=== PATIENT | female | born 1940 | race Caucasian/White ===

== ENCOUNTER 2019-01-24 13:20 | Inpatient (IN) | payer MEDICARE ==
[2019-01-24 14:00] LABS: Hematocrit 40 % (35-47); Hemoglobin 13.4 g/dl (12.0-16.0); Mean Corpuscular HGB Conc 34 g/dl (31-36); Mean Corpuscular Hemoglobin 29 pg (27-31); Mean Corpuscular Volume 87 fL (80-97); Red Blood Count 4.58 10^6/ul (4.00-5.40); Red Cell Distribution Width 15 % (10.5-15); White Blood Count 10.2 10^3/ul (3.5-10.8)
--- NOTE | 2019-01-24 14:00 | ED ---
Adult Trauma - HPI Summary HPI Summary: Pt is a 78 y/o female brought in by EMS who presents to the ED s/p fall. As per EMS, she has been non-compliant with her medications for the past month. She is prescribed Amlodipine, Eliquis, Metoprolol, and Metformin. Pts BG was found to be 595 and is mildly HTN. Her HR was found to be irregular, and her O2 sat was 95 on room air. Pt was found incontinent on her bathroom floor, and was pale and cold to the touch. She was on the floor overnight. Pt denies any fever, chills, erythema of eyes, sore throat, CP, SOB, cough, abdominal pain, N/V/D, dysuria, hematuria, myalgia, edema, rash, or dizziness. She denies any current pain. She is mildly confused and does not recall falling. Pt has not been checking her glucose. Pt lives alone. PMHx DM, HTN, CHF. - History of Current Complaint Stated Complaint: FALL Time Seen by Provider: 01/24/19 13:23 Hx Obtained From: Patient, EMS Mechanism of Injury: Fall Onset/Duration: Started Days Ago - last night, Resolved Current Severity: None Pain Intensity: 0 Pain Scale Used: 0-10 Numeric Aggravating Factor(s): Other - medication non-compliance Alleviating Factor(s): Nothing Associated Signs & Symptoms: Positive: Negative - Additional Pertinent History Primary Care Physician: [id number] - Allergy/Home Medications Allergies/Adverse Reactions: Allergies Allergy/AdvReac Type Severity Reaction Status Date / Time No Known Allergies Allergy Verified 01/24/19 13:27 Home Medications: Home Medications Acetaminop/Codeine 30 MG TAB* [Tylenol/Codeine 30 MG TAB*] 1 tab PO Q8H PRN 12/14 [History Confirmed 01/24/19] Allopurinol TAB* [Zyloprim 100 MG TAB*] 200 mg PO DAILY 01/24/19 [History Confirmed 01/24/19] Amitriptyline TAB* [Elavil TAB*] 100 mg PO BEDTIME 01/24/19 [History Confirmed 01/24/19] Amoxicillin/Clavulanate TAB* [Augmentin TAB 500 mg*] 500 mg PO BID 01/24/19 [ History Confirmed 01/24/19] Biotin 5,000 mcg SL DAILY 01/24/19 [History Confirmed 01/24/19] Calcium Carbonate/Vitamin D3 [Calcium 500 + Vit D Caplet] 1 tab PO DAILY [History Confirmed 01/24/19] DULoxetine DR CAP* [Cymbalta CAP*] 60 mg PO DAILY 01/24/19 [History Confirmed ] Dulaglutide (NF) [Trulicity (NF)] 1.5 mg SUBCUT WEEKLY 01/24/19 [History Confirmed 01/24/19] Furosemide TAB* [Lasix TAB*] 20 mg PO DAILY 01/24/19 [History Confirmed 01/24/19 ] Insulin Degludec [Tresiba Flextouch U-200] 96 units SUBCUT QPM 01/24/19 [ History Confirmed 01/24/19] Insulin REGULAR(*) 20 units SUBCUT AC 01/24/19 [History Confirmed 01/24/19] Levothyroxine TAB* [Synthroid TAB*] 25 mcg PO QAM 01/24/19 [History Confirmed ] Magnesium Oxide [Magnesium] 500 mg PO DAILY 01/24/19 [History Confirmed 01/24/19 ] [place]-3 Fatty Acids (Nf) [Fish Oil (NF)] 1,000 mg PO DAILY 01/24/19 [History Confirmed 01/24/19] Omeprazole CAP (NF) [Prilosec CAP* 20 MG] 20 mg PO DAILY 01/24/19 [History Confirmed 01/24/19] Rosuvastatin (NF) [Crestor (NF)] 10 mg PO DAILY 01/24/19 [History Confirmed 12/14] amLODIPine TAB* [Norvasc 5 mg TAB*] 5 mg PO DAILY 01/24/19 [History Confirmed ] metFORMIN* [Glucophage 500 MG TAB *] 500 mg PO BID 01/24/19 [History Confirmed 01/24/19] PMH/Surg Hx/FS Hx/Imm Hx Endocrine/Hematology History: Reports: Hx Diabetes, Hx Anemia Cardiovascular History: Reports: Hx Angina, Hx Cardiomegaly, Hx Congestive Heart Failure, Hx Hypertension, Other Cardiovascular Problems/Disorders - IDDM Denies: Hx Coronary Artery Disease, Hx Hypercholesterolemia, Hx Myocardial Infarction, Hx Pacemaker/ICD, Hx Valvular Heart Disease Respiratory History: Reports: Hx Asthma, Hx Sleep Apnea Denies: Hx Chronic Obstructive Pulmonary Disease (COPD) GI History: Reports: Hx Gastroesophageal Reflux Disease, Hx Gastrointestinal Bleed History: Denies: Hx Renal Disease Musculoskeletal History: Reports: Hx Back Problems - Spinal fusion, Hx Gout, Other Musculoskeletal History - spinal fusion Sensory History: Reports: Hx Cataracts, Hx Contacts or Glasses Denies: Hx Hearing Aid Opthamlomology History: Reports: Hx Cataracts, Hx Contacts or Glasses Neurological History: Reports: Other Neuro Impairments/Disorders - neuropathy Psychiatric History: Reports: Hx Anxiety, Hx Depression Denies: Hx Panic Disorder - Cancer History Cancer Type, Location and Year: BREAST Hx Chemotherapy: No Hx Radiation Therapy: No - Surgical History Surgery Procedure, Year, and Place: TOTAL HYSTERECTOMY/ORIF TOES/ANKLE INJURY/ BILATERAL KNEES INJURED/T&A/RT MASTECTOMY/BILATERAL CATARACT; LSP FUSION Hx Anesthesia Reactions: No - Immunization History Date of Tetanus Vaccine: Unknown Infectious Disease History: Yes Infectious Disease History: Denies: Traveled Outside the [place] in Last 30 Days - Family History Known Family History: Positive: Diabetes - Social History Alcohol Use: None Hx Substance Use: No Substance Use Type: Reports: None Hx Tobacco Use: Yes Smoking Status (MU): Former Smoker Type: Cigarettes Have You Smoked in the Last Year: No Review of Systems Negative: Fever, Chills Negative: Erythema Negative: Sore Throat Negative: Chest Pain Negative: Shortness Of Breath, Cough Negative: Abdominal Pain, Vomiting, Diarrhea, Nausea Positive: incontinence. Negative: dysuria, hematuria Negative: Myalgia, Edema Negative: Rash Neurological: Other - confusion, NEGATIVE: dizziness All Other Systems Reviewed And Are Negative: Yes Physical Exam - Summary Physical Exam Summary: Constitutional: Well-developed, Well-nourished, Alert. (-) Distressed, Malodorous smell of urine Skin: Warm, Dry HENT: Normocephalic; Atraumatic Eyes: Conjunctiva normal Neck: Musculoskeletal ROM normal neck. (-) JVD, (-) Stridor, (-) Tracheal deviation Cardio: Rhythm regular, rate normal, Heart sounds normal; Intact distal pulses; The pedal pulses are 2+ and symmetric. Radial pulses are 2+ and symmetric. (-) Murmur Pulmonary/Chest wall: Effort normal. (-) Respiratory distress, (-) Wheezes, (-) Rales Abd: Soft. (-) Tenderness, (-) Distension, (-) Guarding, (-) Rebound Musculoskeletal: (-) Edema Lymph: (-) Cervical adenopathy Neuro: Alert, Oriented x3, Strength normal, Cranial nerves II-XII are grossly intact. (-) Dysmetria, (-) Nystagmus, (-) Ataxia by finger to nose testing, (-) Sensory deficit. Psych: Mood and affect Normal Triage Information Reviewed: Yes Vital Signs On Initial Exam: Initial Vitals Temp Pulse Resp BP Pulse Ox 96.9 F 62 18 98 01/24/19 13:27 01/24/19 13:27 01/24/19 13:27 01/24/19 13:27 01/24/19 13:27 Vital Signs Reviewed: Yes - [place] Coma Scale Best Eye Response: 4 - Spontaneous Best Motor Response: 6 - Obeys Commands Best Verbal Response: 5 - Oriented Coma Scale Total: 15 Diagnostics - Vital Signs Vital Signs Temp Pulse Resp BP Pulse Ox 01/24/19 13:55 59 15 167/72 96 01/24/19 13:50 146/82 01/24/19 13:28 14 01/24/19 13:27 96.9 F 62 98 - Laboratory Result Diagrams: 01/24/19 13:48 01/24/19 13:48 Lab Statement: Any lab studies that have been ordered have been reviewed, and results considered in the medical decision making process. - Radiology CXR Radiology Interpretation Completed By: Radiologist Summary of Radiographic Findings: NO EVIDENCE FOR ACUTE DISEASE. ED physician reviewed radiology report. - CT Brain CT CT Interpretation Completed By: Radiologist Summary of CT Findings: NO ACUTE INTRACRANIAL PATHOLOGY. CHRONIC SMALL VESSEL ISCHEMIC CHANGES. ED physician reviewed radiology report. - EKG 13:46 Cardiac Rate: NL - 77 bpm EKG Rhythm: Sinus Rhythm Summary of EKG Findings: No STEMI Re-Evaluation - Re-Evaluation First Eval Re-Evaluation Time: 14:20 Change: Unchanged Comment: Pt is unsure if she had LOC. She does not recall the details of her fall. Adult Trauma Course/Dx - Course Course Of Treatment: Pt is a 78 y/o female brought in by EMS who presents to the ED s/p fall. She has been non-compliant with her medications for the past month and is prescribed Amlodipine, Eliquis, Metoprolol, and Metformin. Pts BG was found to be 595 and she was incontinent. She was on her bathroom floor overnight and is unsure if she had LOC. GCS of 15. A CXR, brain CT, and EKG were normal. There are no clinical signs of sepsis or rhabdomyolysis. Pt has been hemodynamically stable. Pt is admitted to Dr. Perez for a cardiac workup. Final dx of syncope, fall, uncontrolled diabetes, and medication non- compliance. She is agreeable with this plan. - Diagnoses Provider Diagnoses: Fall, Syncope, Uncontrolled diabetes mellitus, Non compliance w medication regimen - Physician Notifications Discussed Care Of Patient With: Abby Perez Time Discussed With Above Provider: 13:50 Instructed by Provider To: Admit As Inpatient Discharge - Sign-Out/Discharge Documenting (check all that apply): Patient Departure - Admit Patient Received Moderate/Deep Sedation with Procedure: No - Discharge Plan Condition: Stable Disposition: ADMITTED TO [facility] Referrals: Dameon Figueroa MD [Primary Care Provider] - - Attestation Statements Document Initiated by Scribe: Yes Documenting Scribe: Laura Huerta Provider For Whom Scribe is Documenting (Include Credential): Mark Sims MD Scribe Attestation: Laura Pate, scribed for Mark Sims MD on 01/24/19 at 1520. Status of Scribe Document: Ready
[2019-01-24 14:01] LABS: Mean Platelet Volume 10.9 fL (7.4-10.4); Platelet Count 77 10^3/ul (150-450)
[2019-01-24 14:18] LABS: Albumin 3.8 g/dL (3.2-5.2); Albumin/Globulin Ratio 1.3 (1-3); BUN/Creatinine Ratio 22.6 (8-20); C Reactive Protein 19.32 mg/L (<8.01); Calcium 9.9 mg/dL (8.6-10.3); EGFR African American 36.9 (>60); EGFR Non-African American 30.5 (>60); Globulin 2.9 g/dL (2-4); Potassium 4.3 mmol/L (3.5-5.0); Total Bilirubin 0.6 mg/dL (0.2-1.0); Total Protein 6.7 g/dL (6.4-8.9)
[2019-01-24] MEDS ORDERED: Insulin REGULAR(*) 1 UNITS UNIT SUBCUT ONE ×2 (14:22→14:37)
[2019-01-24 14:23] LABS: ABS Basophils 0 10^3/ul (0-0.2); ABS Eosinophils 0 10^3/ul (0-0.6); ABS Lymphocytes 0.8 10^3/ul (1.0-4.8); ABS Monocytes 0.4 10^3/ul (0-0.8); ABS Nucleated RBC 0 10^3/ul; Eosinophil % 0.3 %; Lymphocyte % 7.6 %; Nucleated Red Blood Cells % 0.1
[2019-01-24 14:49] LABS: Urine Appearance Cloudy; Urine Bacteria Absent (Absent); Urine Bilirubin Negative (Negative); Urine Blood 1+ (Negative); Urine Color Yellow; Urine Glucose 3+(>=500 mg/dL) (Negative); Urine Ketones Trace (Negative); Urine Nitrite Negative (Negative); Urine Protein 2+(100 mg/dL) (Negative); Urine Red Blood Cell 2+(6-10/hpf) (Absent); Urine Squamous Epithelial Cell Present (Absent); Urine Urobilinogen Negative (Negative); Urine White Blood Cell 2+(11-20/hpf) (Absent)
[2019-01-24] MEDS ORDERED: Insulin GLARGINE(*) 1 UNITS UNIT SUBCUT ONE (15:54)
[2019-01-24] MEDS ORDERED: NS 0.9% 1000 ML** 1,000 ML IV ONE ×2 (15:55→17:25)
[2019-01-24] MEDS ORDERED: Dextrose 50% Syringe 50 ML* 25 GM/50 ML SYRINGE IV PUSH PRN ×2 (15:56→17:25)
[2019-01-24] MEDS ORDERED: cefTRIAXone(*) 1 GM in NS 0.9% 50 ML* 50 ML IVPB SCH (16:13)
[2019-01-24] MEDS ORDERED: Acetaminophen TAB* 325 MG PO PRN (16:15)
[2019-01-24] MEDS ORDERED: Al Hydrox/Mg Hydrox/Simet LIQ* 30 ML UDC PO PRN (16:15)
[2019-01-24] MEDS ORDERED: cefTRIAXone(*) 1 GM ADVAN/BAG ONE (16:37)
[2019-01-24 16:59] LABS: TSH (Thyroid Stimulating Horm) 1.56 mcIU/mL (0.34-5.60)
[2019-01-24] MEDS ORDERED: amLODIPine TAB* 5 MG ONE (17:16)
[2019-01-24] MEDS: amLODIPine TAB* 5 MG PO SCH (17:19)
[2019-01-24] MEDS ORDERED: Insulin LISPRO* 1 UNITS UNIT SUBCUT ONE ×2 (17:25→17:30)
[2019-01-24] MEDS: Insulin LISPRO* 1 UNITS UNIT SUBCUT SCH ×2 (17:34→21:52)
[2019-01-24] MEDS: NS 0.9% 1000 ML** 1,000 ML IV SCH (19:35)
[2019-01-24] MEDS: Amitriptyline TAB* 100 MG PO SCH (21:52)
[2019-01-24] MEDS: Apixaban* 5 MG TAB PO SCH (21:53)
--- NOTE | 2019-01-25 00:54 | HP ---
CC: Dr. Merrill * HISTORY AND PHYSICAL: DATE OF ADMISSION: 01/24/19 PRIMARY CARE PROVIDER: Dr. Merrill. CHIEF COMPLAINT: Status post fall. HISTORY OF PRESENT ILLNESS: Brianda Treviño is a 78-year-old female with history of obesity; pulmonary embolism, on Eliquis; diabetes; chronic kidney disease, who stated that approximately a month ago, she has had enough of taking her medications. She stated that she is taking daily 20 different medications and she decided to stop it all. She stopped her insulin also. She also stated that she has had meals on wheels for the past several weeks, but she also stopped that because it was too expensive and she could cook herself. She lives in an apartment building where there are 40 apartments. Occasionally, her friend takes her to be able to grocery shop. The patient stated that her memory has been poor in the past 1 month and she is not sure what happened yesterday. She stated that she last had fallen yesterday, but once again, she is not sure of the time and the circumstances. Nevertheless, she was found today by the ambulance crew lying on the bathroom floor. She does not remember how long she had been lying on the floor. She does not remember if she lost consciousness or what happened. She has a bruise on her left shoulder, but otherwise she does not complain of any acute pain. Her glucose level is over 400. She appears markedly dehydrated. She is going to be admitted with diagnoses of dehydration, uncontrolled diabetes, status post fall, and likely UTI. PAST MEDICAL HISTORY: 1. Diabetes mellitus with neuropathy. 2. Hypertension. 3. History of COPD, not on oxygen. 4. History of breast cancer. 5. History of DVT of right lower extremity. 6. History of anemia. 7. Gout. 8. Depression. 9. Chronic kidney disease, stage 3. 10. History of pulmonary embolism. 11. Hypothyroidism. 12. History of mastectomy on the right. 13. Hysterectomy. 14. History of bilateral knee and chronic foot surgery status post history of chronic nonhealing ulcer under left metatarsal area. 15. History of ESBL E. coli UTI. 16. History of elevated alkaline phosphatase, isoenzyme elevation in the past. MEDICATIONS: The patient was supposed to take and she discontinued them a month ago include: 1. Senna 2 tablets at bedtime p.r.n. 2. Crestor 10 mg daily. 3. Omeprazole 20 mg daily. 4. [place]-3 fatty acids at 1000 mg daily. 5. Metformin 500 mg b.i.d. 6. Magnesium oxide 500 mg daily. 7. Levothyroxine 25 mcg daily. 8. Insulin regular 20 units with every meal. 9. Insulin degludec q.p.m. 10. Furosemide 20 mg daily. 11. Apixaban 5 mg b.i.d. 12. Trulicity 1.5 mg subcutaneously weekly. 13. Duloxetine 60 mg daily. 14. Phenylephrine with Codeine on a p.r.n. basis. 15. Calcium with vitamin D 1 capsule daily. 16. Biotin 5000 mcg sublingually daily. 17. Atenolol 50 mg daily. 18. Aspirin 81 mg daily. 19.Allopurinol 100 mg daily. 20. Amlodipine 5 mg daily. 21. Amitriptyline 100 mg at bedtime. ALLERGIES: No known drug allergies. FAMILY HISTORY: Positive for history of heart disease in the mother and father and brother. Father had lung cancer. SOCIAL HISTORY: The patient has history of smoking, quit approximately 26 years ago and has history of 1 pack a day smoking during that time. She denies any alcohol or drug use. She is retired. Her son, Bar, is her surrogate and healthcare proxy. REVIEW OF SYSTEMS: The patient states that she does not remember what really happened. She is not a good historian. She stated that she was drinking "gallons and gallons of water." She is questioning why she should be dehydrated if she is drinking so much. She denies any urinary systems. She stated that occasionally she would have abdominal pain that would go from the lower abdomen to the left upper quadrant. Her appetite had been good, but she does not remember when she ate last. All the remaining 12 systems were reviewed with the patient, who was a very poor historian, and were otherwise negative. PHYSICAL EXAMINATION GENERAL: The patient is a pleasant 78-year-old female, who is in no acute distress. The patient is alert and oriented x3, but otherwise very poor historian. The patient is pleasant, cooperative with evaluation. VITAL SIGNS: Blood pressure 167/72, heart rate of 60 and regular, respiratory rate 15, oxygen saturation 96% on room air, temperature 96.9. HEENT: Head: Atraumatic, normocephalic. Eyes: Pupils are equal, reactive to light and accommodation. Oropharynx is clear. Mucosa very dry. NECK: Supple. No JVD. No bruits bilaterally. RESPIRATORY: Clear to auscultation bilaterally. CARDIOVASCULAR: Regular rate and rhythm. No murmur. ABDOMEN: Soft, nontender. Bowel sounds are present in all 4 quadrants. EXTREMITIES: There is no edema. Pulse are 2+ bilaterally. There is no clubbing or cyanosis. There are venous stasis changes in distal bilateral lower extremities with chronic erythema noted but no infection. NEURO: Speech is clear. Cranial nerves II through XII are grossly intact. Motor strength is 5/5 bilaterally. PSYCHIATRIC: The patient is oriented x3. Pleasant, cooperative with evaluation with poor recall with no evidence of depression or anxiety. SKIN: On evaluation of the skin, apart from the venous stasis changes in the bilateral lower extremities, the patient has bruise/contusion noted on the left shoulder approximately 5 cm in diameter. DIAGNOSTIC STUDIES/LAB DATA: Showed white blood cell count of 10.2, hemoglobin of 13.4, hematocrit of 40, and platelets of 77 which appears to be chronic in this patient. Sodium 136, potassium 4.3, chloride 100, carbon dioxide 28, BUN 37, creatinine 1.64 which is slightly worse than prior. Glucose level was 426. Alkaline phosphatase level was 389, AST and ALT were 19 and 20 respectively. Total CPK of 268. C-reactive protein of 19. TSH is pending. Urinalysis positive +2 protein, trace blood, positive for nitrite, positive for esterase, positive for wbc's, rbc's, and absent for bacteria. Brain CT, impression: No acute intracranial pathology. Portable chest x-ray, impression: "No evidence of acute disease." The patient's EKG showed normal sinus rhythm with heart rate of 77 beats per minute with nonspecific ST changes. Comparing with an EKG from 2016 in July, the changes are similar. ASSESSMENT AND PLAN: 1. The patient is markedly dehydrated, likely due to uncontrolled diabetes for the past month when she stopped her medications. She is being placed on intravenous hydration and we will restart her diabetic treatment with insulin sliding scale with Lantus, initially at 40 units a day. The patient also had been on metformin and that likely will be restarted, although her creatinine is borderline for that. 2. Chronic kidney disease, stage 3. The patient's creatinine is slightly worse , likely due to dehydration. Intravenous fluids are going to be started. 3. The patient has abnormal urinalysis, although she is not symptomatic of urinary tract infection. It is possible that she has one. The patient is going to be placed empirically on ceftriaxone. I am aware that she has history of ESBL Escherichia coli, but at this point, she is not toxic appearing that would warrant specific/more aggressive treatment. 4. In regards to her hypertension, Norvasc is going to be restarted. 5. In regards to the patient's hypothyroidism, TSH is pending. I suspect her TSH is elevated due to the patient stopping her medications a month ago. I will restart her Synthroid at 25 mcg which she had taken in the past. 6. For her history of fall, the patient is going will undergo Physical Therapy and Occupational Therapy evaluation. 7. The patient's code status is full. Her surrogate is her son, Bar. 8. In accordance with the patient's wishes, I looked at patient's medication list and discontinued medications that she has not been taking for a month and she may not need those include rosuvastatin, omega-3 fatty acids, magnesium oxide, furosemide, Trulicity, Cymbalta, and allopurinol. TIME SPENT: Approximately 65 minutes was spent on admission of this patient; more than half that time was spent [id number] with the patient during the interview and physical exam. [id number]/[facility] #: [id number] MTDD
[2019-01-25] MEDS: NS 0.9% 1000 ML** 1,000 ML IV SCH (03:16)
[2019-01-25] MEDS: Levothyroxine TAB* 25 MCG TAB PO SCH (06:07)
[2019-01-25 08:28] LABS: ABS Basophils 0 10^3/ul (0-0.2); ABS Eosinophils 0.2 10^3/ul (0-0.6); ABS Lymphocytes 1.4 10^3/ul (1.0-4.8); ABS Monocytes 0.3 10^3/ul (0-0.8); ABS Neutrophils 4.7 10^3/ul (1.5-7.7); ABS Nucleated RBC 0 10^3/ul; Eosinophil % 2.4 %; Hematocrit 33 % (35-47); Hemoglobin 11.2 g/dl (12.0-16.0); Lymphocyte % 21.3 %; Mean Corpuscular HGB Conc 33 g/dl (31-36); Mean Corpuscular Hemoglobin 30 pg (27-31); Mean Corpuscular Volume 88 fL (80-97); Mean Platelet Volume 10.8 fL (7.4-10.4); Nucleated Red Blood Cells % 0.2; Platelet Count 75 10^3/ul (150-450); Red Blood Count 3.79 10^6/ul (4.00-5.40); Red Cell Distribution Width 15 % (10.5-15); White Blood Count 6.6 10^3/ul (3.5-10.8)
[2019-01-25 08:41] LABS: BUN/Creatinine Ratio 22.7 (8-20); Calcium 8.5 mg/dL (8.6-10.3); EGFR African American 43.9 (>60); EGFR Non-African American 36.3 (>60); Potassium 3.7 mmol/L (3.5-5.0)
[2019-01-25] MEDS: Apixaban* 5 MG TAB PO SCH ×2 (10:44→20:14)
[2019-01-25] MEDS: amLODIPine TAB* 5 MG PO SCH (10:44)
[2019-01-25] MEDS: Insulin LISPRO* 1 UNITS UNIT SUBCUT SCH ×4 (10:45→20:15)
[2019-01-25] MEDS: Aspirin 81 mg CHEW TAB* 81 MG TAB.CHEW PO SCH (10:45)
[2019-01-25] MEDS: Atenolol TAB* 50 MG PO SCH (10:45)
--- NOTE | 2019-01-25 11:42 | PN ---
Subjective Date of Service: 01/25/19 Interval History: Ms. Treviño is a 78 yo female, admitted yesterday after sustaining a fall. She was noted to be dehydrated and had concern for UTI. She had also stopped taking her medications. When this was discussed with her, she states, "I noticed all the other kids didn't have pills and I did, and I thought why should I keep taking them when others don't have any?" When asked about how she obtains food, she is vague but states she lives with many family members who help provide meals. She nods off several times during the course of our conversation. Conversation is somewhat tangential and nonsensical. She does deny any acute pain or concerns currently. I spoke with her son, Bar Stinson, who confirmed that much of what she told me was untrue and states that she has a history of confusion when she has a UTI. He states she has mostly been at her baseline and AO but did notice some confusion a week ago; she told him she didn't sleep well. Family History: Unchanged from Admission Social History: Unchanged from Admission Past Medical History: Unchanged from Admission Objective Active Medications: Acetaminophen (Tylenol Tab*) 650 mg PO Q4H PRN PRN Reason: FEVER/PAIN Al Hydrox/Mg Hydrox/Simethicone (Maalox Plus*) 30 ml PO Q6H PRN PRN Reason: INDIGESTION Amitriptyline HCl (Elavil Tab*) 100 mg PO BEDTIME [facility] Last Admin: 01/24/19 21:52 Dose: 100 mg Amlodipine Besylate (Norvasc Tab*) 5 mg PO DAILY [facility] Last Admin: 01/25/19 10:44 Dose: 5 mg Apixaban (Eliquis*) 5 mg PO BID [facility] Last Admin: 01/25/19 10:44 Dose: 5 mg Aspirin (Aspirin 81 Mg Chew Tab*) 81 mg PO DAILY [facility] Last Admin: 01/25/19 10:45 Dose: 81 mg Atenolol (Tenormin Tab*) 50 mg PO DAILY [facility] Last Admin: 01/25/19 10:45 Dose: 50 mg Dextrose (D50w Syringe 50 Ml*) 12.5 gm IV PUSH .FOR FS < 60 - SS PRN PRN Reason: FS < 60 Sodium Chloride (Ns 0.9% 1000 Ml) 1,000 mls @ 150 mls/hr IV PER RATE [facility] Stop: 01/25/19 22:39 Last Admin: 01/25/19 03:16 Dose: 150 mls/hr Ceftriaxone Sodium 1 gm/ (Sodium Chloride) 50 mls @ 200 mls/hr IVPB 1630 [facility] Insulin Glargine (Lantus(*)) 40 units SUBCUT Q24H [facility] Insulin Human Lispro (Humalog*) 0 units SUBCUT ACHS [facility]; Protocol Last Admin: 01/25/19 10:45 Dose: 2 unit Levothyroxine Sodium (Synthroid Tab*) 25 mcg PO QAM@0600 [facility] Last Admin: 01/25/19 06:07 Dose: 25 mcg Magnesium Hydroxide (Milk Of Magnesia Liq*) 30 ml PO Q4H PRN PRN Reason: CONSTIPATION Senna (Senokot Tab*) 2 tab PO BEDTIME PRN PRN Reason: CONSTIPATION Oxygen Devices in Use Now: None Appearance: Pleasant, older female, lying in bed, NAD Eyes: No Scleral Icterus, PERRLA Ears/Nose/Mouth/Throat: Clear Oropharnyx, Mucous Membranes Moist Neck: NL Appearance and Movements; NL JVP Respiratory: Symmetrical Chest Expansion and Respiratory Effort, Clear to Auscultation Cardiovascular: NL Sounds; No Murmurs; No JVD, RRR Abdominal: NL Sounds; No Tenderness; No Distention Extremities: No Edema, No Clubbing, Cyanosis, - - DP 2+ BLE Skin: - - chronic venous changes to BLE with dry skin, but no evidence of infection/erythema/warmth, tenderness. Neurological: - - Alert, oriented to self. States at first she is at home, is confused to time/place/situation Lines/Tubes/Other Access: Clean, Dry and Intact Peripheral IV Nutrition: Taking PO's Result Diagrams: 01/25/19 08:13 01/25/19 08:13 Microbiology and Other Data: Microbiology 01/24/19 14:13 Urine Culture - Final Urine Assess/Plan/Problems-Billing Assessment: Ms. Treviño is a 78 yo female with a complex PMH that includes DM2 with neuropathy , HTN, COPD (not on O2), history of RLE DVT andPE, history of breast cancer, anemia, depression, CKD, gout, and hypothyroidism, who presented to the ED after a fall with concern for weakness, dehydration, UTI, and now worsening confusion. - Patient Problems (1) Altered mental status Code(s): R41.82 - ALTERED MENTAL STATUS, UNSPECIFIED Comment: CT brain done in ED negative for acute pathology. Appears to wax and wane, but there is significant confusion. History of AMS with UTI; she does have concern for infection and has started ceftriaxone. She was previously living alone and reportedly alert and oriented. She also has some drowsiness but is arousable; monitor closely and will consider further workup if somnolence increases. (2) Dehydration Code(s): E86.0 - DEHYDRATION Comment: Received 2L of additional fluid on admission with appropriate response Kidney function improved Uncontrolled/untreated DM2 likely contributed (3) UTI (urinary tract infection) Comment: Unfortunately, her urine culture had mixed nichelle, will request repeat collection but may not be accurate since she has started receiving antibiotics. Her previous three urine cultures have grown ESBL E. coli with resistance to cephalosporins seen as far back to 2016. Will switch from ceftriaxone to meropenem, given her AMS. Follow repeat cultures (4) Diabetes mellitus Code(s): E11.9 - TYPE 2 DIABETES MELLITUS WITHOUT COMPLICATIONS Comment: Presented with FSBG in the 400s due to discontinuing her home medications. Restarted on Lantus and Lispro SSI with improved FSBG control. Continue to hold home metformin for now due to GUERO; she was also on Trulicity previously, which is not available here. Will add on HgbA1c. (5) CKD stage 3 due to type 2 diabetes mellitus Code(s): E11.22 - TYPE 2 DIABETES MELLITUS W DIABETIC CHRONIC KIDNEY DISEASE; N18.3 - CHRONIC KIDNEY DISEASE, STAGE 3 (MODERATE) Comment: Creatinine improving Continue to monitor (6) Hypothyroidism Code(s): E03.9 - HYPOTHYROIDISM, UNSPECIFIED Comment: TSH is in appropriate range Continue current dose of synthroid. (7) HTN (hypertension) Code(s): I10 - ESSENTIAL (PRIMARY) HYPERTENSION Comment: Hypertensive, which may be secondary to IVF and discontinuation of home regimen. Continue atenolol and amlodpine. Furosemide currently on hold due to previous concern for dehydration. IVF completed and will be discontinued. PRN hydralazine ordered (8) COPD (chronic obstructive pulmonary disease) Code(s): J44.9 - CHRONIC OBSTRUCTIVE PULMONARY DISEASE, UNSPECIFIED SNOMED Code(s): 71875401 Comment: No signs of exacerbation. She does not appear to have any maintenance inhalers; son reports she does not use O2. Question if she has OSVALDO, given her sleepiness and endorsement of frequent fatigue. Check overnight pulse oximetry. (9) History of pulmonary embolism Code(s): Z86.711 - PERSONAL HISTORY OF PULMONARY EMBOLISM Comment: Continue Eliquis. (10) DVT prophylaxis Comment: Eliquis Status and Disposition: Inpatient admission. PT/OT consults requested, given her recent fall. She previously reported frustration with amount of medications she is taking; however, it is unclear if she stopped her medications due to this frustration or due to her confusion. Continue current plan of care with ordered medications. Medication list should be reviewed with patient prior to discharge home to ensure she is in agreement with continuing her medications as prescribed. She lives alone; discharge to home will be dependent on her ability to demonstrate appropriate mentation. Attending: David Narvaez
[2019-01-25] MEDS ORDERED: cefTRIAXone(*) 1 GM in NS 0.9% 50 ML* 50 ML IVPB SCH (16:30)
[2019-01-25] MEDS: Insulin GLARGINE(*) 1 UNITS UNIT SUBCUT SCH (17:09)
[2019-01-25] MEDS: Meropenem 1 GM PREMIX(*) 1 GM/50 ML BAG IV SCH (17:11)
[2019-01-25] MEDS ORDERED: Fluconazole 150 MG TAB PO ONE (19:49)
[2019-01-25] MEDS: Amitriptyline TAB* 100 MG PO SCH (20:14)
[2019-01-26] MEDS: Meropenem 1 GM PREMIX(*) 1 GM/50 ML BAG IV SCH (03:22)
[2019-01-26] MEDS: Levothyroxine TAB* 25 MCG TAB PO SCH (05:12)
[2019-01-26 06:54] LABS: ABS Basophils 0 10^3/ul (0-0.2); ABS Eosinophils 0.2 10^3/ul (0-0.6); ABS Lymphocytes 1.3 10^3/ul (1.0-4.8); ABS Monocytes 0.3 10^3/ul (0-0.8); ABS Neutrophils 3.5 10^3/ul (1.5-7.7); ABS Nucleated RBC 0 10^3/ul; Eosinophil % 3.5 %; Hematocrit 31 % (35-47); Hemoglobin 10.5 g/dl (12.0-16.0); Lymphocyte % 24.4 %; Mean Corpuscular HGB Conc 34 g/dl (31-36); Mean Corpuscular Hemoglobin 30 pg (27-31); Mean Corpuscular Volume 88 fL (80-97); Mean Platelet Volume 11.9 fL (7.4-10.4); Nucleated Red Blood Cells % 0; Platelet Count 69 10^3/ul (150-450); Red Blood Count 3.57 10^6/ul (4.00-5.40); Red Cell Distribution Width 15 % (10.5-15); White Blood Count 5.2 10^3/ul (3.5-10.8)
[2019-01-26 07:06] LABS: BUN/Creatinine Ratio 24.8 (8-20); C Reactive Protein 27.27 mg/L (<8.01); Calcium 8.5 mg/dL (8.6-10.3); EGFR African American 43.9 (>60); EGFR Non-African American 36.3 (>60); Potassium 3.7 mmol/L (3.5-5.0)
[2019-01-26] MEDS: Magnesium Hydroxide LIQ* 30 ML UDC PO PRN ×2 (09:06→21:39)
[2019-01-26] MEDS: Apixaban* 5 MG TAB PO SCH ×2 (09:07→21:39)
[2019-01-26] MEDS: Insulin LISPRO* 1 UNITS UNIT SUBCUT SCH ×3 (09:07→17:45)
[2019-01-26] MEDS: Atenolol TAB* 50 MG PO SCH (09:07)
[2019-01-26] MEDS: Aspirin 81 mg CHEW TAB* 81 MG TAB.CHEW PO SCH (09:07)
[2019-01-26] MEDS: amLODIPine TAB* 5 MG PO SCH (09:07)
--- NOTE | 2019-01-26 14:27 | PN ---
Subjective Date of Service: 01/26/19 Interval History: No overnight events. Remains confused and disoriented. Not answering all questions appropriately. She does admit to being 'dumb' and not taking her medications. Is having diffuse abdominal pain. Unsure when her last BM was. No CP. Family History: Unchanged from Admission Social History: Unchanged from Admission Past Medical History: Unchanged from Admission Objective Active Medications: Acetaminophen (Tylenol Tab*) 650 mg PO Q4H PRN PRN Reason: FEVER/PAIN Al Hydrox/Mg Hydrox/Simethicone (Maalox Plus*) 30 ml PO Q6H PRN PRN Reason: INDIGESTION Amitriptyline HCl (Elavil Tab*) 100 mg PO BEDTIME [facility] Last Admin: 01/25/19 20:14 Dose: 100 mg Amlodipine Besylate (Norvasc Tab*) 5 mg PO DAILY [facility] Last Admin: 01/26/19 09:07 Dose: 5 mg Apixaban (Eliquis*) 5 mg PO BID [facility] Last Admin: 01/26/19 09:07 Dose: 5 mg Aspirin (Aspirin 81 Mg Chew Tab*) 81 mg PO DAILY [facility] Last Admin: 01/26/19 09:07 Dose: 81 mg Atenolol (Tenormin Tab*) 50 mg PO DAILY [facility] Last Admin: 01/26/19 09:07 Dose: 50 mg Dextrose (D50w Syringe 50 Ml*) 12.5 gm IV PUSH .FOR FS < 60 - SS PRN PRN Reason: FS < 60 Hydralazine HCl (Apresoline Iv*) 5 mg IV SLOW PU Q6H PRN PRN Reason: BLOOD PRESSURE Insulin Glargine (Lantus(*)) 40 units SUBCUT Q24H [facility] Last Admin: 01/25/19 17:09 Dose: 40 units Insulin Human Lispro (Humalog*) 0 units SUBCUT ACHS [facility]; Protocol Last Admin: 01/26/19 13:31 Dose: 6 unit Levothyroxine Sodium (Synthroid Tab*) 25 mcg PO QAM@0600 [facility] Last Admin: 01/26/19 05:12 Dose: 25 mcg Magnesium Hydroxide (Milk Of Magnesia Liq*) 30 ml PO Q4H PRN PRN Reason: CONSTIPATION Last Admin: 01/26/19 09:06 Dose: 30 ml Senna (Senokot Tab*) 2 tab PO BEDTIME PRN PRN Reason: CONSTIPATION Vital Signs - 8 hr 01/26/19 01/26/19 01/26/19 07:32 08:47 11:22 Temperature 97.7 F 97.4 F Pulse Rate 68 58 Respiratory 16 18 Rate Blood Pressure 195/63 140/70 (mmHg) O2 Sat by Pulse 98 98 Oximetry Oxygen Devices in Use Now: None Ears/Nose/Mouth/Throat: Mucous Membranes Moist Respiratory: Symmetrical Chest Expansion and Respiratory Effort, Clear to Auscultation Cardiovascular: NL Sounds; No Murmurs; No JVD, RRR Abdominal: - - hypoactive bowel sounds, distended, soft, NT Extremities: - - trace edema Neurological: - - AAOx2 - oriented to self and time. No focal deficits. Is not answering questions appropriately Result Diagrams: 01/26/19 06:28 01/26/19 06:28 Microbiology and Other Data: Microbiology 01/24/19 14:13 Urine Culture - Final Urine Assess/Plan/Problems-Billing Assessment: Ms. Treviño is a 78 yo female with a complex PMHx of DM, COPD, hx of PE who presents from home with a fall and weakness not compliant with her medications. - Patient Problems (1) Fall Current Visit: Yes Status: Acute Comment: Per notes patient was falling at home. Left shoulder shows bruising. Will get Shoulder xray . PT follow up. May need VISHNU (2) Abdominal pain Current Visit: Yes Status: Acute Code(s): R10.9 - UNSPECIFIED ABDOMINAL PAIN SNOMED Code(s): 38455258 Comment: A. Benign abdomen Not clear when her last BM was Will get KUB (3) Altered mental status Current Visit: No Status: Acute Code(s): R41.82 - ALTERED MENTAL STATUS, UNSPECIFIED SNOMED Code(s): 256507585 Comment: A. Does not appear to be acutely delirious but confused and unclear what her basline is but was living alone. Urine culture is a contaminant. CT brain: negative Plan F/U repeat Urine culture on 01/25 - will hold off on abx until it returns. Left message with son to get a history to see if there was concern for her cognitive status prior to this. Will get MRI of brain (4) GUERO (acute kidney injury) Current Visit: No Status: Acute Code(s): N17.9 - ACUTE KIDNEY FAILURE, UNSPECIFIED SNOMED Code(s): 56532026 Comment: Continued improvement. (5) Cognitive decline Current Visit: No Status: Acute Code(s): R41.89 - OTH SYMPTOMS AND SIGNS W COGNITIVE FUNCTIONS AND AWARENESS SNOMED Code(s): 460911949 Comment: - Patient seems to have some degree of cognitive impairment. Will touch base with the son (6) History of pulmonary embolism Current Visit: No Status: Acute Code(s): Z86.711 - PERSONAL HISTORY OF PULMONARY EMBOLISM SNOMED Code(s): 767296462 Comment: A. Hx of DVT and PE - Unclear when and if it was provoked. Cannot find any imaging to confirm this. With her CKD and noncompliance - question if she is a good candidate for anticoagulation Continue Eliquis for now Will touch base with Son to see if we can obtain further info, otherwise will recommend reaching out to the PCP (7) CKD stage 3 due to type 2 diabetes mellitus Current Visit: No Status: Chronic Code(s): E11.22 - TYPE 2 DIABETES MELLITUS W DIABETIC CHRONIC KIDNEY DISEASE; N18.3 - CHRONIC KIDNEY DISEASE, STAGE 3 (MODERATE) SNOMED Code(s): 115988041159 Comment: Creatinine improving Continue to monitor (8) COPD (chronic obstructive pulmonary disease) Current Visit: No Status: Chronic Onset Date: 08/15/14 Code(s): J44.9 - CHRONIC OBSTRUCTIVE PULMONARY DISEASE, UNSPECIFIED SNOMED Code(s): 98006840 Comment: No signs of exacerbation. She does not appear to have any maintenance inhalers; son reports she does not use O2. Does not appear to qualify for overnight oxygen based on her recordings. Check overnight pulse oximetry. (9) Diabetes mellitus Current Visit: No Status: Chronic Onset Date: 08/15/14 Code(s): E11.9 - TYPE 2 DIABETES MELLITUS WITHOUT COMPLICATIONS SNOMED Code(s): 29641316 Comment: A. Elevated glucose on admission - not taking her medication. Hgba1c: 9.5 Now controlled Continue Lispro and Lantus (10) HTN (hypertension) Current Visit: No Status: Chronic Code(s): I10 - ESSENTIAL (PRIMARY) HYPERTENSION SNOMED Code(s): 10384526 Comment: A. Fluctuating Continue atenolol and amlodpine. PRN hydralazine ordered (11) Hypothyroidism Current Visit: No Status: Chronic Code(s): E03.9 - HYPOTHYROIDISM, UNSPECIFIED SNOMED Code(s): 50038141 Comment: TSH is in appropriate range Continue current dose of synthroid. (12) DVT prophylaxis Current Visit: No Status: Acute Code(s): VUL0492 - SNOMED Code(s): 350125260 Comment: Eliquis Status and Disposition: Inpatient admission. PT/OT consults requested, given her recent fall. She previously reported frustration with amount of medications she is taking; however, it is unclear if she stopped her medications due to this frustration or due to her confusion. Continue current plan of care with ordered medications. Medication list should be reviewed with patient prior to discharge home to ensure she is in agreement with continuing her medications as prescribed. She lives alone; discharge to home will be dependent on her ability to demonstrate appropriate mentation.
[2019-01-26] MEDS: Insulin GLARGINE(*) 1 UNITS UNIT SUBCUT SCH (17:44)
[2019-01-26] MEDS: Amitriptyline TAB* 100 MG PO SCH (21:39)
[2019-01-26] MEDS: Senna TAB PO PRN (21:39)
[2019-01-27] MEDS: Melatonin 3 MG TAB PO PRN ×2 (01:29→23:17)
[2019-01-27] MEDS: Levothyroxine TAB* 25 MCG TAB PO SCH (05:17)
[2019-01-27] MEDS: hydrALAZINE IV* 20 MG/ML VIAL IV SLOW PU PRN (05:17)
[2019-01-27] MEDS: Atenolol TAB* 50 MG PO SCH (09:15)
[2019-01-27] MEDS: Insulin LISPRO* 1 UNITS UNIT SUBCUT SCH ×3 (09:16→17:53)
[2019-01-27] MEDS: amLODIPine TAB* 5 MG PO SCH (09:16)
[2019-01-27] MEDS: Apixaban* 5 MG TAB PO SCH ×2 (09:16→20:55)
[2019-01-27] MEDS: Aspirin 81 mg CHEW TAB* 81 MG TAB.CHEW PO SCH (09:16)
--- NOTE | 2019-01-27 17:06 | PN ---
Subjective Date of Service: 01/27/19 Interval History: Patient seen and examined at bedside. Denies fever, chills, shortness of breath , chest discomfort, N/V/D. Ms. Treviño states that she got upset with the nurse earlier today when she told her that there were really not cows outside the window. Family History: Unchanged from Admission Social History: Unchanged from Admission Past Medical History: Unchanged from Admission Objective Active Medications: Acetaminophen (Tylenol Tab*) 650 mg PO Q4H PRN Reason: FEVER/PAIN Al Hydrox/Mg Hydrox/Simethicone (Maalox Plus*) 30 ml PO Q6H PRN Reason: INDIGESTION Amitriptyline HCl (Elavil Tab*) 100 mg PO BEDTIME [facility] Amlodipine Besylate (Norvasc Tab*) 5 mg PO DAILY [facility] Apixaban (Eliquis*) 5 mg PO BID [facility] Aspirin (Aspirin 81 Mg Chew Tab*) 81 mg PO DAILY [facility] Atenolol (Tenormin Tab*) 50 mg PO DAILY [facility] Dextrose (D50w Syringe 50 Ml*) 12.5 gm IV PUSH .FOR FS < 60 - SS PRN Reason: FS < 60 Hydralazine HCl (Apresoline Iv*) 5 mg IV SLOW PU Q6H PRN Reason: BLOOD PRESSURE Insulin Glargine (Lantus(*)) 40 units SUBCUT Q24H [facility] Insulin Human Lispro (Humalog*) 0 units SUBCUT AC [facility]; Protocol Levothyroxine Sodium (Synthroid Tab*) 25 mcg PO QAM@0600 [facility] Magnesium Hydroxide (Milk Of Magnesia Liq*) 30 ml PO Q4H PRN Reason: CONSTIPATION Melatonin (Melatonin) 3 mg PO BEDTIME [facility]; Protocol Reason: SLEEP Senna (Senokot Tab*) 2 tab PO BEDTIME PRN Reason: CONSTIPATION Vital Signs - 8 hr 01/27/19 01/27/19 01/27/19 09:47 15:17 15:24 Temperature 97.3 F 98.8 F Pulse Rate 58 71 73 Respiratory 20 18 Rate Blood Pressure 158/55 (mmHg) O2 Sat by Pulse 97 98 Oximetry 01/27/19 15:52 Temperature Pulse Rate Respiratory Rate Blood Pressure 160/85 (mmHg) O2 Sat by Pulse Oximetry Oxygen Devices in Use Now: None Appearance: NAD, sitting up on the side of the bed Ears/Nose/Mouth/Throat: Mucous Membranes Moist Respiratory: Symmetrical Chest Expansion and Respiratory Effort, Clear to Auscultation Cardiovascular: NL Sounds; No Murmurs; No JVD, RRR Abdominal: NL Sounds; No Tenderness; No Distention Extremities: No Edema Skin: No Rash or Ulcers Neurological: Alert and Oriented x 3, NL Muscle Strength and Tone Nutrition: Taking PO's Result Diagrams: 01/26/19 06:28 01/26/19 06:28 Microbiology and Other Data: Microbiology 01/24/19 14:13 Urine Culture - Final Urine Assess/Plan/Problems-Billing Assessment: Ms. Treviño is a 78 yo female with a complex PMHx of DM, COPD, hx of PE who presents from home with a fall and weakness not compliant with her medications. - Patient Problems (1) Altered mental status Code(s): R41.82 - ALTERED MENTAL STATUS, UNSPECIFIED SNOMED Code(s): 518711266 Comment: - Does not appear to be acutely delirious but confused and unclear what her basline is but was living alone - Urine culture is a contaminant, repeat urine culture 3/ no growth - CT brain: negative - Brain MRI: no acute findings - Continue supportive care (2) Fall Comment: - Per notes patient was falling at home - Left shoulder shows bruising - Left shoulder xray: Degenerative changes, no acute findings - May need VISHNU (3) Abdominal pain Code(s): R10.9 - UNSPECIFIED ABDOMINAL PAIN SNOMED Code(s): 80124718 Comment: - Benign abdomen - Normal KUB (4) Diabetes mellitus Code(s): E11.9 - TYPE 2 DIABETES MELLITUS WITHOUT COMPLICATIONS SNOMED Code(s) : 28475738 Comment: - Hyperglycemia, glucose 220-320's - Non compliant with medications at home - Hgba1c: 9.5 - Continue Lispro and Lantus (increase to 50 units) (5) HTN (hypertension) Code(s): I10 - ESSENTIAL (PRIMARY) HYPERTENSION SNOMED Code(s): 83790757 Comment: - SBP 150-180's - Continue atenolol and amlodpine (increase today) - PRN hydralazine (6) History of pulmonary embolism Code(s): Z86.711 - PERSONAL HISTORY OF PULMONARY EMBOLISM SNOMED Code(s): 557636944 Comment: - Hx of DVT and PE - Unclear when and if it was provoked. Cannot find any imaging to confirm this - With her CKD and noncompliance, question if she is a good candidate for anticoagulation - Continue Eliquis for now - Will try to obtain records from PCP (7) CKD stage 3 due to type 2 diabetes mellitus Code(s): E11.22 - TYPE 2 DIABETES MELLITUS W DIABETIC CHRONIC KIDNEY DISEASE; N18.3 - CHRONIC KIDNEY DISEASE, STAGE 3 (MODERATE) SNOMED Code(s): 831600543333 Comment: - With acute on chronic on admission - Secondary to DM - Creatinine appears to be near baseline (8) COPD (chronic obstructive pulmonary disease) Code(s): J44.9 - CHRONIC OBSTRUCTIVE PULMONARY DISEASE, UNSPECIFIED SNOMED Code(s): 40384915 Comment: - No signs of exacerbation - She does not appear to have any maintenance inhalers; son reports she does not use O2. Does not appear to qualify for overnight oxygen based on her recordings. - No significant O2 desaturations overnight (9) Hypothyroidism Code(s): E03.9 - HYPOTHYROIDISM, UNSPECIFIED SNOMED Code(s): 78196645 Comment: - TSH 1.56 - Continue current dose of synthroid (10) DVT prophylaxis Code(s): [id number] - SNOMED Code(s): 557121395 Comment: - Eliquis (11) Full code status Code(s): Z78.9 - OTHER SPECIFIED HEALTH STATUS SNOMED Code(s): 371112244 Status and Disposition: Inpatient admission. PT/OT consults requested, given her recent fall. She previously reported frustration with amount of medications she is taking; however, it is unclear if she stopped her medications due to this frustration or due to her confusion. Continue current plan of care with ordered medications. Medication list should be reviewed with patient prior to discharge home to ensure she is in agreement with continuing her medications as prescribed. She lives alone; discharge to home will be dependent on her ability to demonstrate appropriate mentation.
[2019-01-27] MEDS: Insulin GLARGINE(*) 1 UNITS UNIT SUBCUT SCH ×2 (17:18→17:53)
[2019-01-27] MEDS: Amitriptyline TAB* 100 MG PO SCH (20:55)
[2019-01-28] MEDS: Levothyroxine TAB* 25 MCG TAB PO SCH (05:54)
[2019-01-28] MEDS: Magnesium Hydroxide LIQ* 30 ML UDC PO PRN (08:51)
[2019-01-28] MEDS: Apixaban* 5 MG TAB PO SCH ×2 (08:51→21:04)
[2019-01-28] MEDS: Atenolol TAB* 50 MG PO SCH (08:52)
[2019-01-28] MEDS: Aspirin 81 mg CHEW TAB* 81 MG TAB.CHEW PO SCH (08:52)
[2019-01-28] MEDS: amLODIPine TAB* 5 MG PO SCH (08:52)
[2019-01-28] MEDS: Insulin LISPRO* 1 UNITS UNIT SUBCUT SCH ×3 (08:53→17:59)
--- NOTE | 2019-01-28 15:24 | PN ---
Subjective Date of Service: 01/28/19 Interval History: Patient seen and examined at bedside. Denies fever, chills, shortness of breath , chest pain, palpitations, N/V/D. She reports intermittently seeing things that she knows are not present. Reports "seeing a presence in the room, but when she looked closer nothing was there." Denies auditory hallucinations. Family History: Unchanged from Admission Social History: Unchanged from Admission Past Medical History: Unchanged from Admission Objective Active Medications: Acetaminophen (Tylenol Tab*) 650 mg PO Q4H PRN Reason: FEVER/PAIN Al Hydrox/Mg Hydrox/Simethicone (Maalox Plus*) 30 ml PO Q6H PRN Reason: INDIGESTION Amitriptyline HCl (Elavil Tab*) 100 mg PO BEDTIME [facility] Amlodipine Besylate (Norvasc Tab*) 10 mg PO DAILY [facility] Apixaban (Eliquis*) 5 mg PO BID [facility] Aspirin (Aspirin 81 Mg Chew Tab*) 81 mg PO DAILY [facility] Atenolol (Tenormin Tab*) 50 mg PO DAILY [facility] Dextrose (D50w Syringe 50 Ml*) 12.5 gm IV PUSH .FOR FS < 60 - SS PRN Reason: FS < 60 Hydralazine HCl (Apresoline Iv*) 5 mg IV SLOW PU Q6H PRN Reason: BLOOD PRESSURE Insulin Glargine (Lantus(*)) 50 units SUBCUT Q24H [facility] Insulin Human Lispro (Humalog*) 0 units SUBCUT AC [facility]; Protocol Levothyroxine Sodium (Synthroid Tab*) 25 mcg PO QAM@0600 [facility] Magnesium Hydroxide (Milk Of Magnesia Liq*) 30 ml PO Q4H PRN Reason: CONSTIPATION Melatonin (Melatonin) 3 mg PO BEDTIME PRN; Protocol Reason: SLEEP Senna (Senokot Tab*) 2 tab PO BEDTIME PRN Reason: CONSTIPATION Vital Signs - 8 hr 01/28/19 01/28/19 01/28/19 07:49 08:00 11:17 Temperature 97.4 F 97.4 F Pulse Rate 57 73 Respiratory 20 20 18 Rate Blood Pressure 157/60 171/52 (mmHg) O2 Sat by Pulse 97 97 Oximetry Oxygen Devices in Use Now: None Appearance: NAD, laying in bed Eyes: PERRLA Ears/Nose/Mouth/Throat: Clear Oropharnyx, Mucous Membranes Moist Neck: Trachea Midline Respiratory: Symmetrical Chest Expansion and Respiratory Effort Cardiovascular: RRR Abdominal: NL Sounds; No Tenderness; No Distention - Bowel sounds normoactive x 4 Extremities: No Edema - Non-pitting edema BLE's. Skin: No Rash or Ulcers Neurological: Alert and Oriented x 3, NL Muscle Strength and Tone Result Diagrams: 01/26/19 06:28 01/26/19 06:28 Microbiology and Other Data: Microbiology 01/24/19 14:13 Urine Culture - Final Urine Assess/Plan/Problems-Billing Assessment: Ms. Treviño is a 78 yo female with a complex PMHx of DM, COPD, hx of PE who presents from home with a fall and weakness not compliant with her medications. - Patient Problems (1) Altered mental status Code(s): R41.82 - ALTERED MENTAL STATUS, UNSPECIFIED SNOMED Code(s): 853078244 Comment: - Differential diagnosis: vascular dementia, delirium, psychosis, infection - Neuro consult placed to r/o vascular dementia - Does not appear to be acutely delirious but reports "seeing a presencse" in her room - Basline is unclear but was living alone - Urine culture is a contaminant, repeat urine culture 3/ no growth - No signs of infection - CT brain: negative - Brain MRI: no acute findings - Continue supportive care - Will check vitamin B12 and EEG (2) Fall Comment: - No falls during hospitalization - Per notes patient was falling at home - Left shoulder shows bruising - Left shoulder xray: Degenerative changes, no acute findings - May need VISHNU (3) Abdominal pain Code(s): R10.9 - UNSPECIFIED ABDOMINAL PAIN SNOMED Code(s): 21155960 Comment: - BS normoactive x 4 quads - Denies pain/tenderness upon palpation - Benign abdomen - Normal KUB - Unclear when last BM was - Continue bowel medications (4) Diabetes mellitus Code(s): E11.9 - TYPE 2 DIABETES MELLITUS WITHOUT COMPLICATIONS SNOMED Code(s) : 65158436 Comment: - Hyperglycemia, glucose Today's range 160-320's - Non compliant with medications at home - Hgba1c: 9.5 - Continue Lispro and Lantus (increase to 50 units) (5) HTN (hypertension) Code(s): I10 - ESSENTIAL (PRIMARY) HYPERTENSION SNOMED Code(s): 00851175 Comment: - SBP 110-170's - Continue atenolol and amlodpine (increased yesterday) - PRN hydralazine (6) History of pulmonary embolism Code(s): Z86.711 - PERSONAL HISTORY OF PULMONARY EMBOLISM SNOMED Code(s): 274346111 Comment: - Hx of DVT and PE - Unclear when and if it was provoked. Cannot find any imaging to confirm this - With her CKD and noncompliance, question if she is a good candidate for anticoagulation - Continue Eliquis for now - Will try to obtain records from PCP (7) CKD stage 3 due to type 2 diabetes mellitus Code(s): E11.22 - TYPE 2 DIABETES MELLITUS W DIABETIC CHRONIC KIDNEY DISEASE; N18.3 - CHRONIC KIDNEY DISEASE, STAGE 3 (MODERATE) SNOMED Code(s): 248446275568 Comment: - With acute on chronic on admission - Secondary to DM - Creatinine appears to be near baseline (8) COPD (chronic obstructive pulmonary disease) Code(s): J44.9 - CHRONIC OBSTRUCTIVE PULMONARY DISEASE, UNSPECIFIED SNOMED Code(s): 28709652 Comment: - No signs of exacerbation. Denies dyspnea/sob. - She does not appear to have any maintenance inhalers; son reports she does not use O2. - Does not appear to qualify for overnight oxygen based on her recordings. No significant O2 desaturations overnight with overnight reading (9) Hypothyroidism Code(s): E03.9 - HYPOTHYROIDISM, UNSPECIFIED SNOMED Code(s): 10159742 Comment: - TSH 1.56 - Continue current dose of synthroid (10) DVT prophylaxis Code(s): MOC9325 - SNOMED Code(s): 703035830 Comment: - Eliquis (11) Full code status Code(s): Z78.9 - OTHER SPECIFIED HEALTH STATUS SNOMED Code(s): 600051403 Status and Disposition: Inpatient. Neurology consult. Discharge to home when medically stable, she will likely need VISHNU. Attending: Jossue Mchugh
[2019-01-28] MEDS ORDERED: Bisacodyl SUPP* 10 MG SUPP PR PRN (16:49)
[2019-01-28] MEDS: Insulin GLARGINE(*) 1 UNITS UNIT SUBCUT SCH (17:59)
[2019-01-28] MEDS: Polyethylene Glycol 3350* 17 GM PACKET PO PRN (18:00)
[2019-01-28] MEDS: Amitriptyline TAB* 100 MG PO SCH (21:04)
[2019-01-29] MEDS: Levothyroxine TAB* 25 MCG TAB PO SCH (05:31)
[2019-01-29] MEDS: Aspirin 81 mg CHEW TAB* 81 MG TAB.CHEW PO SCH (08:27)
[2019-01-29] MEDS: Senna TAB PO PRN (08:27)
[2019-01-29] MEDS: Polyethylene Glycol 3350* 17 GM PACKET PO PRN (08:27)
[2019-01-29] MEDS: Magnesium Hydroxide LIQ* 30 ML UDC PO PRN ×2 (08:27→17:20)
[2019-01-29] MEDS: Atenolol TAB* 50 MG PO SCH (08:28)
[2019-01-29] MEDS: amLODIPine TAB* 5 MG PO SCH (08:28)
[2019-01-29] MEDS: Apixaban* 5 MG TAB PO SCH ×2 (08:28→19:57)
[2019-01-29] MEDS: Insulin LISPRO* 1 UNITS UNIT SUBCUT SCH ×3 (08:28→17:20)
--- NOTE | 2019-01-29 09:01 | PN ---
Subjective Date of Service: 01/29/19 Interval History: reports that she know she is having episode of confusion, states that she does not remember why she is here or how she got here. Patient reports that the memory issues scare her. Family History: Unchanged from Admission Social History: Unchanged from Admission Past Medical History: Unchanged from Admission Objective Active Medications: Acetaminophen (Tylenol Tab*) 650 mg PO Q4H PRN PRN Reason: FEVER/PAIN Last Admin: 01/26/19 17:44 Dose: 650 mg Al Hydrox/Mg Hydrox/Simethicone (Maalox Plus*) 30 ml PO Q6H PRN PRN Reason: INDIGESTION Amitriptyline HCl (Elavil Tab*) 100 mg PO BEDTIME [facility] Last Admin: 01/28/19 21:04 Dose: 100 mg Amlodipine Besylate (Norvasc Tab*) 10 mg PO DAILY [facility] Last Admin: 01/29/19 08:28 Dose: 10 mg Apixaban (Eliquis*) 5 mg PO BID [facility] Last Admin: 01/29/19 08:28 Dose: 5 mg Aspirin (Aspirin 81 Mg Chew Tab*) 81 mg PO DAILY [facility] Last Admin: 01/29/19 08:27 Dose: 81 mg Atenolol (Tenormin Tab*) 50 mg PO DAILY [facility] Last Admin: 01/29/19 08:28 Dose: 50 mg Bisacodyl (Dulcolax Supp*) 10 mg LA DAILY PRN PRN Reason: CONSTIPATION Dextrose (D50w Syringe 50 Ml*) 12.5 gm IV PUSH .FOR FS < 60 - SS PRN PRN Reason: FS < 60 Hydralazine HCl (Apresoline Iv*) 5 mg IV SLOW PU Q6H PRN PRN Reason: BLOOD PRESSURE Last Admin: 01/27/19 05:17 Dose: 5 mg Insulin Glargine (Lantus(*)) 50 units SUBCUT Q24H [facility] Last Admin: 01/28/19 17:59 Dose: 50 units Insulin Human Lispro (Humalog*) 0 units SUBCUT AC [facility]; Protocol Last Admin: 01/29/19 08:28 Dose: 1 units Levothyroxine Sodium (Synthroid Tab*) 25 mcg PO QAM@0600 [facility] Last Admin: 01/29/19 05:31 Dose: 25 mcg Magnesium Hydroxide (Milk Of Magnesia Liq*) 30 ml PO Q4H PRN PRN Reason: CONSTIPATION Last Admin: 01/29/19 08:27 Dose: 30 ml Melatonin (Melatonin) 3 mg PO BEDTIME PRN; Protocol PRN Reason: SLEEP Last Admin: 01/27/19 23:17 Dose: 3 mg Polyethylene Glycol/Electrolytes (Miralax*) 17 gm PO DAILY PRN PRN Reason: CONSTIPATION Last Admin: 01/29/19 08:27 Dose: 17 gm Senna (Senokot Tab*) 2 tab PO BEDTIME PRN PRN Reason: CONSTIPATION Last Admin: 01/29/19 08:27 Dose: 2 tab Additional Medications: Pt examined while laying in bed. Does not appear in any current distress. Vital Signs - 8 hr 01/29/19 01/29/19 01/29/19 01:53 03:54 06:07 Temperature 97.6 F 97.9 F Pulse Rate 61 72 Respiratory 20 20 Rate Blood Pressure 178/66 (mmHg) O2 Sat by Pulse 93 97 Oximetry 01/29/19 01/29/19 08:00 08:40 Temperature Pulse Rate 68 Respiratory 18 Rate Blood Pressure 158/64 (mmHg) O2 Sat by Pulse Oximetry Oxygen Devices in Use Now: None Result Diagrams: 01/26/19 06:28 01/26/19 06:28 Microbiology and Other Data: Microbiology 01/24/19 14:13 Urine Culture - Final Urine Assess/Plan/Problems-Billing Assessment: Ms. Treviño is a 78 yo female with a complex PMHx of DM, COPD, hx of PE who presents from home with a fall and weakness not compliant with her medications. - Patient Problems (1) Altered mental status Current Visit: No Status: Acute Code(s): R41.82 - ALTERED MENTAL STATUS, UNSPECIFIED SNOMED Code(s): 470723426 Comment: - Differential diagnosis: vascular dementia, delirium, psychosis, infection - Neuro consult placed to r/o vascular dementia - Does not appear to be acutely delirious but reports "seeing a presencse" in her room - Basline is unclear but was living alone - Urine culture is a contaminant, repeat urine culture 3/ no growth - No signs of infection - CT brain: negative - Brain MRI: no acute findings - Continue supportive care - Will check vitamin B12 and EEG (2) Fall Current Visit: Yes Status: Acute Comment: - No falls during hospitalization - Per notes patient was falling at home - Left shoulder shows bruising - Left shoulder xray: Degenerative changes, no acute findings - May need VISHNU (3) Abdominal pain Current Visit: Yes Status: Acute Code(s): R10.9 - UNSPECIFIED ABDOMINAL PAIN SNOMED Code(s): 11632228 Comment: - BS normoactive x 4 quads - Denies pain/tenderness upon palpation - Benign abdomen - Normal KUB - Unclear when last BM was - Continue bowel medications (4) History of pulmonary embolism Current Visit: Yes Status: Acute Code(s): Z86.711 - PERSONAL HISTORY OF PULMONARY EMBOLISM SNOMED Code(s): 027862605 Comment: - Hx of DVT and PE - Unclear when and if it was provoked. Cannot find any imaging to confirm this - With her CKD and noncompliance, question if she is a good candidate for anticoagulation - Continue Eliquis for now - Will try to obtain records from PCP (5) Hypothyroidism Current Visit: Yes Status: Chronic Code(s): E03.9 - HYPOTHYROIDISM, UNSPECIFIED SNOMED Code(s): 87660023 Comment: - TSH 1.56 - Continue current dose of synthroid (6) COPD (chronic obstructive pulmonary disease) Current Visit: No Status: Chronic Onset Date: 08/15/14 Code(s): J44.9 - CHRONIC OBSTRUCTIVE PULMONARY DISEASE, UNSPECIFIED SNOMED Code(s): 08803767 Comment: - No signs of exacerbation. Denies dyspnea/sob. - She does not appear to have any maintenance inhalers; son reports she does not use O2. - Does not appear to qualify for overnight oxygen based on her recordings. No significant O2 desaturations overnight with overnight reading (7) Diabetes mellitus Current Visit: No Status: Chronic Onset Date: 08/15/14 Code(s): E11.9 - TYPE 2 DIABETES MELLITUS WITHOUT COMPLICATIONS SNOMED Code(s): 94420866 Comment: - Hyperglycemia, glucose Today's range 160-320's - Non compliant with medications at home - Hgba1c: 9.5 - Continue Lispro and Lantus (increase to 50 units) (8) HTN (hypertension) Current Visit: No Status: Chronic Code(s): I10 - ESSENTIAL (PRIMARY) HYPERTENSION SNOMED Code(s): 20075672 Comment: - SBP 110-170's - Continue atenolol and amlodpine (increased yesterday) - PRN hydralazine (9) CKD stage 3 due to type 2 diabetes mellitus Current Visit: No Status: Chronic Code(s): E11.22 - TYPE 2 DIABETES MELLITUS W DIABETIC CHRONIC KIDNEY DISEASE; N18.3 - CHRONIC KIDNEY DISEASE, STAGE 3 (MODERATE) SNOMED Code(s): 528540656914 Comment: - With acute on chronic on admission - Secondary to DM - Creatinine appears to be near baseline (10) DVT prophylaxis Current Visit: Yes Status: Acute Code(s): TRV4206 - SNOMED Code(s): 789553211 Comment: - Eliquis Status and Disposition: Inpatient. Neurology consult. Discharge to home when medically stable, she will likely need VISHNU.
[2019-01-29] MEDS ORDERED: Cyanocobalamin INJ * 1,000 MCG/ML VIAL 1 ML VIAL IM ONE (13:39)
[2019-01-29] MEDS: Insulin GLARGINE(*) 1 UNITS UNIT SUBCUT SCH (17:21)
--- NOTE | 2019-01-29 19:16 | CONS ---
NEUROLOGY CONSULTATION NOTE: DATE OF CONSULT: 01/29/19 CONSULTING PROVIDER: Fanny Pearl NP REASON FOR CONSULT: Visual hallucination. CHIEF COMPLAINT: Hallucination. HISTORY OF PRESENT ILLNESS: Ms. Brianda Treviño is a 78-year-old female with history of diabetes, hypertension, COPD, depression, who is on amitriptyline 100 mg daily, who presented to [facility] after she had a fall. The patient stated that she is on a lot of medications. She recently stopped her medications because she was tired of taking all these drugs. While she was in the hospital, the patient reported evidence of visual hallucination of spiders and snakes crawling in her room. She stated that every time she would look towards the right or left quickly, she would see an object, but when she double- checks again and object usually is gone. She has been reported to be inappropriate with staff members, but alert and oriented throughout the hospitalization. Neurology was consulted to evaluate for her hallucinations. The patient stated that she has had hallucinations in the past, but have never been this severe. She has symptoms sporadically daily. She denied any visual disturbance, although she did have cataract surgery in the past and she uses bifocal lenses. She does not hear anybody speaking to her. She denied any suicidal or homicidal ideation. The hallucinations seemed to occur again sporadically throughout the day and not only at nighttime. Last time she saw an animal was yesterday. She had an MRI of the brain without contrast that showed generalized cortical atrophy with white matter changes consistent with small-vessel ischemic disease. She had a CT of the head completed on 01/24/19 that showed no acute intracranial abnormality and chronic small-vessel ischemic changes. The patient had a vitamin B12 level checked, which was 241. Her hemoglobin A1c was 9.3. TSH was 1.56. Urinalysis was obtained and the patient had 2+ wbc, but no evidence of keli pyuria. The patient complains of short- term memory loss. She stated that her son mentioned that she can remember her childhood and her son's childhood history, but she cannot remember the event that she did yesterday. The patient did have a fall before admission. She reported not losing consciousness or hitting her head. PAST MEDICAL HISTORY: Diabetes mellitus with neuropathy; hypertension; dyslipidemia; DVT, on Eliquis; anemia; gout; depression; chronic kidney disease , stage 2; history of PE; hypothyroidism; history of mastectomy on the right; hysterectomy; history of bilateral knee and chronic foot surgeries; history of ESBL E. coli UTI in the past; history of elevated alkaline phosphatase. MEDICATIONS: The patient discontinued the following medications: 1. Crestor 10 mg daily. 2. Omeprazole 20 mg daily. 3. [place]-3 fatty acids. 4. Metformin 500 mg b.i.d. 5. Magnesium oxide 500 mg daily. 6. Levothyroxine 25 mcg daily. 7. Insulin 20 units daily. 8. Furosemide 20 mg daily. 9. Apixaban 5 mg b.i.d. 10. Trulicity 1.5 mg subcutaneous weekly. 11. Duloxetine 60 mg daily. 12. Phenylephrine with codeine as needed. 13. Calcium with vitamin D capsules. 14. Biotin 5000 mcg. 15. Atenolol 50 mg daily. 16. Aspirin 81 mg daily. 17. Augmentin 500 mg b.i.d. 18. Amlodipine 5 mg daily. 19. Amitriptyline 100 mg at bedtime. 20. Allopurinol 100 mg daily. ALLERGIES: No known drug allergies. FAMILY HISTORY: She has no family history of stroke or seizures. SOCIAL HISTORY: The patient denied recent history of tobacco use. She quit 26 years ago. She denied any alcohol use. I personally contacted her son, Bar, which is the surrogate and healthcare proxy, but he did not answer. REVIEW OF SYSTEMS: The patient denied any focal weakness or paresthesias. She denied any headaches. She denied any swallowing impairment. A 14-point review of systems otherwise is negative except for what is mentioned in the HPI. PHYSICAL EXAM: Vital Signs: Temperature of 98.2, pulse of 70, respiratory rate of 18, oxygen saturation 96%, blood pressure 152/92. Well-nourished, well- developed, elderly female who is pleasantly confused and has short-term memory loss. Head: Atraumatic, normocephalic. Eyes: Conjunctivae/corneas are clear. Neck is supple and symmetrical with no carotid bruit. Lungs are clear to auscultation bilaterally. Cardiovascular: Regular rate and rhythm with normal S1, S2. Skin: No skin lacerations. Psych: Affect is broad and normal mood. Neurological Examination: Mental Status: Awake, alert, and oriented to person , place, time, and general circumstances. Her speech and language including expression, naming, and repetition were assessed and found to be normal. The patient does have short- term memory loss. She was able to repeat only 1/5 words after 1 minute. She was unable to tell the examiner 11 words that begin with the letter F within 60 minutes. She had visual-spatial defect as she was unable to complete the connecting puzzle and was having trouble copying the queue. She had no trouble drawing the clock. She had trouble calculating using simple serial 7s. Overall, the score that she had obtained was 23/30 in the MoCA testing. Motor Examination: No abnormal movements or pronator drift. She was able to elevate all 4 extremities against gravity. Reflexes: 1+ throughout the upper and lower extremities. Sensation: Distal to proximal sensory gradient demarcated up to the knees bilaterally. Coordination: Normal [id number] and rapid alternating movements. Gait and station: Wide-based gait. Did not assess long-distance ambulation. ASSESSMENT: 1. Ms. Brianda Treviño is a very pleasant 78-year-old right-handed female with history of hypertension, dyslipidemia, diabetes that is uncontrolled with an A1c level of 9.6, depression, who is taking amitriptyline 100 mg daily, who presented after a fall. . Neurology was consulted for evaluation of visual hallucinations. At this time, the patient has no evidence of any parkinsonism that are contributing to her hallucination. Her hallucinations are benign at this time and could be related to multifactorial processes such as toxic encephalopathy related to amitriptyline toxicity or high dose for the patient's age, metabolic causes related to hyperglycemia, or due to an undiagnosed dementia which may manifest with benign hallucination and delirium in the setting of hospitalization. We excluded a stroke given the lack of focal neurological deficit and negative brain MRI. She does not have any headaches or a meningismal sign to suspect [employer] infection. 2. Peripheral neuropathy. 3. Depression. 4. Falls, most likely related to gait imbalance due to peripheral neuropathy, but also can be contributed from the polypharmacy, although the patient stated that she has not had any of her medications for a month prior to the admission. RECOMMENDATIONS: I recommend slowly weaning off amitriptyline. Please decrease amitriptyline to 50 mg nightly and then eventually 25 mg nightly after 1 week, and then she should discontinue the medication. Amitriptyline can cause hallucination and can cause cognitive dysfunction as what we have seen on examination today. I have started the patient on cyanocobalamin to take 1000 mcg p.o. daily as well as provided with 1 intramuscular injection of 1000 mcg today. I urged the patient to participate with some physical activity. I also encouraged her to closely monitor her blood glucose as this can contribute to some of her neurological dysfunction. I do not suspect this is Pedro Pablo Bonnet syndrome as the patient does not have significant intraocular disease. Continue to monitor and provide supportive care. I do not have any further neurological recommendations. We will sign off, but please contact me for any questions or concerns. [id number]/[facility] #: [id number] BARB[facility]
[2019-01-29] MEDS: hydrALAZINE IV* 20 MG/ML VIAL IV SLOW PU PRN (19:55)
[2019-01-29] MEDS: Amitriptyline TAB* 100 MG PO SCH (19:57)
--- NOTE | 2019-01-29 20:31 | EEG ---
ELECTROENCEPHALOGRAPHY: DATE OF STUDY: 01/29/19 - ROOM #412 TIME OF TRACIN to 1232 DATE READ: 01/29/19 ORDERED BY: Fanny Pearl NP. CLINICAL PROBLEM: Ms. Treviño is a 78-year-old female with intermittent visual hallucinations. This EEG was obtained to evaluate for epileptiform discharges or electrographic seizures. MEDICATIONS: 1. Tylenol. 2. Maalox. 3. Amitriptyline. 4. Amlodipine. 5. Eliquis. 6. Aspirin. 7. Atenolol. 8. Hydralazine. 9. Insulin. 10. Levothyroxine. 11. Magnesium oxide. 12. Melatonin. 13. Senna. CLINICAL STATE: Waking and drowsy. REPORT: The background consisted of a mixed frequency slowing in the delta and theta range with appropriate organization and clearly defined anterior- posterior voltage. There was a waking slow background rhythm of 7 Hz, which was symmetrical and showed normal reactivity. There were intervals of diffuse higher amplitude, polymorphic, predominantly delta slowing with frequency of 1 to 2 Hz lasting for 2 to 3 seconds. Attenuation of the occipital rhythm accompanied drowsiness. Hyperventilation and photic stimulation were not performed. EKG showed a normal sinus rhythm with a rate of 70 beats per minute. There were no epileptiform discharges or electrographic seizures seen throughout the recording. CLINICAL IMPRESSION: This is an abnormal waking and drowsy EEG due to the presence of diffuse slowing of the background and slow posterior dominant rhythm. Otherwise, there was normal organization and reactivity. These findings are suggestive of a mild nonspecific encephalopathy, which can be seen in the setting of cerebral atrophy, neurodegenerative disorder, toxic metabolic disturbance, or as a result of side effects related to medication. Clinical correlation is recommended. [id number]/[place] #: [id number] [facility]
[2019-01-29] MEDS ORDERED: Dextrose 50% Syringe 50 ML* 25 GM/50 ML SYRINGE IV PUSH PRN (21:01)
[2019-01-29] MEDS ORDERED: Insulin LISPRO* 1 UNITS UNIT SUBCUT ONE ×2 (21:01→21:04)
[2019-01-30] MEDS: Levothyroxine TAB* 25 MCG TAB PO SCH (05:40)
[2019-01-30] MEDS: Insulin LISPRO* 1 UNITS UNIT SUBCUT SCH ×3 (07:48→18:29)
[2019-01-30] MEDS: Cyanocobalamin TAB* 500 MCG PO SCH (08:51)
[2019-01-30] MEDS: amLODIPine TAB* 5 MG PO SCH (08:51)
[2019-01-30] MEDS: Apixaban* 5 MG TAB PO SCH ×2 (08:51→20:51)
[2019-01-30] MEDS: Aspirin 81 mg CHEW TAB* 81 MG TAB.CHEW PO SCH (08:52)
[2019-01-30] MEDS: Atenolol TAB* 50 MG PO SCH (08:52)
--- NOTE | 2019-01-30 17:57 | PN ---
Subjective Date of Service: 01/30/19 Interval History: patient reports that she continues to have no memory of why she is here or how she was brought to the emergency room. Patient is oriented to person, place and time . confused to situation. c/o left rib pain reproducible with palpation. denies chest pain or shortness of breath. denies abd pain n/v/d. denies fever or chills Family History: Unchanged from Admission Social History: Unchanged from Admission Past Medical History: Unchanged from Admission Objective Active Medications: Acetaminophen (Tylenol Tab*) 650 mg PO Q4H PRN PRN Reason: FEVER/PAIN Last Admin: 01/26/19 17:44 Dose: 650 mg Al Hydrox/Mg Hydrox/Simethicone (Maalox Plus*) 30 ml PO Q6H PRN PRN Reason: INDIGESTION Amitriptyline HCl (Elavil Tab*) 100 mg PO BEDTIME [facility] Last Admin: 01/29/19 19:57 Dose: 100 mg Amlodipine Besylate (Norvasc Tab*) 10 mg PO DAILY [facility] Last Admin: 01/30/19 08:51 Dose: 10 mg Apixaban (Eliquis*) 5 mg PO BID [facility] Last Admin: 01/30/19 08:51 Dose: 5 mg Aspirin (Aspirin 81 Mg Chew Tab*) 81 mg PO DAILY [facility] Last Admin: 01/30/19 08:52 Dose: 81 mg Atenolol (Tenormin Tab*) 50 mg PO DAILY [facility] Last Admin: 01/30/19 08:52 Dose: 50 mg Bisacodyl (Dulcolax Supp*) 10 mg [place] DAILY PRN PRN Reason: CONSTIPATION Last Admin: 01/29/19 15:33 Dose: 10 mg Cyanocobalamin (Vitamin B12 Tab*) 1,000 mcg PO DAILY [facility] Last Admin: 01/30/19 08:51 Dose: 1,000 mcg Dextrose (D50w Syringe 50 Ml*) 12.5 gm IV PUSH .FOR FS < 60 - SS PRN PRN Reason: FS < 60 Hydralazine HCl (Apresoline Iv*) 5 mg IV SLOW PU Q6H PRN PRN Reason: BLOOD PRESSURE Last Admin: 01/29/19 19:55 Dose: 5 mg Insulin Glargine (Lantus(*)) 50 units SUBCUT Q24H [facility] Last Admin: 01/29/19 17:21 Dose: 50 units Insulin Human Lispro (Humalog*) 0 units SUBCUT AC [facility]; Protocol Last Admin: 01/30/19 12:35 Dose: 1 units Levothyroxine Sodium (Synthroid Tab*) 25 mcg PO QAM@0600 [facility] Last Admin: 01/30/19 05:40 Dose: 25 mcg Magnesium Hydroxide (Milk Of Magnesia Liq*) 30 ml PO Q4H PRN PRN Reason: CONSTIPATION Last Admin: 01/29/19 17:20 Dose: 30 ml Melatonin (Melatonin) 3 mg PO BEDTIME PRN; Protocol PRN Reason: SLEEP Last Admin: 01/27/19 23:17 Dose: 3 mg Polyethylene Glycol/Electrolytes (Miralax*) 17 gm PO DAILY PRN PRN Reason: CONSTIPATION Last Admin: 01/29/19 08:27 Dose: 17 gm Senna (Senokot Tab*) 2 tab PO BEDTIME PRN PRN Reason: CONSTIPATION Last Admin: 01/29/19 08:27 Dose: 2 tab Additional Medications: Pt examined while laying in bed. Does not appear in any current distress. Vital Signs - 8 hr 01/30/19 01/30/19 11:11 14:17 Temperature 98.0 F 97.9 F Pulse Rate 53 71 Respiratory 20 20 Rate Blood Pressure 153/57 172/64 (mmHg) O2 Sat by Pulse 93 97 Oximetry Oxygen Devices in Use Now: None Appearance: alert to verbal restingin bed, no acute distress appears comfortable Eyes: No Scleral Icterus Ears/Nose/Mouth/Throat: Clear Oropharnyx, Mucous Membranes Moist Neck: NL Appearance and Movements; NL JVP, Trachea Midline Respiratory: Symmetrical Chest Expansion and Respiratory Effort, Clear to Auscultation Cardiovascular: NL Sounds; No Murmurs; No JVD, No Edema Abdominal: NL Sounds; No Tenderness; No Distention Extremities: No Edema, No Clubbing, Cyanosis Skin: No Rash or Ulcers Neurological: Alert and Oriented x 3 Nutrition: Taking PO's Result Diagrams: 01/26/19 06:28 01/26/19 06:28 Microbiology and Other Data: Microbiology 01/24/19 14:13 Urine Culture - Final Urine Assess/Plan/Problems-Billing Assessment: Ms. Treviño is a 78 yo female with a complex PMHx of DM, COPD, hx of PE who presents from home with a fall and weakness not compliant with her medications. - Patient Problems (1) Altered mental status Current Visit: No Status: Acute Code(s): R41.82 - ALTERED MENTAL STATUS, UNSPECIFIED SNOMED Code(s): 942659885 Comment: - suspect this is r/t dementia, could also be r/t amitripyline toxcity - will decrease amitriptyline to 50 mg as per neurology recommendations. Will need to decrease dose to 25 mg after 1 week - Baseline is unclear but was living alone - Urine culture is a contaminant, repeat urine culture 3/ no growth - No signs of infection - CT brain: negative - Brain MRI: no acute findings - Continue supportive care - started on B12 - EEG showed - diffuse slowing (2) Fall Current Visit: Yes Status: Acute Comment: - No falls during hospitalization - Per notes patient was falling at home - Left shoulder shows bruising - Left shoulder xray: Degenerative changes, no acute findings - May need VISHNU (3) Abdominal pain Current Visit: Yes Status: Acute Code(s): R10.9 - UNSPECIFIED ABDOMINAL PAIN SNOMED Code(s): 66703074 Comment: - BS normoactive x 4 quads - Denies pain/tenderness upon palpation - Benign abdomen - Normal KUB - Unclear when last BM was - Continue bowel medications (4) History of pulmonary embolism Current Visit: Yes Status: Acute Code(s): Z86.711 - PERSONAL HISTORY OF PULMONARY EMBOLISM SNOMED Code(s): 940233291 Comment: - Hx of DVT and PE - Unclear when and if it was provoked. Cannot find any imaging to confirm this - With her CKD and noncompliance, question if she is a good candidate for anticoagulation - Continue Eliquis for now - Will try to obtain records from PCP (5) Hypothyroidism Current Visit: Yes Status: Chronic Code(s): E03.9 - HYPOTHYROIDISM, UNSPECIFIED SNOMED Code(s): 14785532 Comment: - TSH 1.56 - Continue current dose of synthroid (6) COPD (chronic obstructive pulmonary disease) Current Visit: No Status: Chronic Onset Date: 08/15/14 Code(s): J44.9 - CHRONIC OBSTRUCTIVE PULMONARY DISEASE, UNSPECIFIED SNOMED Code(s): 18613469 Comment: - No signs of exacerbation. Denies dyspnea/sob. - She does not appear to have any maintenance inhalers; son reports she does not use O2. - Does not appear to qualify for overnight oxygen based on her recordings. No significant O2 desaturations overnight with overnight reading (7) Diabetes mellitus Current Visit: No Status: Chronic Onset Date: 08/15/14 Code(s): E11.9 - TYPE 2 DIABETES MELLITUS WITHOUT COMPLICATIONS SNOMED Code(s): 11397380 Comment: - Hyperglycemia, glucose Today's range 160-320's - Non compliant with medications at home - Hgba1c: 9.5 - Continue Lispro and Lantus (increase to 50 units) (8) HTN (hypertension) Current Visit: No Status: Chronic Code(s): I10 - ESSENTIAL (PRIMARY) HYPERTENSION SNOMED Code(s): 41578757 Comment: - SBP 150-170's - Continue atenolol and amlodpine - PRN hydralazine (9) CKD stage 3 due to type 2 diabetes mellitus Current Visit: No Status: Chronic Code(s): E11.22 - TYPE 2 DIABETES MELLITUS W DIABETIC CHRONIC KIDNEY DISEASE; N18.3 - CHRONIC KIDNEY DISEASE, STAGE 3 (MODERATE) SNOMED Code(s): 737735285601 Comment: - With acute on chronic on admission - Secondary to DM - Creatinine appears to be near baseline (10) DVT prophylaxis Current Visit: Yes Status: Acute Code(s): OUQ7034 - SNOMED Code(s): 528145103 Comment: - Eliquis Status and Disposition: Inpatient.discharge to [facility] tomorrow
[2019-01-30] MEDS: Insulin GLARGINE(*) 1 UNITS UNIT SUBCUT SCH (18:28)
[2019-01-30] MEDS ORDERED: Amitriptyline TAB* 50 MG PO SCH (21:00)
[2019-01-30] MEDS ORDERED: Dextrose 50% Syringe 50 ML* 25 GM/50 ML SYRINGE IV PUSH PRN (22:38)
[2019-01-30] MEDS ORDERED: Insulin LISPRO* 1 UNITS UNIT SUBCUT ONE (22:38)
[2019-01-30] MEDS: Melatonin 3 MG TAB PO PRN (23:01)
[2019-01-31] MEDS: hydrALAZINE IV* 20 MG/ML VIAL IV SLOW PU PRN (00:34)
[2019-01-31] MEDS: Levothyroxine TAB* 25 MCG TAB PO SCH (05:11)
[2019-01-31] MEDS: Atenolol TAB* 50 MG PO SCH (07:57)
[2019-01-31] MEDS: Cyanocobalamin TAB* 500 MCG PO SCH (07:57)
[2019-01-31] MEDS: Aspirin 81 mg CHEW TAB* 81 MG TAB.CHEW PO SCH (07:57)
[2019-01-31] MEDS: Apixaban* 5 MG TAB PO SCH (07:57)
[2019-01-31] MEDS: amLODIPine TAB* 5 MG PO SCH (07:57)
[2019-01-31] MEDS: Insulin LISPRO* 1 UNITS UNIT SUBCUT SCH ×2 (07:58→13:55)
[2019-01-31] MEDS ORDERED: Insulin GLARGINE(*) 1 UNITS UNIT SUBCUT SCH (08:30)
[2019-01-31 10:59] LABS: Calcium 8.9 mg/dL (8.6-10.3)
[2019-01-31 11:01] LABS: Potassium 5.2 mmol/L (3.5-5.0)
[2019-01-31 11:05] LABS: BUN/Creatinine Ratio 29.3 (8-20); EGFR African American 40.9 (>60); EGFR Non-African American 33.8 (>60)
[2019-01-31 11:27] VITALS: BP 146/43
[2019-01-31] MEDS ORDERED: Furosemide TAB* 40 MG PO SCH (12:00)
--- NOTE | 2019-01-31 16:12 | DS ---
CC: Atif Whitehead; Dr. Aguilera; Dr. Jesus Alberto Figueroa * DATE OF ADMISSION: 01/24/2019. DATE OF DISCHARGE: 01/31/2019. PROVIDER: Kelly Teran NP. ATTENDING PHYSICIAN: Dr. Abby Perez * (dictated by Kelly Teran NP). PRIMARY CARE PHYSICIAN: Dr. Jesus Alberto Figueroa. PRIMARY DIAGNOSIS: 1. Altered mental status. 2. Hallucinations. 3. Hyperkalemia. SECONDARY DIAGNOSES: 1. Diabetes. 2. Hypertension. 3. COPD. 4. History of breast cancer. 5. History of DVT to right lower extremity. 6. Anemia. 7. Gout. 8. Depression. 9. Chronic kidney disease, stage 3. 10. History of pulmonary embolism. 11. Hypothyroid. STUDIES COMPLETED WHILE IN THE HOSPITAL: 1. CT of the brain on 01/24/2019: No acute intracranial pathology. Chronic small vessel ischemic changes. 2. Chest x-ray on 01/24/2019: No evidence of acute disease. 3. Abdominal x-ray on 01/26/2019: Normal KUB. 4. Shoulder x-ray on 01/26/2019: Degenerative changes of the left shoulder as described above without radiographic evidence of an apparent fracture or dislocation. 5. MRI of the brain on 01/27/2019: No acute stroke is noted. Periventricular signal abnormality consistent with small vessel disease. 6. Electroencephalogram on 01/29/2019 which showed an abnormal awake and drowsy EEG due to the presence of diffuse slowing of the background and slow posterior dominant rhythm. Otherwise, this was normal organization and reactivity. These findings are suggestive of nonspecific encephalopathy which can be seen in the setting of cerebral atrophy, neurodegenerative disorder, toxic metabolic disturbance, or as a result of side effects related to medication. DISCHARGE MEDICATIONS: Medication changes: Amitriptyline decreased from 100 mg to 50 mg. She should continue on this dose once daily for 7 days and then decrease to 25 mg daily for 14 days, and then Amitriptyline 25 mg every other day for 7 days and then discontinue. Continued home medications: 1. Tylenol 650 mg p.o. q.4 hours as needed for pain. 2. Maalox 30 ml p.o. q.6 hours as needed for indigestion. 3. Allopurinol 200 mg p.o. daily. 4. Amitriptyline 50 mg at bedtime times 7 days, then decrease to 25 mg times 14 days, then 25 mg every other day for 7 days, then discontinue. 5. Amlodipine 10 mg p.o. daily. 6. Eliquis 5 mg p.o. b.i.d. 7. Aspirin 81 mg p.o. daily. 8. Atenolol 50 mg p.o. daily. 9. Biotin 5,000 mcg sublingual daily. 10. Dulcolax suppository 10 mg p.r. daily. 11. Calcium Carbonate one tab p.o. daily. 12. Vitamin B12 1,000 mcg p.o. daily. 13. Trulicity 1.5 mg subcu weekly. 14. Duloxetine 60 mg p.o. daily. 15. Furosemide 20 mg p.o. daily. 16. Tresiba 96 units subcu q.p.m. 17. Insulin regular insulin 20 units subcu a.c. 18. Levothyroxine 25 mcg p.o. q.a.m. 19. Magnesium Oxide 500 mg p.o. daily. 20. Melatonin 3 mg p.o. daily. 21. Metformin 500 mg p.o. b.i.d. 22. [place]-3 fatty acids 1,000 mg p.o. daily. 23. Omeprazole 20 mg p.o. daily. 24. MiraLax 17 gm p.o. prn constipation. 25. Crestor 10 mg p.o. daily. 26. Senna two tablets p.o. at bedtime as needed for constipation. HISTORY OF PRESENT ILLNESS AND HOSPITAL COURSE: Ms. Treviño is a 78-year-old female with a history of obesity, pulmonary embolism on Eliquis, diabetes, chronic kidney disease who stated approximately one month ago she had enough of taking her meds. She states that she was taking 20 different medications and she decided to stop it all. She stopped her insulin also. She states that she had [employer] Whe[employer] over the past several weeks and she stopped because it was too expensive and she could not cook herself. She lives in an apartment building where there are 40 apartments. Occasionally her friend is able to shop for her groceries. The patient reports that her memory has been poor times the last month and not sure what happened yesterday. The patient states that she had fallen yesterday, but once again she was not sure of the time or the circumstances. She was found by the ambulance crew on the bathroom floor. She does not remember how long she had been lying on the floor. She does not remember if she lost consciousness or what happened or what precipitated her to coming to the hospital. On arrival to the hospital, her glucose levels were over 400. She was markedly dehydrated and she was admitted with a diagnosis of dehydration, uncontrolled diabetes, status post fall, and likely a UTI. While in the hospital, she was monitored on telemetry. She was started on Lantus and Lisinopril sliding scale. Her sugars were not well controlled during this hospitalization. Her insulin was adjusted during the hospitalization for meal coverage and increased Lantus to 55 units. Her blood sugars ranged from 128 to 400 during her hospitalization. The patient was seen in consultation by Neurology whose thoughts were that the patient's hallucinations could be contributed to her Amitriptyline and recommended decreasing her Amitriptyline to 50 mg nightly, then eventually to 25 nightly after one week and then the medication should be discontinued as Amitriptyline per Neurology can cause hallucinations, cognitive dysfunction as we have seen in her examination. They also recommended starting her on vitamin B12 1,000 mcg p.o. daily and that she should continue with physical therapy. The patient continued to have lapse of memory on events that occurred prior to her coming here. The patient's short-term memory is impaired. She does know where she is and what building she is in. She does know her name, but events about the situation she remains confused to. The patient did have a urine culture. Her urine culture came back negative for any bacterial growth. She does have chronic kidney disease and her BUN and creatinine are at her baseline. BUN on the day of discharge was 44 and her creatinine was 1.5. Her potassium was slightly elevated at 5.2. She was given a dose of Lasix 40 mg today and she should continue on Lasix 20 mg daily. At this time, Ms. Treviño is stable for discharge to [facility]. Vital signs are as follows: Blood pressure 146/43, temperature 97.9, heart rate 58, respirations 20, O2 saturation 97 percent on room air. REVIEW OF SYSTEMS: The patient denies any fever, chills, nausea, vomiting, or diarrhea. Denies any abdominal pain. Denies any chest pain or shortness of breath. She denies any fever or chills. She does continue to complain of difficulty with memory due to situation. PHYSICAL EXAMINATION: General at this time: Ms. Treviño is resting in bed. She is alert and oriented to person, place, and time. She continues to be confused to situation. HEENT: Head is atraumatic, normocephalic. Eyes: EOM's intact. Sclerae anicteric and not pale. Oral mucosa appeared moist. Neck: Supple. Lungs: Clear to auscultation bilaterally. No wheezes, rales, or rhonchi. Cardiac: S1, S2, regular rate and rhythm. No murmurs, rubs or gallops. Abdomen: Obese, soft, nontender. Bowel sounds are present times four. Extremities: She is able to move all four extremities. She has mild swelling noted to the lower extremities. +1 pitting edema. Pedal pulses are +2 bilaterally. Skin is intact. She does have an ecchymotic area noted to her left shoulder and left upper arm. Neurologic: She is awake, alert and oriented times three. Speech is clear. Thought process is intact. There are no gross focal deficits. DISCHARGE PLAN: At this time, Ms. Treviño will be discharged to [facility]. Activity as tolerated. She should continue with physical therapy. Diet: She should be placed on a heart-healthy, consistent carb diet. 1. Altered mental status: I suspect her altered mental status could be related to Amitriptyline as well as underlying vascular dementia. Her dose of Amitriptyline should be continued to be decreased. She is currently on 50 mg p.o. daily times 7 days, then decreased to 25 mg p.o. daily times 14 days, and then she should have 25 mg every other day for 7 days, then discontinue. 2. Hyperkalemia: The patient will receive Lasix. She should have a repeat BMP in three days. I suspect that her potassium is mildly elevated as the sample could have been slightly hemolyzed. 3. History of pulmonary embolism/DVT: She should continue on Eliquis as previously prescribed. 4. Hypertension: The patient was hypertensive during this hospitalization. Her Lasix was held during her hospitalization. Will resume her Lasix. Should continue to monitor her blood pressure. Her Amlodipine was increased to 10 mg p.o. daily. She should continue on this dose with Atenolol 50 mg p.o. daily and we will add back Lasix 20 mg daily. She should have daily blood pressure checks and repeat BMP in three days. 5. Chronic kidney disease: She does have chronic renal disease, stage 3 at baseline. Should continue to avoid nephrotoxic medications and monitor her kidney function. 6. COPD: She is not currently on medications. 7. Diabetes: I would recommend resuming her diabetic medications that she was previously on, Metformin 500 mg p.o. b.i.d., insulin regular 20 units with every meal, Trulicity 1.5 mg subcu weekly, Tresiba 96 units at bedtime. Fingersticks should be a.c. and at bedtime. Adjustment may have to be made for control of her diabetes. She will need careful monitoring as she has stopped all of these medications prior to admission. 8. Anxiety: She should continue on Cymbalta as previously prescribed. 9. GERD: She should continue on Omeprazole 20 mg p.o. daily. The patient should follow-up with her primary care provider in four to seven days. She should return to the emergency room for any chest pain, shortness of breath , weakness on one side, facial drooping, slurred speech, or any other concerning symptoms. This is a summarization of her hospitalization. For further details, please see the entire medical record. TIME SPENT: Time spent on this discharge was 60 minutes, greater than half that time was spent at the bedside discussing discharge plans and instructions. CONDITION ON DISCHARGE: Stable. DISPOSITION: Atif Whitehead. I have discussed this with my attending, Dr. Abby Perez. She is in agreement with my plan. KELLY TERAN, EXAMINER RATING CLERK [id number]/CPS #: [id number] BARBRA
== END 2019-01-31 14:15 | DRG 884 ==
LOC: ED 13:20 → MED 16:15
PROVIDERS: ADMIT Internal Medicine; ATTEND Internal Medicine
PROC: 4A00X4Z Measurement of Central Nervous Electrical Activity, External Approach (ICD-10-PCS; principal; 2019-01-29)
DX: F01.50 Vascular dementia, unspecified severity, without behavioral disturbance, psychotic disturbance, mood disturbance, and anxiety (principal); I13.0 Hypertensive heart and chronic kidney disease with heart failure and stage 1 through stage 4 chronic kidney disease, or unspecified chronic kidney disease; N17.9 Acute kidney failure, unspecified; R44.3 Hallucinations, unspecified; R41.82 Altered mental status, unspecified; S40.012A Contusion of left shoulder, initial encounter; W17.89XA Other fall from one level to another, initial encounter; J44.9 Chronic obstructive pulmonary disease, unspecified; N18.3 Chronic kidney disease, stage 3 (moderate); E11.22 Type 2 diabetes mellitus with diabetic chronic kidney disease; E66.9 Obesity, unspecified; F32.9 Major depressive disorder, single episode, unspecified; E03.9 Hypothyroidism, unspecified; I50.9 Heart failure, unspecified; E86.0 Dehydration; M10.9 Gout, unspecified; F41.9 Anxiety disorder, unspecified; R40.2412 Glasgow coma scale score 13-15, at arrival to emergency department; E78.5 Hyperlipidemia, unspecified; E11.42 Type 2 diabetes mellitus with diabetic polyneuropathy; E11.65 Type 2 diabetes mellitus with hyperglycemia; D69.6 Thrombocytopenia, unspecified; T43.015A Adverse effect of tricyclic antidepressants, initial encounter; Y92.9 Unspecified place or not applicable; K21.9 Gastro-esophageal reflux disease without esophagitis; R10.9 Unspecified abdominal pain; E87.5 Hyperkalemia; Z85.3 Personal history of malignant neoplasm of breast; Z86.718 Personal history of other venous thrombosis and embolism; Z86.711 Personal history of pulmonary embolism; Y92.002 Bathroom of unspecified non-institutional (private) residence as the place of occurrence of the external cause; Z91.14 Patient's other noncompliance with medication regimen; Z90.710 Acquired absence of both cervix and uterus; Z90.11 Acquired absence of right breast and nipple; Z80.1 Family history of malignant neoplasm of trachea, bronchus and lung; Z82.49 Family history of ischemic heart disease and other diseases of the circulatory system; Z87.891 Personal history of nicotine dependence; Z68.38 Body mass index [BMI] 38.0-38.9, adult; Z91.81 History of falling; Z98.1 Arthrodesis status; Z98.42 Cataract extraction status, left eye; Z98.41 Cataract extraction status, right eye; Z83.3 Family history of diabetes mellitus; Z87.440 Personal history of urinary (tract) infections; Z79.4 Long term (current) use of insulin; Z79.82 Long term (current) use of aspirin; Z79.01 Long term (current) use of anticoagulants
CPT/HCPCS: 36415; 70450; 70551; 71045; 74018; 80048; 80053; 81003; 81015; 82140; 82550; 82607; 82803; 83036; 83605; 83880; 84443; 85025; 86140; 87086; 93005; 94762; 95816; 99284; A9270-GY; G8978-GP-CJ; G8979-GP-CH; G8987-GO-CK; G8988-GO-CI; J0360; J0696; J2185; J3420

== ENCOUNTER → 2019-03-23 16:49 | Emergency (ER) | payer MEDICARE ==
[~2019-03-23 16:49] MED LIST: Lidocaine 2% MPF* 2 ML VIAL ONE
--- NOTE | 2019-03-23 18:56 | ED ---
Throat Pain/Nasal Congestion - HPI Summary HPI Summary: Pt is 78 y/o F presenting to [facility] w/ chief complaint of possible object stuck in the throat. She is accompanied by her son, Joshua. Pt believes the bone of a chicken thigh got wedged in throat at 1500 today (03/23/19). Patient denies experiencing a choking sensation. She notes discomfort at the left side of her throat. She reports the pain onsetting suddenly, describes the sensation as if something was stuck at the base of her tongue. On triage pt rated pain as 1/10. Pt is currently able to drink liquids, swallow, and eat food. However pain is aggravated by swallowing. She denies cough/spitting up blood and SOB. Pt does not report feeling anything else when swallowing, and has never gotten something stuck in throat before. Pt denies PMHx of HTN. She does have a PSHx of cataracts; hysterectomy; right mastectomy; right hand tendon repair; tonsillectomy; heart cath w/ stent placement; knee; foot tendon repair; and LSP fusion. Vital signs while in room: HR 66 bpm, BP 204/72, O2 sat 96%. Allergies and Home Medications reviewed by physician. - History of Current Complaint Chief Complaint: EDForeignBodyEsophag Time Seen by Provider: 03/23/19 18:13 Hx Obtained From: Patient, Family/Call Taker - son, Joshua Onset/Duration: Sudden Onset - on 03/23/19 at 1500, Still Present Severity: Mild Associated Signs And Symptoms: Positive: FB Sensation Cough: None Related History: Other (Noted In Comments) - no prior hx of same, no choking episode - Allergies/Home Medications Allergies/Adverse Reactions: Allergies Allergy/AdvReac Type Severity Reaction Status Date / Time No Known Allergies Allergy Verified 01/24/19 13:27 PMH/Surg Hx/FS Hx/Imm Hx Previously Healthy: No Endocrine/Hematology History: Reports: Hx Diabetes, Hx Anemia Cardiovascular History: Reports: Hx Angina, Hx Cardiomegaly, Hx Congestive Heart Failure, Hx Hypertension Denies: Hx Coronary Artery Disease, Hx Hypercholesterolemia, Hx Myocardial Infarction, Hx Pacemaker/ICD, Hx Valvular Heart Disease Respiratory History: Reports: Hx Asthma, Hx Chronic Obstructive Pulmonary Disease (COPD), Hx Sleep Apnea GI History: Reports: Hx Gastroesophageal Reflux Disease, Hx Gastrointestinal Bleed History: Denies: Hx Renal Disease Musculoskeletal History: Reports: Hx Back Problems - Spinal fusion, Hx Gout Sensory History: Reports: Hx Cataracts, Hx Contacts or Glasses Denies: Hx Hearing Aid Opthamlomology History: Reports: Hx Cataracts, Hx Contacts or Glasses Neurological History: Reports: Hx CVA, Other Neuro Impairments/Disorders - neuropathy Psychiatric History: Reports: Hx Anxiety, Hx Depression Denies: Hx Panic Disorder - Cancer History Cancer Type, Location and Year: BREAST Hx Chemotherapy: No Hx Radiation Therapy: No - Surgical History Surgery Procedure, Year, and Place: CATARACTS; HYSTERECTOMY; RIGHT MASTECTOMY; RIGHT HAND TENDON REPAIR; TONSILECTOMY; HEART CATH W/ STENT PLACEMENT; KNEE; FOOT TENDON REPAIR; LSP FUSION Hx Anesthesia Reactions: No - Immunization History Date of Tetanus Vaccine: Unknown Infectious Disease History: No Infectious Disease History: Denies: Traveled Outside the [place] in Last 30 Days - Family History Known Family History: Positive: Diabetes - Social History Lives: Alone Alcohol Use: None Hx Substance Use: No Substance Use Type: Reports: None Hx Tobacco Use: Yes Smoking Status (MU): Former Smoker Type: Cigarettes Have You Smoked in the Last Year: No Review of Systems Constitutional: Negative Positive: Other - Positive: Irritation of throat due to possible object being lodged, no difficulty swallowing Cardiovascular: Negative Negative: Shortness Of Breath, Cough Gastrointestinal: Negative Positive: no symptoms reported Musculoskeletal: Negative Skin: Negative Neurological: Negative Psychological: Normal All Other Systems Reviewed And Are Negative: Yes Physical Exam - Summary Physical Exam Summary: Appearance: well-appearing, moderate pain distress, hypertensive, well-nourished , pt is swallowing her own secretions, nml phonation, no resp distress Skin: Warm, color reflects adequate perfusion, dry Head: Normal Head/Face inspection, atraumatic Eyes: Conjunctiva clear ENT: Normal inspection, No foreign body visualized with anterior inspection, points to left submandibular area as site of foreign body obstruction Neck: Supple, no nodes, no JVD Respiratory: Lungs clear, normal breath sounds, no respiratory distress Cardio: RRR, No murmur, pulses normal, brisk capillary refill Abdomen: Soft, nontender Bowel sounds: Present Musculoskeletal: Strength Intact/ROM intact, no calf tenderness, no edema. Psychological: Normal Neuro: Alert, muscle tone normal, no focal deficit Triage Information Reviewed: Yes Vital Signs On Initial Exam: Initial Vitals Temp Pulse Resp BP Pulse Ox 97.6 F 62 16 135/89 95 03/23/19 16:52 03/23/19 16:52 03/23/19 16:52 03/23/19 16:52 03/23/19 16:52 Vital Signs Reviewed: Yes Procedures - Procedure Summary Procedure Summary: From Dr De Leon consult note: Foreign body removal from the hypopharynx: Patient was premedicated with lidocaine by nebulization. She was laid supine and her bottom dentures were removed. A Glidescope #4 blade was inserted into the airway and the chicken bone was visualized in the vallecula. Is able to be dislodged with Aaron's forceps and the patient was able to get into her pharynx. It was then removed intact with Aaron forceps. She tolerated this procedure well without complication to include any bleeding. Her foreign body sensation resolved. Diagnostics - Vital Signs Vital Signs Temp Pulse Resp BP Pulse Ox 03/23/19 18:36 66 16 204/72 96 03/23/19 18:06 64 18 182/70 97 03/23/19 18:00 64 18 94 03/23/19 17:37 65 12 174/73 95 03/23/19 17:35 66 91 03/23/19 16:52 97.6 F 62 16 135/89 95 - Laboratory Lab Statement: Any lab studies that have been ordered have been reviewed, and results considered in the medical decision making process. Re-Evaluation - Re-Evaluation First Eval Re-Evaluation Time: 18:56 Comment: Dr. De Leon assisted with foreign body removal from the hypopharynx. Second Eval Re-Evaluation Time: 19:18 Change: Improved Comment: Chicken bone had been removed, Pt is able to swallow, and is in no respiratory distress. Pt's vitals: HR 64 bpm, O2 sat 97% and BP 187/71. Third Eval Re-Evaluation Time: 20:12 Change: Improved Comment: pt comfortable, voice slightly hoarse, but pt states usual for her, denies pain, remains hypertensive, in no distress. Patient was discharged to home, she is agreeable with this. EENT Course/Dx - Course Course Of Treatment: Patient denies experiencing a choking sensation. She notes discomfort at the left side of her throat. She reports the pain onsetting suddenly, describes the sensation as if something was stuck at the base of her tongue. Pt is currently able to drink liquids, swallow, and eat food. However pain is aggravated by swallowing. She denies cough/spitting up blood and SOB. Physical exam indicates pt is well-appearing, moderate pin distress; pt is swallowing her own secretion and has nml phonation. The ears, nose, throat had an normal inspection, no foreign body visualized with anterior inspection, points to left submandibular area as site of foreign body obstruction. Before procedure Pt received Xylocaine 2% as a nebulized treatment for local anesthesia. Dr. De Leon consulted for foreign body removal from the hypopharynx. Chicken bone was successfully removed from patient's throat intact , without complication. During re-evaluation at 19:18 Pt was able to swallow, and was in no respiratory distress. Pt voice was slightly hoarse but she indicated that was nml for her. Patient was discharged to home, she is agreeable with this. - Differential Diagnoses Differential Diagnoses: Foreign Body - Diagnoses Provider Diagnoses: Foreign body in pharynx - Critical Care Time Critical Care Time: 30-74 min - 30 mins Discharge - Sign-Out/Discharge Documenting (check all that apply): Patient Departure - discharge Patient Received Moderate/Deep Sedation with Procedure: No - Discharge Plan Condition: Stable Disposition: HOME Patient Education Materials: Foreign Body in Pharynx (ED) Referrals: Rolando Merrill MD [Primary Care Provider] - 2 Days George Ryan MD [Medical Doctor] - As Soon As Possible Additional Instructions: Dr. De Leon was able to pull the chicken bone from your vallecula, the back of your throat. You tolerated this without any adverse effects. Your throat may be irritated after this. You may try some liquid antacid if the soreness persists. Return to the ER if you have any new or worsening symptoms. The only discharge instructions that we have available are for a child, but most of the instructions do pertain to an adult. - Billing Disposition and Condition Condition: STABLE Disposition: Home - Attestation Statements Document Initiated by Scribe: Yes Documenting Scribe: ROLANDO TREJO Provider For Whom Scribe is Documenting (Include Credential): SUNI WOODS MD Scribe Attestation: IROLANDO AND JACK TREJO, scribed for SUNI WOODS MD on at 0015. Scribe Documentation Reviewed: Yes Provider Attestation: The documentation as recorded by the scribe, ROLANDO AKINS AND JACK TREJO accurately reflects the service I personally performed and the decisions made by me, SUNI WOODS MD Status of Scribe Document: Viewed
--- NOTE | 2019-03-23 19:19 | CONSULT ---
Consult Consult: I was asked to assist in removal of a chicken bone foreign body from the hypopharynx by Dr. Katz. Procedure note: Foreign body removal from the hypopharynx: Patient was premedicated with lidocaine by nebulization. She was laid supine and her bottom dentures were removed. A Glidescope #4 blade was inserted into the airway and the chicken bone was visualized in the vallecula. Is able to be dislodged with Aaron's forceps and the patient was able to get into her pharynx. It was then removed intact with Aaron forceps. She tolerated this procedure well without complication to include any bleeding. Her foreign body sensation resolved.
[2019-03-23 20:22] VITALS: BP 185/66
== END | disposition home or self-care (01) ==
LOC: ED 16:49
DX: T17.228A Food in pharynx causing other injury, initial encounter (principal); X58.XXXA Exposure to other specified factors, initial encounter; Y92.9 Unspecified place or not applicable; E11.9 Type 2 diabetes mellitus without complications; I10 Essential (primary) hypertension; I25.10 Atherosclerotic heart disease of native coronary artery without angina pectoris; K21.9 Gastro-esophageal reflux disease without esophagitis; Z87.891 Personal history of nicotine dependence
CPT/HCPCS: 99284

== ENCOUNTER 2019-12-31 22:38 | Observation (INO) | payer MEDICARE ==
[2020-01-01 00:33] LABS: ABS Basophils 0.1 10^3/ul (0-0.2); ABS Eosinophils 0.1 10^3/ul (0-0.6); ABS Lymphocytes 0.8 10^3/ul (1.0-4.8); ABS Monocytes 0.4 10^3/ul (0-0.8); ABS Neutrophils 6.3 10^3/ul (1.5-7.7); Eosinophil % 0.9 %; Hematocrit 35 % (35-47); Hemoglobin 11.7 g/dL (12.0-16.0); Lymphocyte % 10.9 %; Mean Corpuscular HGB Conc 33 g/dL (31-36); Mean Corpuscular Hemoglobin 30 pg (27-31); Mean Corpuscular Volume 89 fL (80-97); Platelet Count 174 10^3/uL (150-450); Red Blood Count 3.92 10^6 /uL (3.70-4.87); Red Cell Distribution Width 16 % (10-15); White Blood Count 7.7 10^3/uL (3.5-10.8)
--- NOTE | 2020-01-01 00:43 | ED ---
Altered Mental Status - HPI Summary HPI Summary: 79-year-old female presents with altered mental status today. Son states that she's been more confused than normal. She states she is not able to remember anything for the past day. She did not take her medications today. She has been feeling more weak than normal. She has had this symptoms before when she has had a UTI. Son saw her last night and she seemed very tired. She denies any difficulties with speech. She admits to some shortness breath. No chest pain. she denies any fevers. Denies any urinary symptoms. she has been having more difficulty ambulating. per son called her today and she was saying weird things and she does not remember the conversation. - History Of Current Complaint Chief Complaint: EDAltMentalStatus Stated Complaint: POSS UTI PER EMS Time Seen by Provider: 12/31/19 23:14 - Allergies/Home Medications Allergies/Adverse Reactions: Allergies Allergy/AdvReac Type Severity Reaction Status Date / Time No Known Allergies Allergy Verified 01/24/19 13:27 Home Medications: Home Medications Amlodipine Besylate [Norvasc 10 mg tab] 5 mg PO DAILY 01/01/20 [History Confirmed 01/01/20] Oxybutynin Chloride ER 5 mg PO DAILY 01/01/20 [History Confirmed 01/01/20] Vitamin B-12 1,000 mg PO DAILY 01/01/20 [History Confirmed 01/01/20] Vitamin D3 500 mcg PO BEDTIME 01/01/20 [History Confirmed 01/01/20] PMH/Surg Hx/FS Hx/Imm Hx Endocrine/Hematology History: Reports: Hx Anticoagulant Therapy, Hx Diabetes, Hx Anemia Cardiovascular History: Reports: Hx Angina, Hx Cardiomegaly, Hx Congestive Heart Failure, Hx Hypertension, Other Cardiovascular Problems/Disorders - IDDM Denies: Hx Coronary Artery Disease, Hx Hypercholesterolemia, Hx Myocardial Infarction, Hx Pacemaker/ICD, Hx Valvular Heart Disease Respiratory History: Reports: Hx Asthma, Hx Chronic Obstructive Pulmonary Disease (COPD), Hx Sleep Apnea GI History: Reports: Hx Gastroesophageal Reflux Disease, Hx Gastrointestinal Bleed History: Denies: Hx Renal Disease Musculoskeletal History: Reports: Hx Back Problems - Spinal fusion, Hx Gout, Other Musculoskeletal History - spinal fusion Sensory History: Reports: Hx Cataracts, Hx Contacts or Glasses Denies: Hx Hearing Aid Opthamlomology History: Reports: Hx Cataracts, Hx Contacts or Glasses Neurological History: Reports: Hx CVA, Other Neuro Impairments/Disorders - neuropathy Psychiatric History: Reports: Hx Anxiety, Hx Depression Denies: Hx Panic Disorder - Cancer History Cancer Type, Location and Year: BREAST Hx Chemotherapy: No Hx Radiation Therapy: No - Surgical History Surgery Procedure, Year, and Place: CATARACTS; HYSTERECTOMY; RIGHT MASTECTOMY; RIGHT HAND TENDON REPAIR; TONSILECTOMY; HEART CATH W/ STENT PLACEMENT; KNEE; FOOT TENDON REPAIR; LSP FUSION Hx Anesthesia Reactions: No - Immunization History Date of Tetanus Vaccine: Unknown Infectious Disease History: No Infectious Disease History: Denies: Traveled Outside the [place] in Last 30 Days - Family History Known Family History: Positive: Diabetes - Social History Alcohol Use: None Hx Substance Use: No Substance Use Type: Reports: None Hx Tobacco Use: Yes Smoking Status (MU): Former Smoker Type: Cigarettes Have You Smoked in the Last Year: No Review of Systems Negative: Fever Negative: Chest Pain Positive: Shortness Of Breath. Negative: Cough Neurological: Other - confusion All Other Systems Reviewed And Are Negative: Yes Physical Exam Triage Information Reviewed: Yes Vital Signs On Initial Exam: Initial Vitals Temp Pulse Resp BP Pulse Ox 97.5 F 54 16 162/60 97 12/31/19 22:41 12/31/19 22:41 12/31/19 22:41 12/31/19 22:41 12/31/19 22:41 Vital Signs Reviewed: Yes Appearance: Positive: Well-Appearing Skin: Positive: Warm, Dry Head/Face: Positive: Normal Head/Face Inspection Eyes: Positive: Normal, EOMI, ZANE, Conjunctiva Clear ENT: Positive: Normal ENT inspection, Pharynx normal, TMs normal Respiratory/Lung Sounds: Positive: Clear to Auscultation, Breath Sounds Present Cardiovascular: Positive: Normal, RRR Abdomen Description: Positive: Nontender, Soft Bowel Sounds: Positive: Present Musculoskeletal: Positive: Normal Neurological: Positive: Sensory/Motor Intact, Alert, Oriented to Person Place, Time, CN Intact II-III Psychiatric: Positive: Normal - Juan Jose Coma Scale Best Eye Response: 4 - Spontaneous Best Motor Response: 6 - Obeys Commands Best Verbal Response: 5 - Oriented Coma Scale Total: 15 Procedures - Sedation Patient Received Moderate/Deep Sedation with Procedure: No Diagnostics - Vital Signs Vital Signs Temp Pulse Resp BP Pulse Ox 01/01/20 00:01 60 95 12/31/19 23:01 56 93 12/31/19 22:57 162/60 12/31/19 22:49 51 215/77 94 12/31/19 22:42 57 97 12/31/19 22:41 97.5 F 54 16 162/60 97 - Laboratory Lab Results: Lab Results 01/01/20 Range/Units 00:23 WBC 7.7 (3.5-10.8) 10^3/uL RBC 3.92 (3.70-4.87) 10^6 /uL Hgb 11.7 L (12.0-16.0) g/dL Hct 35 (35-47) % MCV 89 (80-97) fL MCH 30 (27-31) pg MCHC 33 (31-36) g/dL RDW 16 H (10-15) % Plt Count 174 (150-450) 10^3/uL MPV 10.0 (7.4-10.4) fL Neut % (Auto) 82.5 % Lymph % (Auto) 10.9 % [place] % (Auto) 5.0 % Eos % (Auto) 0.9 % Baso % (Auto) 0.7 % Absolute Neuts (auto) 6.3 (1.5-7.7) 10^3/ul Absolute Lymphs (auto) 0.8 L (1.0-4.8) 10^3/ul Absolute Monos (auto) 0.4 (0-0.8) 10^3/ul Absolute Eos (auto) 0.1 (0-0.6) 10^3/ul Absolute Basos (auto) 0.1 (0-0.2) 10^3/ul Absolute Nucleated RBC 0.0 10^3/ul Nucleated RBC % 0.0 Result Diagrams: 01/01/20 00:23 01/01/20 03:27 Lab Statement: Any lab studies that have been ordered have been reviewed, and results considered in the medical decision making process. - Radiology chest Radiology Interpretation Completed By: ED Physician Summary of Radiographic Findings: no acute process - CT brain CT Interpretation Completed By: Radiologist Summary of CT Findings: IMPRESSION: 1. No acute intracranial abnormality. 2. Age -related atrophy and moderate chronic small vessel ischemic disease. - EKG No standard instances Cardiac Rate: Bradycardia EKG Rhythm: Sinus Bradycardia EKG Comparison: No Significant Change Summary of EKG Findings: sinus bradycardia Re-Evaluation - Re-Evaluation First Eval Re-Evaluation Time: 01:17 Comment: no shortness of breath currently, has noticed increase swelling in her legs Altered Mental Statu Course/Dx - Course Course Of Treatment: 79-year-old male presents with altered mental status today. Son states that she's been more confused than normal. She states she is not able to remember anything for the past day. She did not take her medications today. She has been feeling more weak than normal. She has had this symptoms before when she has had a UTI. Son saw her last night and she seemed very tired. She denies any difficulties with speech. She admits to some shortness breath. No chest pain. she denies any fevers. Denies any urinary symptoms. On exam is alert and oriented. no neuro deficit noted. CT brain normal. Chest x-ray normal. wbc normal. bnp elevated. chest xray no acute findings. patient was incontient of urine so still waiting on a urine. discussed with dr angeles who will admit for increase confusion and chf. - Diagnoses Differential Diagnosis/HQI/PQRI: Intracranial Bleed, Metabolic Disorder, Other - uti Provider Diagnoses: Confusion, Congestive heart failure, UTI (urinary tract infection) Discharge ED - Sign-Out/Discharge Documenting (check all that apply): Patient Departure - Discharge Plan Condition: Stable Disposition: ADMITTED TO [facility] - Billing Disposition and Condition Condition: STABLE Disposition: Admitted to [facility]
[2020-01-01 00:52] LABS: ALT 14 U/L (7-52); AST 25 U/L (13-39); Albumin 3.2 g/dL (3.2-5.2); Albumin/Globulin Ratio 1.1 (1-3); Alkaline Phosphatase 374 U/L (34-104); Anion Gap 7 mmol/L (2-11); BUN/Creatinine Ratio 19.7 (8-20); Blood Urea Nitrogen 46 mg/dL (6-24); C Reactive Protein 18.81 mg/L (<8.01); CO2 Carbon Dioxide 25 mmol/L (22-32); Calcium 9.1 mg/dL (8.6-10.3); Chloride 108 mmol/L (101-111); EGFR African American 24.4 (>60); EGFR Non-African American 20.2 (>60); Glucose 194 mg/dL (70-100); Potassium 4.3 mmol/L (3.5-5.0); Sodium 140 mmol/L (135-145); Total Protein 6.2 g/dL (6.4-8.9)
[2020-01-01 00:57] LABS: Troponin I 0.05 ng/mL (<0.03)
[2020-01-01] MEDS ORDERED: Furosemide TAB* 40 MG PO ONE (01:16)
[2020-01-01] MEDS ORDERED: Piperacillin/Tazobac ADVAN(*) 3.375 GM in NS 0.9% 100 ML* 100 ML IVPB ONE ×2 (02:47→03:20)
[2020-01-01] MEDS ORDERED: Senna TAB 8.6 mg* TAB PO PRN (02:53)
[2020-01-01] MEDS ORDERED: Melatonin 3 MG TAB PO PRN (02:53)
[2020-01-01] MEDS ORDERED: Zosyn per Pharmacy* NOTE FOLLOW UP SCH ×2 (03:00→04:00)
[2020-01-01 03:12] LABS: Urine Appearance Turbid; Urine Bilirubin Negative (Negative); Urine Blood 2+ (Negative); Urine Color Yellow; Urine Glucose 1+(50 mg/dL) (Negative); Urine Ketones Negative (Negative); Urine Nitrite Negative (Negative); Urine Protein 3+(>=500 mg/dL) (Negative); Urine Specific Gravity 1.019 (1.010-1.030); Urine Urobilinogen Negative (Negative)
[2020-01-01] MEDS ORDERED: hydrALAZINE IV* 20 MG/ML VIAL IV SLOW PU ONE (03:13)
[2020-01-01 03:17] LABS: Urine Bacteria 1+ (Absent); Urine Red Blood Cell 3+(>10/hpf) (Absent); Urine Transitional Epithelial Present (Absent); Urine White Blood Cell 3+(>20/hpf) (Absent)
[2020-01-01 04:00] LABS: Troponin I 0.04 ng/mL (<0.03)
--- NOTE | 2020-01-01 04:38 | HP ---
CC: Dr. Merrill * HISTORY AND PHYSICAL: DATE OF ADMISSION: 01/01/20 PRIMARY CARE PROVIDER: Dr. Merrill. CHIEF COMPLAINT: Confusion. HISTORY OF PRESENT ILLNESS: Ms. Treviño is a 79-year-old female who has a history of diabetes, hypertension, hyperlipidemia, hypothyroidism, and stage 3 chronic kidney disease, who presented to the emergency room with complaints of confusion. Of note, the patient herself is unable to provide much history and her son has left for the night. Reportedly, the patient called her son on the afternoon of 12/31/19. He noted that she sounded confused. He told her that he would be up to her house in a couple minutes. When he showed up, he decided that she needed to present to the emergency room for evaluation. The patient was also reportedly mildly confused on the evening of 12/30/19. The patient herself states that she took a nap in the afternoon and does not really remember anything after she laid down for the nap. She states "I don't know" to many of my questions. She does tell me that she has had no dysuria or hematuria, no fevers, no chills, no cough or sputum production. PAST MEDICAL HISTORY: 1. Type 2 diabetes with diabetic neuropathy. 2. Hypertension. 3. Hyperlipidemia. 4. History of DVT and PE. 5. COPD. 6. Hypothyroidism. 7. Chronic anemia. 8. Gout. 9. Depression. 10. Stage 3 chronic kidney disease. PAST SURGICAL HISTORY: 1. Right mastectomy. 3. Hysterectomy. 4. Bilateral knee surgery. 5. Foot surgery. MEDICATIONS: 1. Vitamin D3 500 mcg p.o. q.h.s. 2. Oxybutynin ER 5 mg p.o. daily. 3. Vitamin B12 1000 mcg p.o. daily. 4. Allopurinol 200 mg p.o. b.i.d. 5. Eliquis 5 mg p.o. b.i.d. 6. Amlodipine 5 mg p.o. daily. 7. Calcium plus D 1 tab p.o. daily. 8. Biotin 5000 mcg sublingual daily. 9. Atenolol 50 mg p.o. daily. 10. Aspirin 81 mg p.o. daily. 11. Duloxetine DR 60 mg p.o. daily. 12. Regular insulin 15 units subcutaneous a.c. p.r.n. blood glucose greater than 100. 13. Tresiba 88 units subcutaneous q.h.s. 14. Lasix 20 mg p.o. daily for weight over 250 pounds. 15. Trulicity 1.5 mg subcutaneous weekly. 16. Levothyroxine 25 mcg p.o. daily. 17. Souris-3 fatty acid 1000 mg p.o. daily. 18. Melatonin 3 mg p.o. q.h.s. p.r.n. insomnia. 19. Magnesium oxide 500 mg p.o. daily. 20. Senna 2 tabs p.o. q.h.s. p.r.n. constipation. 21. Omeprazole 20 mg p.o. daily. 22. Metformin 500 mg p.o. b.i.d. ALLERGIES: No known drug allergies. FAMILY HISTORY: Based on prior records indicate mom had coronary artery disease , dad had coronary artery disease and lung cancer. SOCIAL HISTORY: The patient quit approximately 27 years ago. She does not drink alcohol. She lives alone. Her son, Bar, is her healthcare proxy. REVIEW OF SYSTEMS: The patient questionably states that she has not eaten anything in the last couple days. She denies any chest pain. She admits to lower extremity edema, which she states is new over the last couple days, so again with the patient's confusion, the reliability of these answers is not clear. She does admit to chronic cough. No shortness of breath. She is clinically constipated. She has no abdominal pain. No nausea or vomiting. No hematochezia. No hematuria. No dysuria. No focal weakness. No sudden changes in vision. No dysphagia. No joint pains or muscle pains out of the ordinary. No rashes. She does admit to depression. PHYSICAL EXAMINATION GENERAL: The patient is a well-developed, elderly, obese female seen sitting up in the stretcher, appearing to be in no acute distress. VITAL SIGNS: Blood pressure 199/77, pulse 54, respiratory rate 16, temp 97.5. HEENT: Pupils are equal. The patient has had cataract surgery in the past. Extraocular muscles are intact. Oropharynx is clear. Oral mucosa is dry. There is a slight white film on the patient's tongue and roof of the mouth. It is unclear if this is because her mouth is dry or if this represents thrush. There is no submandibular, cervical, or supraclavicular adenopathy. PULMONARY: Lungs are clear to auscultation bilaterally. CARDIAC: Normal S1, S2. Regular rate and rhythm. I do not appreciate any murmurs. She has 1+ bilateral lower extremity pitting edema. ABDOMEN: Bowel sounds present. Abdomen is soft, nontender, nondistended. MUSCULOSKELETAL: The patient moves all 4 extremities symmetrically. NEURO: Cranial nerves II through XII are grossly intact. Sensation is intact to light touch throughout. Strength in the upper extremities is normal. Distal strength is normal in the legs bilaterally. The patient has a difficult time lifting her legs off the bed, but is able to slightly lift them against gravity. This is symmetric bilaterally. PSYCH: The patient is alert. She is confused about the events and specifics of her health history. SKIN: Warm and dry. There are chronic venous stasis changes to the bilateral distal lower legs. DIAGNOSTIC STUDIES/LAB DATA: Labs, WBC 7.7, hemoglobin 11.7, hematocrit 35, platelets 174. Sodium 140, potassium 4.3, chloride 108, CO2 25, BUN 46, creatinine 2.34, glucose 194. Lactic acid 1.0. Calcium 9.1. Bilirubin 0.5, AST 25, ALT 14, alk phos 374. Troponin 0.05. CRP 18.81. BNP 664. Albumin 3.2. CT brain reveals no acute intracranial abnormality, there are age-related atrophy and moderate chronic small vessel ischemic changes. Chest x-ray to my interpretation, I do question mild cephalization of the pulmonary vasculature. ASSESSMENT AND PLAN: Ms. Treviño is a 79-year-old female with number of medical problems including type 2 diabetes, hypertension, hyperlipidemia, hypothyroidism , chronic obstructive pulmonary disease, and stage 3 chronic kidney disease who presented to the emergency room with confusion. 1. Confusion. Differential on this includes possible urinary tract infection ( urinalysis is pending at this time), worsened renal failure, dementia. At this point, I am going to hold off on starting IV antibiotics until I have the urinalysis back. The patient denies any dysuria and she does not have fever or white count to push me to start these sooner. Her renal function is worse than normal. Her BUN is moderately elevated. This could be contributing. It is unclear if the patient has any underlying dementia. We will monitor her mental status through the course of her hospitalization. 2. Acute on chronic renal failure. The patient's baseline creatinine is around 1.4 to 1.5. Currently, her creatinine is elevated at 2.34. She does have mild lower extremity edema. It is unclear if she has been taking her medications correctly recently. I am going to hold her Lasix, so she did receive 40 mg of Lasix in the emergency room. I am also not going to give her any IV fluids. We will see if she is able to eat and drink adequately. If she has a urinary tract infection, this may be contributing to her renal failure. The patient's metformin will be held due to her renal failure. She likely should never be back on this as her creatinine at baseline is right around 1.4 to 1.5. 3. Mild congestive heart failure. The patient likely has mild CHF. It is evidenced by lower extremity edema. She tells me she normally does not have any edema. It is unclear how truthful this response is. Her BNP, however, is elevated. She received 40 mg of Lasix in the emergency room. I am going to hold off on any further Lasix at this time. I am going to get a transthoracic echocardiogram as her last echo at [facility] was in 2016. At that time, she had a normal systolic function. 4. Mildly elevated troponin. The patient's troponin is mildly elevated at 0.05. This may be secondary to CHF. In the past, she has hovered in the 0.3 to 0.6 range, though has had intermittent levels where her troponin was completely negative. Followup troponin has been ordered. 5. Type 2 diabetes. The patient will be continued on long-acting Lantus in replacement for her usual Tresiba and will continue on regular insulin 15 units a.c. for blood sugars greater than 100. As noted above, the patient has been taken off her metformin and likely should not go back on this given her stage 3 chronic kidney disease. 6. Hypertension. Blood pressures are markedly elevated at this time. It is unclear if the patient took her medications over the last couple days as they were ordered. Therefore, I will give a single dose of hydralazine now. She will resume her usual blood pressure medications later today. 7. History of deep vein thrombosis and pulmonary embolism. The patient will continue on Eliquis 5 mg p.o. twice daily, though this may need to be renally dosed. 8. Hypothyroidism. Continue current dose of Synthroid. 9. Gout. Continue allopurinol. 10. Depression. Continue duloxetine 11. DVT prophylaxis: According to the Adult Thrombosis Prophylaxis Risk Factor Assessment Guide, the patient has a total risk factor score of 10, making her the highest risk. As noted above, she already has a history of DVT and PE and is therefore on Eliquis. 12. Code status is full. TIME SPENT: Sixty-five minutes was spent admitting this patient. [id number]/CPS #: [id number] BARBRA
[2020-01-01] MEDS ORDERED: Insulin REGULAR(*) 1 UNITS UNIT SUBCUT SCH (07:30)
[2020-01-01] MEDS: Apixaban* 5 MG TAB PO SCH ×2 (08:57→21:04)
[2020-01-01] MEDS: amLODIPine TAB* 5 MG PO SCH (08:57)
[2020-01-01] MEDS: Oxybutynin XL TAB* 5 MG PO SCH (08:57)
[2020-01-01] MEDS: Allopurinol TAB* 100 MG PO SCH ×2 (08:57→21:04)
[2020-01-01] MEDS: DULoxetine DR CAP* 60 MG CAP.DR PO SCH (08:57)
[2020-01-01] MEDS: Atenolol TAB* 50 MG PO SCH (08:57)
[2020-01-01] MEDS: Pantoprazole TAB * 40 MG TAB PO SCH (08:57)
[2020-01-01] MEDS: Insulin GLARGINE(*) 1 UNITS UNIT SUBCUT SCH ×2 (08:58→22:24)
[2020-01-01] MEDS ORDERED: Aspirin 81 mg CHEW TAB* 81 MG TAB.CHEW PO SCH (09:00)
[2020-01-01] MEDS: ZOSYN 3.375 GM Q12H per EXTENDED INFUSION IVPB SCH ×4 (09:57→21:07)
--- NOTE | 2020-01-01 12:47 | ECHO ---
*[facility]* [place] [address] Fax #: [phone] Transthoracic Echocardiogram Patient: Brianda Treviño : 1940 Study Date: 01/01/2020 Age: 79 Gender: F HR: 61 bpm Height: 67 in /170.2 cm BSA: 2.11 m^2 Weight: 219.5 lb /99.8 kg BMI: 34.5 kg/m^2 *Application Dba: Paz Stapleton RDCS RN *Referring Physician: * Amira HoltReading Physician: * Prashanth Burdick MD Indications: Congestive Heart Failure. History: Chronic obstructive pulmonary disease. DVT/PE. Breast cancer. CKD. Chronic anemia. Risk factors: Former tobacco use. Hypertension. Diabetes mellitus. Obese. Dyslipidemia. Conclusions Summary: - Left ventricle: The cavity size is normal. Wall thickness is mildly to moderately increased. Systolic function is normal. The estimated ejection fraction is 60-65%. Features are consistent with a pseudonormal left ventricular filling pattern, with concomitant abnormal relaxation and increased filling pressure (grade 2 diastolic dysfunction). - Right ventricle: The cavity size is normal. Wall thickness is mildly increased. - Left atrium: The atrium is mildly dilated. - Mitral valve: The posterior mitral valve annulus appears moderately calcified. The leaflets are mildly thickened. There is mild regurgitation. - Tricuspid valve: There is trace to mild regurgitation. - Pericardium, extracardiac: There is a small left pleural effusion. - Inferior vena cava: The vessel is mildly dilated. There is normal respiratory change in the IVC dimension. - Similar to the prior report of 05/2016. Study data: Transthoracic echocardiogram. Procedure: Transthoracic echocardiography was performed. Image quality was fair. The study was technically limited due to body habitus and COPD. Complete 2D, spectral Doppler, and color flow Doppler. Location: Bedside. Patient status: Observation. Patient room number: 403. Rhythm: Normal sinus rhythm. Findings Left ventricle: The cavity size is normal. Wall thickness is mildly to moderately increased. Systolic function is normal. The estimated ejection fraction is 60-65%. Wall motion is normal; there are no regional wall motion abnormalities. Features are consistent with a pseudonormal left ventricular filling pattern, with concomitant abnormal relaxation and increased filling pressure (grade 2 diastolic dysfunction). Right ventricle: The cavity size is normal. Wall thickness is mildly increased. Systolic function is normal. Ventricular septum: The outflow septum has a sigmoid appearance. Mild turbulence without significant obstruction. Left atrium: The atrium is mildly dilated. Right atrium: The atrium is normal in size. Mitral valve: The posterior mitral valve annulus appears moderately calcified. The leaflets are mildly thickened. There is no evidence of stenosis. There is mild regurgitation. Aortic valve: The valve is trileaflet. The leaflets are mildly thickened. There is no evidence of stenosis. There is trace regurgitation. Tricuspid valve: The valve is structurally normal. There is no evidence of stenosis. There is trace to mild regurgitation. Pulmonic valve: The valve is structurally normal. There is no evidence of stenosis. There is trace regurgitation. Aorta: Aortic root: The aortic root is not dilated. Ascending aorta: The ascending aorta is not dilated. Aortic arch: The aortic arch is not dilated. Pericardium: There is no pericardial effusion. There is a small left pleural effusion. Pulmonary arteries: Not well visualized. Systolic pressure cannot be accurately estimated. Systemic veins: Inferior vena cava: The vessel is mildly dilated. There is normal respiratory change in the IVC dimension. Measurements Left ventricle Value Ref Aortic valve Value Ref MINO, LAX 4.5 cm 3.8 - 5.2 Pascual diam, ED 1.9 cm ---- ESD, LAX 2.8 cm 2.2 - 3.5 Peak v, S 1.7 m/sec ---- FS, LAX 37 % 27 - 45 VTI, S 44.0 cm ---- PW, ED (H) 1.2 cm 0.6 - 0.9 Mean grad, S 7.0 mm Hg ---- IVS/PW, ED 1.3 Peak grad, S 11.6 mm Hg ---- E', lat pascual, TDI (L) 5.0 cm/sec >=10.0 LVOT/AV, VTI ratio 0.72 -- -- E/e', lat pascual, 26 TDI Mitral valve Value Ref E', med pascual, TDI (L) 4.6 cm/sec >=7.0 Peak E 1.3 m/sec -- -- E/e', med pascual, 28 Peak A 1.4 m/sec ---- TDI Decel time 180 ms ---- E', avg, TDI 4.8 cm/sec PHT 105 ms ---- E/e', avg, TDI (H) 27 <=14 Mean grad, D 3.0 mm Hg -- -- Peak grad, D 8.0 mm Hg ---- LVOT Value Ref Peak E/A ratio 0.93 ---- Peak karrie, S 1.2 m/sec MVA, PHT 2.1 cm^2 ---- VTI, S 31.7 cm Peak grad, S 6 mm Hg Pulmonic valve Value Ref Mean grad, S 3 mm Hg Peak v, S 1.4 m/sec ---- Peak grad, S 8.0 mm Hg ---- Ventricular septum Value Ref IVS, ED (H) 1.6 cm 0.6 - 0.9 Aortic root Value Ref Root diam 2.4 cm <4.2 Right ventricle Value Ref AW thickness, ED (H) 0.7 cm 0.1 - 0.5 Ascending aorta Value Ref MINO, LAX 3.0 cm AAo AP diam, S 2.9 cm ---- MINO minor ax, A4C (H) 3.6 cm 1.9 - 3.5 mid Aortic arch Value Ref Arch diam 2.0 cm ---- Left atrium Value Ref AP dim, ES (H) 3.90 cm 2.70 - Decending aorta Value Ref 3.80 Nba peak karrie 0.79 m/sec ---- ML dim, A4C 5.2 cm SI dim, A4C 6.1 cm Inferior vena cava Value Ref Vol/bsa, ES, 1-p (H) 43 ml/m^2 11 - 40 Diam 2.2 cm ---- A4C Vol/bsa, ES, A/L (H) 40 ml/m^2 16 - 34 Right atrium Value Ref ML dim, ES, A4C 3.9 cm 2.6 - 4.4 SI dim, ES, A4C 5.2 cm 3.4 - 5.3 Estimated RAP 8 mm Hg Legend: (L) and (H) tish values outside specified reference range. Prepared and electronically signed by Prashanth Burdick MD 01/01/2020 12:47
[2020-01-01] MEDS: Insulin REGULAR(*) 1 UNITS UNIT SUBCUT PRN ×2 (12:53→17:32)
[2020-01-01 13:17] LABS: Anion Gap 11 mmol/L (2-11); BUN/Creatinine Ratio 20.7 (8-20); Blood Urea Nitrogen 47 mg/dL (6-24); CO2 Carbon Dioxide 21 mmol/L (22-32); Calcium 8.9 mg/dL (8.6-10.3); Chloride 110 mmol/L (101-111); EGFR African American 25.3 (>60); EGFR Non-African American 20.9 (>60); Glucose 178 mg/dL (70-100); Potassium 4.4 mmol/L (3.5-5.0); Sodium 142 mmol/L (135-145)
--- NOTE | 2020-01-01 14:17 | PN ---
Subjective Date of Service: 01/01/20 Interval History: No c/o. Not clear if she would remember her symptoms. Objective Active Medications: Allopurinol (Zyloprim Tab*) 200 mg PO BID [facility] Last Admin: 01/01/20 08:57 Dose: 200 mg Amlodipine Besylate (Norvasc Tab*) 5 mg PO DAILY [facility] Last Admin: 01/01/20 08:57 Dose: 5 mg Apixaban (Eliquis*) 5 mg PO BID [facility] Last Admin: 01/01/20 08:57 Dose: 5 mg Aspirin (Aspirin 81 Mg Chew Tab*) 81 mg PO DAILY [facility] Last Admin: 01/01/20 08:57 Dose: 81 mg Atenolol (Tenormin Tab*) 50 mg PO DAILY [facility] Last Admin: 01/01/20 08:57 Dose: 50 mg Duloxetine HCl (Cymbalta Cap*) 60 mg PO DAILY [facility] Last Admin: 01/01/20 08:57 Dose: 60 mg Piperacillin Sod/Tazobactam (Sod 3.375 gm/ Sodium Chloride) 100 mls @ 25 mls/ hr IVPB Q12H [facility] Last Admin: 01/01/20 09:57 Dose: 25 mls/hr Insulin Glargine (Lantus(*)) 35 units SUBCUT Q12HR [facility] Last Admin: 01/01/20 08:58 Dose: 35 units Insulin Human Regular (Insulin Regular(*)) 15 units SUBCUT AC PRN PRN Reason: BS>100 Last Admin: 01/01/20 12:53 Dose: 15 units Levothyroxine Sodium (Synthroid Tab*) 25 mcg PO QAM@0600 [facility] Melatonin (Melatonin) 3 mg PO BEDTIME PRN PRN Reason: SLEEP Oxybutynin Chloride (Ditropan Xl Tab*) 5 mg PO DAILY [facility] Last Admin: 01/01/20 08:57 Dose: 5 mg Pantoprazole Sodium (Protonix Tab*) 40 mg PO DAILY [facility] Last Admin: 01/01/20 08:57 Dose: 40 mg Senna (Senokot 8.6 Mg Tab*) 2 tab PO BEDTIME PRN PRN Reason: CONSTIPATION Vital Signs - 8 hr 01/01/20 01/01/20 06:39 07:00 Temperature 97.5 F 97.8 F Pulse Rate 60 63 Respiratory 16 20 Rate Blood Pressure 187/65 158/64 (mmHg) O2 Sat by Pulse 96 96 Oximetry Oxygen Devices in Use Now: None Appearance: Alert, partly up in bed. Cheerful, looks comfortable. Eyes: No Scleral Icterus Respiratory: Symmetrical Chest Expansion and Respiratory Effort, Clear to Auscultation, Clear to Percussion Cardiovascular: NL Sounds; No Murmurs; No JVD, RRR, No Edema, - Extremities: No Clubbing, Cyanosis, - - 1+ edema BL Skin: No Nodules or Sclerosis Neurological: NL Sensation - Gave her age and present month but could not say how long she has been in the hospital. She named her living son., NL Gait, - - She gave her age, the present month, and the name of her surviving son. She could not say ow long she has been in the hosptial. No tremor. Result Diagrams: 01/01/20 00:23 01/01/20 03:27 Additional Lab and Data: Lab Results 01/01/20 Range/Units 00:23 WBC 7.7 (3.5-10.8) 10^3/uL RBC 3.92 (3.70-4.87) 10^6 /uL Hgb 11.7 L (12.0-16.0) g/dL Hct 35 (35-47) % MCV 89 (80-97) fL MCH 30 (27-31) pg MCHC 33 (31-36) g/dL RDW 16 H (10-15) % Plt Count 174 (150-450) 10^3/uL MPV 10.0 (7.4-10.4) fL Neut % (Auto) 82.5 % Lymph % (Auto) 10.9 % [place] % (Auto) 5.0 % Eos % (Auto) 0.9 % Baso % (Auto) 0.7 % Absolute Neuts (auto) 6.3 (1.5-7.7) 10^3/ul Absolute Lymphs (auto) 0.8 L (1.0-4.8) 10^3/ul Absolute Monos (auto) 0.4 (0-0.8) 10^3/ul Absolute Eos (auto) 0.1 (0-0.6) 10^3/ul Absolute Basos (auto) 0.1 (0-0.2) 10^3/ul Absolute Nucleated RBC 0.0 10^3/ul Nucleated RBC % 0.0 Assess/Plan/Problems-Billing Assessment: - Patient Problems (1) Altered mental status Current Visit: No Status: Acute Code(s): R41.82 - ALTERED MENTAL STATUS, UNSPECIFIED SNOMED Code(s): 324213900 Comment: Possibly related to urine C&S and/or mild dementia. Continue pip/clementina until C&S results back. (2) Diabetes mellitus Current Visit: No Status: Chronic Onset Date: 08/15/14 Code(s): E11.9 - TYPE 2 DIABETES MELLITUS WITHOUT COMPLICATIONS SNOMED Code(s): 37724963 Comment: - Hgba1c: 5.7 on 01/01/20. - Continue Lispro and Lantus. (3) History of pulmonary embolism Current Visit: No Status: Acute Code(s): Z86.711 - PERSONAL HISTORY OF PULMONARY EMBOLISM SNOMED Code(s): 930478634 Comment: Continue apixaban
[2020-01-01] MEDS ORDERED: amLODIPine TAB* 5 MG PO ONE (23:56)
[2020-01-02] MEDS ORDERED: hydrALAZINE IV* 20 MG/ML VIAL IV SLOW PU PRN (03:51)
[2020-01-02] MEDS: Levothyroxine TAB* 25 MCG TAB PO SCH (05:17)
[2020-01-02] MEDS ORDERED: Labetalol IV* 5 MG/ML 20 ML VIAL IV PUSH ONE (05:24)
[2020-01-02] MEDS ORDERED: Aspirin 81 mg CHEW TAB* 81 MG TAB.CHEW PO ONE (06:27)
[2020-01-02] MEDS ORDERED: Morphine INJ* 2 MG/ML 1 ML SYRINGE (TWO MG - NEW SYRINGE VERSION) IV ONE (06:28)
[2020-01-02] MEDS ORDERED: Nitro 2% OINT* (Nitroglycerin) 1 INCH/PAK PAK TOPICAL ONE (06:29)
[2020-01-02 06:30] LABS: Anion Gap 6 mmol/L (2-11); BUN/Creatinine Ratio 19.3 (8-20); Blood Urea Nitrogen 50 mg/dL (6-24); CO2 Carbon Dioxide 26 mmol/L (22-32); Calcium 8.6 mg/dL (8.6-10.3); Chloride 107 mmol/L (101-111); EGFR African American 21.7 (>60); EGFR Non-African American 17.9 (>60); Glucose 126 mg/dL (70-100); Potassium 4.3 mmol/L (3.5-5.0); Sodium 139 mmol/L (135-145)
[2020-01-02 06:40] LABS: Troponin I 0.03 ng/mL (<0.03)
[2020-01-02] MEDS: Pantoprazole TAB * 40 MG TAB PO SCH (07:54)
[2020-01-02] MEDS: Oxybutynin XL TAB* 5 MG PO SCH (07:55)
[2020-01-02] MEDS: Atenolol TAB* 50 MG PO SCH (07:55)
[2020-01-02] MEDS: Apixaban* 5 MG TAB PO SCH ×2 (07:56→23:46)
[2020-01-02] MEDS: amLODIPine TAB* 5 MG PO SCH (07:56)
[2020-01-02] MEDS: Allopurinol TAB* 100 MG PO SCH ×2 (07:56→23:46)
[2020-01-02] MEDS: DULoxetine DR CAP* 60 MG CAP.DR PO SCH (07:56)
[2020-01-02] MEDS ORDERED: Metoprolol Tartrate IV* 1 MG/ML 5 ML VIAL IV ONE (08:18)
[2020-01-02] MEDS ORDERED: Ondansetron TAB* 4 MG PO PRN (08:37)
[2020-01-02] MEDS: Insulin GLARGINE(*) 1 UNITS UNIT SUBCUT SCH (08:42)
[2020-01-02] MEDS ORDERED: Dextrose 50% Syringe 50 ML* 25 GM/50 ML SYRINGE IV PUSH PRN (08:56)
[2020-01-02] MEDS ORDERED: DULoxetine DR CAP* 60 MG CAP.DR PO SCH (09:00)
[2020-01-02] MEDS ORDERED: NS 0.45% 1000 ML BAG* 1,000 ML IV SCH (09:00)
--- NOTE | 2020-01-02 09:02 | PN ---
Subjective Date of Service: 01/02/20 Interval History: Nausea and abdominal pain during the night. Normal BM last evening. No emesis. No SOB, chest pain. Objective Active Medications: Allopurinol (Zyloprim Tab*) 200 mg PO BID [facility] Last Admin: 01/02/20 07:56 Dose: 200 mg Amlodipine Besylate (Norvasc Tab*) 5 mg PO DAILY [facility] Last Admin: 01/02/20 07:56 Dose: 5 mg Apixaban (Eliquis*) 5 mg PO BID [facility] Last Admin: 01/02/20 07:56 Dose: 5 mg Aspirin (Aspirin 81 Mg Chew Tab*) 81 mg PO QAM [facility] Atenolol (Tenormin Tab*) 50 mg PO DAILY [facility] Last Admin: 01/02/20 07:55 Dose: 50 mg Dextrose (D50w Syringe 50 Ml*) 12.5 gm IV PUSH .FOR FS < 60 - SS PRN PRN Reason: FS < 60 Duloxetine HCl (Cymbalta Cap*) 30 mg PO DAILY [facility] Hydralazine HCl (Apresoline Iv*) 10 mg IV SLOW PU Q6H PRN PRN Reason: BLOOD PRESSURE Last Admin: 01/02/20 04:07 Dose: 10 mg Piperacillin Sod/Tazobactam (Sod 3.375 gm/ Sodium Chloride) 100 mls @ 25 mls/ hr IVPB Q12H [facility] Last Admin: 01/01/20 21:07 Dose: 25 mls/hr Sodium Chloride (Ns 0.45% 1000 Ml Bag*) 1,000 mls @ 125 mls/hr IV PER RATE [facility] Insulin Glargine (Lantus(*)) 20 units SUBCUT Q24H [facility] Last Admin: 01/02/20 08:42 Dose: 20 units Insulin Human Lispro (Humalog*) 0 units SUBCUT ACHS [facility]; Protocol Levothyroxine Sodium (Synthroid Tab*) 25 mcg PO QAM@0600 [facility] Last Admin: 01/02/20 05:17 Dose: 25 mcg Melatonin (Melatonin) 3 mg PO BEDTIME PRN PRN Reason: SLEEP Ondansetron HCl (Zofran Tab*) 4 mg PO Q6H PRN PRN Reason: NAUSEA Last Admin: 01/02/20 08:45 Dose: 4 mg Oxybutynin Chloride (Ditropan Xl Tab*) 5 mg PO DAILY [facility] Last Admin: 01/02/20 07:55 Dose: 5 mg Pantoprazole Sodium (Protonix Tab*) 40 mg PO DAILY [facility] Last Admin: 01/02/20 07:54 Dose: 40 mg Senna (Senokot 8.6 Mg Tab*) 2 tab PO BEDTIME PRN PRN Reason: CONSTIPATION Vital Signs - 8 hr 01/02/20 01/02/20 01/02/20 03:03 05:18 05:20 Temperature 98.3 F Pulse Rate 61 Respiratory 22 Rate Blood Pressure 180/70 182/64 190/76 (mmHg) O2 Sat by Pulse 96 Oximetry 01/02/20 01/02/20 01/02/20 06:10 06:28 06:44 Temperature Pulse Rate 61 59 Respiratory 20 Rate Blood Pressure 163/53 176/57 (mmHg) O2 Sat by Pulse 93 93 Oximetry 01/02/20 07:35 Temperature 98.2 F Pulse Rate 60 Respiratory 22 Rate Blood Pressure 177/57 (mmHg) O2 Sat by Pulse 95 Oximetry Oxygen Devices in Use Now: None Appearance: Alert, partly up in bed. In fair spirits, looks uncomfortable from nausea and abdominal pain. Eyes: No Scleral Icterus Respiratory: Symmetrical Chest Expansion and Respiratory Effort, Clear to Auscultation, Clear to Percussion Cardiovascular: NL Sounds; No Murmurs; No JVD, RRR, No Edema, - Abdominal: - - Soft, obese. Mod diffuse tenderness. Nl BS. No mass Extremities: No Edema, No Clubbing, Cyanosis, - Skin: No Rash or Ulcers, No Nodules or Sclerosis, - Neurological: Alert and Oriented x 3, NL Sensation Result Diagrams: 01/02/20 10:29 01/02/20 05:45 Additional Lab and Data: Lab Results 01/01/20 Range/Units 00:23 WBC 7.7 (3.5-10.8) 10^3/uL RBC 3.92 (3.70-4.87) 10^6 /uL Hgb 11.7 L (12.0-16.0) g/dL Hct 35 (35-47) % MCV 89 (80-97) fL MCH 30 (27-31) pg MCHC 33 (31-36) g/dL RDW 16 H (10-15) % Plt Count 174 (150-450) 10^3/uL MPV 10.0 (7.4-10.4) fL Neut % (Auto) 82.5 % Lymph % (Auto) 10.9 % [place] % (Auto) 5.0 % Eos % (Auto) 0.9 % Baso % (Auto) 0.7 % Absolute Neuts (auto) 6.3 (1.5-7.7) 10^3/ul Absolute Lymphs (auto) 0.8 L (1.0-4.8) 10^3/ul Absolute Monos (auto) 0.4 (0-0.8) 10^3/ul Absolute Eos (auto) 0.1 (0-0.6) 10^3/ul Absolute Basos (auto) 0.1 (0-0.2) 10^3/ul Absolute Nucleated RBC 0.0 10^3/ul Nucleated RBC % 0.0 Assess/Plan/Problems-Billing Assessment: - Patient Problems (1) Altered mental status Current Visit: No Status: Acute Code(s): R41.82 - ALTERED MENTAL STATUS, UNSPECIFIED SNOMED Code(s): 631528383 Comment: Possibly related to urine C&S and/or mild dementia. Seems to back to her baseline. Prelim urine C&S shows 10-25,000 colonies E. coli. Last urine C&S 2019 was no growth. Stop pip clementina as could have caused her gi sx's, start cefuroxime. (2) Diabetes mellitus Current Visit: No Status: Chronic Onset Date: 08/15/14 Code(s): E11.9 - TYPE 2 DIABETES MELLITUS WITHOUT COMPLICATIONS SNOMED Code(s): 21691309 Comment: - Hgba1c: 5.7 on 01/01/20. - Reduced Lantus on 01/02 due to low FS, poor oral intake while nauseated. Change to Lispro by SS (not her home regimen). Diabetic diet resumed at lunch . (3) History of pulmonary embolism Current Visit: No Status: Acute Code(s): Z86.711 - PERSONAL HISTORY OF PULMONARY EMBOLISM SNOMED Code(s): 235533067 Comment: Continue apixaban (4) Nausea Current Visit: Yes Status: Acute Code(s): R11.0 - NAUSEA SNOMED Code(s): 230365342 Comment: With abdomional pain. Addon CMP, CXR, ECG, abd X-rays. CXR more likely atectasis and/or some pleural fluid, but not causing sx's. Nl WBC argues against pPNA. PRN ondansetron ordered. Nause resolved by mid-morning 01/02.
[2020-01-02 09:13] LABS: ALT 19 U/L (7-52); AST 27 U/L (13-39); Albumin/Globulin Ratio 1.2 (1-3); Alkaline Phosphatase 312 U/L (34-104); Globulin 2.6 g/dL (2-4); Total Protein 5.6 g/dL (6.4-8.9)
[2020-01-02] MEDS ORDERED: DULoxetine DR CAP* 30 MG CAP.DR PO SCH (09:56)
[2020-01-02] MEDS: ZOSYN 3.375 GM Q12H per EXTENDED INFUSION IVPB SCH ×2 (10:04)
[2020-01-02 10:34] LABS: ABS Eosinophils 0.2 10^3/ul (0-0.6); ABS Lymphocytes 0.7 10^3/ul (1.0-4.8); ABS Monocytes 0.3 10^3/ul (0-0.8); ABS Neutrophils 5.5 10^3/ul (1.5-7.7); Hematocrit 31 % (35-47); Hemoglobin 10.1 g/dL (12.0-16.0); Lymphocyte % 10.6 %; Mean Corpuscular HGB Conc 33 g/dL (31-36); Mean Corpuscular Hemoglobin 29 pg (27-31); Mean Corpuscular Volume 89 fL (80-97); Platelet Count 102 10^3/uL (150-450); Red Blood Count 3.44 10^6 /uL (3.70-4.87); Red Cell Distribution Width 16 % (10-15); White Blood Count 6.8 10^3/uL (3.5-10.8)
[2020-01-02] MEDS ORDERED: Cephalexin CAP* 500 MG PO SCH (13:00)
[2020-01-02] MEDS: Insulin LISPRO* 1 UNITS UNIT SUBCUT SCH ×3 (13:08→23:48)
[2020-01-03 06:05] LABS: EGFR African American 22.1 (>60); EGFR Non-African American 18.3 (>60); Potassium 4.8 mmol/L (3.5-5.0)
[2020-01-03] MEDS: Levothyroxine TAB* 25 MCG TAB PO SCH (06:34)
[2020-01-03] MEDS: Insulin LISPRO* 1 UNITS UNIT SUBCUT SCH ×3 (07:55→17:44)
[2020-01-03] MEDS: Allopurinol TAB* 100 MG PO SCH (07:55)
[2020-01-03] MEDS: Pantoprazole TAB * 40 MG TAB PO SCH (08:17)
[2020-01-03] MEDS: Apixaban* 5 MG TAB PO SCH (08:17)
[2020-01-03] MEDS: amLODIPine TAB* 5 MG PO SCH (08:18)
[2020-01-03] MEDS: Insulin GLARGINE(*) 1 UNITS UNIT SUBCUT SCH (08:20)
[2020-01-03] MEDS: Oxybutynin XL TAB* 5 MG PO SCH (08:20)
[2020-01-03] MEDS: Atenolol TAB* 50 MG PO SCH (08:35)
[2020-01-03] MEDS ORDERED: Aspirin 81 mg CHEW TAB* 81 MG TAB.CHEW PO SCH (09:00)
[2020-01-03 12:03] VITALS: BP 138/79
--- NOTE | 2020-01-04 03:41 | DS ---
DISCHARGE SUMMARY: DATE OF ADMISSION: 12/31/19 DATE OF DISCHARGE: 01/03/20 ADMITTING PROVIDER: Amira Holt DO PRIMARY CARE PROVIDER: Dr. Merrill. ATTENDING PHYSICIAN ON THE DAY OF DISCHARGE: Max Lim MD CHIEF COMPLAINT: Confusion. PRINCIPAL DIAGNOSES: 1. Escherichia coli urinary tract infection. 2. Progression of chronic kidney disease. HISTORY OF PRESENT ILLNESS: Brianda Treviño is a 79-year-old female with a past medical history of insulin-dependent diabetes mellitus; hypertension; COPD, DVT , PE, on Eliquis; chronic kidney disease stage 3; hypothyroidism; depression; gout; and anemia. Please see H&P of Dr. Amira Holt for full details, but briefly her son noticed that she seemed to be more confused when he talked to her on the phone. She had also been mildly confused 2 evenings prior to that. She was transported to [facility] Emergency Room via an ambulance and initial workup was concerning for hypertensive urgency with blood pressures 215/77. She had no leukocytosis. CRP was 18.8. BNP was 664. Her urinalysis showed 3+ protein , 2+ blood, 3+ leukocyte esterase, and 1+ bacteria, which eventually grew 10 to 15,000 of E. coli, pansensitive. She was started on ceftriaxone. She had improvement in her symptoms and was transitioned to cefuroxime. Of note, her kidney function had worsened compared to prior with initial creatinine of 2.34, peaked at 2.59, on discharge 2.55 with a GFR of 18.3. This was compared to her baseline back in January of 2019 of creatinine 1.5 and GFR of 34. She did have reduction in her insulin doses on admission. Despite this, her blood sugar dipped down to 69 the evening of hospital day #1 and further reductions were made, especially in light of her reduced kidney function. She worked with Physical Therapy, was thought to be at her baseline per verbal report (official original report pending). She had a CT of her head noncontrast, which demonstrated no acute intracranial process, mild chronic small vessel ischemic changes and age-related atrophy. Chest x-ray demonstrated no acute process. She had an echocardiogram, which demonstrated ejection fraction of 60% to 65% and grade 2 diastolic dysfunction similar to the prior of May 2016. Course was complicated on the day prior to discharge of some abdominal pain and some nausea. She had an abdominal x-ray, which did show some large amounts of stool in the colon and then her symptoms resolved. On further questioning, she does recall that she has fallen about 3 times in the last 3 weeks. She lives alone and was recommended that alternate living arrangements to be considered where she has more supervision. She walks with the walker or a wheelchair at baseline depending on how far she has to go. Some medications were adjusted to account for her new renal function. Her A1c was 5.7 and she also commented a few weeks ago that she did not take any insulin at all as she has low readings. DISCHARGE MEDICATIONS: Include: 1. Allopurinol 100 mg twice a day, decreased from 200 mg twice a day. 2. Amlodipine 10 mg daily. 3. Apixaban 5 mg p.o. b.i.d. 4. Aspirin 81 mg daily. 5. Atenolol 50 mg daily. 6. Duloxetine 60 mg p.o. daily. 7. Levothyroxine 25 mcg daily. 8. Melatonin 3 mg p.o. at bedtime. 9. Prilosec 20 mg daily. 10. Oxybutynin 5 mg daily. 11. Senna 2 tabs p.o. at bedtime p.r.n. 12. Biotin 5000 mcg daily. 13. Calcium carbonate with vitamin D 1 tab p.o. daily. 14. Cefuroxime 500 mg p.o. daily for 2 more tabs. 15. Trulicity 1.5 mg subcutaneous weekly. 16. Lasix 20 mg p.o. daily. 17. Tresiba 20 units daily, decreased from prior 88 units daily. 18. Lispro 5 units q.a.c. p.r.n. for hyperglycemia, down from 15 units q.a.c. 19. Magnesium oxide 500 mg p.o. daily. 20. [place]-3 fatty acid 1000 mg p.o. daily. 21. Vitamin B12 of 1000 mcg p.o. daily. 22. Vitamin D3 of 500 mcg p.o. at bedtime. DISPOSITION: Home. CONDITION: Guarded with recommendation to seek higher level of care if she continues to fall as frequently as she is falling. FOLLOWUP: Please follow up with Dr. Merrill within 7 to 10 days. She should have a repeat BMP and if creatinine is still continued to be elevated, we would recommend initiation of nephrology consultation. TIME SPENT ON DISCHARGE: Forty minutes. [id number]/[facility] #: [id number] MTDD
== END 2020-01-03 18:00 | disposition home or self-care (01) ==
LOC: ED 22:38 → MED 01-01 02:47
PROVIDERS: ADMIT Hospitalist; ATTEND Internal Medicine
DX: N39.0 Urinary tract infection, site not specified (principal); R41.0 Disorientation, unspecified; B96.20 Unspecified Escherichia coli [E. coli] as the cause of diseases classified elsewhere; I13.0 Hypertensive heart and chronic kidney disease with heart failure and stage 1 through stage 4 chronic kidney disease, or unspecified chronic kidney disease; I50.9 Heart failure, unspecified; M10.9 Gout, unspecified; E03.9 Hypothyroidism, unspecified; F32.9 Major depressive disorder, single episode, unspecified; D64.9 Anemia, unspecified; E11.22 Type 2 diabetes mellitus with diabetic chronic kidney disease; N18.3 Chronic kidney disease, stage 3 (moderate); J44.9 Chronic obstructive pulmonary disease, unspecified; K21.9 Gastro-esophageal reflux disease without esophagitis; R11.0 Nausea; Z86.73 Personal history of transient ischemic attack (TIA), and cerebral infarction without residual deficits; Z79.4 Long term (current) use of insulin; Z79.01 Long term (current) use of anticoagulants; Z86.718 Personal history of other venous thrombosis and embolism; Z86.711 Personal history of pulmonary embolism; Z79.82 Long term (current) use of aspirin; Z79.899 Other long term (current) drug therapy; Z87.891 Personal history of nicotine dependence; R94.31 Abnormal electrocardiogram [ECG] [EKG]
CPT/HCPCS: 36415; 70450; 71045; 71046; 74019; 80048; 80053; 81003; 81015; 83036; 83605; 83880; 84484; 85025; 86140; 87077; 87086; 87186; 93005; 93306; 96365; 96366; 96375; 96376; 99284; A9270-GY; G0378; J0360; J2270; J2543; J3490

== ENCOUNTER 2020-01-19 15:56 | Inpatient (IN) | payer MEDICARE ==
--- NOTE | 2020-01-19 16:22 | ED ---
GI/ HPI - HPI Summary HPI Summary: The patient is a 79-year-old female arriving via ambulance to [facility] [place] with a chief complaint of nausea and vomiting today. She recently was admitted to [facility] [place] for a UTI, and she just finished the course of antibiotics, which the patient is unsure of the name, but according to her discharge paperwork, was Cefuroxime. The patients visiting nurse has noticed the patient to be generally weak and fatigued for the last few days. The patient endorses shortness of breath for the last week, and she states that she was suffering from a cold at that time. EMS notes slight hypoxia in the high 80s to low 90s, so she was placed on 2L O2 with improvement. They also obtained an IV site with fluid bolus administered during transport secondary to nausea and vomiting as well as blood pressure changes. Blood glucose was 240 en route. Past medical history is significant for diabetes anemia, CHF, cardiac stent, hypertension, COPD, asthma, sleep apnea, GERD, GI bleed, gout, neuropathy, CVA. Former smoker, no alcohol use, no substance use. Medications reviewed. Allergies noted. Home Medications Medication Instructions Recorded Confirmed Type Apixaban* [Eliquis*] 5 mg PO BID 08/16/16 01/19/20 History Atenolol TAB* [Tenormin TAB* 50 MG] 50 mg PO QAM 08/16/16 01/19/20 History Senna TAB 8.6 mg* [Senokot 8.6 mg 2 tab PO BEDTIME PRN 08/16/16 01/19/20 History TAB*] Biotin 5,000 mcg SL DAILY 01/24/19 01/19/[address] CAP* [Cymbalta CAP*] 60 mg PO QAM 01/24/19 01/19/20 History Furosemide TAB* [Lasix TAB*] 20 mg PO QAM 01/24/19 01/19/20 History Levothyroxine TAB* [Synthroid 25 25 mcg PO QAM 01/24/19 01/19/20 History MCG TAB*] Overton-3 Fatty Acids (Nf) [Fish Oil 1,000 mg PO QAM 01/24/19 01/19/20 History (NF)] Omeprazole CAP (NF) [Prilosec CAP* 20 mg PO DAILY 01/24/19 01/19/20 History 20 MG] Allopurinol TAB* [Zyloprim 100 MG 100 mg PO BID #60 tab 01/03/20 01/19/20 Rx TAB*] Aspirin EC TAB* [Ecotrin EC Low 81 mg PO QAM 01/19/20 01/19/20 History Dose 81 MG*] Calcium Carbonate/Vitamin D3 1 tab PO DAILY 01/19/20 01/19/20 History [Calcium 500-Vit D3 400 Chew Tb] Cholecalciferol TAB* [Vitamin D 500 unit PO QPM 01/19/20 01/19/20 History TAB*] Cyanocobalamin TAB* [Vitamin B12 1,000 mcg PO QAM 01/19/20 01/19/20 History TAB*] Dulaglutide (NF) [Trulicity (NF)] 1.5 mg SUBCUT WEEKLY 01/19/20 01/19/20 History Insulin Degludec [Tresiba 20 units SUBCUT QPM 01/19/20 01/19/20 History Flextouch 200 units/ml x 3 Pens] Insulin Regular, Human [Novolin R 5 units SUBCUT TID WITH MEALS 01/19/20 History Flexpen 100 units/ml 3 ml x 5 Pens] Magnesium Oxide 500 mg PO QPM 01/19/20 01/19/20 History Melatonin [Meladox] 3 mg PO QPM PRN 01/19/20 01/19/20 History Oxybutynin XL TAB* [Ditropan XL 5 mg PO QPM 01/19/20 01/19/20 History TAB*] amLODIPine TAB* [Norvasc 5 mg TAB*] 5 mg PO QAM 01/19/20 01/19/20 History - History of Current Complaint Time Seen by Provider: 01/19/20 16:03 Stated Complaint: NAUSEA PER EMS Hx Obtained From: Patient, EMS Onset/Duration: Started Hours Ago, Still Present Timing: Constant Severity: Mild Current Severity: Moderate Pain Intensity: 0 Associated Signs and Symptoms: Positive: Weakness, Nausea, Vomiting, Other: - shortness of breath Aggravating Factor(s): Nothing - recently finished course of antibiotics for UTI Alleviating Factor(s): Nothing - Additional Pertinent History Primary Care Physician: [id number] - Allergy/Home Medications Allergies/Adverse Reactions: Allergies Allergy/AdvReac Type Severity Reaction Status Date / Time No Known Allergies Allergy Verified 01/24/19 13:27 Home Medications: Home Medications Apixaban* [Eliquis*] 5 mg PO BID 08/16/16 [History Confirmed 01/19/20] Atenolol TAB* [Tenormin TAB* 50 MG] 50 mg PO QAM 08/16/16 [History Confirmed ] Senna TAB 8.6 mg* [Senokot 8.6 mg TAB*] 2 tab PO BEDTIME PRN 08/16/16 [History Confirmed 01/19/20] Biotin 5,000 mcg SL DAILY 01/24/19 [History Confirmed 01/19/20] DULoxetine DR CAP* [Cymbalta CAP*] 60 mg PO QAM 01/24/19 [History Confirmed ] Furosemide TAB* [Lasix TAB*] 20 mg PO QAM 01/24/19 [History Confirmed 01/19/20] Levothyroxine TAB* [Synthroid 25 MCG TAB*] 25 mcg PO QAM 01/24/19 [History Confirmed 01/19/20] Overton-3 Fatty Acids (Nf) [Fish Oil (NF)] 1,000 mg PO QAM 01/24/19 [History Confirmed 01/19/20] Omeprazole CAP (NF) [Prilosec CAP* 20 MG] 20 mg PO DAILY 01/24/19 [History Confirmed 01/19/20] Allopurinol TAB* [Zyloprim 100 MG TAB*] 100 mg PO BID #60 tab 01/03/20 [Rx Confirmed 01/19/20] Aspirin EC TAB* [Ecotrin EC Low Dose 81 MG*] 81 mg PO QAM 01/19/20 [History Confirmed 01/19/20] Calcium Carbonate/Vitamin D3 [Calcium 500-Vit D3 400 Chew Tb] 1 tab PO DAILY [History Confirmed 01/19/20] Cholecalciferol TAB* [Vitamin D TAB*] 500 unit PO QPM 01/19/20 [History Confirmed 01/19/20] Cyanocobalamin TAB* [Vitamin B12 TAB*] 1,000 mcg PO QAM 01/19/20 [History Confirmed 01/19/20] Dulaglutide (NF) [Trulicity (NF)] 1.5 mg SUBCUT WEEKLY 01/19/20 [History Confirmed 01/19/20] Insulin Degludec [Tresiba Flextouch 200 units/ml x 3 Pens] 20 units SUBCUT QPM 01/19/20 [History Confirmed 01/19/20] Insulin Regular, Human [Novolin R Flexpen 100 units/ml 3 ml x 5 Pens] 5 units SUBCUT TID WITH MEALS 01/19/20 [History Confirmed 01/19/20] Magnesium Oxide 500 mg PO QPM 01/19/20 [History Confirmed 01/19/20] Melatonin [Meladox] 3 mg PO QPM PRN 01/19/20 [History Confirmed 01/19/20] Oxybutynin XL TAB* [Ditropan XL TAB*] 5 mg PO QPM 01/19/20 [History Confirmed ] amLODIPine TAB* [Norvasc 5 mg TAB*] 5 mg PO QAM 01/19/20 [History Confirmed ] PMH/Surg Hx/FS Hx/Imm Hx Endocrine/Hematology History: Reports: Hx Anticoagulant Therapy, Hx Diabetes, Hx Anemia Cardiovascular History: Reports: Hx Angina, Hx Cardiomegaly, Hx Congestive Heart Failure, Hx Hypertension, Other Cardiovascular Problems/Disorders - IDDM Denies: Hx Coronary Artery Disease, Hx Hypercholesterolemia, Hx Myocardial Infarction, Hx Pacemaker/ICD, Hx Valvular Heart Disease Respiratory History: Reports: Hx Asthma, Hx Chronic Obstructive Pulmonary Disease (COPD), Hx Sleep Apnea GI History: Reports: Hx Gastroesophageal Reflux Disease, Hx Gastrointestinal Bleed History: Denies: Hx Renal Disease Musculoskeletal History: Reports: Hx Back Problems - Spinal fusion, Hx Gout, Other Musculoskeletal History - spinal fusion Sensory History: Reports: Hx Cataracts, Hx Contacts or Glasses Denies: Hx Hearing Aid Opthamlomology History: Reports: Hx Cataracts, Hx Contacts or Glasses Neurological History: Reports: Hx CVA, Other Neuro Impairments/Disorders - neuropathy Psychiatric History: Reports: Hx Anxiety, Hx Depression Denies: Hx Panic Disorder - Cancer History Cancer Type, Location and Year: BREAST Hx Chemotherapy: No Hx Radiation Therapy: No - Surgical History Surgical History: Yes Surgery Procedure, Year, and Place: CATARACTS; HYSTERECTOMY; RIGHT MASTECTOMY; RIGHT HAND TENDON REPAIR; TONSILECTOMY; HEART CATH W/ STENT PLACEMENT; KNEE; FOOT TENDON REPAIR; LSP FUSION Hx Anesthesia Reactions: No - Immunization History Date of Tetanus Vaccine: Unknown - Family History Known Family History: Positive: Diabetes - Social History Alcohol Use: None Hx Substance Use: No Substance Use Type: Reports: None Hx Tobacco Use: Yes Smoking Status (MU): Former Smoker Type: Cigarettes Have You Smoked in the Last Year: No Review of Systems Positive: Fatigue Positive: Shortness Of Breath Positive: Vomiting, Nausea Positive: Weakness - generalized All Other Systems Reviewed And Are Negative: Yes Physical Exam - Summary Physical Exam Summary: Appearance: The patient is well-nourished in no acute distress and in no acute pain. Skin: The skin is warm and dry, and skin color reflects adequate perfusion. HEENT: The head is normocephalic and atraumatic. The pupils are equal and reactive. The conjunctivae are clear and without drainage. Nares are patent and without drainage. Mouth reveals dry mucous membranes, and the throat is without erythema and exudate. The external ears are intact. The ear canals are patent and without drainage. The tympanic membranes are intact. Neck: The neck is supple with full range of motion and non-tender. There are no carotid bruits. There is no neck vein distension. Respiratory: Chest is non-tender. Lungs are clear to auscultation and breath sounds are decreased but symmetrical and equal. Cardiovascular: Heart is regular rate and rhythm. There is no murmur or rub auscultated. There is bilateral peripheral edema. Pulses are symmetrical and equal. Abdomen: The abdomen is soft and non-tender. There are normal bowel sounds heard in all four quadrants and there is no organomegaly palpated. Musculoskeletal: There is no back tenderness noted. Extremities are non-tender with full range of motion. There is good capillary refill. There is bilateral peripheral edema. There is no calf tenderness elicited. Neurological: Patient is alert and oriented to person, place and time. The patient has symmetrical motor strength in all four extremities. Cranial nerves are grossly intact. Deep tendon reflexes are symmetrical and equal in all four extremities. Psychiatric: The patient has an appropriate affect and does not exhibit any anxiety or depression. Triage Information Reviewed: Yes Vital Signs Reviewed: Yes Procedures - Sedation Patient Received Moderate/Deep Sedation with Procedure: No Diagnostics - Laboratory Result Diagrams: 01/19/20 16:32 01/19/20 16:32 Lab Statement: Any lab studies that have been ordered have been reviewed, and results considered in the medical decision making process. - Radiology Chest XR Radiology Interpretation Completed By: Radiologist Summary of Radiographic Findings: Impression: Findings suggestive of interstitial pulmonary edema. This imaging report was reviewed by Dr. Aldana. - EKG 1725 Cardiac Rate: NL - 69 BPM EKG Rhythm: Sinus Rhythm Summary of EKG Findings: Normal sinus rhythm, normal ST, no ectopy. This EKG was reviewed and interpreted by Dr. Aldana. Re-Evaluation - Re-Evaluation First Eval Re-Evaluation Time: 19:15 Comment: We discussed all results and plan for admission. Patient agreeable with plan. GIGU Course/Dx - Course Course Of Treatment: Ms. Treviño was found to have a mild exacerbation of her CHF. Her respiratory status was insufficient however and I spoke with Dr. Perez about admission to the hospital. - Diagnoses Provider Diagnoses: CHF (congestive heart failure) - Physician Notifications Discussed Care Of Patient With: Abby Perez - hospitalist Time Discussed With Above Provider: 19:30 Instructed by Provider To: Other - I discussed the patient's case with Dr. Perez , who accepts the patient for admission. Discharge ED - Sign-Out/Discharge Documenting (check all that apply): Patient Departure - Patient accepted for admission by Dr. Perez. - Discharge Plan Condition: Stable Disposition: ADMITTED TO [facility] Referrals: Martín Merrill MD [Primary Care Provider] - - Billing Disposition and Condition Condition: STABLE Disposition: Admitted to [facility] - Attestation Statements Document Initiated by [place]: Yes Documenting Scribe: Samantha Cannon Provider For Whom [place]on is Documenting (Include Credential): Dr. Julito Aldana MD Scribe Attestation: Samantha Pate scribed for Dr. Julito Aldana MD on 01/19/20 at 2036. Scribe Documentation Reviewed: Yes Provider Attestation: The documentation as recorded by the Samantha lund accurately reflects the service I personally performed and the decisions made by me, Dr. Julito Aldana MD Status of Scribe Document: Viewed
[2020-01-19] MEDS ORDERED: Ondansetron INJ* 2 MG/ML VIAL IV ONE (16:33)
[2020-01-19] MEDS ORDERED: NS 0.9% 1000 ML** 1,000 ML IV ONE (16:33)
[2020-01-19 16:44] LABS: ABS Lymphocytes 0.1 10^3/ul (1.0-4.8); ABS Monocytes 0.2 10^3/ul (0-0.8); ABS Neutrophils 8.5 10^3/ul (1.5-7.7); Hematocrit 32 % (35-47); Hemoglobin 10.7 g/dL (12.0-16.0); Lymphocyte % 1.4 %; Mean Corpuscular HGB Conc 34 g/dL (31-36); Mean Corpuscular Hemoglobin 30 pg (27-31); Mean Corpuscular Volume 87 fL (80-97); Mean Platelet Volume 9.6 fL (7.4-10.4); Platelet Count 126 10^3/uL (150-450); Red Blood Count 3.62 10^6 /uL (3.70-4.87); Red Cell Distribution Width 16 % (10-15); White Blood Count 8.9 10^3/uL (3.5-10.8)
--- OUTSIDE RECORDS SUMMARY | 2020-01-19 16:44 | XMS REPORT ---
:1940 Author Organization [facility] Care Team Providers Name Role Phone Unavailable Unavailable Unavailable Problems Condition Condition Condition Status Onset Resolution Last Treating Comments Name Details Category Date Date Treatment Clinician Date Urinary Urinary Diagnosis Active Brea tract tract 2-18 Wendela infection, infection, [id number] site not site not specified specified Allergies, Adverse Reactions, Alerts Allergy Allergy Status Severity Reaction(s) Onset Inactive Treating Comments Name Type Date Date Clinician Unknown None Active Unknown None Unknown No Known Allergies For This Patient Medications Ordered Filled Start Stop Current Ordering Indication Dosage Frequency Signature Comments Components Medication Medication Date Date Medication? Clinician (SIG) Name Name No Known No Known No None None None Medications Medications For This For This Patient Patient Procedures This patient has no known procedures. Results This patient has no known results.
--- OUTSIDE RECORDS SUMMARY | 2020-01-19 16:44 | XMS REPORT | Continuity of Care Document ---
:1940 External Reference #:[id number] Author Name Prashanth Burdick M.D. (transmitted by agent of provider Vianca Cortez ) Address [address] [place] [id number] Care Team Providers Name Role Phone Brianda Wilkins, DPLeo - Signing Teacher Care Team Information Poured Concrete Wall Technician [phone] Charles Duff MD - Care Team Information Poured Concrete Wall Technician [phone] Ophthalmology George Rodriges MD - Ophthalmology Care Team Information Poured Concrete Wall Technician Isiah Martinez MD - Endocrinology, Care Team Information Poured Concrete Wall Technician [phone] Diabetes & Metabolism Chris Vidales MD [facility] - Care Team Information Poured Concrete Wall Technician Cardiovascular Disease Moira Krishnan MD - Neurology Care Team Information Poured Concrete Wall Technician Martín Merrill MD - Internal Medicine Care Team Information Poured Concrete Wall Technician Problems Active Problems Provider Date Neurological disorder with type 2 Dameon Figueroa M.D.,FACP Onset: 2007 diabetes mellitus H/O: pulmonary embolus Dameon Figueroa M.D.,FACP Onset: 09/21/2015 Benign essential hypertension Dameon Figueroa M.D.,FACP Onset: 07/15/2008 Chronic diastolic heart failure Dameon Figueroa M.D.,FACP Onset: 2007 Peripheral vascular disease Dameon Figueroa M.D.,FACP Onset: 07/15/2008 Allergic asthma without status Dameon Figueroa M.D.,FACP Onset: 12/31/2008 asthmaticus Gouty arthropathy Dameon Figueroa M.D.,FACP Onset: 04/27/2010 Mixed hyperlipidemia Dameon Figueroa M.D.,FACP Onset: 04/27/2010 Coronary arteriosclerosis Jeanine Nicholas, N.P. Onset: 01/31/2012 Obstructive sleep apnea syndrome Jeanine Nicholas, N.P. Onset: 2011 Sciatica Dameon Figueroa M.D.,FACP Onset: 11/12/2012 Insomnia Dameon Figueroa M.D.,FACP Onset: 05/06/2013 Abnormal gait Abhijit Holbrook M.D. Onset: 06/09/2013 Supraventricular premature beats Chris Vidales M.D. Onset: 2012 Paget's disease of pelvis Dameon Figueroa M.D.,FACP Onset: 09/01/2016 Note: on CT Chronic obstructive lung disease Dameon Figueroa M.D.,FACP Onset: 2015 Note: Asthma on PFTs 2009 Thoracic and lumbosacral neuritis Abhijit Holbrook M.D. Onset: 08/31/2017 Constipation Abhijit Holbrook M.D. Onset: 08/31/2017 Social History Type Date Description Comments Sex Unknown Cigarette Use Quit 16 Years Ago Cigarette Use Negative For Quit 35 Years Ago Cigarette Use Pack Years - 35 ETOH Use 04/18/2018 Occasionally consumed alcohol in the past Recreational Drug Use Denies Drug Use Tobacco Use Start: Unknown End: Patient is a former smoked age 18 to 52 Unknown smoker Tobacco Use Start: Unknown 2 ppdx 34yrs Smoking Status Reviewed: 04/15/18 2 ppdx 34yrs Exercise Type/Frequency Does not exercise Allergies, Adverse Reactions, Alerts Description No Known Drug Allergies Medications Active Medications SIG Qnty Indications Ordering Date Provider Levothyroxine Sodium Take One Tablet By 14tabs Dameon Maciel 11/01/2018 Mouth Every Day Eriberto Figueroa,FACP 25mcg Tablets Metformin HCL Take One Tablet By 60tabs Abhijit 04/10/2018 500mg Mouth Twice A Day Eriberto Holbrook Tablets Docusate Sodium Take Two Capsules 60caps K59.00 [place] 08/31/2017 100mg By Mouth AT Eriberto Holbrook Capsules Bedtime Diabetic Shoes use as directed, E11.21 Dameon Maciel 05/10/2017 dispense shoes Eriberto Figueroa FACP with high toe box and molded soft inlay to accomadate left foot R26.89 Amoxicillin/Clavulanate 1 tab by mouth 60tabs Z79.2 Nestor Maciel 05/10/2017 Potassium twice per day [place], 500-125mg Tablets M.DMac Duloxetine HCL Take One Capsule 30caps Dameon Maciel 01/30/[address] Part By Mouth Every Day Eriberto Figueroa,FACP Furosemide Take One Tablet By 30tabs Dameon Maciel 01/02/2017 20mg Tablets Mouth Every [place], Morning For 7 M.Janell,FACP Days, Then Take as Needed If Weight Is Greater Than 250 Pounds Tresiba Flextouch inject 96 units 18units Dameon Maciel 10/13/2016 200Unit/ML under the skin Henry, Solution Pen-Inject every day Eriberto,FACP Magnesium Oxide Take One Tablet By 60tabs Abhijit 08/28/2016 400(241.3mg) mg Mouth Twice A Day Kala Holbrook M.D. Cyclobenzaprine HCL one by mouth three 60tabs Dameon Maciel 08/19/2016 10mg Tablets times a day as Henry, needed spasm Eriberto,NERYP Humalog Kwikpen 20u w/each meal 30ml Dameon Maciel 07/25/2016 100Unit/ML Solution +sliding scale. Henry, Pen-Inject 131-150 3u; Eriberto,FACP 151-200 5u; 201-250 8u; 251-300 12u; 301-350 16u; 351-400 20u; >400 20u& call Atenolol take 1.5 tablets 135tabs Dameon Maciel 07/25/2016 50mg Tablets by mouth every day Eriberto Figueroa,NERYP Trulicity Inject 2units Dameon Maciel 07/25/2016 1.5mg/0.5ML Solution Subcutaneously Henry Pen-Inject Weekly On Eriberto,FACP Allopurinol Take One Tablet By 30tabs M10.00 Dameon Maciel 07/25/2016 100mg Tablets Mouth Every Day Eriberto Figueroa,NERYP Amlodipine Besylate Take One Tablet By 14tabs Dameon Maciel 07/25/2016 5mg Tablets Mouth Every Day Eriberto Figueroa,FACP Onetouch Ultra Blue test up to four 100units E11.621 Dameon Maciel 2015 Strips times a day or as matt Figueroa M.D.,CECELIA Ranitidine HCL take one tablet by 180tabs Kenroy Villanueva, 10/14/2015 150mg Tablets mouth twice a day DIRECTOR OF CREATIVE SERVICES as needed Amitriptyline HCL Take One Tablet By 90tabs Dameon Maciel 10/14/2015 100mg Tablets Mouth Every Day Eriberto Figueroa,NERYP Eliquis Take One Tablet By 60tabs Dameon Maciel 01/28/2014 5mg Tablets Mouth Twice A Day Eriberto Figueroa,FACP Bath/Shower Seat/Adjustable with a bathtub mat 1units Dameon Maciel 2011 [facility] [place] Eriberto Figueroa,FACP Novofine To Be Used Three 100units E11.622 Dameon Maciel 02/08/2012 32G X 6 mm [facility] [place] Times A Day Eriberto Figueroa,FACP Mastectomy Bra As directed QS Dameon Maciel 12/29/2011 Eriberto Figueroa,FACP Walker/Adult/Adjustable with wheels and 1units Dameon Maciel 12/29/2011 [facility] [place] seat Eriberto Figueroa,FACP Aspirin 1 po qd 50tabs 414.01 Dameon Maciel 11/10/[address] Henry M.D.,FACP Vitamin D+Calcium 1 by mouth every Unknown 400Units Capsules day Systane Ultra 1 drop both eyes [place], 0.4-0.3% Solution twice every week MD George Senna-Lax take 2 tablets by 60tabs Dameon Maciel 8.6mg Tablets mouth at bedtime [place], as needed: max 4 M.D.,FACP tablets by mouth two times a day Albuterol Sulfate every 6 hours as Unknown 1.25mg/3ML needed Nebulizer Fish Oil 1 by mouth every Unknown 1000mg Capsules day Biotin Forte 3 tabs daily Unknown 3mg Tablets Tylenol Extra Strength 2 by mouth as Unknown 500mg needed Tablets Immunizations CPT Code Status Date Vaccine Reaction Lot # [id number] Given 08/13/2017 Influenza Virus Vaccine, [id number] Quadrivalent, Split, Preservative Free 65949 Given 08/15/2016 Zoster (Zostavax) no reaction noted ... [id number] 67350 Given 08/15/2016 Influenza Virus Vaccine, no reaction noted ... [id number] Quadrivalent, Split, hh Preservative Free 27371 Given 09/21/2015 Influenza Virus Vaccine, [id number] Quadrivalent, Split, Preservative Free 39296 Given 05/05/2015 Pneumococcal Conjugate [id number] Vaccine 13 Valent For Intramuscular Use 23846 Given 08/14/2014 Influenza Virus Vaccine, [id number] Quadrivalent, Split, Preservative Free 69620 Given 08/22/2013 Flu Vaccine Split Virus [id number] Preservative Free For Indiv 3Yr Older Q2038 Given 08/15/2012 Fluzone Vaccine [id number] Q2038 Given 09/25/2011 Fluzone Vaccine [id number] 36821 Given 09/25/2011 Tdap - [id number] Tetanus/Diptheria/Acellular Pertussis 39478 Given 09/27/2009 Influenza Virus Vaccine, [id number] Pandemic Formulation 87258 Given 09/06/2009 Pneumonia Vaccine [id number] 65127 Given 09/06/2009 Influenza Virus 3Yrs & Over [id number] 80943 Given 02/05/1998 Tetanus And Diptheria (Td) For Adult Use Preservative Free 55478 Given 01/01/1998 Pneumovax (History By Patient) 26002 Given Unknown Influenza Virus 3Yrs & Over Vital Signs Date Vital Result Comment 04/15/2018 1:55pm Height 66 inches 5'6" Weight 262.00 lb per pt Heart Rate 72 /min BP Systolic Sitting 112 mmHg BP Diastolic Sitting 60 mmHg Respiratory Rate 14 /min Body Temperature 98.5 F BMI (Body Mass Index) 42.3 kg/m2 04/10/2018 11:20am Height 66 inches 5'6" Weight 262.00 lb per pt Heart Rate 99 /min BP Systolic Sitting 154 mmHg BP Diastolic Sitting 76 mmHg BP Systolic Recheck 140 mmHg BP Diastolic Recheck 76 mmHg Body Temperature 98.4 F O2 % BldC Oximetry 94 % BMI (Body Mass Index) 42.3 kg/m2 Results Description No Information Available Procedures Date Code Description Status 11/13/2017 151893856 Diabetic Retinal Eye Exam Completed 10/23/2016 [id number] Mammogram Completed 04/14/2016 561227488 Diabetic Retinal Eye Exam Completed 06/28/2015 [id number] Diabetic Retinal Eye Exam Completed 06/01/2014 883841774 Diabetic Retinal Eye Exam Completed 05/19/2014 [id number] Mammogram Completed 03/13/2013 [id number] Colonoscopy Completed 04/05/2012 854174568 Bone Mineral Density Test Completed 04/05/2012 [id number] Mammogram Completed 06/10/2009 [id number] Mammogram Completed 06/09/2009 671395432 Bone Mineral Density Test Completed Medical Devices Description No Information Available Encounters Description No Information Available Assessments Description No Information Available Plan of Treatment 04/15/2018 - Nestor Huff M.D.N39.0 Urinary tract infection, site not specifiedComments:she will call if pain or lpmivzjaaY34.2 USP (current) use of [id number] Unspecified urinary kxfmzlvzqkxvM80.440 Personal history of urinary (tract) infections Functional Status Description No Information Available Mental Status Description No Information Available Referrals Description No Information Available
--- OUTSIDE RECORDS SUMMARY | 2020-01-19 16:44 | XMS REPORT | Continuity of Care Document ---
:1940 External Reference #:[id number] Author Name Lilian Dominguez MD, [facility], [facility] (transmitted by agent of provider Vianca Cortez) Address [address] [address] Care Team Providers Name Role Phone Brianda Wilkins, DPLeo - Retail Coordinator Care Team Information Teacher Education Director Charles Duff MD - Care Team Information Teacher Education Director [phone] Ophthalmology George Rodriges MD - Ophthalmology Care Team Information Teacher Education Director [phone] Isiah Martinez MD - Endocrinology, Care Team Information Teacher Education Director Diabetes & Metabolism Chris Vidales MD [facility] - Care Team Information Teacher Education Director Cardiovascular Disease Moira Krishnan MD - Neurology Care Team Information Teacher Education Director Martín Merrill MD - Internal Medicine Care Team Information Teacher Education Director Problems Active Problems Provider Date Neurological disorder [...] Dameon Maciel 11/01/2018 Mouth Every Day Eriberto FigueroaNERYP 25mcg Tablets Metformin HCL Take One Tablet By 60tabs Abhijit 04/10/2018 500mg Mouth Twice A Day Eriberto Holbrook Tablets Docusate Sodium Take Two Capsules 60caps K59.00 Abhijit 08/31/2017 100mg By Mouth AT Eriberto Holbrook [...] Dameon Maciel 01/02/2017 20mg Tablets Mouth Every [place], Morning For 7 M.Janell,FACP Days, Then Take as Needed If Weight Is Greater Than 250 Pounds Tresiba Flextouch inject 96 units 18units Dameon Maciel 10/13/2016 200Unit/ML under the skin Henry Solution Pen-Inject every day CECELIA Wei Magnesium Oxide Take One Tablet By 60tabs [place] 08/28/2016 400(241.3mg) mg Mouth Twice A Day Kala Holbrook M.D. Cyclobenzaprine HCL one by mouth three 60tabs Dameon Maciel 08/19/2016 10mg Tablets times a day as Henry needed spasm Eriberto,FACP Humalog Kwikpen 20u w/each meal 30ml Dameon Maciel 07/25/2016 100Unit/ML Solution +sliding scale. Henry, Pen-Inject 131-150 3u; Eriberto,FACP 151-200 5u; 201-250 8u; 251-300 12u; 301-350 16u; 351-400 20u; >400 20u& call Atenolol take 1.5 tablets 135tabs Dameon Maciel 07/25/2016 50mg Tablets by mouth every day Eriberto Figueroa,NERYP Trulicity Inject 2units Dameon Maciel 07/25/2016 1.5mg/0.5ML Solution Subcutaneously Henry Pen-Inject Weekly On Eriberto,NERYP Allopurinol Take One Tablet By 30tabs M10.00 [...] 10/14/2015 150mg Tablets mouth twice a day SNELLER HAND as needed Amitriptyline HCL Take One Tablet By 90tabs Dameon Maciel 10/14/2015 100mg Tablets Mouth Every Day Eriberto Figueroa,NERYP Eliquis Take One Tablet By 60tabs Dameon Maciel 01/28/2014 5mg Tablets Mouth Twice A Day Eriberto Figueroa,FACP Bath/Shower Seat/Adjustable with a bathtub mat 1units Dameon Maciel 2011 [facility] [place] Eriberto Figueroa,FACP Novofine To Be Used Three 100units E11.622 Dameon Maciel 02/08/2012 32G X 6 mm [facility] [place] Times A Day Eriberto Figueroa,FACP Mastectomy Bra As directed QS Dameon Maciel 12/29/2011 Eriberto Figueroa,FACP Walker/Adult/Adjustable with wheels and 1units Dameon Maciel 12/29/2011 [facility] [place] seat Eriberto Figueroa,FACP Aspirin 1 po qd 50tabs 414.01 Dameon Maciel 11/10/[address] Henry M.D.,FACP Vitamin D+Calcium 1 by mouth every Unknown 400Units Capsules day Systane Ultra 1 drop both eyes [place], 0.4-0.3% Solution twice every week MD Fernandez Vazquezna-Lax take 2 tablets by 60tabs Dameon Maciel 8.6mg Tablets mouth at bedtime [place], as needed: max 4 M.D.,FACP tablets by mouth two times a day Albuterol Sulfate every 6 hours as Unknown 1.25mg/3ML needed Nebulizer Fish Oil 1 by mouth every Unknown 1000mg Capsules day Biotin Forte 3 tabs daily Unknown 3mg Tablets Tylenol Extra Strength 2 by mouth as Unknown 500mg needed Tablets Immunizations CPT Code Status Date Vaccine Reaction Lot # [id number] Given 08/13/2017 Influenza Virus Vaccine, [id number] Quadrivalent, Split, Preservative Free 53576 Given 08/15/2016 Zoster (Zostavax) no reaction noted ... [id number] 63938 Given 08/15/2016 Influenza Virus Vaccine, no reaction noted ... [id number] Quadrivalent, Split, Preservative Free 32668 Given 09/21/2015 Influenza Virus Vaccine, [id number] Quadrivalent, Split, Preservative Free 84306 Given 05/05/2015 Pneumococcal Conjugate [id number] Vaccine 13 Valent For Intramuscular Use 95735 Given 08/14/2014 Influenza Virus Vaccine, [id number] Quadrivalent, Split, Preservative Free 76007 Given 08/22/2013 Flu Vaccine Split Virus [id number] Preservative Free For Indiv 3Yr Older Q2038 Given 08/15/2012 Fluzone Vaccine [id number] Q2038 Given 09/25/2011 Fluzone Vaccine [id number] 33444 Given 09/25/2011 Tdap - [id number] Tetanus/Diptheria/Acellular Pertussis 64464 Given 09/27/2009 Influenza Virus Vaccine, [id number] Pandemic Formulation 23607 Given 09/06/2009 Pneumonia Vaccine [id number] 23605 Given 09/06/2009 Influenza Virus 3Yrs & Over [id number] 02823 Given 02/05/1998 Tetanus And Diptheria (Td) For Adult Use Preservative Free 39981 Given 01/01/1998 Pneumovax (History By Patient) 00231 Given Unknown Influenza Virus 3Yrs & Over [...] Available Procedures Date Code Description Status 11/13/2017 [id number] Diabetic Retinal Eye Exam Completed 10/23/2016 [id number] Mammogram Completed 04/14/2016 [id number] Diabetic Retinal Eye Exam Completed 06/28/2015 890800384 Diabetic Retinal Eye Exam Completed 06/01/2014 279337865 Diabetic Retinal Eye Exam Completed 05/19/2014 [id number] Mammogram Completed 03/13/2013 [id number] Colonoscopy Completed 04/05/2012 [id number] Bone Mineral Density Test Completed 04/05/2012 [id number] Mammogram Completed 06/10/2009 [id number] Mammogram Completed 06/09/2009 061636936 Bone Mineral Density Test Completed Medical Devices Description No Information Available Encounters Description No Information Available Assessments Description No Information Available Plan of Treatment 04/15/2018 - Nestor Huff M.D.N39.0 Urinary tract infection, site not specifiedComments:she will call if pain or djaqgdwyiB91.2 computer terminal operator (current) use of hafyfzfgvawF65 Unspecified urinary kipbclmzvtgbK00.440 Personal history of urinary (tract) infections Functional Status Description No Information Available Mental Status Description No Information Available Referrals Description No Information Available
--- OUTSIDE RECORDS SUMMARY | 2020-01-19 16:44 | XMS REPORT ---
:1940 Author Organization [facility] Care Team Providers Name Role Phone Unavailable Unavailable Unavailable Problems Condition Condition Condition Status Onset Resolution Last Treating Comments Name Details Category Date Date Treatment Clinician Date Urinary Urinary Diagnosis Active 2020-0 NOA tract tract 01-13 [place] infection, infection, #[id number] site not site not specified specified Pain frequent Pain Mgmt Active 2020-0 Kim pain 01-14 [place] 10:00: [id number] Respiratory dyspnea Respirator Active 2020-0 Kim present y 01-14 [place] 10:00: [id number] Endo/Sulaiman knowledge/s Endo/Sulaiman Active 2020-0 Kim kill 01-14 [place] deficit: pt 10:00: [id number] Endo/Sulaiman diabetic Endo/Sulaiman Active 2020-0 Kim foot care 01-14 [place] 10:00: [id number] 00 Endo/Sulaiman knowledge/s Endo/Sulaiman Active 2020-0 Kim kill 01-14 [place] deficit 10:00: [id number] hypo/hyperg 00 lycemia: pt Endo/Sulaiman anti-coagul Endo/Sulaiman Active 2020-0 Kim ation 01-14 [place] therapy 10:00: [id number] 00 Sensory learning Sensory Active 2020-0 Kim deficit 01-14 [place] 10:00: [id number] 00 Sensory impaired Sensory Active 2020-0 Kim hearing 01-14 [place] 10:00: [id number] 00 Integument skin Integument Active 2020-0 Kim integrity 01-14 [place] risk 10:00: [id number] 00 Nutrition nutritional Nutrition Active 2020-0 Kim restriction 01-14 [place] s 10:00: [id number] 00 Elimination urinary Eliminatio Active 2020-0 Kim incontinenc n 01-14 [place] e 10:00: [id number] 00 Elimination urinary Eliminatio Active 2020-0 Kim frequency n - [place] 10:00: [id number] 00 Elimination recurring Eliminatio Active 2020-0 Kim UTI n - [place] 10:00: [id number] 00 Elimination UTI within Eliminatio Active 2020-0 Kim past 14 n -19 [place] days 10:00: [id number] 00 Elimination knowledge/s Eliminatio Active 2020-0 Kim kill n 01-14 [place] deficit: pt 10:00: [id number] 00 Neuro anxiety Neuro/Emot Active 2020-0 Kim present ion 01-14 [place] 10:00: [id number] 00 Neuro impaired Neuro/Emot Active 2020-0 Kim decision-ma ion 01-14 [place] bisi 10:00: [id number] 00 Neuro memory Neuro/Emot Active 2020-0 Kim deficit ion 01-14 [place] needing 10:00: [id number] supervision 00 Neuro knowledge/s Neuro/Emot Active 2020-0 Kim kill ion 01-14 [place] deficit: pt 10:00: [id number] 00 Neuro constant Neuro/Emot Active 2020-0 Kim confusion ion 01-14 [place] 10:00: [id number] 00 Activity ADL Activity Active 2020-0 Kim assistance 01-14 [place] required 10:00: [id number] 00 Activity self-care Activity Active 2020-0 Kim deficit 01-14 [place] 10:00: [id number] 00 Safety cannot be Safety Active 2020-0 Kim left alone 01-14 [place] 10:00: [id number] 00 Safety knowledge/s Safety Active 2020-0 Kim kill 01-14 [place] deficit: pt 10:00: [id number] 00 Safety fall risk Safety Active 2020-0 Kim factor - [place] present 10:00: [id number] 00 Safety risk for Safety Active 2020-0 Kim hospitaliza 01-14 [place] tion 10:00: [id number] 00 Medication oral med Meds Active 2020-0 Kim assistance 01-14 [place] required 10:00: [id number] 00 Medication injectable Meds Active 2020-0 Kim med 01-14 [place] assistance 10:00: [id number] required 00 Medication knowledge/s Meds Active 2020-0 Kim kill -19 [place] deficit: pt 10:00: [id number] 00 Medication potential Meds Active 2019-0 Kim clinically - [place] significant 10:00: [id number] medication 00 issue Musculoskel transfer Musculoske Active 2019-0 Kim etal assistance letal 01-14 [place] required 10:00: [id number] Musculoskel requires Musculoske Active 2019- Kim etal human letal 01-14 [place] assist to 10:00: [id number] leave home 00 Bed transfer PT/OT: Bed Active 2019-0 [place] Mobility/Tr deficit: Mobility/T 2-19 [place] ansfer shower/tub ransfer 12:31: [id number] 00 Bed knowledge/s PT/OT: Bed Active 2019-0 [place] Mobility/Tr kill Mobility/T 2-19 [place] ansfer deficit: pt ransfer 12:31: [id number] 00 Balance/End balance/community marketing coordinator PT/OT: Active 2019-0 [place] urance rdination Balance/En - [place] deficit durance 12:31: [id number] 00 Balance/End endurance PT/OT: Active 2020-0 [place] urance deficit Balance/En 2-19 [place] durance 12:31: [id number] 00 Balance/End knowledge/s PT/OT: Active 2020-0 [place] urance kill Balance/En 2-19 [place] deficit: pt durance 12:31: [id number] 00 Gait/Locomo gait PT/OT: Active 2019-0 [place] tion deficit Gait/Locom -19 [place] problems otion 12:31: [id number] 00 Allergies, Adverse Reactions, Alerts Allergy Allergy Status Severity Reaction(s) Onset Inactive Treating Comments Name Type Date Date Clinician Unknown None Active Unknown None Unknown No Known Allergies For This Patient Medications Ordered Filled Start Stop Current Ordering Indication Dosage Frequency Signature Comments Components Medication Medication Date Date Medication? Clinician (SIG) Name Name aspirin 81 aspirin 81 2020-0 Yes [place] Unknown Unknown mg mg 2- Martín LINDA tablet,adolfo tablet,adolfo yed release yed release atenolol 50 atenolol 50 2020-0 Yes [place] Unknown Unknown mg tablet mg tablet 01-14 Martín LINDA Cymbalta 60 Cymbalta 60 2020-0 Yes [place] Unknown Unknown mg mg 01-14 ,Jesus Alberto capsule,del capsule,del Dev ayed ayed release release Eliquis 5 Eliquis 5 Yes [place] Unknown Unknown mg tablet mg tablet 01-14 ,Martín acetaminoph acetaminoph Yes [place] Unknown Unknown en 325 mg en 325 mg 01-14 ,Martín tablet tablet allopurinol allopurinol Yes [place] Unknown Unknown 100 mg 100 mg 01-14 ,Martín tablet tablet amlodipine amlodipine Yes [place] Unknown Unknown 01-14 Martín LINDA atenolol 50 atenolol 50 No [place] Unknown Unknown mg tablet mg tablet Martín LINDA biotin biotin Yes [place] Unknown Unknown 5,000 mcg 5,000 mcg 01-14 ,Martín sublingual sublingual tablet tablet Calcium 600 Calcium 600 Yes [place] Unknown Unknown + D(3) 600 + D(3) 600 01-14 ,Martín mg (1,500 mg (1,500 mg)-400 mg)-400 unit tablet unit tablet Claritin-D Claritin-D No [place] Unknown Unknown 12 Hour 5 12 Hour 5 Martín LINDA mg-120 mg mg-120 mg tablet,exte tablet,exte nded nded release release amoxicillin amoxicillin No [place] Unknown Unknown 500 500 Martín LINDA mg-potassiu mg-potassiu m m clavulanate clavulanate 125 mg 125 mg tablet tablet DULoxetine DULoxetine No [place] Unknown Unknown 60 mg 60 mg ,Martín capsule,del capsule,del ayed ayed release release apixaban 5 apixaban 5 No [place] Unknown Unknown mg tablet mg tablet Martín LINDA levothyroxi levothyroxi Yes [place] Unknown Unknown ne 25 mcg ne 25 mcg 01-14 ,Martín capsule capsule metFORMIN metFORMIN No [place] Unknown Unknown 500 mg 500 mg ,Martín tablet tablet omega omega Yes [place] Unknown Unknown 3-dha-epa-f 3-dha-epa-f 01-14 ,Martín kayli oil kayli oil 1,000 mg 1,000 mg (120 mg-180 (120 mg-180 mg) capsule mg) capsule omeprazole omeprazole Yes [place] Unknown Unknown 20 mg 20 mg 01-14 Martín LINDA capsule,del capsule,del ayed ayed release release rosuvastati rosuvastati 2019-0 Yes [place] Unknown Unknown n 10 mg n 10 mg 01-14 Martín LINDA tablet tablet dulaglutide dulaglutide 2019-0 Yes [place] Unknown Unknown 1.5 mg/0.5 1.5 mg/0.5 01-14 Martín LINDA mL mL subcutaneou subcutaneou s pen s pen injector injector HumaLOG HumaLOG 2019-0 Yes [place] Unknown Unknown KwikPen KwikPen 01-14 Martín LINDA (U-100) (U-100) Insulin 100 Insulin 100 unit/mL unit/mL subcutaneou subcutaneou s s NovoLIN R NovoLIN R No [place] Unknown Unknown Regular Regular Martín LINDA U-100 U-100 Insulin 100 Insulin 100 unit/mL unit/mL injection injection solution solution Tresiba Tresiba 2019-0 Yes [place] Unknown Unknown FlexTouch FlexTouch 01-14 Martín LINDA U-100 U-100 insulin 100 insulin 100 unit/mL (3 unit/mL (3 mL) mL) subcutaneou subcutaneou s pen s pen Metamucil Metamucil 2019-0 Yes [place] Unknown Unknown (sugar) (sugar) 01-14 Martín LINDA oral powder oral powder oxybutynin oxybutynin 2019-0 Yes [place] Unknown Unknown chloride 5 chloride 5 01-14 Martín LINDA mg tablet mg tablet magnesium magnesium 2019-0 Yes [place] Unknown Unknown oxide 500 oxide 500 01-14 Martín LINDA mg tablet mg tablet cyanocobala cyanocobala 2019-0 Yes [place] Unknown Unknown min (vit min (vit 01-14 Martín LINDA B-12) 1,000 B-12) 1,000 mcg tablet mcg tablet cholecalcif cholecalcif 2019-0 Yes [place] Unknown Unknown stewart stewart 01-14 Martín LINDA (vitamin (vitamin D3) 1,000 D3) 1,000 unit unit capsule capsule albuterol albuterol 2019-0 Yes [place] Unknown Unknown sulfate HFA sulfate HFA 01-14 Martín LINDA 90 90 mcg/actuati mcg/actuati on aerosol on aerosol inhaler inhaler furosemide furosemide 2019-0 Yes [place] Unknown Unknown 20 mg 20 mg 01-14 Martín LINDA tablet tablet Vital Signs Vital Name Observation Time Observation Value Comments SYSTOLIC mm[Hg] 2020-01-14 18:10:28 160 mm[Hg] mm[Hg] Method: Sit SYSTOLIC mm[Hg] 2020-01-14 18:10:28 150 mm[Hg] mm[Hg] Method: Stand DIASTOLIC mm[Hg] 2020-01-14 18:10:28 85 mm[Hg] mm[Hg] Method: Sit DIASTOLIC mm[Hg] 2020-01-14 18:10:28 82 mm[Hg] mm[Hg] Method: Stand PULSE 2020-01-14 18:10:28 60 /min /min RESP RATE 2020-01-14 18:10:28 14 /min /min TEMP 2020-01-14 18:10:28 98.1 [degF] Procedures This patient has no known procedures. Results This patient has no known results.
--- OUTSIDE RECORDS SUMMARY | 2020-01-19 16:44 | XMS REPORT | Continuity of Care Document ---
:1940 External Reference #:[id number] Author Name Prashanth Burdick M.D. (transmitted by agent of provider Vianca Cortez ) Address [address] [place] [id number] Care Team Providers Name Role Phone Brianda Wilkins, DPLeo - Clarification Operator Care Team Information Complex Care Nurse Practitioner [phone] Charles Duff MD - Care Team Information Complex Care Nurse Practitioner [phone] Ophthalmology George Rodriges MD - Ophthalmology Care Team Information Complex Care Nurse Practitioner Isiah Martinez MD - Endocrinology, Care Team Information Complex Care Nurse Practitioner [phone] Diabetes & Metabolism Chris Vidales MD [facility] - Care Team Information Complex Care Nurse Practitioner Cardiovascular Disease Moira Krishnan MD - Neurology Care Team Information Complex Care Nurse Practitioner Martín Merrill MD - Internal Medicine Care Team Information Complex Care Nurse Practitioner Problems Active Problems Provider Date Neurological disorder with type 2 Dameon Figueroa M.D.,FACP Onset: 2007 diabetes mellitus H/O: pulmonary embolus Dameon Figueroa M.D.,FACP Onset: 09/21/2015 Benign essential hypertension Dameon Figueroa M.D.,FACP Onset: 07/15/2008 Chronic diastolic heart failure Dameon Figueroa M.D.,FACP Onset: 2007 Peripheral vascular disease Dameon Figueroa M.D.,FACP Onset: 07/15/2008 Allergic asthma without status Dameon Figueroa M.D.,FACP Onset: 12/31/2008 asthmaticus Gouty arthropathy Dameon Figureoa M.D.,FACP Onset: 04/27/2010 Mixed hyperlipidemia Dameon Figueroa [...] Docusate Sodium Take Two Capsules 60caps K59.00 [place] 08/31/2017 100mg By Mouth AT [facility] [place] [...] Dameon Maciel 01/02/2017 20mg Tablets Mouth Every Sebastian, Morning For 7 M.Janell,FACP Days, Then Take [...] 10/14/2015 150mg Tablets mouth twice a day [employer]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 Amitriptyline HCL Take One Tablet By 90tabs Dameon Maciel 10/14/2015 100mg Tablets Mouth Every Day Eriberto Figueroa,NERYP Eliquis Take One Tablet By 60tabs Dameon Maciel 01/28/2014 5mg Tablets Mouth Twice A Day Eriberto Figueroa,FACP Bath/Shower Seat/Adjustable with a bathtub mat 1units Dameon Maciel 2011 [facility] [employer] Eriberto Figueroa,FACP Novofine To Be Used Three 100units E11.622 Dameon Maciel 02/08/2012 32G X 6 mm [facility] Times A Day Eriberto Figueroa,FACP Mastectomy Bra As directed QS Dameon Maciel 12/29/2011 Eriberto Figueroa,FACP Walker/Adult/Adjustable with wheels and 1units Dameon Maciel 12/29/2011 [facility] [employer] seat Eriberto Figueroa,FACP Aspirin 1 po qd 50tabs 414.01 Dameon Maciel 11/10/[address] Henry M.D.,FACP Vitamin D+Calcium 1 by mouth every Unknown 400Units Capsules day Systane Ultra 1 drop both eyes [place], 0.4-0.3% Solution twice every week MD George Senna-Lax take 2 tablets by 60tabs Dameon Maciel 8.6mg Tablets mouth at bedtime Sebastian, as needed: max 4 M.D.,FACP tablets by mouth two times a day Albuterol Sulfate every 6 hours as Unknown 1.25mg/3ML needed Nebulizer Fish Oil 1 by mouth every Unknown 1000mg Capsules day Biotin Forte 3 tabs daily Unknown 3mg Tablets Tylenol Extra Strength 2 by mouth as Unknown 500mg needed Tablets Immunizations CPT Code Status Date Vaccine Reaction Lot # [id number] Given 08/13/2017 Influenza Virus Vaccine, [id number] Quadrivalent, Split, Preservative Free 18108 Given 08/15/2016 Zoster (Zostavax) no reaction noted ... [id number] 71834 Given 08/15/2016 Influenza Virus Vaccine, no reaction noted ... [id number] Quadrivalent, Split, hh Preservative Free 57333 Given 09/21/2015 Influenza Virus Vaccine, [id number] Quadrivalent, Split, Preservative Free 53703 Given 05/05/2015 Pneumococcal Conjugate [id number] Vaccine 13 Valent For Intramuscular Use 64602 Given 08/14/2014 Influenza Virus Vaccine, [id number] Quadrivalent, Split, Preservative Free 14774 Given 08/22/2013 Flu Vaccine Split Virus [id number] Preservative Free For Indiv 3Yr Older Q2038 Given 08/15/2012 Fluzone Vaccine [id number] Q2038 Given 09/25/2011 Fluzone Vaccine [id number] 28796 Given 09/25/2011 Tdap - [id number] Tetanus/Diptheria/Acellular Pertussis 58116 Given 09/27/2009 Influenza Virus Vaccine, [id number] Pandemic Formulation 36475 Given 09/06/2009 Pneumonia Vaccine [id number] 04194 Given 09/06/2009 Influenza Virus 3Yrs & Over [id number] 66368 Given 02/05/1998 Tetanus And Diptheria (Td) For Adult Use Preservative Free 73887 Given 01/01/1998 Pneumovax (History By Patient) 20449 Given Unknown Influenza Virus 3Yrs & Over [...] Available Procedures Date Code Description Status 11/13/2017 806002328 Diabetic Retinal Eye Exam Completed 10/23/2016 [id number] Mammogram Completed 04/14/2016 943143437 Diabetic Retinal Eye Exam Completed 06/28/2015 [id number] Diabetic Retinal Eye Exam Completed 06/01/2014 884069934 Diabetic Retinal Eye Exam Completed 05/19/2014 [id number] Mammogram Completed 03/13/2013 [id number] Colonoscopy Completed 04/05/2012 [id number] Bone Mineral Density Test Completed 04/05/2012 [id number] Mammogram Completed 06/10/2009 [id number] Mammogram Completed 06/09/2009 [id number] Bone Mineral Density Test Completed Medical Devices Description No Information Available Encounters Description No Information Available Assessments Description No Information Available Plan of Treatment 04/15/2018 - Nestor Huff M.D.N39.0 Urinary tract infection, site not specifiedComments:she will call if pain or goyasbdjoE20.2 jail (current) use of [id number] Unspecified urinary bbgfvwtdbgpbR51.440 Personal history of urinary (tract) infections Functional Status Description No Information Available Mental Status Description No Information Available Referrals Description No Information Available
--- OUTSIDE RECORDS SUMMARY | 2020-01-19 16:44 | XMS REPORT | Summary of Care ---
:1940 Author Organization [facility] Address [address] [place] [address] Care Team Providers Name Role Phone Martín Merrill Primary Care Provider May Palmer RN [facility] [employer] Unavailable Reason for Referral Refer to Department Only (Routine) Status Reason Specialty Diagnoses / Referred By Referred To Procedures Contact Contact Pending Review Diagnoses Urinary tract infection without hematuria, site unspecified Martín Merrill MD VISITING NURSE [address] [place], [place] [id number] [facility] LEIDA ROMERO Phone: DRIVE [phone] [place] [address] Phone: [phone] Scheduling Instructions Medicare Home Health: The xiji-bb-hidw visit can be up to 90 days prior to the referral or within 30 days after the referral. The [id number]-ry-[id number] visit must be related to the reason for which Home Health is needed. See CMS Manual System - Medicare Benefit Policy under Additional Order Details. Reason for Visit Reason Comments Transitional Care Management f/u from [facility] admission 12/31 - 01/03/20 dx: UTI and kidney disease; Diabetes f/u last a1c done 12/31/19 (5.7) Hypertension f/u BP Fall increase in falls and confusion noted. Medication Check question allopurinol if supposed to be BID or daily; changed insulin dosage; finished antibiotic Encounter Details Date Type Department Care Team Description 01/07/2020 Office Visit [facility] Martín Merrill MD Urinary tract infection without hematuria, site unspecified (Primary Dx); Medicine [address] Stage 4 chronic kidney disease (HCC); [address] [place] [address] Fall, initial encounter; [place] [address] Acute idiopathic gout of right foot; [phone] Type 2 diabetes mellitus with diabetic nephropathy, with long-term current use of insulin ([facility]) Allergies Active Allergy Reactions Severity Noted Date Comments No Known Drug Allergy Unknown Reaction 12/12/2007 documented as of this encounter (statuses as of 01/09/2020) Medications Medication Sig Dispensed Refills Start End Date Status Date furosemide (LASIX) Take 20 mg by 0 Active 20 MG Oral Tab mouth DAILY NEEDED. Rosuvastatin Calcium Take 1 Tab by 90 Tab 3 Active (CRESTOR) 10 MG Oral mouth DAILY. 8 TabIndications: Type 2 diabetes mellitus with diabetic nephropathy, with long-term current use of insulin ([facility]) Aspirin (SB LOW DOSE Take by mouth 0 Active ASA EC) 81 MG Oral DAILY. Tab EC Point [place]-3 Fatty Acids Take by mouth 0 Active (FISH OIL) 1000 MG DAILY. Oral Cap Magnesium 500 MG Take by mouth 0 Active Oral Tab DAILY. Calcium Take by mouth 0 Active Carb-Cholecalciferol DAILY. (CALCIUM 600+D) 600-800 MG-UNIT Oral Tab Biotin (BIOTIN 5000) Take by mouth 0 Active 5 MG Oral Cap DAILY. Insulin Pen Needle 1 Device by 100 Each 11 Active 32G X 6 MM Does not Does not apply 9 apply Misc route THREE TIMES DAILY. albuterol HFA Take 2 Puffs 1 Inhaler 5 Active (VENTOLIN) 108 (90 by inhalation 9 Base) MCG/ACT EVERY FOUR Inhalation Aero Soln HOURS NEEDED (Wheezing). Psyllium (METAMUCIL) Take by mouth 0 Active 48.57 % Oral Powder EVERY EVENING. atenolol (TENORMIN) Take 1 Tab by 90 Tab 3 Active 50 MG Oral Tab mouth DAILY. 9 Cholecalciferol Take 1 Cap by 30 Cap 11 Active (VITAMIN D-3) 1000 mouth DAILY. 9 units Oral Cap levothyroxine Take 1 Tab by 30 Tab 11 Active (SYNTHROID) 25 MCG mouth BEFORE 9 Oral Tab BREAKFAST. ketoconazole 1 Appl by 120 mL 5 Active (NIZORAL) 2 % Apply Topical route 9 externally Shampoo 2 times per week at bedtime. apixaban (ELIQUIS) 5 Take 1 Tab by 60 Tab 11 Active MG Oral Tab mouth TWICE 9 DAILY. Dulaglutide Inject 1.5 mg 2.24 mL 5 Active (TRULICITY) 1.5 beneath the 9 MG/0.5ML skin EVERY 7 Subcutaneous DAYS. Solution Pen-injector Glucose Blood In 1 Strip by In 400 Each 3 Active Vitro Strip Vitro route 9 FOUR TIMES DAILY. Brand: Warrantly, Dx: E11.65 amLodipine (NORVASC) TAKE ONE 30 Tab 11 Active 5 MG Oral Tab TABLET BY 0 MOUTH EVERY DAY duloxetine TAKE ONE 30 Cap 5 Active (CYMBALTA) 60 MG CAPSULE BY 0 Oral CAPSULE ENTERIC MOUTH EVERY COATED PARTICLES DAY Omeprazole delayed TAKE ONE 90 Cap 3 Active rel cap 20 MG Oral CAPSULE BY 0 CAPSULE DELAYED MOUTH EVERY RELEASE DAY oxybutynin (DITROPAN TAKE ONE 30 Tab 5 Active XL) 5 MG Oral TABLET TABLET BY 0 SR 24 HR MOUTH EVERY DAY Insulin Degludec Inject 20 105 mL 5 Active (TRESIBA FLEXTOUCH) Units beneath 0 200 UNIT/ML the skin EVERY Subcutaneous EVENING. Solution Pen-injector Insulin Lispro, 0.5 Inject 5 Units 0 Active Unit Dial, (HUMALOG beneath the 0 CAMERON KWIKPEN) 100 skin THREE UNIT/ML Subcutaneous TIMES DAILY Solution BEFORE MEALS. Pen-injector Cyanocobalamin Take by 0 Active (VITAMIN B-12) 1000 mouth. MCG Oral Tab Melatonin 1 MG Oral Take 3 mg by 0 Active Cap mouth NEEDED. allopurinol Take 1 Tab by 180 Tab 3 Active (ZYLOPRIM) 100 MG mouth TWICE 0 Oral TabIndications: DAILY. Acute idiopathic gout of right foot sulfamethoxazole-tri Take 1 Tab by 28 Tab 0 01/07/20 Discontinued methoprim (BACTRIM mouth TWICE 9 20 (Patient stopped DS) 800-160 MG Oral DAILY. the medication) TabIndications: Acute cystitis with hematuria allopurinol Take 1 Tab by 180 Tab 3 01/07/20 Discontinued (ZYLOPRIM) 100 MG mouth DAILY. 0 20 (Dose Oral TabIndications: Adjustment) Acute idiopathic gout of right foot metFORMIN Take 500 mg by 0 01/07/20 Discontinued (GLUCOPHAGE) 500 MG mouth TWICE 20 Oral Tab DAILY. documented as of this encounter (statuses as of 01/09/2020) Active Problems Problem Noted Date Abnormal echocardiogram 07/29/2009 Overview: 07/05/08 echocardiogram: Done at [facility] Conclusion: Overall left venticular systolic function is low-normal with, an EF between 50- 55%. Mild LVH. The aortic valve is trileaflet and appears structurally normal. The tricuspid valve appears structurally normal. Trace MR. Abnormal stress test 07/29/2009 Overview: 07/26/09 Myocardial Spect Stress: Done at [facility] Findings: The current examination demonstrates grossly normal left ventricular perfusion at rest. With stress there is evidence of anterolateral ischemia. Left ventricular wall motion is however grossly normal an d left ventricular ejection fraction is normal with stress measuring 71%. Impression: Anterolateral ischemia with stress in an otherwise normal exam. Esophageal reflux 12/12/2007 Persistent disorder of initiating or maintaining sleep 12/12/2007 Personal history of breast cancer 12/12/2007 Osteoarthrosis, unspecified whether generalized or localized, lower leg 2007 Cardiomegaly 12/12/2007 Personal history of colonic polyps 12/12/2007 Overview: Colonoscopy 03/15/04 as documented Other abnormal blood chemistry 12/12/2007 Overview: Abnormal LFT's as documented Essential hypertension, benign 11/12/2007 Other and unspecified hyperlipidemia 11/12/2007 Polyneuropathy in diabetes 11/12/2007 Obesity 11/12/2007 DM (diabetes mellitus) Atrial fibrillation Hypothyroidism Chronic UTI Overview: on augmentin bid Depression documented as of this encounter (statuses as of 01/09/2020) Resolved Problems Problem Noted Date Resolved Date Type I (juvenile type) diabetes mellitus without mention of 12/12/20072017 complication, not stated as uncontrolled Personal history of peptic ulcer disease 12/12/2007 12/17/2007 Diverticulitis of colon (without mention of 12/12/2007 12/17/2007 hemorrhage)(562.11) Diabetic ulcer of left foot 01/09/2020 documented as of this encounter (statuses as of 01/09/2020) Immunizations Name Administration Dates Next Due Influenza Vaccine 65 Yrs + 08/25/2019 Influenza Vaccine High Dose 09/03/2018 Influenza Virus Vaccine - Whole 10/04/2007 PNEUMOCOCCAL POLYSACCHARIDE VACCINE 01/01/1998 Pneumococcal Conjugate(13 Valent) 05/05/2015 TDAP Vaccine 06/28/2016 TETANUS & DIPHTHERIA TOXOID (OVER 7 YRS) 02/05/1998 ZOSTER (ZOSTAVAX) VACCINE 08/15/2016 documented as of this encounter Social History Tobacco Use Types Packs/Day Years Used Date Former Smoker Smokeless Tobacco: Never Used Comments: quit 17 years ago as of 08/04 Alcohol Use Drinks/Week oz/Week Comments No Sex Assigned at Date Recorded Not on file documented as of this encounter Last Filed Vital Signs Vital Sign Reading Time Taken Comments Blood Pressure 142/68 01/07/2020 9:51 AM EST Pulse 50 01/07/2020 9:51 AM EST Temperature - - Respiratory Rate - - Oxygen Saturation 95% 01/07/2020 9:51 AM EST Inhaled Oxygen Concentration - - Weight 101.6 kg (224 lb) 01/07/2020 9:51 AM EST Height - - Body Mass Index 36.15 09/03/2019 9:29 AM EDT documented in this encounter Patient Instructions Patient InstructionsMartín Merrill MD - 01/07/2020 9:20 AM ESTContinue same medicines, but stop metformin . New dose of Tresiba is 20 units a day New dose of short acting insulin is 5 units before meals if sugar is over 100. We have made referral to visiting nurse service who can help you with medications, physical therapy and Occupational Therapy. Get lab work today Follow-up in 1 month documented in this encounter Progress Notes Martín Merrill MD - 01/07/2020 9:20 AM EST [facility] [place] [address] Home Health Attestation Progress Note Patient: Brianda Treviño Visit #: Admission Date: Discharge Date: 01/09/20 Attending: PCP: Martín Merrill Author: Martín Merrill MD 01/09/2020 14:57 Martín Johnson MD - 01/07/2020 9:20 AM EST PATIENT: Brianda Treviño : 1940 DATE OF SERVICE: 01/07/2020 CHIEF COMPLAINT: Chief Complaint Patient presents with ? Transitional Care Management f/u from [facility] admission 12/31 - 01/03/20 dx: UTI and kidney disease; ? Diabetes f/u last a1c done 12/31/19 (5.7) ? Hypertension f/u BP ? Fall increase in falls and confusion noted. ? Medication Check question allopurinol if supposed to be BID or daily; changed insulin dosage; finished antibiotic Subjective HISTORY OF PRESENT ILLNESS: Brianda Treviño is a 79-y.o. female. HPI She presents for transitional care management after hospitalization at [facility] from December 31 through January 03 for E. coli urinary tract infection and progression of chronic kidney disease. She is accompanied by her son who reports that she has had 3 falls prior to hospitalization. No dizziness or other warning. Seems to be more confused her son who spoke to her on the phone prior to admission. In the emergency room blood pressure was quite elevated, urinalysis had protein blood and white cells with bacteria that grew 10-15,000 colony-forming units of E. coli. Treated with ceftriaxone and transitioned to oral cefuroxime. Renal function was worse with creatinine as high as 2.55 which is higher than she was on last testing. She had hypoglycemia the evening of hospital day 1 and she had her insulin doses reduced. Hemoglobin A1c was 5.7. Metformin was continued but given renal insufficiency, we will discontinue it now. there was concern about heart failure and she had an echocardiogram showing ejection fraction of 60to 65% grade 2 diastolic dysfunction, similar to a prior study done in 2016. A chest x-ray showed no acute disease. Because of perceived confusion she had a CT of the brain showing no acute intracranial process, mildchronic small vessel ischemic changes and age-related atrophy. Past Medical History: Diagnosis Date ? Atrial fibrillation (HCC) ? Chronic UTI on augmentin bid ? Depression ? Diabetic ulcer of left foot (HCC) ? Diverticulitis of colon (without mention of hemorrhage)(562.11) 2007 ? DM (diabetes mellitus) (HCC) ? Esophageal reflux 12/12/2007 ? Gout ? History of breast surgery ? History of mastectomy right mastectomy 27 years ago ? HTN ? Hypothyroidism ? Obesity ? Osteoarthrosis, unspecified whether generalized or localized, lower leg 12/12/2007 ? Other abnormal blood chemistry 12/12/2007 Abnormal LFT's as documented ? Other and unspecified hyperlipidemia 11/12/2007 ? Persistent disorder of initiating or maintaining sleep 12/12/2007 ? Personal history of breast cancer 12/12/2007 rt mastectomy ? Personal history of colonic polyps 12/12/2007 ? Personal history of peptic ulcer disease 12/12/2007 ? Postmenopausal ? PVD (peripheral vascular disease) (HCC) unclear of details Family History Problem Relation Age of Onset ? Heart Father at 69 ? Lung Cancer Father smoker ? Heart Mother at 73 ? Diabetes Mother Type1 ? Heart Brother at 59 [place] ? Diabetes Brother Type 1 Current Outpatient Medications Medication Sig ? albuterol HFA (VENTOLIN) 108 (90 Base) MCG/ACT Inhalation Aero Soln Take 2 Puffs by inhalation EVERY FOUR HOURS NEEDED (Wheezing). ? allopurinol (ZYLOPRIM) 100 MG Oral Tab Take 1 Tab by mouth DAILY. ? amLodipine (NORVASC) 5 MG Oral Tab TAKE ONE TABLET BY MOUTH EVERY DAY ? apixaban (ELIQUIS) 5 MG Oral Tab Take 1 Tab by mouth TWICE DAILY. ? Aspirin (SB LOW DOSE ASA EC) 81 MG Oral Tab EC Take by mouth DAILY. ? atenolol (TENORMIN) 50 MG Oral Tab Take 1 Tab by mouth DAILY. ? Biotin (BIOTIN 5000) 5 MG Oral Cap Take by mouth DAILY. ? Calcium Carb-Cholecalciferol (CALCIUM 600+D) 600-800 MG-UNIT Oral Tab Take by mouth DAILY. ? Cholecalciferol (VITAMIN D-3) 1000 units Oral Cap Take 1 Cap by mouth DAILY. ? Cyanocobalamin (VITAMIN B-12) 1000 MCG Oral Tab Take by mouth. ? Dulaglutide (TRULICITY) 1.5 MG/0.5ML Subcutaneous Solution Pen-injector Inject 1.5 mg beneath the skin EVERY 7 DAYS. ? duloxetine (CYMBALTA) 60 MG Oral CAPSULE ENTERIC COATED PARTICLES TAKE ONE CAPSULE BY MOUTH EVERY DAY ? furosemide (LASIX) 20 MG Oral Tab Take 20 mg by mouth DAILY NEEDED. ? Glucose Blood In Vitro Strip 1 Strip by In Vitro route FOUR TIMES DAILY. Brand: Avancarx, Dx: E11.65 ? Insulin Degludec (TRESIBA FLEXTOUCH) 200 UNIT/ML Subcutaneous Solution Pen-injector Inject 20 Units beneath the skin EVERY EVENING. ? Insulin Lispro, 0.5 Unit Dial, (HUMALOG CAMERON KWIKPEN) 100 UNIT/ML Subcutaneous Solution Pen-injector Inject 5 Units beneath the skin THREE TIMES DAILY BEFORE MEALS. ? Insulin Pen Needle 32G X 6 MM Does not apply Misc 1 Device by Does not apply route THREE TIMES DAILY. ? ketoconazole (NIZORAL) 2 % Apply externally Shampoo 1 Appl by Topical route 2 times per weekat bedtime. ? levothyroxine (SYNTHROID) 25 MCG Oral Tab Take 1 Tab by mouth BEFORE BREAKFAST. ? Magnesium 500 MG Oral Tab Take by mouth DAILY. ? Melatonin 1 MG Oral Cap Take 3 mg by mouth NEEDED. ? metFORMIN (GLUCOPHAGE) 500 MG Oral Tab Take 500 mg by mouth TWICE DAILY. ? Point Arena-3 Fatty Acids (FISH OIL) 1000 MG Oral Cap Take by mouth DAILY. ? Omeprazole delayed rel cap 20 MG Oral CAPSULE DELAYED RELEASE TAKE ONE CAPSULE BY MOUTH EVERY DAY ? oxybutynin (DITROPAN XL) 5 MG Oral TABLET SR 24 HR TAKE ONE TABLET BY MOUTH EVERY DAY ? Psyllium (METAMUCIL) 48.57 % Oral Powder Take by mouth EVERY EVENING. ? Rosuvastatin Calcium (CRESTOR) 10 MG Oral Tab Take 1 Tab by mouth DAILY. No current facility-administered medications for this visit. Allergies Allergen Reactions ? No Known Drug Allergy Unknown Reaction Social History Socioeconomic History ? Marital status: Spouse name: Not on file ? Number of children: Not on file ? Years of education: Not on file ? Highest education level: Not on file Occupational History ? Not on file Social Needs ? Financial resource strain: Not on file ? Food insecurity Worry: Not on file Inability: Not on file ? Transportation needs Medical: Not on file Non-medical: Not on file Tobacco Use ? Smoking status: Former Smoker ? Smokeless tobacco: Never Used ? Tobacco comment: quit 17 years ago as of 08/04 Substance and Sexual Activity ? Alcohol use: No ? Drug use: No ? Sexual activity: Not on file Lifestyle ? Physical activity Days per week: Not on file Minutes per session: Not on file ? Stress: Not on file Relationships ? Social connections Talks on phone: Not on file Gets together: Not on file Attends mandaen service: Not on file Active member of club or organization: Not on file Attends meetings of clubs or organizations: Not on file Relationship status: Not on file ? Intimate partner violence Fear of current or ex partner: Not on file Emotionally abused: Not on file Physically abused: Not on file Forced sexual activity: Not on file Other Topics Concern ? Not on file Social History Narrative ? Not on file REVIEW OF SYSTEMS: Review of Systems Constitutional: Positive for malaise/fatigue. HENT: Negative for congestion. Eyes: Negative for blurred vision. Respiratory: Negative for shortness of breath. Cardiovascular: Negative for chest pain. Gastrointestinal: Positive for nausea. Genitourinary: Positive for frequency. Musculoskeletal: Positive for back pain and falls. Skin: Negative for rash. Neurological: Negative for dizziness, seizures and loss of consciousness. Endo/Heme/Allergies: Negative for polydipsia. Psychiatric/Behavioral: Positive for memory loss. Negative for depression. The patient is not nervous/anxious. Objective PHYSICAL EXAM: VITALS: BP (!) 142/68 (BP Location: Left arm, Patient Position: Sitting) | Pulse 50 | Wt 224 lb (101.6 kg) | SpO2 95% | BMI 36.15 kg/m Body mass index is 36.15 kg/m. Physical Exam Alert, oriented, in no acute distress. Vitals as above. HEENT: unremarkable. Neck: No palpable lymphadenopathy in the submandibular, submental, anterior cervical, posterior cervical, or occipital chains, nor in the supraclavicular spaces. No JVD, thyromegaly. LUNGS: clear. HEART: Regular rate and rhythm. Abdomen soft and nontender EXTREMITIES: no cyanosis, clubbing, or edema. ASSESSMENT / IMPRESSION: ICD-9-CM ICD-10-CM 1. Urinary tract infection without hematuria, site unspecified?clinically better. Recheck urine. Refer to home health care, recheck other labs 599.0 N39.0 REFER TO HOME HEALTH CBC WITH DIFFERENTIAL URINE DIP MANUAL (AMB POCT) PLATELET CHECK / REVIEW 2. Stage 4 chronic kidney disease (HCC) worse than last time checked last year. If not improving, consider further work-up with imaging of the kidneys, referral to nephrology. Stop metformin 585.4 N18.4 COMPREHENSIVE METABOLIC PANEL 3. Fall, initial encounter?hope home health will help with physical therapy, gait and balance training E888.9 W19.XXXA 4. Acute idiopathic gout of right foot history of, not now. Renew allopurinol 274.01 M10.071 URIC ACID allopurinol (ZYLOPRIM) 100 MG Oral Tab History of 5. Type 2 diabetes mellitus with diabetic nephropathy, with long-term current use of insulin (HCC)?well controlled. Agree with lower doses of insulin but watch sugar closely. Check lipids and thyroid function since these were not done in the hospital 250.40 E11.21 LIPID PROFILE 583.81 Z79.4 THYROID STIMULATING HORMONE V58.67 TCM Statement. Review of the hospitalization: I am seeing for transition of care following hospitalization. The date of discharge was: January 03, 2020 The discharge diagnosis was E. coli urinary tract infection, progression of chronic kidney disease. I reviewed the discharge summary, discharge instructions, and pertinent additional documentation obtained during hospitalization. I reconciled the medications. I also reviewed the Transition of Care documentation done by staff. The tests that were not available at the time of discharge were reviewed. Additional tests which are not yet available include: None Coordination of care. - Additional testing related to hospitilization was requested today: yes See orders. We will get home health referral set up I confirmed the patient's understanding of the diagnosis and plan of care. Specific education that was provided today: Importance of drinking enough fluid and taking medication as prescribed. Clarified medication changes including stopping metformin and reducing insulin. Patient Instructions Continue same medicines, but stop metformin . New dose of Tresiba is 20 units a day New dose of short acting insulin is 5 units before meals if sugar is over 100. We have made referral to visiting nurse service who can help you with medications, physical therapy and Occupational Therapy. Get lab work today Follow-up in 1 month The current and discharge medications were reconciled by an RN, telephonically on January 05, 2020 The source document was Electronic summary of care Author: Martín Merrill MD 01/07/2020 10:23 documented in this encounter Plan of Treatment Date Type Specialty Care Team Description 02/05/2020 Office Visit Internal Medicine Martín Merrill MD [address] [place] [address] [phone] 03/29/2020 Office Visit Internal Medicine Martín Merrill MD [facility] [place] [address] [phone] Name Type Priority Associated Diagnoses Order Schedule URINE DIP MANUAL (AMB POCT Routine Urinary tract infection Ordered: 2019 POCT) without hematuria, site unspecified Name Type Priority Associated Diagnoses Order Schedule REFER TO HOME HEALTH Referral Routine Urinary tract infection Ordered: 10/2020 without hematuria, site unspecified Health Maintenance Due Date Last Done Comments MEDICARE ANNUAL WELLNESS 1940 VISIT OSTEOPOROSIS SCREENING 2007 PNEUMOCOCCAL 65+YRS (2 of 2 05/05/2016 05/05/2015, 01/01/1998 - PPSV23) ZOSTER IMMUNIZATION SERIES 10/10/2016 08/15/2016 (2 of 3) FOOT EXAM 04/16/2020 04/16/2019, 04/16/2019, 12/27/2017 HEMOGLOBIN A1C 06/30/2020 12/31/2019, 08/25/2019, 04/16/2019, Additional history exists DEPRESSION SCREENING 08/25/2020 08/25/2019, 08/25/2019 FALL RISK ASSESSMENT 08/25/2020 08/25/2019, 08/25/2019 Diabetic Eye Exam 08/20/2021 08/20/2019, 04/07/2019 DTaP/Tdap/Td Vaccines (3 - 06/28/2026 06/28/2016, 02/05/1998 Tdap) INFLUENZA VACCINE Completed 08/25/2019, 09/03/2018 HEPATITIS A IMMUNIZATION Aged Out No longer eligible SERIES based on patient's age to complete this topic HPV IMMUNIZATION SERIES Aged Out No longer eligible based on patient's age to complete this topic MENINGOCOCCAL VACCINE IMM Aged Out No longer eligible based on patient's age to complete this topic documented as of this encounter Goals Goal Patient Goal Associated Recent Patient-Stated? Author Type Problems Progress Blood Pressure Blood Pressure 142/68 No [place], < 140/90 (01/07/2020 MD Martín 9:51 AM EST) Note: This is an individualized treatment (blood pressure) goal for Brianda Treviño: Displayed above (on the left) is your goal for blood pressure control. Your most recent blood pressure is also shown above, on the right. You should try to achieve blood pressures that are lower than your goal listed above (on the left). Depression screen (PHQ-9) Depression 23 (08/25/2019 1:28 PM Martín Hercules MD total score < 5 EDT) Note: This is an individualized treatment (depression) goal for Brianda Treviño: Displayed above is your goal for a depression screening (PHQ-9) score that would indicate good control of your depression. Glycohemoglobin A1c < 7.0 Diabetes 5.7 (08/25/2019 3:01 PM Martín Hercules MD EDT) Note: This is an individualized treatment (diabetes control, HgbA1C) goal for Brianda Treviño: Displayed above is your progress towards your HgbA1C goal. Your goal is shown above (on the left); your most recent HgbA1C is shown on the right. Note that lower numbers are better. Weight loss vs. 18 mo Lifestyle 28 (01/07/2020 9:51 AM EST) Martín Hercules MD max (lbs) >= 10 Note: This is an individualized lifestyle goal for Brianda Treviño: Your body mass index (BMI) is more than 30. You should lose weight. A reasonable starting goal is to lose 10 pounds. Displayed above is how many pounds you have lost thus far towards your 10 pound weight loss goal. Keep immunizations current Lifestyle Martín Hercules MD Note: This is an individualized lifestyle goal for Brianda Treviño: Please be sure to keep up-to-date on recommended immunizations. For example, this would include a yearly influenza vaccine. Immunization status can be seen by looking at the Health Maintenance sections of your [employer], Plan of Care, and any After Visit Summaries. Keep a regular sleep schedule Lifestyle Martín Hercules MD Note: This is an individualized lifestyle goal for Brianda Treviño: Please maintain a regular sleep schedule. This may help with some symptoms of depression. Take all prescribed medications as directed Self-management Martín Hercules MD Note: This is an individualized self-management goal for Brianda Treviño: Please take all prescribed medications as directed. 1. Do not skip doses. If you cannot afford your medications, talk with your doctor. 2. Use a pill reminder system such as a pill box if needed. Your pharmacist can help you with this. 3. Contact your Pharmacy 5 days before your medication runs out. If you cannot take your medications for any reasons, talk with your doctor. 4. Please bring all of your medication bottles and inhalers (or a list of all your medications/inhalers) with you to every visit. Potential barriers to meeting all of your care plan goals will continue to be addressed on an ongoing basis. documented as of this encounter Procedures Procedure Name Priority Date/Time Associated Comments Diagnosis CBC WITH DIFFERENTIAL Routine 01/07/2020 10:59 Urinary tract Results for this AM EST infection without procedure are in hematuria, site the results unspecified section. URIC ACID Routine 01/07/2020 10:59 Acute idiopathic Results for this AM EST gout of right foot procedure are in the results section. THYROID STIMULATING Routine 01/07/2020 10:59 Type 2 diabetes Results for this HORMONE AM EST mellitus with procedure are in diabetic the results nephropathy, with section. long-term current use of insulin (HCC) LIPID PROFILE Routine 01/07/2020 10:59 Type 2 diabetes Results for this AM EST mellitus with procedure are in diabetic the results nephropathy, with section. long-term current use of insulin (HCC) COMPREHENSIVE Routine 01/07/2020 10:59 Stage 4 chronic Results for this METABOLIC PANEL AM EST kidney disease procedure are in (HCC) the results section. PLATELET CHECK / Routine 01/07/2020 10:59 Urinary tract REVIEW AM EST infection without hematuria, site unspecified documented in this encounter Results THYROID STIMULATING HORMONE (01/07/2020 10:59 AM EST) TSH 0.97 0.47 - 4.68 uIu/ml [facility] Specimen Blood - Blood specimen (specimen) Performing Organization Address City/State/Zipcode Phone Number [facility] [address] [place] [address] [phone] LIPID PROFILE (01/07/2020 10:59 AM EST) Cholesterol 229 (H) <200 mg/dl [facility] HDL Cholesterol 35 (L) >50 mg/dl [facility] Triglycerides 162 (H) <150 mg/dl [facility] LDL Cholesterol 162 (H) <100 MG/DL [facility] Cholesterol / HDL Ratio 6.5 RATIO [facility] LDL / HDL Ratio 4.6 [facility] Non-HDL Cholesterol 194 (H) 0 - 130 MG/DL [facility] Patient Fasting: Yes [facility] Specimen Blood - Blood specimen (specimen) Performing Organization Address [facility] Phone Number [facility] [address] [place] [phone] URIC ACID (01/07/2020 10:59 AM EST) Uric Acid 5.5 2.5 - 6.2 MG/DL [facility] Specimen Blood - Blood specimen (specimen) Performing Organization Address [facility] Phone Number [facility] [address] [place] [address] [phone] COMPREHENSIVE METABOLIC PANEL (01/07/2020 10:59 AM EST) Sodium 138 134 - 145 mmol/L [facility] Potassium 4.2 3.5 - 5.1 mmol/L [facility] Chloride 101 98 - 107 mmol/L [facility] CO2 33 (H) 22 - 30 mmol/L [facility] Calcium 9.2 8.3 - 10.1 mg/dl [facility] Albumin 3.3 (L) 3.5 - 5.0 g/dl [facility] BUN 38 (H) 7 - 17 mg/dl [facility] Creatinine 2.1 (H) 0.7 - 1.2 mg/dl [facility] Glucose 152 (H) 70 - 99 mg/dl [facility] Total Protein 6.5 6.3 - 8.2 g/dl [facility] Total Bilirubin 0.5 0.0 - 1.1 MG/DL [facility] AST 29 15 - 46 U/L [facility] ALT 23 9 - 52 U/L [facility] Alkaline 305 (H) 40 - 150 U/L [facility] Phosphatase [facility] eGFR 23 See Interpretation [facility] Comment: Below ml/min/1.73ml GROUP Estimated GFR Interpretation: Sq LABORATORY Above 60ml/min/1.73m2 = Normal Renal Function 30-59 ml/min/1.73m2 = Stage 3 Chronic Kidney Disease 15-29 ml/min/1.73m2 = Stage 4 Chronic Kidney Disease Less than 15 ml/min/1.73m2 = Stage 5 Chronic Kidney Disease The GFR value is calculated using the Modification of Diet in Renal Disease ( MDRD) Study Equation which can be found at: https://www.kidney.org/content/ptlo-hyiho-irkgcezw BUN/Creatinine 18 6 - 22 RATIO [facility] LABORATORY Anion Gap 4 3 - 11 mmol/L [facility] A/G Ratio 1.0 0.8 - 2.0 ratio [facility] Specimen Blood - Blood specimen (specimen) Performing Organization Address City/State/Zipcode Phone Number [facility] [address] [place] [address] [phone] CBC WITH DIFFERENTIAL (01/07/2020 10:59 AM EST) WBC Count 7.61 3.98 - 10.04 K/uL [facility] RBC Count 3.97 3.93 - 5.22 M/UL [facility] Hemoglobin 11.8 11.2 - 15.7 g/dL [facility] Hematocrit 36.1 34.1 - 44.9 % [facility] MCV 90.9 79.4 - 94.8 FL [facility] MCH 29.7 25.6 - 32.2 PG [facility] MCHC 32.7 32.2 - 35.5 g/dL [facility] Platelet Count 96 (L) 182 - 369 K/uL [facility] MPV 13.1 (H) 9.4 - 12.3 FL [facility] RDW 15.5 (H) 11.7 - 14.4 % [facility] Neutrophil % 78.0 (H) 34.0 - 71.1 % [facility] Lymphocyte % 13.0 (L) 19.3 - 51.7 % [facility] Monocyte % 5.4 4.7 - 12.5 % [facility] Eosinophil % 2.1 0.7 - 5.8 % [facility] Basophil % 1.1 0.1 - 1.2 % [facility] nRBC % 0.0 0.0 - 0.2 % [facility] Neutrophil # 5.94 1.56 - 6.13 K/UL [facility] Lymphocyte # 0.99 (L) 1.18 - 3.74 K/UL [facility] Monocyte # 0.41 0.24 - 0.86 K/UL [facility] Eosinophil # 0.16 0.04 - 0.36 K/UL [facility] Basophil # 0.08 0.01 - 0.08 K/UL [facility] Immature Gran % 0.4 0.0 - 0.4 % [facility] Immature Gran # 0.03 0.00 - 0.03 K/uL [facility] NRBC # 0.00 0.00 - 0.12 K/uL [facility] Specimen Blood - Blood specimen (specimen) Performing Organization Address City/State/Zipcode Phone Number [facility] [address] [address] [phone] PLATELET CHECK / REVIEW (01/07/2020 10:59 AM EST) Specimen Blood - Blood specimen (specimen) Performing Organization Address City/[facility] Phone Number [facility] [address] [phone] documented in this encounter Visit Diagnoses Diagnosis Urinary tract infection without hematuria, site unspecified Stage 4 chronic kidney disease (HCC) Fall, initial encounter 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, with long-term current use of insulin (HCC) documented in this encounter Insurance Payer Benefit Plan / Subscriber ID Effective Dates Phone Address Type Group REPLACED BY [facility] [id number] Effective for Medicare TODAYS OPTIONS TODAYS OPTIONS all dates Advantage Guarantor Name Account Type Relation to Date of Phone Billing Patient Address Brianda Treviño Personal/Family 1940 [address] [place], [place] (Work) [address] documented as of this encounter Advance Directives Type Date Recorded 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
--- OUTSIDE RECORDS SUMMARY | 2020-01-19 16:44 | XMS REPORT ---
:1940 Author Organization [facility] Care Team Providers Name Role Phone Unavailable Unavailable Unavailable Problems Condition Condition Condition Status Onset Resolution Last Treating Comments Name Details Category Date Date Treatment Clinician Date Chronic Chronic Diagnosis Active 2019- NOA kidney kidney - [place] disease, disease, #[id number] unspecified unspecified Type 2 Type 2 Diagnosis Active 2019-0 NOA diabetes diabetes - [place] mellitus mellitus #962516 without without complicatio complicatio ns ns Essential Essential Diagnosis Active NOA (primary) (primary) 01-14 [place] hypertensio hypertensio #355015 n n Unspecified Unspecified Diagnosis Active 2019-0 NOA atrial atrial - [place] fibrillatio fibrillatio #066119 n n 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, disorder, #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, recurrent, unspecified unspecified Urinary Urinary Diagnosis Active 2020-0 NOA tract tract - [place] infection, infection, #671185 site not site not specified specified Personal Personal Diagnosis Active NOA history of history of [place] 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 Hypothyroid Hypothyroid Diagnosis Active NOA ism, ism, [place] unspecified unspecified #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 NOA (current) (current) [place] use of use of #[id number] aspirin aspirin Pain frequent Pain Mgmt Active 2020-0 Kim pain 01-14 [place] 10:00: [id number] 00 Respiratory dyspnea Respirator Active 2019-0 Kim present y 01-14 [place] 10:00: [id number] 00 Endo/Sulaiman knowledge/s Endo/Sulaiman Active 2020-0 Kim kill 2- [place] deficit: pt 10:00: [id number] 00 Endo/Sulaiman diabetic Endo/Sulaiman Active 2020-0 [facility] [place] 10:00: [id number] 00 Endo/Sulaiman knowledge/s Endo/Sulaiman Active 2020-0 Kim kill 01-14 [place] deficit 10:00: [id number] hypo/hyperg 00 lycemia: pt Endo/Sulaiman anti-coagul Endo/Sulaiman Active 2020-0 Kim ation 01-14 [place] therapy 10:00: [id number] 00 Sensory learning Sensory Active 2020-0 Kim deficit 01-14 [place] 10:00: [id number] 00 Sensory impaired Sensory Active 2020-0 Kim hearing 01-14 [place] 10:00: [id number] 00 Integument skin Integument Active 2020-0 Kim integrity 01-14 [place] risk 10:00: [id number] 00 Nutrition nutritional Nutrition Active 2020-0 Kim restriction 01-14 [place] s 10:00: [id number] 00 Elimination urinary Eliminatio Active 2020-0 Kim incontinenc n 01-14 [place] e 10:00: [id number] 00 Elimination urinary Eliminatio Active 2020-0 Kim frequency n 01-14 [place] 10:00: [id number] 00 Elimination recurring Eliminatio Active 2020-0 Kim UTI n 01-14 [place] 10:00: [id number] 00 Elimination UTI within Eliminatio Active 2020-0 Kim past 14 n 01-14 [place] days 10:00: [id number] 00 Elimination knowledge/s Eliminatio Active 2020-0 Kim kill n 01-14 [place] deficit: pt 10:00: [id number] 00 Neuro anxiety Neuro/Emot Active 2020-0 Kim present ion - [place] 10:00: [id number] 00 Neuro impaired Neuro/Emot Active 2020-0 Kim decision-ma ion 01-14 [place] bisi 10:00: [id number] 00 Neuro memory Neuro/Emot Active 2020-0 Kim deficit ion - [place] needing 10:00: [id number] supervision 00 Neuro knowledge/s Neuro/Emot Active 2020-0 Kim kill ion - [place] deficit: pt 10:00: [id number] 00 Neuro constant Neuro/Emot Active 2020-0 Kim confusion ion 01-14 [place] 10:00: [id number] 00 Activity ADL Activity Active 2020-0 Kim assistance 01-14 [place] required 10:00: [id number] 00 Activity self-care Activity Active 2020-0 Kim deficit 01-14 [place] 10:00: [id number] 00 Safety cannot be Safety Active 2020-0 Kim left alone 01-14 [place] 10:00: [id number] 00 Safety knowledge/s Safety Active 2020-0 Kim kill 01-14 [place] deficit: pt 10:00: [id number] 00 Safety fall risk Safety Active 2020-0 Kim factor 01-14 [place] present 10:00: [id number] 00 Safety risk for Safety Active 2020-0 Kim hospitaliza 01-14 [place] tion 10:00: [id number] 00 Medication oral med Meds Active 2020-0 Kim assistance 01-14 [place] required 10:00: [id number] 00 Medication injectable Meds Active 2020-0 Kim med 01-14 [place] assistance 10:00: [id number] required 00 Medication knowledge/s Meds Active 2020-0 Kim kill 01-14 [place] deficit: pt 10:00: [id number] 00 Medication potential Meds Active 2020-0 Kim clinically 01-14 [place] significant 10:00: [id number] medication 00 issue Musculoskel transfer Musculoske Active 2020-0 Kim etal assistance letal 01-14 [place] required 10:00: [id number] 00 Musculoskel requires Musculoske Active 2020-0 Kim etal human letal 01-14 [place] assist to 10:00: [id number] leave home 00 Bed transfer PT/OT: Bed Active 2020-0 [place] Mobility/Tr deficit: Mobility/T 2-19 [place] ansfer shower/tub ransfer 12:31: [id number] 00 Bed knowledge/s PT/OT: Bed Active 2020-0 [place] Mobility/Tr kill Mobility/T 2-19 [place] ansfer deficit: pt ransfer 12:31: [id number] 00 Balance/End balance/yoga coordinator PT/OT: Active 2020-0 [place] urance rdination Balance/En -19 [place] deficit durance 12:31: [id number] 00 Balance/End endurance PT/OT: Active 2020 [place] urance deficit Balance/En 2-19 [place] durance 12:31: [id number] 00 Balance/End knowledge/s PT/OT: Active [place] urance kill Balance/En -19 [place] deficit: pt durance 12:31: [id number] 00 Gait/Locomo gait PT/OT: Active [place] tion deficit Gait/Locom 2-19 [place] problems otion 12:31: [id number] 00 Endo/Sulaiman insulin Endo/Sulaiman Active [place] admn 2-21 [place] dependence 10:45: [id number] 00 Safety can be left Safety Active [place] alone for 2-21 [place] only short 10:45: [id number] periods 00 Allergies, Adverse Reactions, Alerts Allergy Allergy Status Severity Reaction(s) Onset Inactive Treating Comments Name Type Date Date Clinician Unknown None Active Unknown None Unknown No Known Allergies For This Patient Medications Ordered Filled Start Stop Current Ordering Indication Dosage Frequency Signature Comments Components Medication Medication Date Date Medication? Clinician (SIG) Name Name aspirin 81 aspirin 81 2019-0 Yes [place] Unknown Unknown mg mg 2- Martín LINDA tablet,adolfo tablet,adolfo yed release yed release atenolol 50 atenolol 50 2019-0 Yes [place] Unknown Unknown mg tablet mg tablet - Martín LINDA Cymbalta 60 Cymbalta 60 2019-0 Yes [place] Unknown Unknown mg mg - Jesus Alberto LINDA capsule,ron capsule,ron Dev ayed ayed release release Eliquis 5 Eliquis 5 2019-0 Yes [place] Unknown Unknown mg tablet mg tablet - Martín LINDA acetaminoph acetaminoph Yes [place] Unknown Unknown en 325 mg en 325 mg - Martín LINDA tablet tablet allopurinol allopurinol 2019-0 Yes [place] Unknown Unknown 100 mg 100 mg 01-14 Martín LINDA tablet tablet amlodipine amlodipine 2019- Yes [place] Unknown Unknown - Martín LINDA atenolol 50 atenolol 50 No [place] Unknown Unknown mg tablet mg tablet Martín LINDA biotin biotin 2019- Yes [place] Unknown Unknown 5,000 mcg 5,000 mcg 01-14 Martín LINDA sublingual sublingual tablet tablet Calcium 600 Calcium 600 2019- Yes [place] Unknown Unknown + D(3) 600 + D(3) 600 2 ,Martín mg (1,500 mg (1,500 mg)-400 mg)-400 unit tablet unit tablet Claritin-D Claritin-D No [place] Unknown Unknown 12 Hour 5 12 Hour 5 Martín LINDA mg-120 mg mg-120 mg tablet,exte tablet,exte nded nded release release amoxicillin amoxicillin No [place] Unknown Unknown 500 500 ,Martín mg-potassiu mg-potassiu m m clavulanate clavulanate 125 [...] Yes [place] Unknown Unknown 3-dha-epa-f 3-dha-epa-f 01-14 Martín LINDA kayli oil kayli oil 1,000 mg 1,000 mg (120 mg-180 (120 mg-180 mg) capsule mg) capsule omeprazole omeprazole Yes [place] Unknown Unknown 20 mg 20 mg - ,Martín capsule,del capsule,del ayed ayed release release rosuvastati rosuvastati Yes [place] Unknown Unknown n 10 mg n 10 mg 01-14 ,Martín tablet tablet dulaglutide dulaglutide Yes [place] Unknown Unknown 1.5 mg/0.5 1.5 mg/0.5 01-14 Martín LIDNA mL mL subcutaneou subcutaneou s pen s pen injector injector HumaLOG HumaLOG Yes [place] Unknown Unknown KwikPen KwikPen - Martín LINDA (U-100) (U-100) Insulin 100 Insulin 100 unit/mL unit/mL subcutaneou subcutaneou s s NovoLIN R NovoLIN R No [place] Unknown Unknown Regular Regular Martín LINDA U-100 U-100 Insulin 100 Insulin 100 unit/mL unit/mL injection injection solution solution Tresiba Tresiba 2020-0 Yes [place] Unknown Unknown FlexTouch FlexTouch 2- Martín LINDA U-100 U-100 insulin 100 insulin 100 unit/mL (3 unit/mL (3 mL) mL) subcutaneou subcutaneou s pen s pen Metamucil Metamucil 2020-0 Yes [place] Unknown Unknown (sugar) (sugar) - Martín LINDA oral powder oral powder oxybutynin oxybutynin 2019-0 Yes [place] Unknown Unknown chloride 5 chloride 5 2- ,Martín mg tablet mg tablet magnesium magnesium 2020-0 Yes [place] Unknown Unknown oxide 500 oxide 500 01-14 ,Martín mg tablet mg tablet cyanocobala cyanocobala 2019-0 Yes [place] Unknown Unknown min (vit min (vit - Martín LINDA B-12) 1,000 B-12) 1,000 mcg tablet mcg tablet cholecalcif cholecalcif Yes [place] Unknown Unknown stewart stewart 01-14 Martín LINDA (vitamin (vitamin D3) 1,000 D3) 1,000 unit unit capsule capsule albuterol albuterol 2019-0 Yes [place] Unknown Unknown sulfate HFA sulfate HFA 01-14 Martín LINDA 90 90 mcg/actuati mcg/actuati on aerosol on aerosol inhaler inhaler furosemide furosemide 2019-0 Yes [place] Unknown Unknown 20 mg 20 mg 01-14 ,Martín tablet tablet Vital Signs Vital Name Observation Time Observation Value Comments SYSTOLIC mm[Hg] 2020-01-16 18:10:30 178 mm[Hg] mm[Hg] Method: Sit SYSTOLIC mm[Hg] 2020-01-14 18:10:28 150 mm[Hg] mm[Hg] Method: Stand DIASTOLIC mm[Hg] 2020-01-16 18:10:30 80 mm[Hg] mm[Hg] Method: Sit DIASTOLIC mm[Hg] 2020-01-14 18:10:28 82 mm[Hg] mm[Hg] Method: Stand PULSE 2020-01-16 18:10:30 52 /min /min RESP RATE 2020-01-16 18:10:30 16 /min /min TEMP 2020-01-16 18:10:30 98.4 [degF] Procedures This patient has no known procedures. Results This patient has no known results.
--- OUTSIDE RECORDS SUMMARY | 2020-01-19 16:44 | XMS REPORT ---
:1940 Author Organization [facility] Care Team Providers Name Role Phone Unavailable Unavailable Unavailable Problems Condition Condition Condition Status Onset Resolution Last Treating Comments Name Details Category Date Date Treatment Clinician Date Chronic Chronic Diagnosis Active 2019- NOA kidney kidney - [place] disease, disease, #163991 unspecified unspecified Type 2 Type 2 Diagnosis Active 2020-0 NOA diabetes diabetes - [place] mellitus mellitus #913043 without without complicatio complicatio ns ns Essential Essential Diagnosis Active NOA (primary) (primary) 01-14 [place] hypertensio hypertensio #378146 n n Unspecified Unspecified Diagnosis Active 2019-0 NOA atrial atrial - [place] fibrillatio fibrillatio #953649 n n 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, disorder, #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, recurrent, unspecified unspecified Urinary Urinary Diagnosis Active 2020-0 NOA tract tract - [place] infection, infection, #454980 site not site not specified specified Personal Personal Diagnosis Active NOA history of history of [place] malignant malignant #300967 neoplasm of neoplasm of breast breast Hypothyroid Hypothyroid Diagnosis Active NOA ism, ism, [place] unspecified 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 (current) (current) [place] use of use of #376231 aspirin aspirin Pain frequent Pain Mgmt Active 2020-0 Kim pain 01-14 [place] 10:00: [id number] 00 Respiratory dyspnea Respirator Active 2019-0 Kim present y 01-14 [place] 10:00: [id number] 00 Endo/Sulaiman knowledge/s Endo/Sulaiman Active 2020-0 Kim kill 2- [place] deficit: pt 10:00: [id number] 00 Endo/Sulaiman diabetic Endo/Sulaiman Active 2020-0 Kim foot care - [place] 10:00: [id number] 00 Endo/Sulaiman knowledge/s Endo/Sulaiman Active 2020-0 Kim kill 01-14 [place] deficit 10:00: [id number] hypo/hyperg 00 lycemia: pt Endo/Sulaiman anti-coagul Endo/Sulaiman Active 2020-0 Kim ation 01-14 [place] therapy 10:00: [id number] 00 Sensory learning Sensory Active 2020-0 Kim deficit 01-14 [place] 10:00: [id number] 00 Sensory impaired Sensory Active 2020-0 Kim hearing 01-14 [place] 10:00: [id number] 00 Integument skin Integument Active 2020-0 Kim integrity 01-14 [place] risk 10:00: [id number] 00 Nutrition nutritional Nutrition Active 2020-0 Kim restriction 01-14 [place] s 10:00: [id number] 00 Elimination urinary Eliminatio Active 2020-0 Kim incontinenc n 01-14 [place] e 10:00: [id number] 00 Elimination urinary Eliminatio Active 2020-0 Kim frequency n 01-14 [place] 10:00: [id number] 00 Elimination recurring Eliminatio Active 2020-0 Kim UTI n 01-14 [place] 10:00: [id number] 00 Elimination UTI within Eliminatio Active 2020-0 Kim past 14 n 01-14 [place] days 10:00: [id number] 00 Elimination knowledge/s Eliminatio Active 2020-0 Kim kill n 01-14 [place] deficit: pt 10:00: [id number] 00 Neuro anxiety Neuro/Emot Active 2020-0 Kim present ion - [place] 10:00: [id number] 00 Neuro impaired Neuro/Emot Active 2020-0 Kim decision-ma ion 01-14 [place] bisi 10:00: [id number] 00 Neuro memory Neuro/Emot Active 2020-0 Kim deficit ion - [place] needing 10:00: [id number] supervision 00 Neuro knowledge/s Neuro/Emot Active 2020-0 Kim kill ion - [place] deficit: pt 10:00: [id number] 00 Neuro constant Neuro/Emot Active 2020-0 Kim confusion ion 01-14 [place] 10:00: [id number] 00 Activity ADL Activity Active 2020-0 Kim assistance 01-14 [place] required 10:00: [id number] 00 Activity self-care Activity Active 2020-0 Kim deficit 01-14 [place] 10:00: [id number] 00 Safety cannot be Safety Active 2020-0 Kim left alone 01-14 [place] 10:00: [id number] 00 Safety knowledge/s Safety Active 2020-0 Kim kill 01-14 [place] deficit: pt 10:00: [id number] 00 Safety fall risk Safety Active 2020-0 Kim factor 01-14 [place] present 10:00: [id number] 00 Safety risk for Safety Active 2020-0 Kim hospitaliza 01-14 [place] tion 10:00: [id number] 00 Medication oral med Meds Active 2020-0 Kim assistance 01-14 [place] required 10:00: [id number] 00 Medication injectable Meds Active 2020-0 Kim med 01-14 [place] assistance 10:00: [id number] required 00 Medication knowledge/s Meds Active 2020-0 Kim kill 01-14 [place] deficit: pt 10:00: [id number] 00 Medication potential Meds Active 2020-0 Kim clinically 01-14 [place] significant 10:00: [id number] medication 00 issue Musculoskel transfer Musculoske Active 2020-0 Kim etal assistance letal 01-14 [place] required 10:00: [id number] 00 Musculoskel requires Musculoske Active 2020-0 Kim etal human letal 01-14 [place] assist to 10:00: [id number] leave home 00 Bed transfer PT/OT: Bed Active 2020-0 [place] Mobility/Tr deficit: Mobility/T 2-19 [place] ansfer shower/tub ransfer 12:31: [id number] 00 Bed knowledge/s PT/OT: Bed Active 2020-0 [place] Mobility/Tr kill Mobility/T 2-19 [place] ansfer deficit: pt ransfer 12:31: [id number] 00 Balance/End balance/staff development coordinator rn PT/OT: Active 2020-0 [place] urance rdination Balance/En -19 [place] deficit durance 12:31: [id number] 00 Balance/End endurance PT/OT: Active 2020 [place] urance deficit Balance/En 2-19 [place] durance 12:31: [id number] 00 Balance/End knowledge/s PT/OT: Active [place] urance kill Balance/En -19 [place] deficit: pt durance 12:31: [id number] 00 Gait/Locomo gait PT/OT: Active [place] tion deficit Gait/Locom 2-19 [place] problems otion 12:31: [id number] 00 Endo/Sulaiman insulin Endo/Sulaiman Active [place] admn 2-21 [place] dependence 10:45: [id number] 00 Safety can be left Safety Active [place] alone for 2-21 [place] only short 10:45: [id number] periods 00 Allergies, Adverse Reactions, Alerts Allergy [...] LINDA Cymbalta 60 Cymbalta 60 2019-0 Yes [place] Unknown Unknown mg mg - Jesus Alberto [...]
--- OUTSIDE RECORDS SUMMARY | 2020-01-19 16:44 | XMS REPORT ---
:1940 Author Organization [facility] Care Team Providers Name Role Phone Unavailable Unavailable Unavailable Problems Condition Condition Condition Status Onset Resolution Last Treating Comments Name Details Category Date Date Treatment Clinician Date Urinary Urinary Diagnosis Active 2020-0 [place] tract tract 01-13 [place] infection, infection, [id number] site not site not specified specified Pain frequent Pain Mgmt Active 2020-0 Kim pain 01-14 [place] 10:00: [id number] Respiratory dyspnea Respirator Active 2020-0 Kim present y 01-14 [place] 10:00: [id number] Endo/Sulaiman knowledge/s Endo/Sulaiman Active 2020-0 Kim kill 01-14 [place] deficit: pt 10:00: [id number] 00 Endo/Sulaiman diabetic Endo/Sulaiman Active 2020-0 Kim foot care 01-14 [place] 10:00: [id number] 00 Endo/Sulaiman knowledge/s Endo/Sulaiman Active 2020-0 Kim kill 01-14 [place] deficit 10:00: [id number] hypo/hyperg 00 lycemia: pt Endo/Sulaiman anti-coagul Endo/Sulaiman Active 2020-0 Kim ation 01-14 [place] therapy 10:00: [id number] 00 Sensory learning Sensory Active 2020-0 Kim deficit 01-14 [place] 10:00: [id number] 00 Sensory impaired Sensory Active 2020-0 Kim hearing 01-14 [place] 10:00: [id number] 00 Integument skin Integument Active 2020-0 Kim integrity 01-14 [place] risk 10:00: [id number] 00 Nutrition nutritional Nutrition Active 2020-0 Kim restriction 01-14 [place] s 10:00: [id number] 00 Elimination urinary Eliminatio Active 2020-0 Kim incontinenc n 01-14 [place] e 10:00: [id number] 00 Elimination urinary Eliminatio Active 2020-0 Kim frequency n 01-14 [place] 10:00: [id number] 00 Elimination recurring Eliminatio Active 2020-0 Kim UTI n 2- [place] 10:00: [id number] 00 Elimination UTI within Eliminatio Active 2020-0 Kim past 14 n -19 [place] days 10:00: [id number] 00 Elimination knowledge/s Eliminatio Active 2020-0 Kim kill n 01-14 [place] deficit: pt 10:00: [id number] 00 Neuro anxiety Neuro/Emot Active 2020-0 Kim present ion 01-14 [place] 10:00: [id number] 00 Neuro impaired Neuro/Emot Active 2020-0 Kim decision-ma ion 01-14 [place] bisi 10:00: [id number] 00 Neuro memory Neuro/Emot Active 2020-0 Kim deficit ion 01-14 [place] needing 10:00: [id number] supervision 00 Neuro knowledge/s Neuro/Emot Active 2020-0 Kim kill ion 01-14 [place] deficit: pt 10:00: [id number] 00 Neuro constant Neuro/Emot Active 2020-0 Kim confusion ion 01-14 [place] 10:00: [id number] 00 Activity ADL Activity Active 2020-0 Kim assistance 01-14 [place] required 10:00: [id number] 00 Activity self-care Activity Active 2020-0 Kim deficit 01-14 [place] 10:00: [id number] 00 Safety cannot be Safety Active 2020-0 Kim left alone 01-14 [place] 10:00: [id number] 00 Safety knowledge/s Safety Active 2020-0 Kim kill 01-14 [place] deficit: pt 10:00: [id number] 00 Safety fall risk Safety Active 2020-0 Kim factor - [place] present 10:00: [id number] 00 Safety risk for Safety Active 2020-0 Kim hospitaliza 01-14 [place] tion 10:00: [id number] 00 Medication oral med Meds Active 2020-0 Kim assistance 01-14 [place] required 10:00: [id number] 00 Medication injectable Meds Active 2020-0 Kim med - [place] assistance 10:00: [id number] required 00 Medication knowledge/s Meds Active 2020-0 Kim kill - [place] deficit: pt 10:00: [id number] 00 Medication potential Meds Active 2020-0 Kim clinically 01-14 [place] significant 10:00: [id number] medication 00 issue Musculoskel transfer Musculoske Active 2019-0 Kim etal assistance letal 01-14 [place] required 10:00: [id number] 00 Musculoskel requires Musculoske Active 0 Kim etal human letal 01-14 [place] assist to 10:00: [id number] leave home 00 Allergies, Adverse Reactions, Alerts Allergy Allergy [...] 01-14 Martín LINDA Cymbalta 60 Cymbalta 60 2019-0 Yes [place] Unknown Unknown mg mg - Jesus Alberto LINDA capsule,del capsule,del Dev ayed ayed release release Eliquis 5 Eliquis 5 2020-0 Yes [place] Unknown Unknown mg tablet mg tablet - Martín LINDA acetaminoph acetaminoph 0 Yes [place] Unknown Unknown en 325 mg en 325 mg - Martín LINDA tablet tablet allopurinol allopurinol 2019-0 Yes [place] Unknown Unknown 100 mg 100 mg 01-14 Martín LINDA tablet tablet amlodipine amlodipine 2019-0 Yes [place] Unknown Unknown 01-14 Martín LINDA atenolol 50 atenolol 50 No [place] Unknown Unknown mg tablet mg tablet Martín LINDA biotin biotin 2019-0 Yes [place] Unknown Unknown 5,000 mcg 5,000 mcg 2 Martín LINDA sublingual sublingual tablet tablet Calcium 600 Calcium 600 2019-0 Yes [place] Unknown Unknown + D(3) 600 + D(3) 600 01-14 Martín LINDA mg (1,500 mg (1,500 mg)-400 mg)-400 unit [...] tablet mg tablet Martín LINDA levothyroxi levothyroxi 2019- Yes [place] Unknown Unknown ne 25 mcg ne 25 mcg 01-14 Martín LINDA capsule capsule metFORMIN metFORMIN No [place] Unknown Unknown 500 mg 500 mg Martín LINDA tablet tablet omega omega 2019- Yes [place] Unknown Unknown 3-dha-epa-f 3-dha-epa-f 01-14 Martín LINDA kayli oil kayli oil 1,000 mg 1,000 mg (120 mg-180 (120 mg-180 mg) capsule mg) capsule omeprazole omeprazole 2019- Yes [place] Unknown Unknown 20 mg 20 mg 01-14 Martín LINDA capsule,del capsule,del ayed ayed release release rosuvastati rosuvastati 2019-0 Yes [place] Unknown Unknown n 10 mg n 10 mg 01-14 Martín LINDA tablet tablet dulaglutide dulaglutide Yes [place] Unknown Unknown 1.5 mg/0.5 1.5 mg/0.5 01-14 Martín LINDA mL mL subcutaneou subcutaneou s pen s pen injector injector HumaLOG HumaLOG 0 Yes [place] Unknown Unknown KwikPen KwikPen 01-14 Martín LINDA (U-100) (U-100) Insulin 100 Insulin 100 unit/mL unit/mL subcutaneou subcutaneou s s NovoLIN R NovoLIN R No [place] Unknown Unknown Regular Regular Martín LINDA U-100 U-100 Insulin 100 Insulin 100 unit/mL unit/mL injection injection solution solution Tresiba Tresiba 0 Yes [place] Unknown Unknown FlexTouch FlexTouch 01-14 Martín LINDA U-100 U-100 insulin 100 insulin 100 unit/mL (3 unit/mL (3 mL) mL) subcutaneou subcutaneou s pen s pen Metamucil Metamucil 0 Yes [place] Unknown Unknown (sugar) (sugar) - Martín LINDA oral powder oral powder oxybutynin oxybutynin 2019- Yes [place] Unknown Unknown chloride 5 chloride 5 - ,Martín mg tablet mg tablet magnesium magnesium Yes [place] Unknown Unknown oxide 500 oxide 500 - MD,Martín mg tablet mg tablet cyanocobala cyanocobala 2019- Yes [place] Unknown Unknown min (vit min (vit - ,Martín B-12) 1,000 B-12) 1,000 mcg tablet mcg tablet cholecalcif cholecalcif Yes [place] Unknown Unknown stewart stewart 01-14 Martín LINDA (vitamin (vitamin D3) 1,000 D3) 1,000 unit unit capsule capsule albuterol albuterol Yes [place] Unknown Unknown sulfate HFA sulfate HFA - Martín LINDA 90 90 mcg/actuati mcg/actuati on aerosol on aerosol inhaler inhaler furosemide furosemide Yes [place] Unknown Unknown 20 mg 20 mg - MD,Martín tablet tablet Vital Signs Vital Name Observation [...]
--- OUTSIDE RECORDS SUMMARY | 2020-01-19 16:44 | XMS REPORT ---
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 diabetes - [place] mellitus mellitus #667050 without without complicatio complicatio ns ns Essential Essential Diagnosis Active NOA (primary) (primary) 01-14 [place] hypertensio hypertensio #391163 n n Unspecified Unspecified Diagnosis Active 2019-0 NOA atrial atrial - [place] fibrillatio fibrillatio #740201 n n 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, disorder, #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, recurrent, unspecified unspecified Urinary Urinary Diagnosis Active 2020-0 NOA tract tract - [place] infection, infection, #357384 site not site not specified specified Personal Personal Diagnosis Active NOA history of history of [place] 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 Hypothyroid Hypothyroid Diagnosis Active NOA ism, ism, [place] unspecified unspecified #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 NOA (current) (current) [place] use of use of #900085 aspirin aspirin Pain frequent Pain Mgmt Active 2020-0 Kim pain 01-14 [place] 10:00: [id number] 00 Respiratory dyspnea Respirator Active 2019-0 Kim present y 01-14 [place] 10:00: [id number] 00 Endo/Sulaiman knowledge/s Endo/Sulaiman Active 2020-0 Kim kill 2- [place] deficit: pt 10:00: [id number] 00 Endo/Sulaiman diabetic Endo/Sulaiman Active 2020-0 Kim foot care - [place] 10:00: [id number] 00 Endo/Sulaiman knowledge/s Endo/Sulaiman Active 2020-0 Kim kill 01-14 [place] deficit 10:00: [id number] hypo/hyperg 00 lycemia: pt Endo/Sulaiman anti-coagul Endo/Sulaiman Active 2020-0 Kim ation 01-14 [place] therapy 10:00: [id number] 00 Sensory learning Sensory Active 2020-0 Kim deficit 01-14 [place] 10:00: [id number] 00 Sensory impaired Sensory Active 2020-0 Kim hearing 01-14 [place] 10:00: [id number] 00 Integument skin Integument Active 2020-0 Kim integrity 01-14 [place] risk 10:00: [id number] 00 Nutrition nutritional Nutrition Active 2020-0 Kim restriction 01-14 [place] s 10:00: [id number] 00 Elimination urinary Eliminatio Active 2020-0 Kim incontinenc n 01-14 [place] e 10:00: [id number] 00 Elimination urinary Eliminatio Active 2020-0 Kim frequency n 01-14 [place] 10:00: [id number] 00 Elimination recurring Eliminatio Active 2020-0 Kim UTI n 01-14 [place] 10:00: [id number] 00 Elimination UTI within Eliminatio Active 2020-0 Kim past 14 n 01-14 [place] days 10:00: [id number] 00 Elimination knowledge/s Eliminatio Active 2020-0 Kim kill n 01-14 [place] deficit: pt 10:00: [id number] 00 Neuro anxiety Neuro/Emot Active 2020-0 Kim present ion - [place] 10:00: [id number] 00 Neuro impaired Neuro/Emot Active 2020-0 Kim decision-ma ion 01-14 [place] bisi 10:00: [id number] 00 Neuro memory Neuro/Emot Active 2020-0 Kim deficit ion - [place] needing 10:00: [id number] supervision 00 Neuro knowledge/s Neuro/Emot Active 2020-0 Kim kill ion - [place] deficit: pt 10:00: [id number] 00 Neuro constant Neuro/Emot Active 2020-0 Kim confusion ion 01-14 [place] 10:00: [id number] 00 Activity ADL Activity Active 2020-0 Kim assistance 01-14 [place] required 10:00: [id number] 00 Activity self-care Activity Active 2020-0 Kim deficit 01-14 [place] 10:00: [id number] 00 Safety cannot be Safety Active 2020-0 Kim left alone 01-14 [place] 10:00: [id number] 00 Safety knowledge/s Safety Active 2020-0 Kim kill 01-14 [place] deficit: pt 10:00: [id number] 00 Safety fall risk Safety Active 2020-0 Kim factor 01-14 [place] present 10:00: [id number] 00 Safety risk for Safety Active 2020-0 Kim hospitaliza 01-14 [place] tion 10:00: [id number] 00 Medication oral med Meds Active 2020-0 Kim assistance 01-14 [place] required 10:00: [id number] 00 Medication injectable Meds Active 2020-0 Kim med 01-14 [place] assistance 10:00: [id number] required 00 Medication knowledge/s Meds Active 2020-0 Kim kill 01-14 [place] deficit: pt 10:00: [id number] 00 Medication potential Meds Active 2020-0 Kim clinically 01-14 [place] significant 10:00: [id number] medication 00 issue Musculoskel transfer Musculoske Active 2020-0 Kim etal assistance letal 01-14 [place] required 10:00: [id number] 00 Musculoskel requires Musculoske Active 2020-0 Kim etal human letal 01-14 [place] assist to 10:00: [id number] leave home 00 Bed transfer PT/OT: Bed Active 2020-0 [place] Mobility/Tr deficit: Mobility/T 2-19 [place] ansfer shower/tub ransfer 12:31: [id number] 00 Bed knowledge/s PT/OT: Bed Active 2020-0 [place] Mobility/Tr kill Mobility/T 2-19 [place] ansfer deficit: pt ransfer 12:31: [id number] 00 Balance/End balance/utilization review coordinator PT/OT: Active 2020-0 [place] urance rdination Balance/En -19 [place] deficit durance 12:31: [id number] 00 Balance/End endurance PT/OT: Active 2020 [place] urance deficit Balance/En 2-19 [place] durance 12:31: [id number] 00 Balance/End knowledge/s PT/OT: Active [place] urance kill Balance/En -19 [place] deficit: pt durance 12:31: [id number] 00 Gait/Locomo gait PT/OT: Active [place] tion deficit Gait/Locom 2-19 [place] problems otion 12:31: [id number] 00 Endo/Sulaiman insulin Endo/Sulaiman Active [place] admn 2-21 [place] dependence 10:45: [id number] 00 Safety can be left Safety Active [place] alone for 2-21 [place] only short 10:45: [id number] periods 00 Allergies, Adverse Reactions, Alerts Allergy [...] LINDA Cymbalta 60 Cymbalta 60 2019-0 Yes [place] Unknown Unknown mg mg - Jesus Alberto [...]
--- OUTSIDE RECORDS SUMMARY | 2020-01-19 16:44 | XMS REPORT | Continuity of Care Document ---
:1940 External Reference #:[id number] Author Name Prashanth Burdick M.D. (transmitted by agent of provider Vianca Cortez ) Address [address] [place] [id number] Care Team Providers Name Role Phone Brianda Wilkins, DPLeo - Director Digital Analytics Care Team Information Director [place] [phone] Charles Duff MD - Care Team Information Director [place] [facility] [phone] Ophthalmology George Rodriges MD - Ophthalmology Care Team Information Director [place] [phone] Isiah Martinez MD - Endocrinology, Care Team Information Director [facility] Diabetes & Metabolism Chris Vidales MD [facility] - Care Team Information Director [place] [phone] Cardiovascular Disease Moira Krishnan MD - Neurology Care Team Information Director [place] [phone] Martín Merrill MD - Internal Medicine Care Team Information Director [place] Problems Active Problems Provider Date Neurological disorder [...] Docusate Sodium Take Two Capsules 60caps K59.00 [facility] 08/31/2017 100mg By Mouth AT Eriberto [place] [...] Dameon Maciel 01/02/2017 20mg Tablets Mouth Every [place], Morning For 7 M.Janell,FACP Days, Then Take [...] 10/14/2015 150mg Tablets 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 Amitriptyline HCL Take One Tablet By 90tabs Dameon Maciel 10/14/2015 100mg Tablets Mouth Every Day Eriberto Figueroa,NERYP Eliquis Take One Tablet By 60tabs Dameon Maciel 01/28/2014 5mg Tablets Mouth Twice A Day Eriberto Figueroa,FACP Bath/Shower Seat/Adjustable with a bathtub mat 1units Dameon Maciel 2011 [facility] [place],FACP Novofine To Be Used Three 100units E11.622 Dameon Maciel 02/08/2012 32G X 6 mm [facility] Times A Day Eriberto Figueroa,FACP Mastectomy Bra As directed QS Dameon Maciel 12/29/2011 Eriberto Figueroa,FACP Walker/Adult/Adjustable with wheels and 1units Dameon Maciel 12/29/2011 [facility] seat Eriberto Figueroa,FACP Aspirin 1 po qd 50tabs 414.01 Dameon Maciel 11/10/[address] Henry M.D.,FACP Vitamin D+Calcium 1 by mouth every Unknown 400Units Capsules day Systane Ultra 1 drop both eyes [place], 0.4-0.3% Solution twice every week MD George Senna-Lax take 2 tablets by 60tabs Dameon Maciel 8.6mg Tablets mouth at bedtime [place], as needed: max 4 M.D.,FACP tablets by mouth two times a day Albuterol Sulfate every 6 hours as Unknown 1.25mg/3ML needed Nebulizer Fish Oil 1 by mouth every Unknown 1000mg Capsules day Biotin Forte 3 tabs daily Unknown 3mg Tablets Tylenol Extra Strength 2 by mouth as Unknown 500mg needed Tablets Immunizations CPT Code Status Date Vaccine Reaction Lot # 86858 Given 08/13/2017 Influenza Virus Vaccine, [id number] Quadrivalent, Split, Preservative Free 33149 Given 08/15/2016 Zoster (Zostavax) no reaction noted ... [id number] 44976 Given 08/15/2016 Influenza Virus Vaccine, no reaction noted ... [id number] Quadrivalent, Split, hh Preservative Free 11050 Given 09/21/2015 Influenza Virus Vaccine, [id number] Quadrivalent, Split, Preservative Free 07050 Given 05/05/2015 Pneumococcal Conjugate [id number] Vaccine 13 Valent For Intramuscular Use 02346 Given 08/14/2014 Influenza Virus Vaccine, [id number] Quadrivalent, Split, Preservative Free 12022 Given 08/22/2013 Flu Vaccine Split Virus [id number] Preservative Free For Indiv 3Yr Older Q2038 Given 08/15/2012 Fluzone Vaccine [id number] Q2038 Given 09/25/2011 Fluzone Vaccine [id number] 23674 Given 09/25/2011 Tdap - [id number] Tetanus/Diptheria/Acellular Pertussis 41282 Given 09/27/2009 Influenza Virus Vaccine, [id number] Pandemic Formulation 40269 Given 09/06/2009 Pneumonia Vaccine [id number] 94549 Given 09/06/2009 Influenza Virus 3Yrs & Over [id number] 27392 Given 02/05/1998 Tetanus And Diptheria (Td) For Adult Use Preservative Free 18955 Given 01/01/1998 Pneumovax (History By Patient) 76163 Given Unknown Influenza Virus 3Yrs & Over [...] Available Procedures Date Code Description Status 11/13/2017 [id number] Diabetic Retinal Eye Exam Completed 10/23/2016 [id number] Mammogram Completed 04/14/2016 [id number] Diabetic Retinal Eye Exam Completed 06/28/2015 [id number] Diabetic Retinal Eye Exam Completed 06/01/2014 [id number] Diabetic Retinal Eye Exam Completed 05/19/2014 [id number] Mammogram Completed 03/13/2013 [id number] Colonoscopy Completed 04/05/2012 [id number] Bone Mineral Density Test Completed 04/05/2012 [id number] Mammogram Completed 06/10/2009 [id number] Mammogram Completed 06/09/2009 [id number] Bone Mineral Density Test Completed Medical Devices Description No Information Available Encounters Description No Information Available Assessments Description No Information Available Plan of Treatment 04/15/2018 - Nestor Huff M.D.N39.0 Urinary tract infection, site not specifiedComments:she will call if pain or ualrswnouI38.2 longterm (current) use of [id number] Unspecified urinary nupukhnmjnfnN71.440 Personal history of urinary (tract) infections Functional Status Description No Information Available Mental Status Description No Information Available Referrals Description No Information Available
[2020-01-19 16:50] LABS: INR 1.78 (0.82-1.09)
[2020-01-19 17:02] LABS: ALT 9 U/L (7-52); AST 12 U/L (13-39); Albumin 3.1 g/dL (3.2-5.2); Albumin/Globulin Ratio 1.2 (1-3); Alkaline Phosphatase 299 U/L (34-104); Anion Gap 8 mmol/L (2-11); BUN/Creatinine Ratio 20.1 (8-20); Blood Urea Nitrogen 40 mg/dL (6-24); C Reactive Protein 63.27 mg/L (<8.01); CO2 Carbon Dioxide 23 mmol/L (22-32); Calcium 8.4 mg/dL (8.6-10.3); Chloride 106 mmol/L (101-111); EGFR African American 29.4 (>60); EGFR Non-African American 24.3 (>60); Globulin 2.6 g/dL (2-4); Glucose 243 mg/dL (70-100); Potassium 3.7 mmol/L (3.5-5.0); Sodium 137 mmol/L (135-145); Total Protein 5.7 g/dL (6.4-8.9)
[2020-01-19 17:07] LABS: Troponin I 0.05 ng/mL (<0.03)
[2020-01-19] MEDS ORDERED: Acetaminophen TAB* 325 MG PO PRN (21:16)
[2020-01-19] MEDS ORDERED: Ondansetron INJ* 2 MG/ML VIAL IV PRN (21:16)
[2020-01-19] MEDS ORDERED: Melatonin 3 MG TAB PO PRN (21:27)
[2020-01-19] MEDS ORDERED: DULAGLUTIDE 1.5 MG/0.5 ML SUBCUT SCH (21:30)
[2020-01-19] MEDS ORDERED: Furosemide IV* 10 MG/ML 10 ML VIAL (100 MG) IV ONE (21:37)
[2020-01-19] MEDS ORDERED: Dextrose 50% Syringe 50 ML* 25 GM/50 ML SYRINGE IV PUSH PRN (21:39)
[2020-01-19] MEDS: Senna TAB 8.6 mg* TAB PO PRN (22:50)
[2020-01-19] MEDS ORDERED: Insulin LISPRO* 1 UNITS UNIT SUBCUT ONE (22:59)
[2020-01-19] MEDS ORDERED: Melatonin 3 MG TAB PO ONE (23:30)
[2020-01-19 23:37] LABS: Troponin I 0.04 ng/mL (<0.03)
[2020-01-19] MEDS: Insulin GLARGINE(*) 1 UNITS UNIT SUBCUT SCH (23:48)
[2020-01-19] MEDS: Oxybutynin XL TAB* 5 MG PO SCH (23:49)
[2020-01-19] MEDS: Apixaban* 5 MG TAB PO SCH (23:49)
--- NOTE | 2020-01-20 02:30 | HP ---
History of Present Illness - History of Present Illness Reason for Visit: AMS, Nausea/vomiting, SOB History of Present Illness: This is a 79 yo Female with PMHx significant for Obesity, HTN, HLD. CAD with cardiac stent, CHF on Lasix, COPD, GERD, Sleep apnea Gout, CVA, neuropathy presented today on the recommendation of her visiting nurse with CC worsening SOB, nausea and vomiting. Patient admitted this has been ongoing for some couple of days. S There was associated weakness, malaise and inability to take care of herself. She said she couldn't lie flat due to SOB which worsened. She also noticed increased leg swelling even though she has been compliant with all her medications. She was recently treated for UTI here and discharged on Cefuroxime. On her way to ED per EMS record, patient was hypoxic and SPO2 was in the 80s and low 90s and patient was placed on 2L NC with improvement. Patient is not on home O2. She denied fever, chill and rigors. Reported chest pressure which does not radiate. 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: CVA Gastrointestinal: GERD Rheumatologic: Gout Endocrine: Diabetes - Past Surgical History Past Surgical History: Hysterectomy, Mastectomy, Other - Ankle surgery, Tonsillectomy - Past Family History Family History: CAD, Hyperlipidemia, Hypertension - Mom--DM, Dad--Cardiomyopathy , Heart issues--SD; Brother DM - Past Social History Smoke: 1 pack per day, <1 pack per day, Quit - 30 years ago Alcohol: Rare Drugs: None Lives: With Family - Health Maintenance Health Maintenance: Cholesterol Review of Systems - Measurements Intake and Output: Intake and Output Last 24 Hours 01/17/20 01/18/20 01/19/20 01/20/20 06:59 06:59 06:59 06:59 Intake Total 1000 Balance 1000 Weight 101.968 kg Intake: IV Fluids 1000 - Review of Systems Constitutional Symptoms: Positive: Weakness, Fatigue Dermatology: Negative: Rash, Skin Lesions HEENT: Positive: Normal Eyes: Positive: Normal Thyroid: Positive: Normal Pulmonary: Positive: Cough, Shortness of Breath, COPD, Asthma Cardiology: Positive: Shortness of Breath, Edema, Orthopnoea Gastroenterology: Positive: Nausea, Vomiting Negative: Diarrhea, Melena Genital - Urinary: Negative: Dysuria, Hematuria Genitourinay - Female: Positive: Menopause Endocrinology: Positive: Obesity Negative: Diabetic Foot Ulcers Hematologic/Lymphatic: Negative: Hx Leukemia, Hx Lymphoma Neurology: Positive: Dizziness, Unexplained Weakness Negative: Diplopia Psychiatry: Positive: Normal Allergic/Immunologic: Negative: Hx Anaphylaxis Objective Active Medications: Acetaminophen (Tylenol Tab*) 650 mg PO Q4H PRN PRN Reason: PAIN - MILD Allopurinol (Zyloprim Tab*) 100 mg PO BID [facility] Amlodipine Besylate (Norvasc Tab*) 5 mg PO QAM [facility] Apixaban (Eliquis*) 5 mg PO BID [facility] Last Admin: 01/19/20 23:49 Dose: 5 mg Aspirin (Aspirin Ec Tab*) 81 mg PO QAM [facility] Atenolol (Tenormin Tab*) 50 mg PO QAM [facility] Calcium/Vitamin D (Oscal D Tab 250/125*) 1 tab PO DAILY [facility] Cholecalciferol (Vitamin D Tab*) 500 units PO QPM [facility] Cyanocobalamin (Vitamin B12 Tab*) 1,000 mcg PO QAM [facility] Dextrose (D50w Syringe 50 Ml*) 12.5 gm IV PUSH .FOR FS < 60 - SS PRN PRN Reason: FS < 60 Docusate Sodium (Colace Cap*) 100 mg PO BID [facility] Dulaglutide (Trulicity (Nf)) 1.5 mg SUBCUT WEEKLY [facility] Duloxetine HCl (Cymbalta Cap*) 60 mg PO QAM [facility] Furosemide (Lasix Iv*) 40 mg IV DAILY [facility] Insulin Glargine (Lantus(*)) 16 units SUBCUT QPM [facility] Last Admin: 01/19/20 23:48 Dose: 16 units Insulin Human Lispro (Humalog*) 0 units SUBCUT ACHS [facility]; Protocol Levothyroxine Sodium (Synthroid Tab*) 25 mcg PO QAM@0600 [facility] Melatonin (Melatonin) 3 mg PO QPM PRN PRN Reason: SLEEP Non-Formulary Medication (Biotin [Biotin]) 5,000 mcg SL DAILY [facility] Non-Formulary Medication (Magnesium Oxide [Magnesium Oxide]) 500 mg PO QPM [facility] Ondansetron HCl (Zofran Inj*) 4 mg IV Q4H PRN PRN Reason: NAUSEA/VOMITING Oxybutynin Chloride (Ditropan Xl Tab*) 5 mg PO QPM [facility] Last Admin: 02/24/20 23:49 Dose: 5 mg Pantoprazole Sodium (Protonix Tab*) 40 mg PO DAILY [facility] Senna (Senokot 8.6 Mg Tab*) 2 tab PO BEDTIME PRN PRN Reason: CONSTIPATION Last Admin: 01/19/20 22:50 Dose: 2 tab Vital Signs - 8 hr 01/19/20 01/19/20 01/19/20 18:17 18:46 19:00 Temperature Pulse Rate 66 65 64 Respiratory 24 18 15 Rate Blood Pressure 184/78 188/74 (mmHg) O2 Sat by Pulse 97 98 94 Oximetry 01/19/20 01/19/20 01/19/20 19:16 19:46 20:00 Temperature Pulse Rate 63 63 62 Respiratory 13 18 16 Rate Blood Pressure 173/68 173/56 (mmHg) O2 Sat by Pulse 94 95 94 Oximetry 01/19/20 01/19/20 01/19/20 20:17 20:46 21:00 Temperature Pulse Rate 62 61 61 Respiratory 25 20 25 Rate Blood Pressure 161/51 133/76 (mmHg) O2 Sat by Pulse 95 97 97 Oximetry 01/19/20 01/19/20 01/19/20 21:17 21:47 22:00 Temperature Pulse Rate 62 62 Respiratory 21 26 16 Rate Blood Pressure 171/64 179/56 (mmHg) O2 Sat by Pulse 97 97 Oximetry 01/19/20 01/20/20 23:35 00:41 Temperature 98 F Pulse Rate 60 Respiratory 20 Rate Blood Pressure 180/56 147/85 (mmHg) O2 Sat by Pulse 99 98 Oximetry Oxygen Devices in Use Now: Nasal Cannula Appearance: Obese, awake, alert, weak and mild respiratory distress on 2 L NC oxygen. Eyes: No Scleral Icterus, PERRLA Ears/Nose/Mouth/Throat: NL Teeth, Lips, Gums, Clear Oropharnyx, Mucous Membranes Moist Neck: NL Appearance and Movements; NL JVP, No Thyroid Enlargement, Masses Respiratory: - - Decreased breth sounds, Basal crackles, congested Cardiovascular: NL Sounds; No Murmurs; No JVD, RRR, - - + edema Abdominal: NL Sounds; No Tenderness; No Distention, No Hepatosplenomegaly Lymphatic: No Cervical Adenopathy Skin: No Rash or Ulcers Neurological: Alert and Oriented x 3 Result Diagrams: 01/20/20 05:57 01/20/20 05:57 Diagnostic Imaging: CXR--Findings suggestive of interstitial pulmonary edema. EKG Data: NSR, normal ST, no ectopy. Assess/Plan/Problems-Billing Assessment: This is a 79 yo Female with PMHx significant for Obesity, HTN, HLD. CAD with cardiac stent, CHF on Lasix, COPD, GERD, Sleep apnea Gout, CVA, neuropathy presented today on the recommendation of her visiting nurse with: - Patient Problems (1) CHF exacerbation Current Visit: Yes Status: Acute Code(s): I50.9 - HEART FAILURE, UNSPECIFIED SNOMED Code(s): 202050294 Comment: Admit to medicine--Telemetry Cardiac enzymes Echocardiogram IV lasix 60 mg stat then 40 mg daily and tritrate down to PO c/w home meds Daily weighing Strict I/O Cardiology consult FU AM labs (2) Diabetes mellitus Current Visit: No Status: Chronic Onset Date: 08/15/14 Code(s): E11.9 - TYPE 2 DIABETES MELLITUS WITHOUT COMPLICATIONS SNOMED Code(s): 21788098 Comment: - ISS - c/w home meds - Diabetic diet - Hgba1c: 5.7 on 01/01/20. - Reduced Lantus on 01/02 due to low FS, poor oral intake while nauseated. Change to Lispro by SS (not her home regimen). Diabetic diet resumed at lunch . (3) HTN (hypertension) Current Visit: No Status: Chronic Code(s): I10 - ESSENTIAL (PRIMARY) HYPERTENSION SNOMED Code(s): 25332083 Comment: - SBP 10-180's - Continue atenolol and amlodpine - may add PRN hydralazine if warranted (4) DVT prophylaxis Current Visit: No Status: Acute Code(s): ZQN2954 - SNOMED Code(s): 833403514 Comment: - c/w Giancarlo (5) Full code status Current Visit: No Status: Acute Code(s): Z78.9 - OTHER SPECIFIED HEALTH STATUS SNOMED Code(s): 990219059 (6) Hypothyroidism Current Visit: No Status: Chronic Code(s): E03.9 - HYPOTHYROIDISM, UNSPECIFIED SNOMED Code(s): 20870252 Comment: - TSH 1.56 in last admission - Continue current dose of synthroid Status and Disposition: Admit to Medicine--Telemetry in [facility] condition.
[2020-01-20 02:46] LABS: Troponin I 0.04 ng/mL (<0.03)
[2020-01-20] MEDS: Levothyroxine TAB* 25 MCG TAB PO SCH (05:01)
[2020-01-20 06:06] LABS: ABS Lymphocytes 0.3 10^3/ul (1.0-4.8); ABS Monocytes 0.2 10^3/ul (0-0.8); ABS Neutrophils 5.5 10^3/ul (1.5-7.7); Eosinophil % 0.2 %; Hematocrit 29 % (35-47); Hemoglobin 9.6 g/dL (12.0-16.0); Lymphocyte % 4.3 %; Mean Corpuscular HGB Conc 34 g/dL (31-36); Mean Corpuscular Hemoglobin 30 pg (27-31); Mean Corpuscular Volume 89 fL (80-97); Mean Platelet Volume 9.9 fL (7.4-10.4); Nucleated Red Blood Cells % 0.1; Platelet Count 109 10^3/uL (150-450); Red Blood Count 3.23 10^6 /uL (3.70-4.87); Red Cell Distribution Width 16 % (10-15)
[2020-01-20 06:23] LABS: Anion Gap 6 mmol/L (2-11); BUN/Creatinine Ratio 19.1 (8-20); Blood Urea Nitrogen 44 mg/dL (6-24); CO2 Carbon Dioxide 24 mmol/L (22-32); Calcium 7.5 mg/dL (8.6-10.3); Chloride 106 mmol/L (101-111); EGFR African American 24.9 (>60); EGFR Non-African American 20.6 (>60); Glucose 195 mg/dL (70-100); Sodium 136 mmol/L (135-145)
[2020-01-20 06:27] LABS: Troponin I 0.05 ng/mL (<0.03)
[2020-01-20] MEDS: Insulin LISPRO* 1 UNITS UNIT SUBCUT SCH ×4 (08:19→21:14)
[2020-01-20] MEDS: DULoxetine DR CAP* 60 MG CAP.DR PO SCH (08:19)
[2020-01-20] MEDS: Allopurinol TAB* 100 MG PO SCH ×2 (08:19→21:12)
[2020-01-20] MEDS: Pantoprazole TAB * 40 MG TAB PO SCH (08:19)
[2020-01-20] MEDS: Calcium/Vitamin D TAB 250/125* TAB PO SCH (08:20)
[2020-01-20] MEDS: Docusate CAP* 100 MG PO SCH ×2 (08:20→21:12)
[2020-01-20] MEDS: Cyanocobalamin TAB* 500 MCG PO SCH (08:20)
[2020-01-20] MEDS: Aspirin EC TAB* 81 MG TAB.EC PO SCH (08:20)
[2020-01-20] MEDS: Apixaban* 5 MG TAB PO SCH ×2 (08:20→21:13)
[2020-01-20] MEDS: BIOTIN 5000 MCG SL SCH (08:21)
[2020-01-20] MEDS ORDERED: amLODIPine TAB* 5 MG PO SCH (09:00)
[2020-01-20] MEDS ORDERED: Atenolol TAB* 50 MG PO SCH (09:00)
[2020-01-20] MEDS ORDERED: Furosemide IV* 10 MG/ML VIAL (40 MG) IV SCH ×2 (09:00→17:00)
[2020-01-20] MEDS ORDERED: amLODIPine TAB* 5 MG PO ONE (11:56)
--- NOTE | 2020-01-20 15:35 | PN ---
Subjective Date of Service: 01/20/20 Interval History: Ms. Treviño denies SOB, cough. She has swelling in b/l LE, but notes that this is improved from yesterday. She lives home alone and reports occasional trouble caring for herself. He primary concerns, she states, is that she has difficulty with medication administration, despite her son setting these up for her. She reports 3 falls in last 3 weeks. She states that she checks her BG TID and reports that it is always <140, at times in 40s or 60. She reports that she takes her insulin when her numbers are low. Son reports that her insulin has been decreased since this time, and reports that BG has been 80's at lowest. Had home O2, but has not had this for appx 1 year. Son, Joshua, states that 4-5 weeks ago, patient fine- was confused some when tired , but had no trouble with meds, etc. Appx 3 wk ago, she was confused, decreased sleep, difficulty writing things down, when to eat, if meds taken, etc. Sent to hospital with suspected UTI. Objective Active Medications: Acetaminophen (Tylenol Tab*) 650 mg PO Q4H PRN PRN Reason: PAIN - MILD Allopurinol (Zyloprim Tab*) 100 mg PO BID [facility] Last Admin: 01/20/20 08:19 Dose: 100 mg Amlodipine Besylate (Norvasc Tab*) 10 mg PO QAM [facility] Apixaban (Eliquis*) 5 mg PO BID [facility] Last Admin: 01/20/20 08:20 Dose: 5 mg Aspirin (Aspirin Ec Tab*) 81 mg PO QAM [facility] Last Admin: 01/20/20 08:20 Dose: 81 mg Bumetanide (Bumex*) 1 mg SLOW PUSH BID [facility] Calcium/Vitamin D (Oscal D Tab 250/125*) 1 tab PO DAILY [facility] Last Admin: 01/20/20 08:20 Dose: 1 tab Cholecalciferol (Vitamin D Tab*) 500 units PO QPM [facility] Cyanocobalamin (Vitamin B12 Tab*) 1,000 mcg PO QAM [facility] Last Admin: 01/20/20 08:20 Dose: 1,000 mcg Dextrose (D50w Syringe 50 Ml*) 12.5 gm IV PUSH .FOR FS < 60 - SS PRN PRN Reason: FS < 60 Docusate Sodium (Colace Cap*) 100 mg PO BID [facility] Last Admin: 01/20/20 08:20 Dose: 100 mg Dulaglutide (Trulicity (Nf)) 1.5 mg SUBCUT WEEKLY [facility] Duloxetine HCl (Cymbalta Cap*) 60 mg PO QAM [facility] Last Admin: 01/20/20 08:19 Dose: 60 mg Insulin Glargine (Lantus(*)) 16 units SUBCUT QPM [facility] Last Admin: 01/19/20 23:48 Dose: 16 units Insulin Human Lispro (Humalog*) 0 units SUBCUT ACHS [facility]; Protocol Last Admin: 01/20/20 11:55 Dose: 2 unit Levothyroxine Sodium (Synthroid Tab*) 25 mcg PO QAM@0600 [facility] Last Admin: 01/20/20 05:01 Dose: 25 mcg Melatonin (Melatonin) 3 mg PO QPM PRN PRN Reason: SLEEP Metoprolol Succinate (Toprol Xl Tab*) 25 mg PO DAILY [facility] Non-Formulary Medication (Biotin [Biotin]) 5,000 mcg SL DAILY [facility] Last Admin: 01/20/20 08:21 Dose: Not Given Non-Formulary Medication (Magnesium Oxide [Magnesium Oxide]) 500 mg PO QPM [facility] Ondansetron HCl (Zofran Inj*) 4 mg IV Q4H PRN PRN Reason: NAUSEA/VOMITING Oxybutynin Chloride (Ditropan Xl Tab*) 5 mg PO QPM [facility] Last Admin: 01/19/20 23:49 Dose: 5 mg Pantoprazole Sodium (Protonix Tab*) 40 mg PO DAILY [facility] Last Admin: 01/20/20 08:19 Dose: 40 mg Senna (Senokot 8.6 Mg Tab*) 2 tab PO BEDTIME PRN PRN Reason: CONSTIPATION Last Admin: 01/19/20 22:50 Dose: 2 tab Vital Signs: Temp Pulse Resp BP Pulse Ox 98.3 F 55 18 141/48 99 01/20/20 14:22 01/20/20 14:22 01/20/20 14:22 01/20/20 14:22 01/20/20 14:22 Oxygen Devices in Use Now: Nasal Cannula Appearance: Ms. Treviño is an obese elderly white woman who is sitting up in bed. She is breathing comfortably on supplemental oxygen, but appears to be in no acute distress. Eyes: No Scleral Icterus, PERRLA Ears/Nose/Mouth/Throat: NL Teeth, Lips, Gums, Clear Oropharnyx, Mucous Membranes Moist Neck: NL Appearance and Movements; NL JVP, Trachea Midline Respiratory: Symmetrical Chest Expansion and Respiratory Effort, - - course bibasilar rales without wheeze, rhonchi Cardiovascular: NL Sounds; No Murmurs; No JVD, RRR, - - 1+ b/l LE pretibial edema Extremities: No Edema, No Clubbing, Cyanosis Neurological: Alert and Oriented x 3 Result Diagrams: 01/20/20 05:57 01/20/20 05:57 Diagnostic Imaging: CXR--Findings suggestive of interstitial pulmonary edema. EKG Data: NSR, normal ST, no ectopy. Assess/Plan/Problems-Billing Assessment: This is a 79 yo Female with PMHx significant for Obesity, HTN, HLD, CAD with cardiac stent, CHF, COPD, Sleep apnea presented with altered mental status, SOB and was found to be in HF exacerbation. - Patient Problems (1) CHF exacerbation Comment: -pt presents with SOB, LE edema -echocardiogram 01/01/2020 EF 60-65%, grade 2 diastolic dysfxn -daily weights, I/O -cardiology consulted; thank you for recommendations -transition to bumex -d/c atenolol and start toprolol (2) Encephalopathy Comment: -mild encephalopathy over last 3 weeks reported by patient and son -CT brain 12/31/19 without acute abnormality, positive for age-related atrophy -afebrile wihtout leukocytosis, UA, CXR WNL- do not suspect infectious -ammonia WNL -TSH pending -does not appear to be on any rx that would alter mentation -pt reports BG lows into 40's, although son contests this; unsure if this could be contributing -suspect underlying progressive dementia may be contributing (3) Diabetes mellitus, type II Comment: -BG 140-190 -continue glargine 16 -continue lispro ss with FS ACHS (4) HTN (hypertension) Comment: -poor control, SBP 140-170's -transition from atenolol to toprolol; amlodipine dose increased -continue bumex (d/c lasix, due to poor renal function) -monitor for improvement (5) Hypothyroidism Comment: -add on TSH in setting of confusion -meanwhile, continue current dose of levothyroxine (6) CKD (chronic kidney disease) Comment: -Cr at 2.3 (baseline) -continue to monitor, especially in setting of diuretics (7) Gastro-esophageal reflux Comment: -continue pantoprazole (8) Gout Comment: -continue allopurinol (9) Depression Comment: -continue duloxetine (10) H/O deep venous thrombosis Comment: -continue home apixaban -pt reports occasional falls; should discuss continued use with primary care provider (11) Full code status Status and Disposition: Inpatient. Discharge when stable.
[2020-01-20] MEDS: Cholecalciferol TAB* 1000 UNITS PO SCH (17:34)
[2020-01-20] MEDS: Oxybutynin XL TAB* 5 MG PO SCH (17:34)
[2020-01-20] MEDS: Insulin GLARGINE(*) 1 UNITS UNIT SUBCUT SCH (17:35)
[2020-01-20] MEDS: MAGNESIUM OXIDE 500 MG PO SCH (17:36)
--- NOTE | 2020-01-20 18:33 | CONS ---
CC: Dr. Merirll * CONSULTATION REPORT: DATE OF CONSULT: 01/20/20 ATTENDING PHYSICIAN: Dr. Champ Jean Baptiste, Cardiology.* (DICTATED BY CLAIRE ANGEL NP) PRIMARY CARE PHYSICIAN: Dr. Merrill. REASON FOR CONSULT: Diastolic heart failure exacerbation. HISTORY OF PRESENT ILLNESS: This is a 79-year-old female patient with a known history of diastolic heart failure in addition to mitral insufficiency, tricuspid insufficiency, reported history of fatty liver disease, hyperlipidemia , and stage 3 chronic kidney disease, who presented to [facility] on 01/19/20 due to complaints of nausea, vomiting, blood pressure changes. It appears that while being evaluated in the emergency department, her blood pressure was 204/59, troponin was elevated at 0.05 consistent with prior troponin levels dating back to 2016, serum creatinine was 1.9. She was given IV Lasix. She reports no improvement in breathing effort. Serum creatinine increased to 2.3 this morning, BUN 44. Her BNP was elevated at 1053. She was admitted to [address] [place] [address] due to CHF exacerbation in addition to hypertension and we were asked to see the patient in consultation. The patient denies chest pain, dizziness, or syncope. She reports falling frequently and adds that her most recent fall was prior to admission on 01/01/20. She states that her falls typically occur due to "her legs giving out." At that time, she did have an updated brain CAT scan per report from 12/31/19. There was no acute intracranial abnormality. She was seen for confusion, which was felt to be related to a urinary tract infection and progression of her chronic kidney disease. I did speak to her son, Bar, who helps care for the patient. The patient does reside by herself. He states that she is a difficult historian and does have confusion that has been recent onset over the course of the last 6 to 8 weeks. He states her last fall was in fact prior to her admission on 12/31/19. He does also add that her blood pressure has been poorly controlled recently in addition to her blood glucose after recent medication changes during her last hospital stay. He offers no other clinical information of relevance. The patient again is a difficult historian, thus obtaining accurate history of present illness is difficult. Last echocardiogram during the last hospital admission on 01/01/20; per report, LVEF 60% to 65% with grade 2 diastolic dysfunction, mild left atrial dilatation , mild mitral insufficiency, trace to mild tricuspid insufficiency, small left pleural effusion. Chest x-ray, 01/19/20; per report, there was finding suggestive of interstitial pulmonary edema. Last ischemic evaluation via Lexiscan nuclear stress test in 2017. Per report, there was no evidence of infarct or ischemia. LVEF 70%. PAST MEDICAL HISTORY: 1. Fatty liver disease. 2. Diastolic dysfunction. 3. Mild tricuspid insufficiency. 4. Mild mitral insufficiency. 5. Diabetes. 6. Hypertension. 7. DVT/PE. 8. Hyperlipidemia. 9. Hypothyroidism. 10. Stage 3 chronic kidney disease. 11. Obstructive sleep apnea. 12. Thrombocytopenia. 13. Anemia likely of chronic disease. PAST SURGICAL HISTORY: 1. Right mastectomy. 2. Hysterectomy. 3. Bilateral knee surgery. 4. Foot surgery. HOME MEDICATIONS: Per admission med rec. ALLERGIES: No known drug allergies. FAMILY HISTORY: Noncontributory. SOCIAL HISTORY: The patient is . Lives home alone; however, her son, Bar lives 5 minutes from her home and helps care for her. She is a former tobacco user, quit approximately 50 years ago. Denies alcohol use or drug use. She is listed as a full code. She lives a fairly sedentary lifestyle and ambulates with a walker and reports frequent falls. PHYSICAL EXAM: Blood pressure 152/57, pulse 61, temperature 97.8, oxygenation 99% on room air. General: The patient was sitting upright upon entering room, appears in no apparent distress, is obese, pleasant, alert and oriented x3, although has difficulty recalling information. HEENT: Head is atraumatic, normocephalic. Oral mucosa is moist. Tongue is midline. Neck: Supple. Trachea midline. Unable to assess for JVD. Cardiac: Normal S1, S2. Regular rate and rhythm. No murmur, rub, or gallop noted. Lungs: Auscultated posteriorly. Clear throughout. No evidence of adventitious breath sounds. Respirations are unlabored. /GI: Abdomen is soft, nontender, nondistended. It is obese with normo-active bowel sounds x4. Extremities: No pedal edema, no clubbing, no cyanosis. Peripheral Vascular: 3+ brachial pulse palpated bilaterally and symmetrically. 3+ dorsalis pedis pulse palpated bilaterally and symmetrically. Skin: Intact. No evidence of jaundice, rashes, or ecchymosis appreciated. DIAGNOSTIC STUDIES/LAB DATA: Blood work obtained on 01/20/20: Sodium 136, potassium 4, creatinine 2.3, BUN 44. Troponin has been plateauing between 0.04 and 0.05. TSH pending. Ammonia level 33. INR 1.78. White count 6, hemoglobin 9.6, hematocrit 29, platelets 109. ECG obtained from 01/19/20: The patient is in sinus rhythm, rate 69 with intraventricular conduction delay. No ST changes appreciated. ASSESSMENT AND PLAN: 1. Complaints of nausea, vomiting, weakness in the setting of uncontrolled hypertension. Blood pressure while being evaluated in the emergency department was 204/59. We would recommend increasing amlodipine to 10 mg a day. Given acute on chronic renal failure, we would transition atenolol therapy to metoprolol therapy and follow closely. Patient has had minimal troponin elevation for several years based on serial trend of isoenzymes. Her last ischemic eval was in 2017. Would suggest an eventual stress test( outpatient). Of note her SBP was > 200 when she presented which could be etiology of troponin elevation. Will check echo to ensure no RWMA however, earlier this month there was no RWMA. 2. Ongoing complaints of shortness of breath. The patient's BNP is elevated and chest x-ray suggested interstitial pulmonary edema. The patient was given IV Lasix and had worsening renal function with no improvement of shortness of breath. At this current time, we would recommend discontinuing IV diuretic therapy and transitioning to p.o. Bumex 1 mg a day given history of chronic kidney disease. She has a known hyperdynamic left ventricle with known diastolic dysfunction. Complaints of shortness of breath could also be related to the patient's body habitus, inactivity and/or anemia. We will follow closely. 3. History of diastolic heart failure. We will transition atenolol to metoprolol therapy, increase amlodipine to 10 mg a day to help with blood pressure control and convert IV Lasix to p.o. Bumex. Serum creatinine increased from 1.9 to 2.3 after IV diuresis consistent with volume contraction. We would diurese cautiously, thus transitioning to p.o. Bumex. 4. History of pulmonary embolism/deep venous thrombosis, on Eliquis therapy. The patient and her son, Bar report frequent falls. We will defer to primary team. 5. History of chronic kidney disease with acute renal injury. Earlier this month, she had acute renal injury secondary to urinary tract infection. She continues to have ongoing confusion, which appears to be subacute. Ammonia level was normal. She had normal brain CT after her fall earlier this month. We will convert atenolol to metoprolol and convert IV Lasix to p.o. Bumex and defer evaluation for subacute confusion to primary team. 6. History of nonalcoholic steatohepatitis. Platelets appeared to be stable. She has a notable history of thrombocytopenia with alk phos elevation, likely due to fatty liver disease. We will defer to primary team. 7. Disposition: Pending course. We will follow the patient closely after medication changes and make further recommendations depending upon the patient' s clinical course. Dr. Jean Baptiste has seen and examined the patient and agrees with the above assessment and plan. CLAIRE ANGEL NP [id number]/CPS #: [id number] BARBRA
[2020-01-20] MEDS ORDERED: Dulaglutide (NF) 1.5 MG/0.5 ML SYRINGE SUBCUT SCH (21:00)
[2020-01-20] MEDS ORDERED: Bumetanide IV* 0.25 MG/ML 4 ML VIAL SLOW PUSH SCH (21:00)
[2020-01-21] MEDS: Levothyroxine TAB* 25 MCG TAB PO SCH (05:18)
[2020-01-21 06:56] LABS: Hematocrit 27 % (35-47); Hemoglobin 9.2 g/dL (12.0-16.0); Mean Corpuscular HGB Conc 34 g/dL (31-36); Mean Corpuscular Hemoglobin 30 pg (27-31); Mean Corpuscular Volume 88 fL (80-97); Red Blood Count 3.12 10^6 /uL (3.70-4.87); Red Cell Distribution Width 16 % (10-15); White Blood Count 3.6 10^3/uL (3.5-10.8)
[2020-01-21 07:07] LABS: Anion Gap 7 mmol/L (2-11); BUN/Creatinine Ratio 18.8 (8-20); Blood Urea Nitrogen 53 mg/dL (6-24); CO2 Carbon Dioxide 25 mmol/L (22-32); Calcium 7.8 mg/dL (8.6-10.3); Chloride 104 mmol/L (101-111); EGFR African American 19.7 (>60); EGFR Non-African American 16.3 (>60); Glucose 122 mg/dL (70-100); Potassium 4.1 mmol/L (3.5-5.0); Sodium 136 mmol/L (135-145)
[2020-01-21 07:17] LABS: Magnesium 1.7 mg/dL (1.9-2.7)
[2020-01-21 07:30] LABS: ABS Lymphocytes 0.4 10^3/ul (1.0-4.8); ABS Monocytes 0.2 10^3/ul (0-0.8); ABS Neutrophils 2.9 10^3/ul (1.5-7.7); Lymphocyte % 10.1 %; Mean Platelet Volume 10.9 fL (7.4-10.4); Platelet Count 91 10^3/uL (150-450)
[2020-01-21] MEDS: Aspirin EC TAB* 81 MG TAB.EC PO SCH (08:34)
[2020-01-21] MEDS: amLODIPine TAB* 5 MG PO SCH (08:34)
[2020-01-21] MEDS: DULoxetine DR CAP* 60 MG CAP.DR PO SCH (08:34)
[2020-01-21] MEDS: Metoprolol Succinate XL TAB* 25 MG PO SCH (08:35)
[2020-01-21] MEDS: Cyanocobalamin TAB* 500 MCG PO SCH (08:35)
[2020-01-21] MEDS: Docusate CAP* 100 MG PO SCH ×2 (08:35→22:25)
[2020-01-21] MEDS: Apixaban* 5 MG TAB PO SCH ×2 (08:35→22:24)
[2020-01-21] MEDS: Pantoprazole TAB * 40 MG TAB PO SCH (08:36)
[2020-01-21] MEDS: Calcium/Vitamin D TAB 250/125* TAB PO SCH (08:36)
[2020-01-21] MEDS: Allopurinol TAB* 100 MG PO SCH ×2 (08:37→22:25)
[2020-01-21] MEDS: BIOTIN 5000 MCG SL SCH (08:37)
[2020-01-21] MEDS: Insulin LISPRO* 1 UNITS UNIT SUBCUT SCH ×4 (08:37→22:25)
[2020-01-21] MEDS ORDERED: Bumetanide TAB* 1 MG PO SCH (09:00)
[2020-01-21] MEDS ORDERED: Magnesium Sulfate 2 GM IV* 2 GM/50 ML BAG IVPB ONE (12:13)
[2020-01-21] MEDS ORDERED: hydrALAZINE IV* 20 MG/ML VIAL IV SLOW PU PRN (12:15)
[2020-01-21 13:19] LABS: Transferrin 158 mg/dL (203-362)
[2020-01-21 13:23] LABS: Iron < 20 ug/dL (50-212)
[2020-01-21 13:39] LABS: Ferritin 94.8 ng/mL (11-307)
[2020-01-21 13:43] LABS: Folate 10.42 ng/mL (>3.99)
--- NOTE | 2020-01-21 14:41 | ECHO ---
*[facility]* [place] [address] Fax #: [phone] Limited Transthoracic Echocardiogram Patient: Brianda Treviño : 1940 Study Date: 01/21/2020 Age: 79 Gender: F HR: 63 bpm Height: 67 in /170.2 cm BSA: 2.23 m^2 Weight: 224 lb /101.8 kg BMI: 35.2 kg/m^2 *Science Analyst: * Moira Gay [facility] *Referring Physician: * Chery Brand *Reading Physician: * Kalyani Henson MD Indications: SOB. History: Deep vein thrombosis. Chronic obstructive pulmonary disease. Risk factors: Former tobacco use. Hypertension. Diabetes mellitus. Dyslipidemia. Conclusions Summary: - Study data: Limited study. - Left ventricle: The cavity size is normal. Wall thickness is mildly to moderately increased. Systolic function is normal. The estimated ejection fraction is 55-60%. Wall motion is normal; there are no regional wall motion abnormalities. - Right ventricle: Systolic function is normal. - Compared with echocardiogram of 01/01/2020 no significan changes. Study data: Transthoracic echocardiogram, limited study. Procedure: Transthoracic echocardiography was performed. Image quality was good. Location: Bedside. Patient status: Inpatient. Patient room number: 449. Rhythm: Normal sinus rhythm. Findings Left ventricle: The cavity size is normal. Wall thickness is mildly to moderately increased. Systolic function is normal. The estimated ejection fraction is 55-60%. Wall motion is normal; there are no regional wall motion abnormalities. Right ventricle: The cavity size is normal. Wall thickness is increased. Systolic function is normal. Left atrium: The atrium is dilated. Right atrium: The atrium is normal in size. Pericardium: A prominent pericardial fat pad is present. There is no significant pericardial effusion. Prepared and electronically signed by Kalyani Henson MD 01/21/2020 14:41
[2020-01-21] MEDS: Cholecalciferol TAB* 1000 UNITS PO SCH (16:34)
[2020-01-21] MEDS: Isosorbide Mononitrate ER TAB* 30 MG PO SCH (16:35)
[2020-01-21] MEDS: Oxybutynin XL TAB* 5 MG PO SCH (16:35)
[2020-01-21] MEDS: MAGNESIUM OXIDE 500 MG PO SCH (16:45)
[2020-01-21] MEDS: Insulin GLARGINE(*) 1 UNITS UNIT SUBCUT SCH (17:12)
--- NOTE | 2020-01-21 18:00 | PN ---
Subjective Date of Service: 01/21/20 Interval History: Ms. Hudson diallo states she is better today. She reports that she is less tired and slept better last night. She denies SOB but is noted to be on 1L O2 at this time. She has no other complaints today. Objective Active Medications: Acetaminophen (Tylenol Tab*) 650 mg PO Q4H PRN PRN Reason: PAIN - MILD Allopurinol (Zyloprim Tab*) 100 mg PO BID [facility] Last Admin: 01/21/20 08:37 Dose: 100 mg Amlodipine Besylate (Norvasc Tab*) 10 mg PO QAM [facility] Last Admin: 01/21/20 08:34 Dose: 10 mg Apixaban (Eliquis*) 5 mg PO BID [facility] Last Admin: 01/21/20 08:35 Dose: 5 mg Aspirin (Aspirin Ec Tab*) 81 mg PO QAM [facility] Last Admin: 01/21/20 08:34 Dose: 81 mg Calcium/Vitamin D (Oscal D Tab 250/125*) 1 tab PO DAILY [facility] Last Admin: 01/21/20 08:36 Dose: 1 tab Cholecalciferol (Vitamin D Tab*) 500 units PO QPM [facility] Last Admin: 01/21/20 16:34 Dose: 500 units Cyanocobalamin (Vitamin B12 Tab*) 1,000 mcg PO QAM [facility] Last Admin: 01/21/20 08:35 Dose: 1,000 mcg Dextrose (D50w Syringe 50 Ml*) 12.5 gm IV PUSH .FOR FS < 60 - SS PRN PRN Reason: FS < 60 Docusate Sodium (Colace Cap*) 100 mg PO BID [facility] Last Admin: 01/21/20 08:35 Dose: 100 mg Dulaglutide (Trulicity (Nf)) 1.5 mg SUBCUT WEEKLY [facility] Last Admin: 01/20/20 21:13 Dose: 1.5 mg Duloxetine HCl (Cymbalta Cap*) 60 mg PO QAM [facility] Last Admin: 01/21/20 08:34 Dose: 60 mg Insulin Glargine (Lantus(*)) 16 units SUBCUT QPM [facility] Last Admin: 01/21/20 17:12 Dose: 16 units Insulin Human Lispro (Humalog*) 0 units SUBCUT ACHS [facility]; Protocol Last Admin: 01/21/20 17:11 Dose: 3 unit Isosorbide Mononitrate (Imdur Er Tab*) 30 mg PO DAILY [facility] Last Admin: 01/21/20 16:35 Dose: 30 mg Levothyroxine Sodium (Synthroid Tab*) 25 mcg PO QAM@0600 [facility] Last Admin: 01/21/20 05:18 Dose: 25 mcg Melatonin (Melatonin) 3 mg PO QPM PRN PRN Reason: SLEEP Metoprolol Succinate (Toprol Xl Tab*) 25 mg PO DAILY [facility] Last Admin: 01/21/20 08:35 Dose: 25 mg Non-Formulary Medication (Biotin [Biotin]) 5,000 mcg SL DAILY [facility] Last Admin: 01/21/20 08:37 Dose: Not Given Non-Formulary Medication (Magnesium Oxide [Magnesium Oxide]) 500 mg PO QPM [facility] Last Admin: 01/21/20 16:45 Dose: Not Given Ondansetron HCl (Zofran Inj*) 4 mg IV Q4H PRN PRN Reason: NAUSEA/VOMITING Oxybutynin Chloride (Ditropan Xl Tab*) 5 mg PO QPM [facility] Last Admin: 01/21/20 16:35 Dose: 5 mg Pantoprazole Sodium (Protonix Tab*) 40 mg PO DAILY [facility] Last Admin: 01/21/20 08:36 Dose: 40 mg Senna (Senokot 8.6 Mg Tab*) 2 tab PO BEDTIME PRN PRN Reason: CONSTIPATION Last Admin: 01/19/20 22:50 Dose: 2 tab Vital Signs: Temp Pulse Resp BP Pulse Ox 97.8 F 59 18 145/50 94 01/21/20 15:03 01/21/20 15:03 01/21/20 15:03 01/21/20 15:03 01/21/20 15:03 Oxygen Devices in Use Now: Nasal Cannula Appearance: Ms. Treviño is an elderly obese woman who is sleeping when I enter; she wakes easily and appears to be in no acute distress. She is breathing comfortably on 1L supplemental O2. Eyes: No Scleral Icterus, PERRLA Ears/Nose/Mouth/Throat: NL Teeth, Lips, Gums, Clear Oropharnyx, Mucous Membranes Moist Neck: NL Appearance and Movements; NL JVP, Trachea Midline Respiratory: Symmetrical Chest Expansion and Respiratory Effort, - - LLL course rales; R CTA Cardiovascular: NL Sounds; No Murmurs; No JVD, RRR, - - b/l trace LE edema Abdominal: NL Sounds; No Tenderness; No Distention, No Hepatosplenomegaly Extremities: No Edema, No Clubbing, Cyanosis Neurological: Alert and Oriented x 3 Result Diagrams: 01/22/20 04:57 01/22/20 04:56 Diagnostic Imaging: CXR--Findings suggestive of interstitial pulmonary edema. EKG Data: NSR, normal ST, no ectopy. Assess/Plan/Problems-Billing Assessment: This is a 79 yo Female with PMHx significant for Obesity, HTN, HLD, CAD with cardiac stent, CHF, COPD, Sleep apnea presented with altered mental status, SOB and was found to be in HF exacerbation. - Patient Problems (1) CHF exacerbation Comment: -pt presents with SOB, LE edema -echocardiogram 01/01/2020 EF 60-65%, grade 2 diastolic dysfxn -daily weights, I/O -cardiology consulted; thank you for recommendations -transition to bumex; this will be held in a.m., due to worsening renal function -continue toprolol (2) Encephalopathy Comment: -mild encephalopathy over last 3 weeks reported by patient and son -CT brain 12/31/19 without acute abnormality, positive for age-related atrophy -afebrile wihtout leukocytosis, UA, CXR WNL- do not suspect infectious -ammonia WNL -TSH 1.20 -does not appear to be on any rx that would alter mentation -pt reports BG lows into 40's, although son contests this; unsure if this could be contributing -suspect underlying progressive dementia may be contributing (3) Diabetes mellitus, type II Comment: -BG 120-180 -continue glargine 16 -continue lispro ss with FS ACHS (4) HTN (hypertension) Comment: -poor control, SBP 140-160's -continue toprolol, increased amlodipine dose -hold bumex -add on Imdur -monitor for improvement (5) Hypothyroidism Comment: -TSH 1.20 -continue current dose of levothyroxine (6) CKD (chronic kidney disease) Comment: -Cr increased to 2.82 (baseline 2.3) -hold bumex -recheck in a.m. (7) Gastro-esophageal reflux Comment: -continue pantoprazole (8) Gout Comment: -continue allopurinol (9) Depression Comment: -continue duloxetine (10) H/O deep venous thrombosis Comment: -continue home apixaban -pt reports occasional falls; should discuss continued use with primary care provider (11) Full code status Status and Disposition: Inpatient. Discharge when stable.
--- NOTE | 2020-01-21 20:51 | PN ---
Subjective Date of Service: 01/21/20 - CC: today pt states legs giving way, admission: SOB/ CHF Interval History: The patient states she feels better. Breathing comfortably now (lying at 30 degrees in bed). Discribes months of PND. Medications Active Medications: Acetaminophen (Tylenol Tab*) 650 mg PO Q4H PRN PRN Reason: PAIN - MILD Allopurinol (Zyloprim Tab*) 100 mg PO BID [facility] Last Admin: 01/21/20 08:37 Dose: 100 mg Amlodipine Besylate (Norvasc Tab*) 10 mg PO QAM [facility] Last Admin: 01/21/20 08:34 Dose: 10 mg Apixaban (Eliquis*) 5 mg PO BID [facility] Last Admin: 01/21/20 08:35 Dose: 5 mg Aspirin (Aspirin Ec Tab*) 81 mg PO QAM [facility] Last Admin: 01/21/20 08:34 Dose: 81 mg Calcium/Vitamin D (Oscal D Tab 250/125*) 1 tab PO DAILY [facility] Last Admin: 01/21/20 08:36 Dose: 1 tab Cholecalciferol (Vitamin D Tab*) 500 units PO QPM [facility] Last Admin: 01/21/20 16:34 Dose: 500 units Cyanocobalamin (Vitamin B12 Tab*) 1,000 mcg PO QAM [facility] Last Admin: 01/21/20 08:35 Dose: 1,000 mcg Dextrose (D50w Syringe 50 Ml*) 12.5 gm IV PUSH .FOR FS < 60 - SS PRN PRN Reason: FS < 60 Docusate Sodium (Colace Cap*) 100 mg PO BID [facility] Last Admin: 01/21/20 08:35 Dose: 100 mg Dulaglutide (Trulicity (Nf)) 1.5 mg SUBCUT WEEKLY [facility] Last Admin: 01/20/20 21:13 Dose: 1.5 mg Duloxetine HCl (Cymbalta Cap*) 60 mg PO QAM [facility] Last Admin: 01/21/20 08:34 Dose: 60 mg Insulin Glargine (Lantus(*)) 16 units SUBCUT QPM [facility] Last Admin: 01/21/20 17:12 Dose: 16 units Insulin Human Lispro (Humalog*) 0 units SUBCUT [facility]; Protocol Last Admin: 01/21/20 17:11 Dose: 3 unit Isosorbide Mononitrate (Imdur Er Tab*) 30 mg PO DAILY [facility] Last Admin: 01/21/20 16:35 Dose: 30 mg Levothyroxine Sodium (Synthroid Tab*) 25 mcg PO QAM@0600 [facility] Last Admin: 01/21/20 05:18 Dose: 25 mcg Melatonin (Melatonin) 3 mg PO QPM PRN PRN Reason: SLEEP Metoprolol Succinate (Toprol Xl Tab*) 25 mg PO DAILY [facility] Last Admin: 01/21/20 08:35 Dose: 25 mg Non-Formulary Medication (Biotin [Biotin]) 5,000 mcg SL DAILY [facility] Last Admin: 01/21/20 08:37 Dose: Not Given Non-Formulary Medication (Magnesium Oxide [Magnesium Oxide]) 500 mg PO QPM [facility] Last Admin: 01/21/20 16:45 Dose: Not Given Ondansetron HCl (Zofran Inj*) 4 mg IV Q4H PRN PRN Reason: NAUSEA/VOMITING Oxybutynin Chloride (Ditropan Xl Tab*) 5 mg PO QPM [facility] Last Admin: 01/21/20 16:35 Dose: 5 mg Pantoprazole Sodium (Protonix Tab*) 40 mg PO DAILY [facility] Last Admin: 01/21/20 08:36 Dose: 40 mg Senna (Senokot 8.6 Mg Tab*) 2 tab PO BEDTIME PRN PRN Reason: CONSTIPATION Last Admin: 01/19/20 22:50 Dose: 2 tab Objective Vital Signs: Temp Pulse Resp BP Pulse Ox 97.8 F 59 18 145/50 94 01/21/20 15:03 01/21/20 15:03 01/21/20 15:03 01/21/20 15:03 01/21/20 15:03 Vital Signs - 12 hr Temp Pulse Resp BP Pulse Ox 01/21/20 15:03 97.8 F 59 18 145/50 94 01/21/20 12:14 98.4 F 64 18 168/57 97 01/21/20 09:20 18 Oxygen Devices in Use Now: Nasal Cannula Appearance: Short very overweight older woman lying at 30 degrees, comfotable. Eyes: No Scleral Icterus, PERRLA Ears/Nose/Mouth/Throat: Clear Oropharnyx Neck: Trachea Midline, No Thyroid Enlargement, Masses Respiratory: Symmetrical Chest Expansion and Respiratory Effort, Clear to Auscultation - laterally. Cardiovascular: NL Sounds; No Murmurs; No JVD, RRR Abdominal: - - very overweight, normal bowel sounds. soft. Extremities: No Clubbing, Cyanosis Skin: No Rash or Ulcers Neurological: Alert and Oriented x 3, - - Decreased strength raising legs, good strength pushing down on legs. Lines/Tubes/Other Access: Clean, Dry and Intact Peripheral IV Laboratory Results: 01/21/20 06:05 01/21/20 06:05 INR (Anticoag Therapy) 1.78 (0.82-1.09) H 01/19/20 16:32 Total Bilirubin 0.50 mg/dL (0.2-1.0) 01/19/20 16:32 AST 12 U/L (13-39) L 01/19/20 16:32 ALT 9 U/L (7-52) 01/19/20 16:32 Alkaline Phosphatase 299 U/L (34-104) H 01/19/20 16:32 B-Natriuretic Peptide 1053 pg/mL (<=100) H 01/19/20 16:32 Total Protein 5.7 g/dL (6.4-8.9) L 01/19/20 16:32 Albumin 3.1 g/dL (3.2-5.2) L 01/19/20 16:32 Globulin 2.6 g/dL (2-4) 01/19/20 16:32 Albumin/Globulin Ratio 1.2 (1-3) 01/19/20 16:32 TSH 1.20 mcIU/mL (0.34-5.60) 01/20/20 05:57 01/19/20 01/19/20 01/20/20 16:32 23:09 02:12 Troponin I 0.05 H* 0.04 H* 0.04 H* 01/20/20 05:57 Troponin I 0.05 H* Diagnostic Imaging: *[facility]* [place] [address] Fax #: [phone] Limited Transthoracic Echocardiogram Patient: Brianda Treviño : 1940 Study Date: 01/21/2020 *Referring Physician: * Chery Brand *Reading Physician: * Kalyani Henson MD Indications: SOB. History: Deep vein thrombosis. Chronic obstructive pulmonary disease. Risk factors: Former tobacco use. Hypertension. Diabetes mellitus. Dyslipidemia. Conclusions Summary: - Study data: Limited study. - Left ventricle: The cavity size is normal. Wall thickness is mildly to moderately increased. Systolic function is normal. The estimated ejection fraction is 55-60%. Wall motion is normal; there are no regional wall motion abnormalities. - Right ventricle: Systolic function is normal. - Compared with echocardiogram of 01/01/2020 no significan changes. EKG Data: NSR, poor R wave progression. Assessment/Plan 79 yo female confused on admission, hypoxemic, found with HFpEF, CKD. PMHx Obesity, DM II, HTN, CKD, recent UTI, CVA hx, gout, asthma/COPD, GERD, DVT , PE. +Dyslipidemia. ? CAD per chart notes. Limited echo today continues to show normal wall motion and EF. HFpEF: Contributing factors: -Diastolic LV dysfunction. -CKD -Anemia -Infection/inflammation. Hypoxemia could be related to restrictive lung disease, COPD in addition to CHF/ pulmonary edema. Confusion could be hypoxemia only, but consider hypercarbia as well and agree UTI could contribute. Cardiac meds include Norvasc, Toprol, Eliquis, and Bumex given earlier on admission with increase in BUN. I think CKD a major contribution to her presentation, consider nephrology consultation especially if not done yet as an outpatient (seen by [facility]). Kidney function is limiting ability to more aggressively diurese. New studies supporting Entresto in HFpEF, could consider to address cardiac contribution. CRP elevated, uncertain etiology for this, recent UTI and cefuroxime (outpt), I ordered an updated UA.
[2020-01-21] MEDS: Senna TAB 8.6 mg* TAB PO PRN (22:24)
[2020-01-22] MEDS: Levothyroxine TAB* 25 MCG TAB PO SCH (05:22)
[2020-01-22 05:35] LABS: ABS Eosinophils 0.1 10^3/ul (0-0.6); ABS Lymphocytes 0.5 10^3/ul (1.0-4.8); ABS Monocytes 0.4 10^3/ul (0-0.8); Eosinophil % 2.4 %; Hematocrit 27 % (35-47); Hemoglobin 9.1 g/dL (12.0-16.0); Lymphocyte % 11.7 %; Mean Corpuscular HGB Conc 33 g/dL (31-36); Mean Corpuscular Hemoglobin 29 pg (27-31); Mean Corpuscular Volume 87 fL (80-97); Mean Platelet Volume 10.7 fL (7.4-10.4); Nucleated Red Blood Cells % 0.1; Platelet Count 109 10^3/uL (150-450); Red Blood Count 3.14 10^6 /uL (3.70-4.87); Red Cell Distribution Width 16 % (10-15)
[2020-01-22 06:01] LABS: Urine Appearance Turbid; Urine Bilirubin Negative (Negative); Urine Blood 1+ (Negative); Urine Color Yellow; Urine Glucose 1+(50 mg/dL) (Negative); Urine Ketones Negative (Negative); Urine Nitrite Positive (Negative); Urine Protein 2+(100 mg/dL) (Negative); Urine Specific Gravity 1.014 (1.010-1.030); Urine Urobilinogen Negative (Negative)
[2020-01-22 06:11] LABS: Urine Bacteria 1+ (Absent); Urine Red Blood Cell 3+(>10/hpf) (Absent); Urine White Blood Cell 3+(>20/hpf) (Absent)
[2020-01-22 06:37] LABS: Calcium 8.2 mg/dL (8.6-10.3); Magnesium 2.1 mg/dL (1.9-2.7); Potassium 4.1 mmol/L (3.5-5.0)
[2020-01-22 06:42] LABS: BUN/Creatinine Ratio 22.1 (8-20); EGFR African American 21.4 (>60); EGFR Non-African American 17.7 (>60)
[2020-01-22] MEDS: Insulin LISPRO* 1 UNITS UNIT SUBCUT SCH ×2 (09:25→12:59)
[2020-01-22] MEDS: DULoxetine DR CAP* 60 MG CAP.DR PO SCH (09:26)
[2020-01-22] MEDS: Apixaban* 5 MG TAB PO SCH (09:26)
[2020-01-22] MEDS: Allopurinol TAB* 100 MG PO SCH (09:26)
[2020-01-22] MEDS: Aspirin EC TAB* 81 MG TAB.EC PO SCH (09:26)
[2020-01-22] MEDS: Isosorbide Mononitrate ER TAB* 30 MG PO SCH (09:26)
[2020-01-22] MEDS: Metoprolol Succinate XL TAB* 25 MG PO SCH (09:26)
[2020-01-22] MEDS: Cyanocobalamin TAB* 500 MCG PO SCH (09:27)
[2020-01-22] MEDS: Docusate CAP* 100 MG PO SCH (09:27)
[2020-01-22] MEDS: amLODIPine TAB* 5 MG PO SCH (09:27)
[2020-01-22] MEDS: Calcium/Vitamin D TAB 250/125* TAB PO SCH (09:27)
[2020-01-22] MEDS: Pantoprazole TAB * 40 MG TAB PO SCH (09:30)
[2020-01-22] MEDS: BIOTIN 5000 MCG SL SCH (10:56)
[2020-01-22] MEDS ORDERED: Cefdinir cap* 300 MG CAP PO SCH (13:00)
[2020-01-22] MEDS ORDERED: Bumetanide TAB* 2 MG PO SCH (13:00)
--- NOTE | 2020-01-22 15:13 | DS ---
CC: Dr. Martín Merrill; [facility] * DISCHARGE SUMMARY: DATE OF ADMISSION: 01/19/20 DATE OF DISCHARGE: 01/22/20 PRIMARY CARE PROVIDER: Dr. Martín Merrill. SKI EDGE PAINTER: [facility]. ATTENDING PHYSICIAN: Dr. Abby Perez * (dictated by PETER Elmore). PRIMARY DIAGNOSES: 1. Diastolic heart failure exacerbation. 2. Altered mental status, suspect progressing dementia. 3. Urinary tract infection. SECONDARY DIAGNOSES: 1. Diastolic heart failure. 2. Coronary artery disease, status post stenting. 3. Diabetes mellitus, insulin-dependent. 4. Hypertension. 5. Hyperlipidemia. 6. Chronic obstructive pulmonary disease. 7. Hypothyroidism. 8. Chronic kidney disease, stage 3. 9. Anemia. 10. History of deep venous thrombosis/pulmonary embolism, on anticoagulation. 11. Gout. 12. Depression. STUDIES WHILE IN THE HOSPITAL: 1. CT brain, 12/31/19, prior to admission, impression: No acute intracranial abnormality. Age-related atrophy and moderate chronic small vessel ischemic disease. 2. Chest x-ray, impression: Findings suggestive of interstitial pulmonary edema. 3. Transthoracic echocardiogram, summary: Limited study. LV cavity size normal. Wall thickness mildly to moderately increased. Systolic function normal. Estimated EF 55% to 60%. Wall motion normal without regional wall motion abnormalities. RV systolic function normal. Compared with 01/01/20 echo , no significant changes. DISCHARGE MEDICATIONS: Home medications: 1. Allopurinol 100 mg p.o. daily. 2. Apixaban 5 mg p.o. b.i.d. 3. Aspirin 81 mg p.o. daily. 4. Biotin 5000 mcg sublingual daily. 5. Calcium carbonate/vitamin D3 one tab p.o. daily. 6. Cholecalciferol 500 units p.o. daily. 7. Cyanocobalamin 1000 mcg p.o. daily. 8. Dulaglutide 1.5 mg subcu weekly. 9. Duloxetine 60 mg p.o. daily. 10. Levothyroxine 25 mcg p.o. daily. 11. Magnesium oxide 500 mg p.o. daily. 12. Melatonin 3 mg p.o. daily. 13. [place]-3 fatty acids 1000 mg p.o. daily. 14. Omeprazole 20 mg p.o. daily. 15. Oxybutynin 5 mg p.o. daily. 16. Senna 2 tabs p.o. at bedtime p.r.n. New home medications: 1. Amlodipine 10 mg p.o. daily. 2. Bumetanide 1 mg p.o. daily. 3. Amoxicillin/clavulanate 875 mg p.o. b.i.d. x10 days. 4. Docusate 100 mg p.o. b.i.d. p.r.n. 5. Insulin glargine 16 units subcu at bedtime. 6. Insulin lispro sliding scale; 131 to 150, 2 units; 151 to 200, 3 units; 201 to 250, 6 units; 251 to 300, 9 units; 301 to 350, 12 units; 351 to 400, 15 units ; greater than 400, 18 units and call provider. 7. Isosorbide mononitrate 30 mg p.o. daily. 8. Metoprolol succinate 25 mg p.o. daily. HISTORY OF PRESENT ILLNESS/HOSPITAL COURSE: Ms. Treviño is a 79-year-old female with a past medical history of hypertension, hyperlipidemia, CAD, heart failure with preserved ejection fraction, who presented to the ER on 01/19/20 with complaints of shortness of breath, weakness, malaise, inability to care for herself, and altered mental status. She complains of paroxysmal nocturnal dyspnea, lower extremity edema. Upon admission, she was hypoxic and requiring oxygen. Chest x-ray was obtained and revealed pulmonary edema. The patient was started on IV Lasix 60 mg with plans to transition her back to her oral dose of Lasix once she became euvolemic. During her stay with treatment with Lasix, her kidney function worsened and therefore she was transitioned to Bumex. Due to her chronic kidney disease, other medications had been changed as well including transition from atenolol to metoprolol succinate. Again, she was transitioned from Lasix to bumetanide, which she will be discharged on. The patient improved throughout her stay. At admission, the patient was requiring 4.5 L of oxygen. By the time of discharge, her oxygen was decreased to 3 L. She will continue to be weaned at discharge. Cardiology was consulted and recommended an echo recheck as well as the above changes in medications. Her amlodipine was also increased to 10 mg. Repeat echo showed no regional wall motion abnormalities and a maintained EF of 55% to 60%. Cardiology continued to follow along throughout her stay. Throughout the patient's stay, she was noted to be hypertensive. Her home medications were adjusted, including doubling of amlodipine dose. She was transitioned from atenolol to metoprolol succinate. Imdur was added on to her daily medications with moderately good results, although the patient should be followed closely to monitor for need for further adjustments in blood pressure medications. She will continue her bumetanide as well. The patient did have a history of UTI treated outpatient with cefuroxime. Repeat urinalysis showed 3+ LE, positive nitrites, 1+ bacteria. Due to apparent failed treatment with cephalosporin, the patient was started on Augmentin and will be discharged with 10 days of Augmentin. The patient also reportedly had altered mental status at admission. A CT of the brain was completed on 12/31/19 due to altered mental status/memory loss and this showed no acute intracranial abnormality and was positive for age related atrophy, moderate chronic small vessel ischemic disease. The suspicion is that the patient's altered mental status reportedly over the last 1 month is likely more chronic and due to progressing dementia. She should follow with her primary care provider for this. I do agree that her urinary tract infection likely may be contributing to her altered mentation and therefore she will continue treatment with Augmentin. The patient's kidney function was monitored throughout her stay and worsened with use of Lasix. Lasix was discontinued and she was transitioned to bumetanide and her renal function improved; therefore, she will be discontinued on her home Lasix and she will continue to receive bumetanide outpatient. She is recommended to follow up outpatient with Nephrology. The patient continues to experience hypoxia, which could be related to her COPD versus fluid overload. She no longer has an abnormal pulmonary exam, no rales or wheeze; therefore, we recommend continued diuresis with bumetanide and attempts to wean oxygen. Ms. Treviño is noted to be on apixaban b.i.d. She should follow with her primary care provider regarding continued use as this has not been studied in patients with chronic kidney disease. Also, the patient has reports of recent falls and therefore she may be unsafe using anticoagulation. This should be followed with her primary care provider. At the time of discharge, the patient complains of urinary retention and urgency, but denies dysuria and frequency. She complains of shortness of breath at times. She also complains of lower extremity edema, but notes that her lower extremities are back to baseline. She denies chest pain, cough, fevers, chills, abdominal pain, nausea , vomiting, diarrhea, myalgias, arthralgias. Ms. Treviño is stable for discharge to [facility] [address]. PHYSICAL EXAMINATION: Vital Signs: Temperature 96.7 oral, heart rate 61, respiratory rate 17, oxygen saturation 96% on 3 L oxygen, blood pressure 163/ 58. General: Ms. Treviño is a well-developed, well-nourished, obese, elderly white woman, who is sitting in her chair with lower extremities on floor. She appears to be in no acute distress and is breathing comfortably on 3 L of oxygen. HEENT: PERRL. EOMI. Nonicteric sclerae. Hearing is grossly intact. Oral mucous membranes are moist. There are no lesions. The pharynx is clear. Tongue is at midline. Cardiovascular: Regular rate and rhythm with S1, S2 present. No murmurs, rubs, clicks, or gallops. There is no JVD. There is trace bilateral lower extremity edema. Pulmonary: Symmetrical chest expansion. No use of accessory muscles. Clear to auscultation bilaterally without rhonchi, wheeze, or rales. Abdomen: Obese. Bowel sounds in all quadrants. Soft, nontender to palpation. Musculoskeletal: Full range of motion without pain or deformity. Neuro: The patient is awake. She is alert and oriented x3. Cranial nerves XII through XII are grossly intact. She is able to move all of her extremities and her motor strength is 5/5 bilaterally in the upper and lower extremities. DISCHARGE PLAN: Ms. Treviño will be discharged to [facility] [address]. CONDITION: Fair. DIET: 1. Heart-healthy. 2. ADA/diabetic. ACTIVITY: As tolerated. MEDICATIONS: Treat urinary tract infection with Augmentin b.i.d. for 10 days. EDUCATION: 1. Recommend CBC, BMP in 5 to 7 days to monitor anemia, kidney function. 2. Wean oxygen as able. 3. Monitor blood pressure for need for adjustment in antihypertensives. 4. Discuss anticoagulation use in the setting of CKD and frequent falls with primary care provider. 5. Follow up with primary care provider in 4 to 7 days. 6. Consider Nephrology consult for CKD. 7. Follow up with jewel bearing maker within 1 month, discuss medication changes, nonurgent stress test. 8. Return to the ER or nearest hospital if you experience any return or worsening of symptoms, chest pain or discomfort, shortness of breath, dizziness , lightheadedness, loss of consciousness, high fevers, chills, night sweats, or any other worrisome signs or symptoms. This is a summarized report of a complex medical history and hospital stay. For further details, please see the entire medical record. TIME SPENT: Approximately 40 minutes was spent on this discharge, greater than half that time was spent [id number] with the patient discussing discharge plans and instructions. PETER WHEATLEY [id number]/[facility] #: [id number]
[2020-01-22 15:27] VITALS: BP 162/41
== END 2020-01-22 15:45 | DRG 291 ==
LOC: ED 15:56 → MEDTELE 21:16
PROVIDERS: ADMIT Family Medicine; ATTEND Internal Medicine
DX: I13.0 Hypertensive heart and chronic kidney disease with heart failure and stage 1 through stage 4 chronic kidney disease, or unspecified chronic kidney disease (principal); I50.33 Acute on chronic diastolic (congestive) heart failure; N17.9 Acute kidney failure, unspecified; N39.0 Urinary tract infection, site not specified; I08.1 Rheumatic disorders of both mitral and tricuspid valves; E78.5 Hyperlipidemia, unspecified; N18.3 Chronic kidney disease, stage 3 (moderate); R79.89 Other specified abnormal findings of blood chemistry; E11.22 Type 2 diabetes mellitus with diabetic chronic kidney disease; E03.9 Hypothyroidism, unspecified; G47.33 Obstructive sleep apnea (adult) (pediatric); K75.81 Nonalcoholic steatohepatitis (NASH); R29.6 Repeated falls; E66.9 Obesity, unspecified; I25.10 Atherosclerotic heart disease of native coronary artery without angina pectoris; K21.9 Gastro-esophageal reflux disease without esophagitis; M10.9 Gout, unspecified; F32.9 Major depressive disorder, single episode, unspecified; D63.1 Anemia in chronic kidney disease; R09.02 Hypoxemia; E11.40 Type 2 diabetes mellitus with diabetic neuropathy, unspecified; J44.9 Chronic obstructive pulmonary disease, unspecified; F41.9 Anxiety disorder, unspecified; F03.90 Unspecified dementia, unspecified severity, without behavioral disturbance, psychotic disturbance, mood disturbance, and anxiety; Z79.01 Long term (current) use of anticoagulants; Z86.711 Personal history of pulmonary embolism; Z86.718 Personal history of other venous thrombosis and embolism; Z90.11 Acquired absence of right breast and nipple; Z90.710 Acquired absence of both cervix and uterus; Z87.891 Personal history of nicotine dependence; Z79.82 Long term (current) use of aspirin; Z68.35 Body mass index [BMI] 35.0-35.9, adult; Z95.5 Presence of coronary angioplasty implant and graft; Z98.1 Arthrodesis status; Z86.73 Personal history of transient ischemic attack (TIA), and cerebral infarction without residual deficits; Z85.3 Personal history of malignant neoplasm of breast; Z79.899 Other long term (current) drug therapy; Z79.890 Hormone replacement therapy; Z79.4 Long term (current) use of insulin
CPT/HCPCS: 36415; 71045; 80048; 80053; 81003; 81015; 82140; 82607; 82728; 82746; 83540; 83735; 83880; 84443; 84466; 84484; 85025; 85610; 86140; 87077; 87086; 87186; 93005; 93308; 96361; 96374; 99284; A9270-GY; J0360; J1815; J1940; J2405; J3475

== ENCOUNTER 2020-08-03 09:17 | Inpatient (IN) ==
[2020-08-03] MEDS ORDERED: Furosemide 40 mg/4 ml IV VIAL IV ONE (10:38)
[2020-08-03 12:02] LABS: ABS Eosinophils 0.2 10^3/ul (0-0.6); ABS Lymphocytes 0.8 10^3/ul (1.0-4.8); ABS Monocytes 0.4 10^3/ul (0-0.8); ABS Neutrophils 6.1 10^3/ul (1.5-7.7); Eosinophil % 2.4 %; Hematocrit 31 % (35-47); Hemoglobin 10.5 g/dL (12.0-16.0); Lymphocyte % 10.5 %; Mean Corpuscular HGB Conc 34 g/dL (31-36); Mean Corpuscular Hemoglobin 30 pg (27-31); Mean Corpuscular Volume 88 fL (80-97); Mean Platelet Volume 9.3 fL (7.4-10.4); Platelet Count 155 10^3/uL (150-450); Red Blood Count 3.48 10^6 /uL (3.70-4.87); Red Cell Distribution Width 15 % (10-15); White Blood Count 7.4 10^3/uL (3.5-10.8)
[2020-08-03 12:19] LABS: ALT 9 U/L (7-52); AST 12 U/L (13-39); Albumin 3.3 g/dL (3.2-5.2); Albumin/Globulin Ratio 1.1 (1-3); Alkaline Phosphatase 295 U/L (34-104); Anion Gap 5 mmol/L (2-11); BUN/Creatinine Ratio 22.2 (8-20); Blood Urea Nitrogen 53 mg/dL (6-24); CO2 Carbon Dioxide 26 mmol/L (22-32); Calcium 9.1 mg/dL (8.6-10.3); Chloride 110 mmol/L (101-111); EGFR African American 23.7 (>60); EGFR Non-African American 19.6 (>60); Globulin 2.9 g/dL (2-4); Glucose 184 mg/dL (70-100); Potassium 4.6 mmol/L (3.5-5.0); Sodium 141 mmol/L (135-145); Total Protein 6.2 g/dL (6.4-8.9)
[2020-08-03 12:36] LABS: Troponin I 0.03 ng/mL (<0.03)
[2020-08-03] MEDS ORDERED: Dextrose 50% Syringe 50 ml 25 GM/50 ML SYRINGE IV PUSH PRN (13:07)
[2020-08-03] MEDS ORDERED: Furosemide 40 mg/4 ml IV VIAL IV SLOW PU ONE (13:33)
[2020-08-03] MEDS: Insulin GLARGINE 100 un/ml 10 ml VIAL SUBCUT SCH (20:46)
[2020-08-04 06:50] LABS: ABS Basophils 0.1 10^3/ul (0-0.2); ABS Eosinophils 0.2 10^3/ul (0-0.6); ABS Lymphocytes 0.9 10^3/ul (1.0-4.8); ABS Monocytes 0.3 10^3/ul (0-0.8); ABS Neutrophils 4.4 10^3/ul (1.5-7.7); Eosinophil % 4.1 %; Hematocrit 30 % (35-47); Hemoglobin 10.4 g/dL (12.0-16.0); Lymphocyte % 15.9 %; Mean Corpuscular HGB Conc 35 g/dL (31-36); Mean Corpuscular Hemoglobin 30 pg (27-31); Mean Corpuscular Volume 88 fL (80-97); Mean Platelet Volume 9.3 fL (7.4-10.4); Platelet Count 146 10^3/uL (150-450); Red Blood Count 3.42 10^6 /uL (3.70-4.87); Red Cell Distribution Width 16 % (10-15)
[2020-08-04 07:05] LABS: BUN/Creatinine Ratio 22.3 (8-20); Calcium 8.7 mg/dL (8.6-10.3); EGFR African American 22.9 (>60); EGFR Non-African American 18.9 (>60); Potassium 4.3 mmol/L (3.5-5.0)
[2020-08-04] MEDS: Aspirin EC 81 mg TAB.EC (enteric coated) PO SCH (07:58)
[2020-08-04] MEDS: DULoxetine DR 60 mg CAP PO SCH (07:59)
[2020-08-04] MEDS ORDERED: Isosorbide Mononit ER 30mg TAB PO SCH (09:00)
[2020-08-04] MEDS ORDERED: hydrALAZINE 20 mg/ml 1 ML Vial IV IV SLOW PU ONE (11:24)
[2020-08-04 13:08] LABS: % Iron Saturation 17 % (15-55); Iron 44 ug/dL (50-212); Total Iron Binding Capacity 255 mcg/dL (250-450); Transferrin 182 mg/dL (203-362); Unsaturated Iron Binding < 240 ug/dL
[2020-08-04 13:26] LABS: Ferritin 55.6 ng/mL (11-307)
[2020-08-04] MEDS: Furosemide 40 mg/4 ml IV VIAL IV SLOW PU SCH (14:19)
[2020-08-04] MEDS: Enoxaparin 30 MG/0.3 ML SYR SUBCUT SCH (15:12)
[2020-08-04] MEDS: Benzocaine/Menthol LOZ MT PRN (15:12)
[2020-08-04] MEDS: Iron Sucrose 200 MG in NS 0.9% 100 ml BAG 100 ML IVPB SCH (15:33)
[2020-08-04] MEDS: Insulin GLARGINE 100 un/ml 10 ml VIAL SUBCUT SCH (21:45)
[2020-08-05] MEDS ORDERED: hydrALAZINE 20 mg/ml 1 ML Vial IV IV SLOW PU ONE (00:02)
[2020-08-05 05:45] LABS: ABS Basophils 0.1 10^3/ul (0-0.2); ABS Eosinophils 0.2 10^3/ul (0-0.6); ABS Lymphocytes 0.8 10^3/ul (1.0-4.8); ABS Monocytes 0.4 10^3/ul (0-0.8); Eosinophil % 3.8 %; Hematocrit 28 % (35-47); Hemoglobin 9.5 g/dL (12.0-16.0); Lymphocyte % 14.2 %; Mean Corpuscular HGB Conc 33 g/dL (31-36); Mean Corpuscular Hemoglobin 30 pg (27-31); Mean Corpuscular Volume 88 fL (80-97); Mean Platelet Volume 9.3 fL (7.4-10.4); Platelet Count 148 10^3/uL (150-450); Red Blood Count 3.22 10^6 /uL (3.70-4.87); Red Cell Distribution Width 16 % (10-15); White Blood Count 5.5 10^3/uL (3.5-10.8)
[2020-08-05 06:06] LABS: BUN/Creatinine Ratio 23.9 (8-20); Calcium 8.3 mg/dL (8.6-10.3); EGFR African American 20.8 (>60); EGFR Non-African American 17.2 (>60); Potassium 4.6 mmol/L (3.5-5.0)
[2020-08-05] MEDS: Aspirin EC 81 mg TAB.EC (enteric coated) PO SCH (08:18)
[2020-08-05] MEDS: Isosorbide Mononit ER 60mg TAB PO SCH (08:18)
[2020-08-05] MEDS: DULoxetine DR 60 mg CAP PO SCH (08:19)
[2020-08-05] MEDS: Furosemide 40 mg/4 ml IV VIAL IV SLOW PU SCH ×2 (09:32→15:09)
[2020-08-05] MEDS: Iron Sucrose 200 MG in NS 0.9% 100 ml BAG 100 ML IVPB SCH (09:32)
[2020-08-05 10:04] LABS: Urine Appearance Turbid; Urine Bilirubin Negative (Negative); Urine Blood 1+ (Negative); Urine Color Yellow; Urine Glucose Negative (Negative); Urine Ketones Negative (Negative); Urine Nitrite Negative (Negative); Urine Protein 3+(>=500 mg/dL) (Negative); Urine Specific Gravity 1.013 (1.010-1.030); Urine Urobilinogen Negative (Negative)
[2020-08-05 10:26] LABS: Ur Urea Nitrogen Concentration 579 mg/dL; Urine Sodium Concentration 74 mmol/L
[2020-08-05 10:30] LABS: Urine Bacteria Absent (Absent); Urine Red Blood Cell 3+(>10/hpf) (Absent); Urine Squamous Epithelial Cell Present (Absent); Urine White Blood Cell 3+(>20/hpf) (Absent)
[2020-08-05] MEDS: Benzocaine/Menthol LOZ MT PRN (12:10)
[2020-08-05] MEDS: Enoxaparin 30 MG/0.3 ML SYR SUBCUT SCH (15:09)
[2020-08-05] MEDS: Insulin GLARGINE 100 un/ml 10 ml VIAL SUBCUT SCH (21:52)
[2020-08-06 05:56] LABS: ABS Basophils 0.1 10^3/ul (0-0.2); ABS Eosinophils 0.2 10^3/ul (0-0.6); ABS Lymphocytes 0.8 10^3/ul (1.0-4.8); ABS Monocytes 0.3 10^3/ul (0-0.8); Eosinophil % 3.4 %; Hematocrit 29 % (35-47); Hemoglobin 9.7 g/dL (12.0-16.0); Lymphocyte % 14.3 %; Mean Corpuscular HGB Conc 34 g/dL (31-36); Mean Corpuscular Hemoglobin 30 pg (27-31); Mean Corpuscular Volume 88 fL (80-97); Platelet Count 149 10^3/uL (150-450); Red Blood Count 3.26 10^6 /uL (3.70-4.87); Red Cell Distribution Width 16 % (10-15); White Blood Count 5.3 10^3/uL (3.5-10.8)
[2020-08-06 06:18] LABS: BUN/Creatinine Ratio 22.2 (8-20); Calcium 8.8 mg/dL (8.6-10.3); EGFR African American 18.8 (>60); EGFR Non-African American 15.5 (>60); Potassium 4.6 mmol/L (3.5-5.0)
[2020-08-06] MEDS: DULoxetine DR 60 mg CAP PO SCH (09:27)
[2020-08-06] MEDS: Aspirin EC 81 mg TAB.EC (enteric coated) PO SCH (09:28)
[2020-08-06] MEDS: Isosorbide Mononit ER 60mg TAB PO SCH (09:28)
[2020-08-06] MEDS: Furosemide 40 mg/4 ml IV VIAL IV SLOW PU SCH ×2 (09:31→16:02)
[2020-08-06] MEDS: Iron Sucrose 200 MG in NS 0.9% 100 ml BAG 100 ML IVPB SCH (09:31)
[2020-08-06] MEDS: Senna TAB 8.6 mg TAB PO PRN (10:45)
[2020-08-06] MEDS: Enoxaparin 30 MG/0.3 ML SYR SUBCUT SCH (16:02)
[2020-08-06] MEDS: Insulin GLARGINE 100 un/ml 10 ml VIAL SUBCUT SCH (21:04)
[2020-08-07] MEDS ORDERED: hydrALAZINE 20 mg/ml 1 ML Vial IV IV SLOW PU PRN ×2 (03:44→07:37)
[2020-08-07] MEDS ORDERED: Furosemide 40 mg/4 ml IV VIAL IV SLOW PU ONE (06:00)
[2020-08-07 07:14] LABS: ABS Basophils 0.1 10^3/ul (0-0.2); ABS Eosinophils 0.1 10^3/ul (0-0.6); ABS Lymphocytes 0.4 10^3/ul (1.0-4.8); ABS Monocytes 0.3 10^3/ul (0-0.8); ABS Neutrophils 4.2 10^3/ul (1.5-7.7); Eosinophil % 2.1 %; Hematocrit 28 % (35-47); Hemoglobin 9.8 g/dL (12.0-16.0); Lymphocyte % 7.5 %; Mean Corpuscular HGB Conc 35 g/dL (31-36); Mean Corpuscular Hemoglobin 31 pg (27-31); Mean Corpuscular Volume 89 fL (80-97); Mean Platelet Volume 9.2 fL (7.4-10.4); Platelet Count 128 10^3/uL (150-450); Red Blood Count 3.19 10^6 /uL (3.70-4.87); Red Cell Distribution Width 16 % (10-15)
[2020-08-07 07:31] LABS: BUN/Creatinine Ratio 23.9 (8-20); Calcium 8.7 mg/dL (8.6-10.3); EGFR African American 18.5 (>60); EGFR Non-African American 15.3 (>60); Magnesium 1.8 mg/dL (1.9-2.7); Potassium 4.5 mmol/L (3.5-5.0)
[2020-08-07] MEDS ORDERED: Magnesium Sulfate 2 gm BAG 2 GM/50 ML BAG IVPB ONE (07:36)
[2020-08-07] MEDS: Isosorbide Mononit ER 60mg TAB PO SCH (08:20)
[2020-08-07] MEDS: DULoxetine DR 60 mg CAP PO SCH (08:20)
[2020-08-07] MEDS: Aspirin EC 81 mg TAB.EC (enteric coated) PO SCH (08:21)
[2020-08-07] MEDS: Iron Sucrose 200 MG in NS 0.9% 100 ml BAG 100 ML IVPB SCH (10:16)
[2020-08-07] MEDS: cefTRIAXone 1 gm/50 mL NS BAG 1 GM/50 ML BAG IVPB SCH (11:03)
[2020-08-07] MEDS ORDERED: Furosemide 40 mg/4 ml IV VIAL IV SLOW PU SCH (15:00)
[2020-08-07] MEDS: Enoxaparin 30 MG/0.3 ML SYR SUBCUT SCH (15:16)
[2020-08-07] MEDS: Insulin GLARGINE 100 un/ml 10 ml VIAL SUBCUT SCH (21:10)
[2020-08-07] MEDS: Benzocaine/Menthol LOZ MT PRN (21:16)
[2020-08-08 06:53] LABS: ABS Eosinophils 0.1 10^3/ul (0-0.6); ABS Lymphocytes 0.7 10^3/ul (1.0-4.8); ABS Monocytes 0.3 10^3/ul (0-0.8); ABS Neutrophils 2.5 10^3/ul (1.5-7.7); Eosinophil % 2.5 %; Hematocrit 28 % (35-47); Hemoglobin 9.9 g/dL (12.0-16.0); Lymphocyte % 18.6 %; Mean Corpuscular HGB Conc 35 g/dL (31-36); Mean Corpuscular Hemoglobin 31 pg (27-31); Mean Corpuscular Volume 88 fL (80-97); Mean Platelet Volume 8.9 fL (7.4-10.4); Platelet Count 125 10^3/uL (150-450); Red Cell Distribution Width 16 % (10-15); White Blood Count 3.7 10^3/uL (3.5-10.8)
[2020-08-08 07:08] LABS: Albumin/Globulin Ratio 1.1 (1-3); BUN/Creatinine Ratio 23.7 (8-20); Calcium 8.9 mg/dL (8.6-10.3); EGFR African American 18.3 (>60); EGFR Non-African American 15.1 (>60); Globulin 2.7 g/dL (2-4); Magnesium 2.2 mg/dL (1.9-2.7); Total Bilirubin 0.3 mg/dL (0.2-1.0); Total Protein 5.7 g/dL (6.4-8.9)
[2020-08-08] MEDS: cefTRIAXone 1 gm/50 mL NS BAG 1 GM/50 ML BAG IVPB SCH (07:18)
[2020-08-08] MEDS: Isosorbide Mononit ER 60mg TAB PO SCH (09:10)
[2020-08-08] MEDS: DULoxetine DR 60 mg CAP PO SCH (09:10)
[2020-08-08] MEDS: Furosemide 40 mg/4 ml IV VIAL IV SLOW PU SCH ×3 (09:11→20:54)
[2020-08-08] MEDS: Aspirin EC 81 mg TAB.EC (enteric coated) PO SCH (09:15)
[2020-08-08] MEDS: Enoxaparin 30 MG/0.3 ML SYR SUBCUT SCH (15:35)
[2020-08-08] MEDS: Insulin GLARGINE 100 un/ml 10 ml VIAL SUBCUT SCH (20:54)
[2020-08-09 07:16] LABS: ABS Eosinophils 0.2 10^3/ul (0-0.6); ABS Lymphocytes 0.8 10^3/ul (1.0-4.8); ABS Monocytes 0.5 10^3/ul (0-0.8); ABS Neutrophils 2.7 10^3/ul (1.5-7.7); Eosinophil % 3.9 %; Hematocrit 27 % (35-47); Hemoglobin 9.4 g/dL (12.0-16.0); Lymphocyte % 18.4 %; Mean Corpuscular HGB Conc 35 g/dL (31-36); Mean Corpuscular Hemoglobin 31 pg (27-31); Mean Corpuscular Volume 88 fL (80-97); Mean Platelet Volume 9.5 fL (7.4-10.4); Platelet Count 131 10^3/uL (150-450); Red Blood Count 3.09 10^6 /uL (3.70-4.87); Red Cell Distribution Width 16 % (10-15); White Blood Count 4.2 10^3/uL (3.5-10.8)
[2020-08-09] MEDS: cefTRIAXone 1 gm/50 mL NS BAG 1 GM/50 ML BAG IVPB SCH (07:21)
[2020-08-09] MEDS: DULoxetine DR 60 mg CAP PO SCH (07:21)
[2020-08-09] MEDS: Isosorbide Mononit ER 60mg TAB PO SCH (07:21)
[2020-08-09] MEDS: Aspirin EC 81 mg TAB.EC (enteric coated) PO SCH (07:21)
[2020-08-09] MEDS: Furosemide 40 mg/4 ml IV VIAL IV SLOW PU SCH ×2 (07:25→13:58)
[2020-08-09 09:41] LABS: Magnesium 2.2 mg/dL (1.9-2.7); Potassium 4.2 mmol/L (3.5-5.0)
[2020-08-09 09:47] LABS: BUN/Creatinine Ratio 22.8 (8-20); EGFR African American 16.7 (>60); EGFR Non-African American 13.8 (>60)
[2020-08-09] MEDS: Enoxaparin 30 MG/0.3 ML SYR SUBCUT SCH (13:57)
[2020-08-09] MEDS ORDERED: Isosorbide Mononit ER 30mg TAB PO ONE (16:23)
[2020-08-09] MEDS: Insulin GLARGINE 100 un/ml 10 ml VIAL SUBCUT SCH (21:37)
[2020-08-10] MEDS: Senna TAB 8.6 mg TAB PO PRN (05:32)
[2020-08-10] MEDS: Aspirin EC 81 mg TAB.EC (enteric coated) PO SCH (08:25)
[2020-08-10] MEDS: DULoxetine DR 60 mg CAP PO SCH (08:25)
[2020-08-10 08:42] LABS: BUN/Creatinine Ratio 23.8 (8-20); Calcium 8.8 mg/dL (8.6-10.3); EGFR Non-African American 13.2 (>60)
[2020-08-10] MEDS ORDERED: SPIRIVA Respimat (tiotropium) 2.5 mcg/inh Inhaler INH SCH (09:00)
[2020-08-10] MEDS ORDERED: Isosorbide Mononit ER 30mg TAB PO SCH (09:00)
[2020-08-10] MEDS: Enoxaparin 30 MG/0.3 ML SYR SUBCUT SCH (15:09)
[2020-08-10 15:14] VITALS: BP 152/51
== END 2020-08-10 19:04 | disposition home or self-care (01) | DRG 291 ==
LOC: ED 09:17 → OBSVTOIN 13:03 → MEDTELE 13:40 → INTOOBSV 14:39 → MEDTELE 14:39
PROVIDERS: ADMIT Registered Nurse; ATTEND Hospitalist

== ENCOUNTER 2020-11-25 09:00 | Inpatient (IN) ==
[2020-11-25] MEDS ORDERED: NS 0.9% 1000 ml BAG 1,000 ML IV ONE (09:11)
[2020-11-25] MEDS ORDERED: Morphine 2 MG/ML SYRINGE IV PRN ×2 (09:13→12:04)
[2020-11-25] MEDS ORDERED: Ondansetron 4 mg VIAL 2 MG/ML 2 ml VIAL IV ONE (09:14)
[2020-11-25 09:42] LABS: ABS Basophils 0.1 10^3/ul (0-0.2); ABS Eosinophils 0.2 10^3/ul (0-0.6); ABS Lymphocytes 0.7 10^3/ul (1.0-4.8); ABS Monocytes 0.4 10^3/ul (0-0.8); ABS Neutrophils 5.6 10^3/ul (1.5-7.7); Eosinophil % 2.3 %; Hematocrit 28 % (35-47); Hemoglobin 9.4 g/dL (12.0-16.0); Lymphocyte % 10.2 %; Mean Corpuscular HGB Conc 34 g/dL (31-36); Mean Corpuscular Hemoglobin 31 pg (27-31); Mean Corpuscular Volume 93 fL (80-97); Mean Platelet Volume 9.4 fL (7.4-10.4); Platelet Count 161 10^3/uL (150-450); Red Blood Count 3.02 10^6 /uL (3.70-4.87); Red Cell Distribution Width 14 % (10-15)
[2020-11-25 10:01] LABS: ALT 8 U/L (7-52); AST 11 U/L (13-39); Albumin 3.4 g/dL (3.2-5.2); Albumin/Globulin Ratio 1.2 (1-3); Alkaline Phosphatase 319 U/L (34-104); Anion Gap 7 mmol/L (2-11); BUN/Creatinine Ratio 27.5 (8-20); Blood Urea Nitrogen 73 mg/dL (6-24); CO2 Carbon Dioxide 26 mmol/L (22-32); Calcium 9.1 mg/dL (8.6-10.3); Chloride 108 mmol/L (101-111); Creatine Kinase 72 U/L (10-223); EGFR African American 21.1 (>60); EGFR Non-African American 17.4 (>60); Globulin 2.9 g/dL (2-4); Glucose 182 mg/dL (70-100); Magnesium 2.2 mg/dL (1.9-2.7); Potassium 4.2 mmol/L (3.5-5.0); Sodium 141 mmol/L (135-145); Total Protein 6.3 g/dL (6.4-8.9)
[2020-11-25 10:10] LABS: Troponin I 0.04 ng/mL (<0.03)
[2020-11-25 11:58] LABS: C Reactive Protein 11.76 mg/L (<8.01)
[2020-11-25] MEDS ORDERED: hydrALAZINE 20 mg/ml 1 ML Vial IV IV SLOW PU ONE ×2 (12:00→12:06)
[2020-11-25] MEDS ORDERED: Senna TAB 8.6 mg TAB PO PRN (12:05)
[2020-11-25] MEDS ORDERED: Furosemide 40 mg/4 ml IV VIAL IV SLOW PU ONE (12:11)
[2020-11-25] MEDS ORDERED: Dextrose 50% Syringe 50 ml 25 GM/50 ML SYRINGE IV PUSH PRN (12:21)
[2020-11-25 12:34] LABS: Troponin I 0.04 ng/mL (<0.03)
[2020-11-25] MEDS ORDERED: Nitro 2% OINT (Nitroglycerin) 1 INCH/PAK TOPICAL ONE ×2 (12:43→12:59)
[2020-11-25] MEDS ORDERED: niCARdipine 0.1MG/ML IVPREMIX 20 MG/200 ML BAG IV SCH (14:00)
[2020-11-25] MEDS ORDERED: Furosemide 40 mg/4 ml IV VIAL IV SLOW PU SCH (17:00)
[2020-11-25] MEDS: Heparin 5000 UNITS/ML 1 mL VIAL SUBCUT SCH ×2 (17:20→21:06)
[2020-11-25 18:05] LABS: Urine Appearance Turbid; Urine Bilirubin Negative (Negative); Urine Blood 1+ (Negative); Urine Color Yellow; Urine Glucose Negative (Negative); Urine Ketones Negative (Negative); Urine Nitrite Negative (Negative); Urine Protein 2+(100 mg/dL) (Negative); Urine Specific Gravity 1.009 (1.010-1.030); Urine Urobilinogen Negative (Negative)
[2020-11-25 18:21] LABS: Urine Bacteria 1+ (Absent); Urine Red Blood Cell 1+(3-5/hpf) (Absent); Urine Squamous Epithelial Cell Present (Absent); Urine White Blood Cell 3+(>20/hpf) (Absent)
[2020-11-25] MEDS: Insulin GLARGINE 100 un/ml 10 ml VIAL SUBCUT SCH (21:06)
[2020-11-26 05:14] LABS: BUN/Creatinine Ratio 24.1 (8-20); Blood Urea Nitrogen 73 mg/dL (6-24); CO2 Carbon Dioxide 24 mmol/L (22-32); Calcium 8.7 mg/dL (8.6-10.3); Chloride 110 mmol/L (101-111); EGFR African American 18.1 (>60); EGFR Non-African American 14.9 (>60); Glucose 137 mg/dL (70-100); Sodium 140 mmol/L (135-145)
[2020-11-26] MEDS: Heparin 5000 UNITS/ML 1 mL VIAL SUBCUT SCH (05:54)
[2020-11-26 05:56] LABS: Anion Gap 6 mmol/L (2-11)
[2020-11-26] MEDS: SPIRIVA Respimat (tiotropium) 2.5 mcg/inh Inhaler INH SCH (07:44)
[2020-11-26] MEDS ORDERED: Furosemide 100 mg/10 ml IV VIAL IV SCH (08:00)
[2020-11-26] MEDS: Aspirin EC 81 mg TAB.EC (enteric coated) PO SCH (08:49)
[2020-11-26] MEDS: Cholecalciferol (VIT D3) 400 units TAB PO SCH (08:52)
[2020-11-26] MEDS: DULoxetine DR 60 mg CAP PO SCH (08:52)
[2020-11-26] MEDS ORDERED: Heparin DRIP 25,000 UNITS BAG 25,000 UNITS/500 ML BAG IV SCH (13:00)
[2020-11-26 14:01] LABS: ABS Eosinophils 0.1 10^3/ul (0-0.6); ABS Lymphocytes 0.6 10^3/ul (1.0-4.8); ABS Monocytes 0.3 10^3/ul (0-0.8); ABS Neutrophils 5.2 10^3/ul (1.5-7.7); Hematocrit 27 % (35-47); Hemoglobin 8.8 g/dL (12.0-16.0); Lymphocyte % 9.5 %; Mean Corpuscular HGB Conc 33 g/dL (31-36); Mean Corpuscular Hemoglobin 31 pg (27-31); Mean Corpuscular Volume 95 fL (80-97); Mean Platelet Volume 9.7 fL (7.4-10.4); Platelet Count 148 10^3/uL (150-450); Red Cell Distribution Width 15 % (10-15); White Blood Count 6.2 10^3/uL (3.5-10.8)
[2020-11-26] MEDS: Heparin 5000 UNITS/ML 1 mL VIAL IV SCH ×2 (14:08→21:02)
[2020-11-26 14:13] LABS: Blood Urea Nitrogen 78 mg/dL (6-24); EGFR African American 17.8 (>60); EGFR Non-African American 14.8 (>60)
[2020-11-26 14:41] LABS: Troponin I 0.04 ng/mL (<0.03)
[2020-11-26] MEDS: Sulfamethox/Trimethoprim SS TAB 400/80 mg PO SCH (17:51)
[2020-11-26 20:32] LABS: Troponin I 0.04 ng/mL (<0.03)
[2020-11-26] MEDS: Insulin GLARGINE 100 un/ml 10 ml VIAL SUBCUT SCH (20:36)
[2020-11-26 23:20] LABS: BUN/Creatinine Ratio 22.8 (8-20); Calcium 8.6 mg/dL (8.6-10.3); EGFR Non-African American 12.4 (>60); Magnesium 2.1 mg/dL (1.9-2.7); Potassium 4.8 mmol/L (3.5-5.0)
[2020-11-26 23:48] LABS: TSH Ultra Thyroid Stim Horm 3.83 mcIU/mL (0.34-5.60)
[2020-11-27 03:10] LABS: ABS Basophils 0.1 10^3/ul (0-0.2); ABS Eosinophils 0.1 10^3/ul (0-0.6); ABS Lymphocytes 0.7 10^3/ul (1.0-4.8); ABS Monocytes 0.4 10^3/ul (0-0.8); ABS Neutrophils 5.6 10^3/ul (1.5-7.7); Eosinophil % 1.7 %; Hematocrit 25 % (35-47); Hemoglobin 8.4 g/dL (12.0-16.0); Lymphocyte % 10.3 %; Mean Corpuscular HGB Conc 33 g/dL (31-36); Mean Corpuscular Hemoglobin 31 pg (27-31); Mean Corpuscular Volume 94 fL (80-97); Mean Platelet Volume 9.4 fL (7.4-10.4); Platelet Count 158 10^3/uL (150-450); Red Blood Count 2.69 10^6 /uL (3.70-4.87); Red Cell Distribution Width 14 % (10-15); White Blood Count 6.9 10^3/uL (3.5-10.8)
[2020-11-27 03:25] LABS: BUN/Creatinine Ratio 22.5 (8-20); Calcium 8.3 mg/dL (8.6-10.3); EGFR African American 13.8 (>60); EGFR Non-African American 11.4 (>60); Magnesium 2.1 mg/dL (1.9-2.7); Potassium 4.8 mmol/L (3.5-5.0)
[2020-11-27] MEDS: SPIRIVA Respimat (tiotropium) 2.5 mcg/inh Inhaler INH SCH (08:10)
[2020-11-27] MEDS: Heparin 5000 UNITS/ML 1 mL VIAL IV SCH (09:53)
[2020-11-27] MEDS: Cholecalciferol (VIT D3) 400 units TAB PO SCH (09:57)
[2020-11-27] MEDS: Aspirin EC 81 mg TAB.EC (enteric coated) PO SCH (09:58)
[2020-11-27] MEDS: DULoxetine DR 60 mg CAP PO SCH (09:58)
[2020-11-27] MEDS: Sulfamethox/Trimethoprim SS TAB 400/80 mg PO SCH (09:58)
[2020-11-27] MEDS ORDERED: NS 0.9% 1000 ml BAG 1,000 ML IV SCH ×2 (10:15→19:45)
[2020-11-27 13:28] LABS: Urine Appearance Turbid; Urine Bilirubin Negative (Negative); Urine Blood 1+ (Negative); Urine Color Amber; Urine Glucose 1+(50 mg/dL) (Negative); Urine Ketones Negative (Negative); Urine Nitrite Negative (Negative); Urine Protein 3+(>=500 mg/dL) (Negative); Urine Specific Gravity 1.014 (1.010-1.030); Urine Urobilinogen Negative (Negative)
[2020-11-27 13:41] LABS: Urine Bacteria 3+ (Absent); Urine Red Blood Cell 2+(6-10/hpf) (Absent); Urine White Blood Cell 3+(>20/hpf) (Absent)
[2020-11-27 17:32] LABS: BUN/Creatinine Ratio 22.1 (8-20); Calcium 8.5 mg/dL (8.6-10.3); EGFR African American 12.7 (>60); EGFR Non-African American 10.5 (>60); Potassium 4.6 mmol/L (3.5-5.0)
[2020-11-27] MEDS: Insulin GLARGINE 100 un/ml 10 ml VIAL SUBCUT SCH (21:53)
[2020-11-28 06:26] LABS: ABS Eosinophils 0.2 10^3/ul (0-0.6); ABS Lymphocytes 0.7 10^3/ul (1.0-4.8); ABS Monocytes 0.3 10^3/ul (0-0.8); ABS Neutrophils 3.5 10^3/ul (1.5-7.7); Eosinophil % 3.7 %; Hematocrit 24 % (35-47); Hemoglobin 7.7 g/dL (12.0-16.0); Lymphocyte % 14.2 %; Mean Corpuscular HGB Conc 32 g/dL (31-36); Mean Corpuscular Hemoglobin 31 pg (27-31); Mean Corpuscular Volume 96 fL (80-97); Mean Platelet Volume 9.8 fL (7.4-10.4); Platelet Count 118 10^3/uL (150-450); Red Blood Count 2.48 10^6 /uL (3.70-4.87); Red Cell Distribution Width 14 % (10-15); White Blood Count 4.6 10^3/uL (3.5-10.8)
[2020-11-28 06:44] LABS: Calcium 8.3 mg/dL (8.6-10.3); EGFR African American 12.6 (>60); EGFR Non-African American 10.4 (>60); Potassium 4.6 mmol/L (3.5-5.0)
[2020-11-28] MEDS: SPIRIVA Respimat (tiotropium) 2.5 mcg/inh Inhaler INH SCH (08:58)
[2020-11-28] MEDS: Aspirin EC 81 mg TAB.EC (enteric coated) PO SCH (10:10)
[2020-11-28] MEDS: Sulfamethox/Trimethoprim SS TAB 400/80 mg PO SCH (10:10)
[2020-11-28] MEDS: Cholecalciferol (VIT D3) 400 units TAB PO SCH (10:11)
[2020-11-28] MEDS: DULoxetine DR 60 mg CAP PO SCH (10:13)
[2020-11-28] MEDS ORDERED: Magnesium Hydroxide LIQ 30 ML UDC PO PRN (15:08)
[2020-11-28] MEDS: Polyethylene Glycol 3350 17 GM PACKET PO PRN (18:13)
[2020-11-28] MEDS: Magnesium Hydroxide LIQ 30 ML UDC PO SCH (20:12)
[2020-11-28] MEDS: Insulin GLARGINE 100 un/ml 10 ml VIAL SUBCUT SCH (20:47)
[2020-11-29] MEDS: SPIRIVA Respimat (tiotropium) 2.5 mcg/inh Inhaler INH SCH (07:42)
[2020-11-29] MEDS: Magnesium Hydroxide LIQ 30 ML UDC PO SCH ×2 (10:22→19:46)
[2020-11-29] MEDS: Cholecalciferol (VIT D3) 400 units TAB PO SCH (10:23)
[2020-11-29] MEDS: DULoxetine DR 60 mg CAP PO SCH (10:24)
[2020-11-29] MEDS: Sulfamethox/Trimethoprim SS TAB 400/80 mg PO SCH (10:25)
[2020-11-29] MEDS: Aspirin EC 81 mg TAB.EC (enteric coated) PO SCH (10:25)
[2020-11-29 10:32] LABS: ABS Eosinophils 0.1 10^3/ul (0-0.6); ABS Lymphocytes 0.4 10^3/ul (1.0-4.8); ABS Monocytes 0.3 10^3/ul (0-0.8); ABS Neutrophils 3.5 10^3/ul (1.5-7.7); Eosinophil % 3.4 %; Hematocrit 24 % (35-47); Hemoglobin 8.1 g/dL (12.0-16.0); Mean Corpuscular HGB Conc 34 g/dL (31-36); Mean Corpuscular Hemoglobin 32 pg (27-31); Mean Corpuscular Volume 92 fL (80-97); Mean Platelet Volume 9.4 fL (7.4-10.4); Platelet Count 133 10^3/uL (150-450); Red Blood Count 2.55 10^6 /uL (3.70-4.87); Red Cell Distribution Width 14 % (10-15); White Blood Count 4.3 10^3/uL (3.5-10.8)
[2020-11-29 10:49] LABS: Albumin 2.8 g/dL (3.2-5.2); BUN/Creatinine Ratio 23.6 (8-20); Calcium 8.3 mg/dL (8.6-10.3); EGFR African American 13.2 (>60); EGFR Non-African American 10.9 (>60); Globulin 2.9 g/dL (2-4); Magnesium 2.1 mg/dL (1.9-2.7); Potassium 4.8 mmol/L (3.5-5.0); Total Bilirubin 0.2 mg/dL (0.2-1.0); Total Protein 5.7 g/dL (6.4-8.9)
[2020-11-29] MEDS ORDERED: Heparin 5000 UNITS/ML 1 mL VIAL IV SCH (13:00)
[2020-11-29] MEDS: Insulin GLARGINE 100 un/ml 10 ml VIAL SUBCUT SCH (19:47)
[2020-11-29] MEDS: Heparin 5000 UNITS/ML 1 mL VIAL SUBCUT SCH (22:37)
[2020-11-30] MEDS: Heparin 5000 UNITS/ML 1 mL VIAL SUBCUT SCH ×3 (05:17→20:46)
[2020-11-30 07:30] LABS: ABS Eosinophils 0.2 10^3/ul (0-0.6); ABS Lymphocytes 0.6 10^3/ul (1.0-4.8); ABS Monocytes 0.3 10^3/ul (0-0.8); Eosinophil % 4.4 %; Hematocrit 25 % (35-47); Hemoglobin 8.4 g/dL (12.0-16.0); Lymphocyte % 14.8 %; Mean Corpuscular HGB Conc 33 g/dL (31-36); Mean Corpuscular Hemoglobin 31 pg (27-31); Mean Corpuscular Volume 94 fL (80-97); Mean Platelet Volume 9.5 fL (7.4-10.4); Platelet Count 148 10^3/uL (150-450); Red Blood Count 2.68 10^6 /uL (3.70-4.87); Red Cell Distribution Width 14 % (10-15); White Blood Count 4.1 10^3/uL (3.5-10.8)
[2020-11-30 07:49] LABS: Calcium 8.9 mg/dL (8.6-10.3); EGFR African American 14.6 (>60); Magnesium 2.5 mg/dL (1.9-2.7); Potassium 4.9 mmol/L (3.5-5.0)
[2020-11-30] MEDS: SPIRIVA Respimat (tiotropium) 2.5 mcg/inh Inhaler INH SCH (08:11)
[2020-11-30] MEDS: DULoxetine DR 60 mg CAP PO SCH (09:06)
[2020-11-30] MEDS: Magnesium Hydroxide LIQ 30 ML UDC PO SCH ×2 (09:06→20:45)
[2020-11-30] MEDS: Cholecalciferol (VIT D3) 400 units TAB PO SCH (09:06)
[2020-11-30] MEDS: Aspirin EC 81 mg TAB.EC (enteric coated) PO SCH (09:07)
[2020-11-30] MEDS: Polyethylene Glycol 3350 17 GM PACKET PO PRN (13:02)
[2020-11-30] MEDS: Insulin GLARGINE 100 un/ml 10 ml VIAL SUBCUT SCH (20:45)
[2020-12-01] MEDS: Heparin 5000 UNITS/ML 1 mL VIAL SUBCUT SCH ×3 (05:20→21:16)
[2020-12-01] MEDS: SPIRIVA Respimat (tiotropium) 2.5 mcg/inh Inhaler INH SCH (07:26)
[2020-12-01 08:39] LABS: Hematocrit 25 % (35-47); Hemoglobin 8.3 g/dL (12.0-16.0); Mean Corpuscular HGB Conc 34 g/dL (31-36); Mean Corpuscular Hemoglobin 32 pg (27-31); Mean Corpuscular Volume 95 fL (80-97); Mean Platelet Volume 9.7 fL (7.4-10.4); Platelet Count 154 10^3/uL (150-450); Red Blood Count 2.62 10^6 /uL (3.70-4.87); Red Cell Distribution Width 14 % (10-15); White Blood Count 3.9 10^3/uL (3.5-10.8)
[2020-12-01 08:55] LABS: BUN/Creatinine Ratio 25.1 (8-20); Calcium 9.1 mg/dL (8.6-10.3); EGFR African American 14.8 (>60); EGFR Non-African American 12.3 (>60); Magnesium 2.9 mg/dL (1.9-2.7)
[2020-12-01 08:56] LABS: Potassium 5.5 mmol/L (3.5-5.0)
[2020-12-01] MEDS: Magnesium Hydroxide LIQ 30 ML UDC PO SCH ×2 (09:58→21:17)
[2020-12-01] MEDS: Aspirin EC 81 mg TAB.EC (enteric coated) PO SCH (09:59)
[2020-12-01] MEDS: Cholecalciferol (VIT D3) 400 units TAB PO SCH (09:59)
[2020-12-01] MEDS ORDERED: Sodium Polystyrene ORAL.SUSP 15 GM/60 ML BTL PO ONE (10:00)
[2020-12-01] MEDS: DULoxetine DR 60 mg CAP PO SCH (10:02)
[2020-12-01] MEDS: Insulin GLARGINE 100 un/ml 10 ml VIAL SUBCUT SCH (21:17)
[2020-12-02] MEDS: Heparin 5000 UNITS/ML 1 mL VIAL SUBCUT SCH ×3 (05:28→21:41)
[2020-12-02 06:51] LABS: ABS Basophils 0.1 10^3/ul (0-0.2); ABS Eosinophils 0.2 10^3/ul (0-0.6); ABS Lymphocytes 0.7 10^3/ul (1.0-4.8); ABS Monocytes 0.3 10^3/ul (0-0.8); ABS Neutrophils 3.2 10^3/ul (1.5-7.7); Eosinophil % 3.9 %; Hematocrit 25 % (35-47); Hemoglobin 8.3 g/dL (12.0-16.0); Lymphocyte % 14.7 %; Mean Corpuscular HGB Conc 34 g/dL (31-36); Mean Corpuscular Hemoglobin 31 pg (27-31); Mean Corpuscular Volume 94 fL (80-97); Mean Platelet Volume 9.8 fL (7.4-10.4); Platelet Count 154 10^3/uL (150-450); Red Blood Count 2.65 10^6 /uL (3.70-4.87); Red Cell Distribution Width 14 % (10-15); White Blood Count 4.4 10^3/uL (3.5-10.8)
[2020-12-02 07:13] LABS: BUN/Creatinine Ratio 23.6 (8-20); Calcium 9.3 mg/dL (8.6-10.3); EGFR African American 14.4 (>60); EGFR Non-African American 11.9 (>60)
[2020-12-02] MEDS: SPIRIVA Respimat (tiotropium) 2.5 mcg/inh Inhaler INH SCH (08:06)
[2020-12-02] MEDS: Aspirin EC 81 mg TAB.EC (enteric coated) PO SCH (09:16)
[2020-12-02] MEDS: Cholecalciferol (VIT D3) 400 units TAB PO SCH (09:18)
[2020-12-02] MEDS: DULoxetine DR 60 mg CAP PO SCH (09:20)
[2020-12-02] MEDS: Insulin GLARGINE 100 un/ml 10 ml VIAL SUBCUT SCH (21:40)
[2020-12-03] MEDS: Heparin 5000 UNITS/ML 1 mL VIAL SUBCUT SCH ×2 (05:54→13:16)
[2020-12-03 06:33] LABS: Calcium 9.5 mg/dL (8.6-10.3); EGFR African American 14.2 (>60); EGFR Non-African American 11.7 (>60)
[2020-12-03] MEDS: Cholecalciferol (VIT D3) 400 units TAB PO SCH (09:24)
[2020-12-03] MEDS: Aspirin EC 81 mg TAB.EC (enteric coated) PO SCH (09:26)
[2020-12-03] MEDS: DULoxetine DR 60 mg CAP PO SCH (09:26)
[2020-12-03] MEDS: SPIRIVA Respimat (tiotropium) 2.5 mcg/inh Inhaler INH SCH (10:28)
[2020-12-03 15:32] VITALS: BP 101/71
== END 2020-12-03 13:57 | disposition swing bed (61) | DRG 178 ==
LOC: ICU 09:00 → ED 09:00 → ICU 15:13 → MED 11-26 06:28
PROVIDERS: ADMIT Internal Medicine; ATTEND Internal Medicine

== ENCOUNTER 2020-12-03 14:01 | Inpatient (IN) ==
[2020-12-03] MEDS ORDERED: Senna TAB 8.6 mg TAB PO PRN (15:13)
[2020-12-03] MEDS ORDERED: Enoxaparin 30 MG/0.3 ML SYR SUBCUT SCH (16:00)
[2020-12-03] MEDS: Heparin 5000 UNITS/ML 1 mL VIAL SUBCUT SCH (22:37)
[2020-12-03] MEDS: Insulin GLARGINE 100 un/ml 10 ml VIAL SUBCUT SCH (22:37)
[2020-12-04] MEDS: Heparin 5000 UNITS/ML 1 mL VIAL SUBCUT SCH ×3 (07:06→21:44)
[2020-12-04] MEDS: SPIRIVA Respimat (tiotropium) 2.5 mcg/inh Inhaler INH SCH (08:34)
[2020-12-04] MEDS: Calcium/Vitamin D TAB 250/125 TAB PO SCH (10:07)
[2020-12-04] MEDS: Aspirin EC 81 mg TAB.EC (enteric coated) PO SCH (10:08)
[2020-12-04] MEDS: DULoxetine DR 60 mg CAP PO SCH (10:08)
[2020-12-04] MEDS: Cholecalciferol (VIT D3) 1,000 unit TAB PO SCH (10:08)
[2020-12-04] MEDS: Polyethylene Glycol 3350 17 GM PACKET PO PRN (21:35)
[2020-12-04] MEDS: Insulin GLARGINE 100 un/ml 10 ml VIAL SUBCUT SCH (21:43)
[2020-12-05] MEDS: Heparin 5000 UNITS/ML 1 mL VIAL SUBCUT SCH ×3 (06:08→22:53)
[2020-12-05] MEDS: Aspirin EC 81 mg TAB.EC (enteric coated) PO SCH (09:00)
[2020-12-05] MEDS: DULoxetine DR 60 mg CAP PO SCH (09:00)
[2020-12-05] MEDS: Calcium/Vitamin D TAB 250/125 TAB PO SCH (09:00)
[2020-12-05] MEDS: Cholecalciferol (VIT D3) 1,000 unit TAB PO SCH (09:00)
[2020-12-05] MEDS: SPIRIVA Respimat (tiotropium) 2.5 mcg/inh Inhaler INH SCH (10:10)
[2020-12-05] MEDS: Polyethylene Glycol 3350 17 GM PACKET PO PRN (22:48)
[2020-12-05] MEDS: Insulin GLARGINE 100 un/ml 10 ml VIAL SUBCUT SCH (22:49)
[2020-12-06] MEDS: Heparin 5000 UNITS/ML 1 mL VIAL SUBCUT SCH ×2 (05:58→14:54)
[2020-12-06 08:21] LABS: BUN/Creatinine Ratio 20.2 (8-20); Calcium 8.6 mg/dL (8.6-10.3); EGFR African American 12.4 (>60); EGFR Non-African American 10.2 (>60)
[2020-12-06 08:24] LABS: Potassium 5.4 mmol/L (3.5-5.0)
[2020-12-06 09:10] VITALS: BP 143/55
[2020-12-06] MEDS: Aspirin EC 81 mg TAB.EC (enteric coated) PO SCH (09:11)
[2020-12-06] MEDS: DULoxetine DR 60 mg CAP PO SCH (09:12)
[2020-12-06] MEDS: Calcium/Vitamin D TAB 250/125 TAB PO SCH (09:12)
[2020-12-06] MEDS: Cholecalciferol (VIT D3) 1,000 unit TAB PO SCH (09:12)
[2020-12-06] MEDS: SPIRIVA Respimat (tiotropium) 2.5 mcg/inh Inhaler INH SCH (09:46)
[2020-12-06] MEDS ORDERED: DARBEPOETIN ALFA ALBUMEN FREE SUBCUT ONE (14:00)
[2020-12-06] MEDS ORDERED: Sodium Polystyrene ORAL.SUSP 15 GM/60 ML BTL PO ONE (14:00)
[2020-12-06 14:29] LABS: ABS Basophils 0.1 10^3/ul (0-0.2); ABS Eosinophils 0.2 10^3/ul (0-0.6); ABS Lymphocytes 0.8 10^3/ul (1.0-4.8); ABS Monocytes 0.3 10^3/ul (0-0.8); ABS Neutrophils 4.1 10^3/ul (1.5-7.7); Eosinophil % 3.9 %; Hematocrit 27 % (35-47); Lymphocyte % 14.2 %; Mean Corpuscular HGB Conc 33 g/dL (31-36); Mean Corpuscular Hemoglobin 31 pg (27-31); Mean Corpuscular Volume 95 fL (80-97); Mean Platelet Volume 9.3 fL (7.4-10.4); Platelet Count 186 10^3/uL (150-450); Red Blood Count 2.87 10^6 /uL (3.70-4.87); Red Cell Distribution Width 14 % (10-15); White Blood Count 5.4 10^3/uL (3.5-10.8)
[2020-12-06 15:09] LABS: BUN/Creatinine Ratio 20.3 (8-20); Blood Urea Nitrogen 84 mg/dL (6-24); CO2 Carbon Dioxide 27 mmol/L (22-32); Calcium 9.4 mg/dL (8.6-10.3); Chloride 101 mmol/L (101-111); EGFR African American 12.6 (>60); EGFR Non-African American 10.4 (>60); Glucose 149 mg/dL (70-100); Sodium 136 mmol/L (135-145)
[2020-12-06 15:13] LABS: Anion Gap 8 mmol/L (2-11); Potassium 5.8 mmol/L (3.5-5.0)
[2020-12-06 15:15] LABS: Ferritin 159.1 ng/mL (11-307)
[2020-12-06 15:27] LABS: % Iron Saturation 26 % (15-55); Iron 61 ug/dL (50-212); Total Iron Binding Capacity 235 mcg/dL (250-450); Transferrin 168 mg/dL (203-362); Unsaturated Iron Binding < 220 ug/dL
== END 2020-12-06 14:40 | disposition short-term general hospital (02) | DRG 682 ==
LOC: MED 14:01
PROVIDERS: ADMIT Internal Medicine; ATTEND Internal Medicine

== ENCOUNTER 2020-12-06 14:41 | Inpatient (IN) ==
[2020-12-06] MEDS ORDERED: Polyethylene Glycol 3350 17 GM PACKET PO PRN (15:07)
[2020-12-06] MEDS ORDERED: Dextrose 50% Syringe 50 ml 25 GM/50 ML SYRINGE IV PUSH PRN (15:07)
[2020-12-06] MEDS ORDERED: Senna TAB 8.6 mg TAB PO PRN (15:07)
[2020-12-06 16:56] LABS: BUN/Creatinine Ratio 20.1 (8-20); Calcium 9.4 mg/dL (8.6-10.3); EGFR African American 12.5 (>60); EGFR Non-African American 10.3 (>60)
[2020-12-06 17:00] LABS: Potassium 5.8 mmol/L (3.5-5.0)
[2020-12-06 20:09] LABS: Urine Appearance Clear; Urine Bilirubin Negative (Negative); Urine Blood Negative (Negative); Urine Color Straw; Urine Glucose Negative (Negative); Urine Ketones Negative (Negative); Urine Nitrite Negative (Negative); Urine Protein 2+(100 mg/dL) (Negative); Urine Urobilinogen Negative (Negative)
[2020-12-06 20:19] LABS: Urine Bacteria Absent (Absent); Urine Red Blood Cell Absent (Absent); Urine Squamous Epithelial Cell Present (Absent); Urine White Blood Cell Trace(0-5/hpf) (Absent)
[2020-12-06 20:26] LABS: Urine Creatinine Concentration 41.9 mg/dL
[2020-12-06] MEDS: Heparin 5000 UNITS/ML 1 mL VIAL SUBCUT SCH (21:57)
[2020-12-06] MEDS: Insulin GLARGINE 100 un/ml 10 ml VIAL SUBCUT SCH (22:00)
[2020-12-07] MEDS: Heparin 5000 UNITS/ML 1 mL VIAL SUBCUT SCH ×3 (06:28→21:38)
[2020-12-07] MEDS: SPIRIVA Respimat (tiotropium) 2.5 mcg/inh Inhaler INH SCH (08:10)
[2020-12-07] MEDS ORDERED: Sodium Polystyrene ORAL.SUSP 15 GM/60 ML BTL PO ONE (09:00)
[2020-12-07] MEDS: Aspirin EC 81 mg TAB.EC (enteric coated) PO SCH (09:39)
[2020-12-07] MEDS: DULoxetine DR 60 mg CAP PO SCH (09:39)
[2020-12-07] MEDS: Cholecalciferol (VIT D3) 1,000 unit TAB PO SCH (09:39)
[2020-12-07 10:44] LABS: ABS Basophils 0.1 10^3/ul (0-0.2); ABS Eosinophils 0.2 10^3/ul (0-0.6); ABS Lymphocytes 0.7 10^3/ul (1.0-4.8); ABS Monocytes 0.3 10^3/ul (0-0.8); ABS Neutrophils 4.2 10^3/ul (1.5-7.7); Eosinophil % 4.3 %; Hematocrit 28 % (35-47); Hemoglobin 9.1 g/dL (12.0-16.0); Lymphocyte % 13.5 %; Mean Corpuscular HGB Conc 33 g/dL (31-36); Mean Corpuscular Hemoglobin 31 pg (27-31); Mean Corpuscular Volume 94 fL (80-97); Mean Platelet Volume 9.4 fL (7.4-10.4); Platelet Count 219 10^3/uL (150-450); Red Blood Count 2.95 10^6 /uL (3.70-4.87); Red Cell Distribution Width 14 % (10-15); White Blood Count 5.5 10^3/uL (3.5-10.8)
[2020-12-07 11:02] LABS: BUN/Creatinine Ratio 20.2 (8-20); EGFR African American 12.2 (>60); EGFR Non-African American 10.1 (>60)
[2020-12-07 11:12] LABS: Potassium 5.5 mmol/L (3.5-5.0)
[2020-12-07] MEDS: Insulin GLARGINE 100 un/ml 10 ml VIAL SUBCUT SCH (21:36)
[2020-12-08] MEDS: Heparin 5000 UNITS/ML 1 mL VIAL SUBCUT SCH ×3 (06:18→21:54)
[2020-12-08 06:45] LABS: BUN/Creatinine Ratio 20.4 (8-20); EGFR African American 12.4 (>60); EGFR Non-African American 10.2 (>60); Potassium 4.7 mmol/L (3.5-5.0)
[2020-12-08] MEDS: SPIRIVA Respimat (tiotropium) 2.5 mcg/inh Inhaler INH SCH (08:53)
[2020-12-08] MEDS: Cholecalciferol (VIT D3) 1,000 unit TAB PO SCH (10:44)
[2020-12-08] MEDS: DULoxetine DR 60 mg CAP PO SCH (10:44)
[2020-12-08] MEDS: Aspirin EC 81 mg TAB.EC (enteric coated) PO SCH (10:44)
[2020-12-08] MEDS: Insulin GLARGINE 100 un/ml 10 ml VIAL SUBCUT SCH (21:54)
[2020-12-09] MEDS: Heparin 5000 UNITS/ML 1 mL VIAL SUBCUT SCH ×2 (05:41→14:26)
[2020-12-09 07:16] LABS: Calcium 8.9 mg/dL (8.6-10.3); EGFR Non-African American 9.9 (>60); Potassium 4.3 mmol/L (3.5-5.0)
[2020-12-09] MEDS: SPIRIVA Respimat (tiotropium) 2.5 mcg/inh Inhaler INH SCH (08:58)
[2020-12-09 09:01] VITALS: BP 144/44
[2020-12-09] MEDS: Cholecalciferol (VIT D3) 1,000 unit TAB PO SCH (09:02)
[2020-12-09] MEDS: Aspirin EC 81 mg TAB.EC (enteric coated) PO SCH (09:02)
[2020-12-09] MEDS: DULoxetine DR 60 mg CAP PO SCH (09:02)
== END 2020-12-09 15:15 | disposition home health service (06) | DRG 551 ==
LOC: MED 14:41
PROVIDERS: ADMIT Internal Medicine; ATTEND Internal Medicine

== ENCOUNTER 2020-12-22 13:35 | Inpatient (IN) ==
[2020-12-22 15:07] LABS: ABS Eosinophils 0.1 10^3/ul (0-0.6); ABS Lymphocytes 0.6 10^3/ul (1.0-4.8); ABS Monocytes 0.4 10^3/ul (0-0.8); ABS Neutrophils 5.3 10^3/ul (1.5-7.7); Eosinophil % 2.2 %; Hematocrit 26 % (35-47); Hemoglobin 8.5 g/dL (12.0-16.0); Lymphocyte % 9.1 %; Mean Corpuscular HGB Conc 34 g/dL (31-36); Mean Corpuscular Hemoglobin 31 pg (27-31); Mean Corpuscular Volume 93 fL (80-97); Mean Platelet Volume 10.2 fL (7.4-10.4); Platelet Count 136 10^3/uL (150-450); Red Blood Count 2.74 10^6 /uL (3.70-4.87); Red Cell Distribution Width 14 % (10-15); White Blood Count 6.4 10^3/uL (3.5-10.8)
[2020-12-22 15:21] LABS: Urine Appearance Turbid; Urine Bilirubin Negative (Negative); Urine Blood 1+ (Negative); Urine Color Yellow; Urine Glucose Negative (Negative); Urine Ketones Negative (Negative); Urine Nitrite Negative (Negative); Urine Protein 2+(100 mg/dL) (Negative); Urine Specific Gravity 1.013 (1.010-1.030); Urine Urobilinogen Negative (Negative)
[2020-12-22 15:26] LABS: ALT 9 U/L (7-52); AST 13 U/L (13-39); Albumin 3.3 g/dL (3.2-5.2); Albumin/Globulin Ratio 1.1 (1-3); Alkaline Phosphatase 245 U/L (34-104); BUN/Creatinine Ratio 21.9 (8-20); Blood Urea Nitrogen 113 mg/dL (6-24); C Reactive Protein 33.48 mg/L (<8.01); CO2 Carbon Dioxide 29 mmol/L (22-32); Chloride 99 mmol/L (101-111); Creatine Kinase 218 U/L (10-223); EGFR African American 9.8 (>60); EGFR Non-African American 8.1 (>60); Globulin 2.9 g/dL (2-4); Glucose 169 mg/dL (70-100); Sodium 135 mmol/L (135-145); Total Protein 6.2 g/dL (6.4-8.9)
[2020-12-22 15:27] LABS: Anion Gap 7 mmol/L (2-11); Potassium 5.2 mmol/L (3.5-5.0); Urine Bacteria 3+ (Absent); Urine Red Blood Cell 1+(3-5/hpf) (Absent); Urine White Blood Cell 3+(>20/hpf) (Absent)
[2020-12-22 15:28] LABS: Troponin I 0.04 ng/mL (<0.03)
[2020-12-22 15:40] LABS: TSH Ultra Thyroid Stim Horm 1.72 mcIU/mL (0.34-5.60)
[2020-12-22 15:42] LABS: Free T4 3.02 ng/dL (0.61-1.12)
[2020-12-22] MEDS ORDERED: cefTRIAXone 1 gm/50 mL NS BAG 1 GM/50 ML BAG IV ONE (15:53)
[2020-12-22] MEDS ORDERED: Senna TAB 8.6 mg TAB PO PRN (17:08)
[2020-12-22] MEDS ORDERED: Dulaglutide (NF) 1.5 MG/0.5 ML SYRINGE SUBCUT SCH (18:00)
[2020-12-23] MEDS: DULoxetine DR 60 mg CAP PO SCH (08:58)
[2020-12-23] MEDS ORDERED: Cholecalciferol (VIT D3) 1,000 unit TAB PO SCH ×2 (09:00)
[2020-12-23] MEDS ORDERED: SPIRIVA Respimat (tiotropium) 2.5 mcg/inh Inhaler INH SCH (09:00)
[2020-12-23] MEDS ORDERED: Aspirin EC 81 mg TAB.EC (enteric coated) PO SCH (09:00)
[2020-12-23 15:10] LABS: Urine Appearance Cloudy; Urine Bilirubin Negative (Negative); Urine Blood 1+ (Negative); Urine Color Yellow; Urine Glucose 1+(50 mg/dL) (Negative); Urine Ketones Negative (Negative); Urine Nitrite Negative (Negative); Urine Protein 2+(100 mg/dL) (Negative); Urine Specific Gravity 1.012 (1.010-1.030); Urine Urobilinogen Negative (Negative)
[2020-12-23 15:27] LABS: Urine Bacteria 1+ (Absent); Urine Red Blood Cell 2+(6-10/hpf) (Absent); Urine Squamous Epithelial Cell Present (Absent); Urine White Blood Cell 3+(>20/hpf) (Absent)
[2020-12-23] MEDS: cefTRIAXone 1 gm/50 mL NS BAG 1 GM/50 ML BAG IVPB SCH (17:45)
[2020-12-24] MEDS: DULoxetine DR 60 mg CAP PO SCH (08:30)
[2020-12-24] MEDS: cefTRIAXone 1 gm/50 mL NS BAG 1 GM/50 ML BAG IVPB SCH (17:37)
[2020-12-25] MEDS: Polyethylene Glycol 3350 17 GM PACKET PO PRN (08:50)
[2020-12-25] MEDS: DULoxetine DR 60 mg CAP PO SCH (08:51)
[2020-12-25] MEDS ORDERED: Benzocaine (DENTAL) 10% TOP.GEL TOPICAL PRN (09:29)
[2020-12-25] MEDS: cefTRIAXone 1 gm/50 mL NS BAG 1 GM/50 ML BAG IVPB SCH (17:01)
[2020-12-26] MEDS: DULoxetine DR 60 mg CAP PO SCH (10:42)
[2020-12-26] MEDS: Polyethylene Glycol 3350 17 GM PACKET PO PRN (10:46)
[2020-12-26] MEDS: cefTRIAXone 1 gm/50 mL NS BAG 1 GM/50 ML BAG IVPB SCH (18:16)
[2020-12-27] MEDS: DULoxetine DR 60 mg CAP PO SCH (08:50)
[2020-12-28] MEDS: DULoxetine DR 60 mg CAP PO SCH (09:00)
[2020-12-28] MEDS: Morphine ORAL CONCENTRATE 5 MG/0.25 ML ORAL.SYRIN SL PRN (09:22)
[2020-12-29] MEDS: Morphine ORAL CONCENTRATE 5 MG/0.25 ML ORAL.SYRIN SL PRN ×2 (01:17→14:15)
[2020-12-29 08:39] VITALS: BP 127/61
[2020-12-29] MEDS: DULoxetine DR 60 mg CAP PO SCH (09:43)
[2020-12-30] MEDS: Morphine ORAL CONCENTRATE 5 MG/0.25 ML ORAL.SYRIN SL PRN (08:48)
[2020-12-30] MEDS: DULoxetine DR 60 mg CAP PO SCH (08:48)
== END 2020-12-30 14:00 | DRG 689 ==
LOC: ED 13:35 → MEDTELE 17:00 → MED 12-29 01:54
PROVIDERS: ADMIT Internal Medicine; ATTEND Student in an Organized Health Care Education/Training Program